=== PATIENT | male | born 1935 | race Caucasian/White ===

== ENCOUNTER 2023-05-22 15:30 | Inpatient (IN) | payer MEDICARE, MEDICAID, SELFPAY ==
--- NOTE | ~2023-05-22 | CT_ITS ---
EXAMINATION: CT HEAD WITHOUT CONTRAST CLINICAL INFORMATION: Cognitive impairment. COMPARISON: CT head from 05/23/2023. TECHNIQUE: Contiguous axial imaging was performed from the skull base to vertex without intravenous administration of contrast. This CT examination was performed using dose optimization techniques as appropriate, variously including the following: *Automated exposure control. *Adjustment of mA and/or kV according to patient size (this includes techniques or standardized protocols for targeted exams where dose is matched to indication/reason for exam; i.e. extremities or head). *Use of iterative reconstruction technique. DLP: 711 mGy-cm FINDINGS: There is no evidence of acute intracranial hemorrhage or edematous territorial infarction. Jim-white matter differentiation is preserved. A few foci of hypoattenuation in the periventricular and deep white matter are consistent with mild microangiopathy. Proportional prominence of the ventricles and sulcal spaces without evidence of obstructive hydrocephalus. No abnormal mass effect or midline shift. No extra-axial fluid collections. No acute soft tissue or osseous abnormalities. Mild mucosal thickening of the paranasal sinuses. The mastoid air cells and middle ear cavities are clear. Bilateral lens extractions. CT/CT head/brain wo IV con IMPRESSION: 1. No evidence of acute intracranial hemorrhage or edematous territorial infarction. 2. Mild underlying microangiopathy and generalized cerebral volume loss.
[2023-05-22 15:35] VITALS: BP 141/64; PULSE 86; RESP 16; TEMP 36.9; O2SAT 100; BMI 18.5
--- NOTE | 2023-05-22 15:42 | ED_ITS ---
HPI - General Adult General Chief complaint: Altered Mental Status Stated complaint: Hallucinations? Time Seen by Provider: 05/22/23 23:29 Source: family Mode of arrival: ambulatory Limitations: altered mental status History of Present Illness HPI narrative: Patient 87 years old with history of hypothyroidism and hypertension lives alone [place] brought by his granddaughter as patient is increasingly gastric confused and hallucinating the nighttime and not eating much not able to sleep for last 2 days no diagnosis of dementia in the past has not seen any psychiatrist or PCP lately no head injury no fever no chills Related Data Home Medications Medication Instructions Recorded Confirmed levothyroxine 88 mcg tablet 88 mcg PO DAILY 05/23/23 05/23/23 lisinopril 10 mg tablet 10 mg PO DAILY 05/23/23 05/23/23 Allergies Allergy/AdvReac Type Severity Reaction Status Date / Time No Known Allergies Allergy Verified 05/22/23 15:41 Review of Systems 2 Review of Systems: Yes all other systems are reviewed and are negative [facility] Social History Social History Smoked in Last 30 Days: No Use of substances other than those prescribed or required for medical reasons: No Advance Directives: No Advance Directives Information Provided: No Physical Exam ED Vital Signs: Vital Signs - 24 hr 05/22/23 15:35 05/22/23 23:05 05/23/23 01:08 Temperature 98.4 F 98.7 F Pulse Rate 86 84 73 Respiratory Rate 16 16 16 Blood Pressure 141/64 H 177/86 H 135/60 Pulse Oximetry 100 100 Oxygen Delivery Method Room Air Room Air Room Air 05/23/23 05:39 05/23/23 07:37 05/23/23 12:02 Temperature 97.7 F Pulse Rate 88 94 101 H Respiratory Rate 16 18 22 H Blood Pressure 172/91 H 178/88 H 164/93 H Pulse Oximetry 95 96 97 Oxygen Delivery Method Room Air Room Air Room Air BMI result Body Mass Index 18.5 Appearance: Alert. And awake x 2 No acute distress. Eyes: PERRLA, No Nystagmus ENT: Pharynx normal. Oral Mucosa moist Neck: Normal inspection. Neck supple. CVS: Normal heart rate and rhythm. Pulses normal. Respiratory: No respiratory distress. Equal air entry bilateral, no wheezing/rales/rhonchi Abdomen: Soft and nontender. Bowel sounds are present, no mass palpable, no CVA tenderness Skin: Skin warm and dry. Normal skin color. Normal skin turgor. Extremities: No lower extremity edema. No calf tenderness Neuro: Oriented X 2-3. No motor deficit. No sensory deficit.No cerebellar signs , cranial nerves II-XII intact Course Course Course Narrative: RME: 87 yold male brought by [facility] for hallucinations, foregetfullness, paranoid, and feeling things for 1 weeks and a half. Granddaughter met patient in [facility] last Week. [facility] states patient's neighbor states patient has been having this symptoms for the past 6 to 12 months. Labs ordered. Negative for neurodeficits. Medications Administered Generic Name Dose Route Start Last Admin Trade Name Freq PRN Reason Stop Dose Admin Levothyroxine Sodium 88 mcg 05/23/23 07:30 05/23/23 07:34 Levothyroxine Sodium 88 Mcg Tablet PO 88 mcg DAILY@0600 COUNT INCLUDES THE [facility] Administration Lisinopril 10 mg 05/23/23 09:00 05/23/23 07:34 Lisinopril 10 Mg Tablet PO 10 mg DAILY TYRONE Administration Protocol Discontinued Medications Generic Name Dose Route Start Last Admin Trade Name Freq PRN Reason Stop Dose Admin Lorazepam 2 mg 05/23/23 01:55 05/23/23 02:01 Lorazepam 1 Mg Tablet PO 05/23/23 01:56 2 mg ONCE ONE Administration Olanzapine 5 mg 05/22/23 23:41 05/23/23 00:00 Olanzapine 5 Mg Tablet PO 05/22/23 23:42 5 mg ONCE ONE Administration Medical Decision Making Medical Decision Making [facility] Narrative: 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 Labs are stable except for anemia. Will get head CT scan plan to get a care team see the patient for evaluation. Will give Zyprexa for paranoid and sleep family is not sure yet whether they want him prison Differential Diagnosis Differential Diagnoses: The differential diagnosis associated with the presentation includes Dementia with psychosis/metabolic encephalopathy/dementia/JESSE Lab Data [facility] Lab Attestation statement: I reviewed the patient's lab results. 05/22/23 17:31 05/22/23 17:31 Labs: Lab Results 10/08/23 10/08/23 10/08/23 Range/Units 17:27 17:31 23:49 WBC 4.6 L (4.8-10.8) X10*3/uL RBC 3.16 L (4.60-5.80) X10*6/uL Hgb 8.8 L (14.0-18.0) g/dl Hct 27.1 L (42.0-52.0) % MCV 85.8 (80.0-98.0) fL MCH 27.8 (27.0-33.0) pg MCHC 32.5 (31.0-36.0) g/dl RDW 15.4 (11.0-16.0) % Plt Count 178 (160-400) X10*3/uL MPV 9.8 (9.4-12.4) fL Immature Gran % (Auto) 0.2 (0.0-0.4) % Neut % (Auto) 67.0 (45-73) % Lymph % (Auto) 20.5 (20-40) % [place] % (Auto) 9.7 (2-11) % Eos % (Auto) 1.7 (0-4) % Baso % (Auto) 0.9 (0-2) % Lymph # (Auto) 1.0 L (1.2-4.9) X10*3/uL [place] # (Auto) 0.5 (0.1-1.2) X10*3/uL Eos # (Auto) 0.1 (0.0-0.4) X10*3/uL Baso # (Auto) 0.0 (0.0-0.2) X10*3/uL Abs Immat Gran (auto) 0.01 (0.00-0.03) X10*3/uL Absolute Neuts (auto) 3.1 (2.0-8.3) x10*3/uL Absolute Nucleated RBC 0.000 (0.0-0.012) X10*3/uL Nucleated RBC % (auto) 0.0 (0.0-0.2) /100WBC Sodium 137 (135-145) mmol/L Potassium 3.9 (3.3-5.1) mmol/L Chloride 102 (96-108) mmol/L Carbon Dioxide 26 (22-29) mmol/L Anion Gap 13 (12-20) BUN 21 H (9-16) mg/dL Creatinine 0.81 (0.5-1.4) mg/dL Estim Creat Clear Calc 43.5 Estimated GFR > 60 Random Glucose 88 (60-115) mg/dL Calcium 9.5 (8.4-10.2) mg/dL Iron 49 (45-160) mcg/dL TIBC 209 L (228-428) mcg/dL % Saturation 23 (15-50) % Unsat Iron Binding 160 ug/dL Total Bilirubin 0.6 (0.0-1.0) mg/dL AST 18 (5-37) U/L ALT 10 (0-40) U/L Alkaline Phosphatase 65 (39-117) U/L Ammonia 20 (13-55) umol/L Total Protein 6.3 L (6.5-8.0) g/dL Albumin 3.6 (3.5-5.0) g/dL Vitamin B12 492 (200-900) pg/mL Folate 9.3 (> or = 4.0) ng/mL TSH 24.38 H (0.32-4.0) uIU/mL Urine Color Urine Appearance Urine pH (5.0-9.0) Ur Specific [place] (1.005-1.025) Urine Protein (Neg-Trace) mg/dL Urine Glucose (UA) (Negative) mg/dL Urine Ketones (Negative) mg/dL Urine Blood (Negative) Urine Nitrite (Negative) Ur Leukocyte Esterase (Negative) COVID-19 (EZEQUIEL) Negative (Negative) COVID-19 Clin Com See Note 05/23/23 Range/Units 00:24 WBC (4.8-10.8) X10*3/uL RBC (4.60-5.80) X10*6/uL Hgb (14.0-18.0) g/dl Hct (42.0-52.0) % MCV (80.0-98.0) fL MCH (27.0-33.0) pg MCHC (31.0-36.0) g/dl RDW (11.0-16.0) % Plt Count (160-400) X10*3/uL MPV (9.4-12.4) fL Immature Gran % (Auto) (0.0-0.4) % Neut % (Auto) (45-73) % Lymph % (Auto) (20-40) % [place] % (Auto) (2-11) % Eos % (Auto) (0-4) % Baso % (Auto) (0-2) % Lymph # (Auto) (1.2-4.9) X10*3/uL [place] # (Auto) (0.1-1.2) X10*3/uL Eos # (Auto) (0.0-0.4) X10*3/uL Baso # (Auto) (0.0-0.2) X10*3/uL Abs Immat Gran (auto) (0.00-0.03) X10*3/uL Absolute Neuts (auto) (2.0-8.3) x10*3/uL Absolute Nucleated RBC (0.0-0.012) X10*3/uL Nucleated RBC % (auto) (0.0-0.2) /100WBC Sodium (135-145) mmol/L Potassium (3.3-5.1) mmol/L Chloride (96-108) mmol/L Carbon Dioxide (22-29) mmol/L Anion Gap (12-20) BUN (9-16) mg/dL Creatinine (0.5-1.4) mg/dL Estim Creat Clear Calc Estimated GFR Random Glucose (60-115) mg/dL Calcium (8.4-10.2) mg/dL Iron (45-160) mcg/dL TIBC (228-428) mcg/dL % Saturation (15-50) % Unsat Iron Binding ug/dL Total Bilirubin (0.0-1.0) mg/dL AST (5-37) U/L ALT (0-40) U/L Alkaline Phosphatase (39-117) U/L Ammonia (13-55) umol/L Total Protein (6.5-8.0) g/dL Albumin (3.5-5.0) g/dL Vitamin B12 (200-900) pg/mL Folate (> or = 4.0) ng/mL TSH (0.32-4.0) uIU/mL Urine Color Yellow Urine Appearance Clear Urine pH 7.0 (5.0-9.0) Ur Specific [place] 1.010 (1.005-1.025) Urine Protein Negative (Neg-Trace) mg/dL Urine Glucose (UA) Negative (Negative) mg/dL Urine Ketones Negative (Negative) mg/dL Urine Blood Negative (Negative) Urine Nitrite Negative (Negative) Ur Leukocyte Esterase Negative (Negative) COVID-19 (EZEQUIEL) (Negative) COVID-19 Clin Com Radiology Impression Discussion of test interpretation with radiology: I have reviewed the radiologist's reading. Radiologist Impression: CT/CT head/brain wo IV con IMPRESSION: No acute intracranial pathology. Discharge Plan Discharge Clinical Impression: Dementia with psychosis, Anemia of chronic disease Patient Disposition: Still a Patient Prescriptions: No Action levothyroxine 88 mcg Tablet 88 mcg PO DAILY lisinopril 10 mg Tablet 10 mg PO DAILY
[2023-05-22 17:53] LABS: Alanine Aminotransferase 10 U/L (0-40); Albumin Level 3.6 g/dL (3.5-5.0); Alkaline Phosphatase 65 U/L (39-117); Anion Gap 13 (12-20); Aspartate Amino Transferase 18 U/L (5-37); Bilirubin Total 0.6 mg/dL (0.0-1.0); Blood Urea Nitrogen 21 mg/dL (9-16); Calcium 9.5 mg/dL (8.4-10.2); Carbon Dioxide 26 mmol/L (22-29); Chloride 102 mmol/L (96-108); Creatinine Clr Calc Pharmacy 43.5; Estimated Glomerular Filt Rate > 60; Glucose Random 88 mg/dL (60-115); Potassium 3.9 mmol/L (3.3-5.1); Sodium 137 mmol/L (135-145); Total Protein 6.3 g/dL (6.5-8.0)
[2023-05-22 23:05] VITALS: BP 177/86; PULSE 84; RESP 16; TEMP 37.1
[2023-05-22 23:52] LABS: Iron 49 mcg/dL (45-160); Percent Iron Saturation 23 % (15-50); Total Iron Binding Capacity 209 mcg/dL (228-428); Unsaturated Iron Binding 160 ug/dL
[2023-05-23] VITALS (9 sets, daily range): BP systolic 135–178; BP diastolic 56–93; PULSE 73–104; RESP 16–22; TEMP 36.5; O2SAT 94–100
[2023-05-23 00:12] LABS: Thyroid Stimulating Hormone 24.38 uIU/mL (0.32-4.0)
--- NOTE | 2023-05-23 08:08 | PC.NURSE ---
patient resting in bed, respirations equal and unlabored. took morning medications with apple sauce and water. ciro BENNETT at bedside, patient repositioned in bed
--- NOTE | 2023-05-23 13:53 | PM.PSYCN ---
History of Present Illness Date of Service: 05/22/2023 Chief Complaint: Hallucinations? HPI Narrative: Shaye is an 87-year-old [place], gentleman who was brought over from [place] by his granddaughter 2 weeks ago and has been living with his son and [id number]. In the past year he has been exhibiting signs of dementia, auditory and visual hallucinations. He has been eating and sleeping adequately. He is on no medications. He was brought to the emergency room because of concerns about his current mental state and deterioration. Available records were reviewed. No medical findings other than the mental status with regards to dementia and psychotic symptoms. No dangerous behaviors reported Past Psychiatric History: Unknown Reviewed Personal & Social History: Unobtainable Review of Systems Review of Systems Yes Unobtainable due to mental status PMFSH Social History: He lives in [place] and is currently staying with his son and [id number] Substance History: Not known Diagnostics Vital Signs (24Hr): Vital Signs - 24 hr 05/22/23 15:35 05/22/23 23:05 05/23/23 01:08 Temperature 98.4 F 98.7 F Pulse Rate 86 84 73 Respiratory Rate 16 16 16 Blood Pressure 141/64 H 177/86 H 135/60 Pulse Oximetry 100 100 Oxygen Delivery Method Room Air Room Air Room Air 05/23/23 05:39 05/23/23 07:37 05/23/23 12:02 Temperature 97.7 F Pulse Rate 88 94 101 H Respiratory Rate 16 18 22 H Blood Pressure 172/91 H 178/88 H 164/93 H Pulse Oximetry 95 96 97 Oxygen Delivery Method Room Air Room Air Room Air BMI result Body Mass Index 18.5 Labs 05/22/23 17:31 05/22/23 17:31 Labs: Laboratory Results - last 48 hr 05/22/23 05/22/23 05/22/23 17:27 17:31 23:49 WBC 4.6 L RBC 3.16 L Hgb 8.8 L Hct 27.1 L MCV 85.8 MCH 27.8 MCHC 32.5 RDW 15.4 Plt Count 178 MPV 9.8 Immature Gran % (Auto) 0.2 Neut % (Auto) 67.0 Lymph % (Auto) 20.5 [place] % (Auto) 9.7 Eos % (Auto) 1.7 Baso % (Auto) 0.9 Lymph # (Auto) 1.0 L [place] # (Auto) 0.5 Eos # (Auto) 0.1 Baso # (Auto) 0.0 Abs Immat Gran (auto) 0.01 Absolute Neuts (auto) 3.1 Absolute Nucleated RBC 0.000 Nucleated RBC % (auto) 0.0 Sodium 137 Potassium 3.9 Chloride 102 Carbon Dioxide 26 Anion Gap 13 BUN 21 H Creatinine 0.81 Estim Creat Clear Calc 43.5 Estimated GFR > 60 Random Glucose 88 Calcium 9.5 Iron 49 TIBC 209 L % Saturation 23 Unsat Iron Binding 160 Total Bilirubin 0.6 AST 18 ALT 10 Alkaline Phosphatase 65 Ammonia 20 Total Protein 6.3 L Albumin 3.6 Vitamin B12 492 Folate 9.3 TSH 24.38 H Urine Color Urine Appearance Urine pH Ur Specific [place] Urine Protein Urine Glucose (UA) Urine Ketones Urine Blood Urine Nitrite Ur Leukocyte Esterase COVID-19 (EZEQUIEL) Negative COVID-19 Clin Com See Note 05/23/23 00:24 WBC RBC Hgb Hct MCV MCH MCHC RDW Plt Count MPV Immature Gran % (Auto) Neut % (Auto) Lymph % (Auto) [place] % (Auto) Eos % (Auto) Baso % (Auto) Lymph # (Auto) [place] # (Auto) Eos # (Auto) Baso # (Auto) Abs Immat Gran (auto) Absolute Neuts (auto) Absolute Nucleated RBC Nucleated RBC % (auto) Sodium Potassium Chloride Carbon Dioxide Anion Gap BUN Creatinine Estim Creat Clear Calc Estimated GFR Random Glucose Calcium Iron TIBC % Saturation Unsat Iron Binding Total Bilirubin AST ALT Alkaline Phosphatase Ammonia Total Protein Albumin Vitamin B12 Folate TSH Urine Color Yellow Urine Appearance Clear Urine pH 7.0 Ur Specific [place] 1.010 Urine Protein Negative Urine Glucose (UA) Negative Urine Ketones Negative Urine Blood Negative Urine Nitrite Negative Ur Leukocyte Esterase Negative COVID-19 (EZEQUIEL) COVID-19 Clin Com Imaging Radiology Impressions: ITS Impressions Chest X-Ray 05/22/23 16:24 IMPRESSION: Right apical pleural thickening and parenchymal scarring likely chronic changes. There is a right paramediastinal/superior mediastinal soft tissue density question mass. Recommend CT chest for correlation. Head CT 05/23/23 00:42 IMPRESSION: No acute intracranial pathology. Mental Status Exam Mental Status Exam Narrative: Patient was seen in the emergency room. He is laying on his bed, talking, moving his hand and gesticulating. He is not able to answer any questions even with a Yi speaking person. He appears to be having psychotic symptoms. Medications Medications Current Medications Levothyroxine Sodium (Levothyroxine Sodium 88 Mcg Tablet) 88 mcg PO DAILY@0600 [facility] Last Admin: 05/23/23 07:34 Dose: 88 mcg Lisinopril (Lisinopril 10 Mg Tablet) 10 mg PO DAILY [facility]; Protocol Last Admin: 05/23/23 07:34 Dose: 10 mg Allergies Allergies Allergy/AdvReac Type Severity Reaction Status Date / Time No Known Allergies Allergy Verified 05/22/23 15:41 Assessment & Plan Assessment & Plan (1) Dementia with psychosis: Status: Acute Code(s): F03.92 - Unspecified dementia, unspecified severity, with psychotic disturbance Plan Based on history and current presentation a geropsych admission appears to be appropriate. There are no available beds on our unit at this time. He was given Zyprexa last evening which left him a little more agitated and disorganized. My suggestion would be to use Risperdal 1 mg b.i.d. and Thorazine 25 mg q.h.s. p.r.n. for sleep Total time managing care of this patient today ____ minutes.
--- NOTE | 2023-05-23 15:09 | PC.NURSE ---
patient resting in bed, does not appear to be in any distress. patient mumbling to himself, family states its latvian but does not make sense. inpt psych evaluated pt placed med order, medicated per OCT. patient takes meds best with apple sauce or pudding with water. patient respirations equal and unlabored.
--- NOTE | 2023-05-23 18:32 | PC.NURSE ---
patient sleeping in bed, VSS respirations equal and unlabored. patient seems less agitated no long talking / mumbling to self.
--- NOTE | 2023-05-23 20:53 | PC.NURSE ---
assumed care of patient at 1900 pt resting comfortably on stretcher in no apparent distress on rn cardiac cath vital signs stable. call kimbrough within reach. plan of care ongoing
--- NOTE | 2023-05-23 21:47 | PC.NURSE ---
pt took bedtime medications whole with pudding no issues. pt repositioned in bed. provided new blankets. needs met. call kimbrough within reach. plan of care ongoing
--- NOTE | 2023-05-23 23:51 | PC.NURSE ---
pt appeared agitated tossing and turning in bed. senior interactive developer called. needs met. pt denies pain. provided water for thirst but denied wanting any food. warm blanket given. plan of care ongoing
[2023-05-24 05:53] VITALS: RESP 16
[2023-05-24 06:39] VITALS: BP 152/68; PULSE 88; RESP 16; TEMP 36.6; O2SAT 96
--- NOTE | 2023-05-24 08:57 | PC.NURSE ---
pt with delayed swallowing during nursing bedside swallow eval, pt with difficulty following direction d/t ? dementia. pt fully conscious, granddaughter at bedsisde reports same at home. meds in pudding per overnight staff
[2023-05-24 10:36] VITALS: BP 146/60; PULSE 83; RESP 16; O2SAT 98
--- NOTE | 2023-05-24 10:42 | PC.NURSE ---
daughter at bedside, informed daughter and pt using executive producer services of plan of care, plan for pt to be seen by speech/swallow. pt able to report he does have some difficulty swallowing. pt accepted PO meds in pudding well.
--- NOTE | 2023-05-24 11:48 | PM.PSYCN ---
History of Present Illness Date of Service: 05/24/2023 Chief Complaint: Hallucinations? Reason for Consult: combative behaviors Requesting physician: Justus Riley Discussed with referring provider: Yes Sources of Information: patient interviewed, chart reviewed and crisis/core team assessment reviewed HPI Narrative: Mr. Chapman is a 87 year-old male with Dementia who was brought to [facility] due to increase paranoia, increase forgetfulness, not oriented. Pt was brought from [place] two weeks ago as neighbors alerted family here in [place] about his memory impairments and paranoia. In the ED, utox was negative. Head CT showed atrophy. CBC normocytic anemia. CMP- no electrolyte abnormality, Cr. 0.81, BUN slightly elevated 21, creatinine clearance 43.5. TSH elevated 24.38 on levothyroxine. B12 >400, Folate >4. Pt started on thorazine 25mg po qhs and risperidone 1mg po BID. Pt appears somewhat sedated. He has been taking medications as prescribed. No IM last night, no increase agitation. Pt seen with ciro by bedside. Pt pleasant but somnolent. He reports he does not know place. he reports is year 85. then patient starts counting 86, 87, 89, 99, 100! He reports month is October. He reports they gave me a letter. He reports being tired. His ability to understand information given seems very limited. Granddaughter reports at times he does not recognize who she is. He apparently has not been dx with dementia. Past Psychiatric History: Unknown PMFSH Social History: He lives in [place] and is currently staying with his son and [id number] Diagnostics Vital Signs (24Hr): Vital Signs - 24 hr 05/23/23 12:02 05/23/23 14:17 05/23/23 16:01 Temperature Pulse Rate 101 H 102 H 101 H Respiratory Rate 22 H 16 20 Blood Pressure 164/93 H 168/77 H 136/73 Pulse Oximetry 97 95 95 Oxygen Delivery Method Room Air Room Air Room Air 05/23/23 18:03 05/23/23 21:48 05/23/23 22:00 Temperature Pulse Rate 104 H 100 103 H Respiratory Rate 18 20 18 Blood Pressure 146/73 H 142/61 H 148/56 H Pulse Oximetry 96 97 94 Oxygen Delivery Method Room Air Room Air Room Air 05/24/23 05:53 05/24/23 06:39 05/24/23 10:36 Temperature 98 F Pulse Rate 88 83 Respiratory Rate 16 16 16 Blood Pressure 152/68 H 146/60 H Pulse Oximetry 96 98 Oxygen Delivery Method Room Air Room Air BMI result Body Mass Index 18.5 Labs 05/24/23 12:55 05/22/23 17:31 Labs: Laboratory Results - last 48 hr 05/22/23 05/22/23 05/22/23 17:27 17:31 23:49 WBC 4.6 L RBC 3.16 L Hgb 8.8 L Hct 27.1 L MCV 85.8 MCH 27.8 MCHC 32.5 RDW 15.4 Plt Count 178 MPV 9.8 Immature Gran % (Auto) 0.2 Neut % (Auto) 67.0 Lymph % (Auto) 20.5 [place] % (Auto) 9.7 Eos % (Auto) 1.7 Baso % (Auto) 0.9 Lymph # (Auto) 1.0 L [place] # (Auto) 0.5 Eos # (Auto) 0.1 Baso # (Auto) 0.0 Abs Immat Gran (auto) 0.01 Absolute Neuts (auto) 3.1 Absolute Nucleated RBC 0.000 Nucleated RBC % (auto) 0.0 Sodium 137 Potassium 3.9 Chloride 102 Carbon Dioxide 26 Anion Gap 13 BUN 21 H Creatinine 0.81 Estim Creat Clear Calc 43.5 Estimated GFR > 60 Random Glucose 88 Calcium 9.5 Iron 49 TIBC 209 L % Saturation 23 Unsat Iron Binding 160 Total Bilirubin 0.6 AST 18 ALT 10 Alkaline Phosphatase 65 Ammonia 20 Total Protein 6.3 L Albumin 3.6 Vitamin B12 492 Folate 9.3 TSH 24.38 H Urine Color Urine Appearance Urine pH Ur Specific [place] Urine Protein Urine Glucose (UA) Urine Ketones Urine Blood Urine Nitrite Ur Leukocyte Esterase COVID-19 (EZEQUIEL) Negative COVID-19 Clin Com See Note 05/23/23 00:24 WBC RBC Hgb Hct MCV MCH MCHC RDW Plt Count MPV Immature Gran % (Auto) Neut % (Auto) Lymph % (Auto) [place] % (Auto) Eos % (Auto) Baso % (Auto) Lymph # (Auto) [place] # (Auto) Eos # (Auto) Baso # (Auto) Abs Immat Gran (auto) Absolute Neuts (auto) Absolute Nucleated RBC Nucleated RBC % (auto) Sodium Potassium Chloride Carbon Dioxide Anion Gap BUN Creatinine Estim Creat Clear Calc Estimated GFR Random Glucose Calcium Iron TIBC % Saturation Unsat Iron Binding Total Bilirubin AST ALT Alkaline Phosphatase Ammonia Total Protein Albumin Vitamin B12 Folate TSH Urine Color Yellow Urine Appearance Clear Urine pH 7.0 Ur Specific [place] 1.010 Urine Protein Negative Urine Glucose (UA) Negative Urine Ketones Negative Urine Blood Negative Urine Nitrite Negative Ur Leukocyte Esterase Negative COVID-19 (EZEQUIEL) COVID-19 Clin Com Imaging Radiology Impressions: ITS Impressions Chest X-Ray 05/22/23 16:24 IMPRESSION: Right apical pleural thickening and parenchymal scarring likely chronic changes. There is a right paramediastinal/superior mediastinal soft tissue density question mass. Recommend CT chest for correlation. Head CT 05/23/23 00:42 IMPRESSION: No acute intracranial pathology. Mental Status Exam Mental Status Exam Narrative: Appearance:thin, cachectic male, wearing hospital gown, in NAD behavior:somnolent but pleasant when opened his eyes Psychomotor: no agitation or retardation noted Speech:mumbles at times but some clear words, regular rate/rhythm, soft tone, spontaneous TP:confabulation, TC:unintelligible Mood: tired Affect:congruent SI:none HI:none VH/AH:no signs at Delusions: Insight/judgment: memory/cog: alert, only to self. Not oriented to place, situation, month or year. Medications Medications Current Medications Chlorpromazine HCl (Chlorpromazine Hcl 25 Mg Tablet) 25 mg PO BEDTIME [facility] Last Admin: 05/23/23 21:23 Dose: 25 mg Levothyroxine Sodium (Levothyroxine Sodium 88 Mcg Tablet) 88 mcg PO DAILY@0600 [facility] Last Admin: 05/24/23 06:33 Dose: 88 mcg Lisinopril (Lisinopril 10 Mg Tablet) 10 mg PO DAILY [facility]; Protocol Last Admin: 05/24/23 10:36 Dose: 10 mg Risperidone (Risperidone 1 Mg Tablet) 1 mg PO BID [facility] Last Admin: 05/24/23 10:37 Dose: 1 mg Allergies Allergies Allergy/AdvReac Type Severity Reaction Status Date / Time No Known Allergies Allergy Verified 05/22/23 15:41 Assessment & Plan Assessment & Plan (1) Major neurocognitive disorder due to multiple etiologies with behavioral disturbance: Status: Acute Code(s): F02.818 - Dementia in other diseases classified elsewhere, unspecified severity, with other behavioral disturbance Plan Mr. Chapman is a 87 year-old male with Dementia, probably multifactorial who was brought from [place] 2 weeks ago due to increase paranoia, not sleeping, increase confusion. Pt does not appear particularly delirious in that his attention is fairly intact although he is somnolent (probably due to medications). Pt not oriented to place, situation, year or month. He appears to have advanced dementia. He has been having difficulty swallowing, speech therapy ordered for swallowing eval. Will decrease risperidone to 0.5mg po BID, d/c thorazine (anticholinergic), add remeron 15mg po qhs for sleep. PLAN 1. Lower risperidone to 0.5mg po BID. dc thorazine due to anticholigergic s/e (increase confusion/over sedation)and alpha-adrenergic properties more likely to cause ortho HOTN. Will add remeron 15mg po qhs- for sleep, may help with appetite as well as pt malnourished. 2. Pt would benefit from dee inpatient psych for further monitoring of medications, efficacy and s/e Total time managing care of this patient today ____ minutes.
--- NOTE | 2023-05-24 15:36 | MHC.SL.SWA ---
Speech Pathologist Impression: Within Functional Limits Risk of Aspiration Due to: Lethargy Neurological Condition Poor PO Intake Reduced Cognition Dysphasia Diet Status: Assess cognition/memory in Maltese tomorrow. Liquid Consistency and Strategies for Safe Swallow: Liquid Intake Recommendation: Thin Liquid Intake Strategies: Small Sips Unrestricted Solid Food Consistency: Dietary Recommendations: Regular Additional Modifications to Solid Foods: Oral Medication Intake: Please contact the pharmacy regarding appropriate crushable or liquid drug formulations that are available whenever modified delivery is recommended. Compensatory Strategies and Precautions to be Taken for Safe Swallow: Sitting Upright (90 deg) Alternate Liquids/Solids Rate of Ingestion Change Supervision While Eating and Drinking for Safe Swallow: Intermittent Supervision Foods to Avoid: Swallowing Recommended Treatments: Compens. Strategy Educat. Recommendation for Speech: Inpatient Speech Therapy Comment: Recommend Regular Solids and Thin Liquids with Medications Whole with Liquids. Intermittent supervision to monitor tolerance. Pt was able to state name and children's names. He stated he was in [place]. He counted to 10 independently. He recalled 8/12 months of the year insequential order. He named x5/5 objects within the room. He is insightful and aware of his deficits. He reports that he recalls things from his early life, but has difficulty with recent information. More formal assessment of language and cognition is warranted if the Pt remains in the Hospital. Frequency/Duration: Date Range for Service Req: Timeline to reassess: PRN Machine Sneller Clinican/Clinical Fellow: Yes Supervisory Statement: I have reviewed and agree with the student/clinical fellow's documentation: No Speech Language Pathologist: Marcos Johnson M.A., CCC-ASSOCIATE RESEARCH SCIENTIST
--- NOTE | 2023-05-24 17:12 | MHC.CARE ---
Patient to remain in the ED, disposition pending. Information sent to Financial to start the agencyQ application process.
--- NOTE | 2023-05-24 17:22 | PC.NURSE ---
pt placed in a hospital bed, continues to attempt to get out of bed. placed on a [employer] Camera system. VMT room aware pt a fall risk.
--- NOTE | 2023-05-24 19:07 | PC.NURSE ---
This RN assumed care at 1900. Patient in bed with family at bedside and camera monitor. Plan of care ongoing
--- NOTE | 2023-05-24 19:57 | PC.NURSE ---
Patient medicated early per family request while family was at bedside. Patient was refusing to take medication but with family encouragement was able to do so. Report given to overflow as patient is more appropriate for overflow.
[2023-05-24 21:57] VITALS: BP 167/69; PULSE 102; RESP 18; TEMP 36.1; O2SAT 97
[2023-05-24 22:00] VITALS: RESP 20
[2023-05-25 06:17] VITALS: BP 141/67; PULSE 96; RESP 16; TEMP 36.1; O2SAT 94
--- NOTE | 2023-05-25 09:54 | PC.NURSE ---
Granddaughter at bedside. Pt remains asleep at this time. Per granddaughter pt having trouble sleeping.
--- NOTE | 2023-05-25 11:27 | PM.PSYCN ---
History of Present Illness Date of Service: 05/25/2023 Chief Complaint: Hallucinations? Reason for Consult: f/u dementia combative behaviors Discussed with referring provider: Yes Sources of Information: patient interviewed, chart reviewed and crisis/core team assessment reviewed Additional Sources of Information: daughter- Rachel [phone] HPI Narrative: Interim Hx: pt received ativan 2mg po last night- it appears he was trying to get up of bed. Pt slept most morning, woke up around 2pm. He is not oriented to place or situation. He is noted to have difficulty identifying objects and their use- such as looking at blanket and not knowing what it was or what to do with it. Pt's thought process however, is someone linear- no loose associations and able to respond to some simple questions appropriately. When asked if he has pain- pt touched his left shoulder reports when he moves it hurt. Pt appears malnourished- underweight and should be seen by nutricionist. May want to consider also PT Monitor his BP- SBP 180's Past Psychiatric History: Unknown Review of Systems Review of Systems Yes all other systems are reviewed and are negative and Unobtainable due to mental status PMFSH Social History: He lives in [place] and is currently staying with his son and [id number] Diagnostics Vital Signs (24Hr): Vital Signs - 24 hr 05/24/23 21:57 05/24/23 22:00 05/25/23 06:17 Temperature 97 F 97 F Pulse Rate 102 H 96 Respiratory Rate 18 20 16 Blood Pressure 167/69 H 141/67 H Pulse Oximetry 97 94 Oxygen Delivery Method Room Air Room Air BMI result Body Mass Index 18.5 Labs 05/24/23 12:55 05/22/23 17:31 Labs: Laboratory Results - last 48 hr 05/24/23 12:55 WBC 7.2 RBC 3.18 L Hgb 8.9 L Hct 27.3 L MCV 85.8 MCH 28.0 MCHC 32.6 RDW 15.9 Plt Count 174 MPV 9.9 Immature Gran % (Auto) Cancelled Neut % (Auto) Cancelled Lymph % (Auto) Cancelled [place] % (Auto) Cancelled Eos % (Auto) Cancelled Baso % (Auto) Cancelled Lymph # (Auto) Cancelled [place] # (Auto) Cancelled Eos # (Auto) Cancelled Baso # (Auto) Cancelled Abs Immat Gran (auto) Cancelled Absolute Neuts (auto) Cancelled Absolute Nucleated RBC 0.000 Nucleated RBC % (auto) 0.0 Neutrophils % (Manual) 91 H Band Neutrophils % 2 L Lymphocytes % (Manual) 6 L Monocytes % (Manual) 1 L Abs Neuts (Manual) 6.7 Lymphocytes # (Manual) 0.4 L Monocytes # (Manual) 0.1 Platelet Estimate NORMAL Plt Morphology Comment NORMAL RBC Morphology NOTED Schistocytes 1+ (0-2) Imaging Radiology Impressions: ITS Impressions Chest X-Ray 05/22/23 16:24 IMPRESSION: Right apical pleural thickening and parenchymal scarring likely chronic changes. There is a right paramediastinal/superior mediastinal soft tissue density question mass. Recommend CT chest for correlation. Head CT 05/23/23 00:42 IMPRESSION: No acute intracranial pathology. Mental Status Exam Mental Status Exam Narrative: Appearance:thin, cachectic male, wearing hospital gown, in NAD behavior:somnolent but pleasant when opened his eyes Psychomotor: no agitation or retardation noted Speech:mumbles at times but some clear words, regular rate/rhythm, soft tone, spontaneous TP:confabulation, TC:unintelligible Mood: tired Affect:congruent SI:none HI:none VH/AH:no signs at Delusions: Insight/judgment: memory/cog: alert, only to self. Not oriented to place, situation, month or year. Medications Medications Current Medications Levothyroxine Sodium (Levothyroxine Sodium 88 Mcg Tablet) 88 mcg PO DAILY@0600 [facility] Last Admin: 05/25/23 05:59 Dose: 88 mcg Lisinopril (Lisinopril 10 Mg Tablet) 10 mg PO DAILY [facility]; Protocol Last Admin: 05/24/23 10:36 Dose: 10 mg Mirtazapine (Mirtazapine 15 Mg Tablet) 15 mg PO BEDTIME [facility] Last Admin: 05/24/23 19:31 Dose: 15 mg Risperidone (Risperidone Oral Gabby 1 Mg/Ml Solution) 0.5 mg PO TID [facility] Allergies Allergies Allergy/AdvReac Type Severity Reaction Status Date / Time No Known Allergies Allergy Verified 05/22/23 15:41 Assessment & Plan Assessment & Plan (1) Major neurocognitive disorder due to multiple etiologies with behavioral disturbance: Status: Acute Code(s): F02.818 - Dementia in other diseases classified elsewhere, unspecified severity, with other behavioral disturbance Plan Mr. Chapman is a 87 year-old male with Dementia, probably multifactorial who was brought from [place] 2 weeks ago due to increase paranoia, not sleeping, increase confusion. Pt does not appear particularly delirious in that his attention is fairly intact although he is somnolent (probably due to medications). Pt not oriented to place, situation, year or month. He appears to have advanced dementia. He has been having difficulty swallowing, speech therapy ordered for swallowing eval. Will decrease risperidone to 0.5mg po BID, d/c thorazine (anticholinergic), add remeron 15mg po qhs for sleep. PLAN 05/25- Pt appears malnourished- underweight and should be seen by nutricionist. -May want to consider also PT -Monitor his BP- SBP 180's- currently on lisinopril -On exam: he does have mild cogwheel bilat- if risperidone is too high potency antipsychotic for Mr. Chapman, may switch to seroquel- however, sedation may increase. Continue to monitor EKG, Qtc<500ms, K>4, Mg>2. Hold antipsychotic if patient over sedated. -If need to give medication for agitation- try not to give more than 1 mg of ativan, can use low dose of olanzapine 2.5mg IM/PO [id number] keep in mind that olanzapine has alpha adrenergic properties that cause orthostatic HOTN. Avoid polypharmacy and be mindful of total doses of antipsychotic or benzo pt has received as cumulative side effects won't be as evident within few hours or receiving medications. AVOID ANTICHOLINERGIC MEDS, and ANTI HISTAMINE meds to manage agitation ---> Recommendation continues to be that pt is transferred to dee psych unit for further management and aftercare planning. Family has expressed that they want pt to return back home with understanding that pt requires 24/7 care and supervision Total time managing care of this patient today ____ minutes.
--- NOTE | 2023-05-25 12:02 | PC.NURSE ---
Pt remains asleep. Family remains by side. States pt hasnt been sleeping well. Will attempt medication admin when awake. Provider aware.
[2023-05-25 13:39] VITALS: BP 184/70; PULSE 96; RESP 16; TEMP 36.6; O2SAT 97
--- NOTE | 2023-05-25 15:15 | PC.NURSE ---
Pt awoken to attempt to eat and give meds.Pt declining most food taking only bites and sips. Difficult to give meds as pt shaking head frequently saying no. Pt cleaned. Granddaughter call and updated on status, will come back to visit this evening. Deena to bedside and updated as well
--- NOTE | 2023-05-25 17:53 | PC.NURSE ---
Pt remains awake but restless. Appears to be hallucinating, reaching for things not there. When spoken to in Swazi pt noted to have periods to respond appropriately and other times appears confused. Declined dinner.
--- NOTE | 2023-05-25 18:44 | PC.NURSE ---
Pt accepted some of dinner on second attempt. Cleaned and repositioned again. Eyes closed at this time
[2023-05-25 21:10] VITALS: BP 173/86; PULSE 100; RESP 16; TEMP 36; O2SAT 98
[2023-05-25] MEDS: risperiDONE Oral Sol 1 MG/ML SOLUTION 0.5 MG PO (21:11)
[2023-05-25] MEDS: Mirtazapine 15 MG TABLET PO (21:11)
--- NOTE | 2023-05-25 21:15 | PC.NURSE ---
Pt medicated per [facility] Plan of care ongoing.
--- NOTE | 2023-05-25 21:56 | PC.NURSE ---
Pt attempting to get out of bed. Pt redirected back into bed. Kami care performed and clean brief placed and gown placed. Pt repositioned in bed for comfort. Bed changed. Plan of care ongoing.
[2023-05-25] MEDS: LORazepam 0.5 MG TABLET PO (22:54)
--- NOTE | 2023-05-25 23:27 | PC.NURSE ---
Pt attempting to get out of bed. Pt repositioned in bed for comfort. Plan of care ongoing.
--- NOTE | 2023-05-26 00:47 | PC.NURSE ---
Pt attempting to get out of bed. [place] cath placed. Pt changed into clean brief. Pt repositioned in bed for comfort. Plan of care ongoing.
[2023-05-26] MEDS: Levothyroxine Sodium 88 MCG TABLET PO (06:01)
--- NOTE | 2023-05-26 06:06 | PC.NURSE ---
Pt medicated per oct. Plan of care ongoing.
[2023-05-26 07:41] VITALS: BP 173/87; PULSE 79; TEMP 35.8; O2SAT 94
[2023-05-26] MEDS: lisinopriL 10 MG TABLET PO (08:37)
[2023-05-26] MEDS: risperiDONE Oral Sol 1 MG/ML SOLUTION 0.5 MG PO ×3 (08:37→20:16)
[2023-05-26 14:34] VITALS: BP 151/72; PULSE 78; RESP 18; TEMP 36.2; O2SAT 100
--- NOTE | 2023-05-26 16:39 | PC.NURSE ---
report received from overnight RN, federal mediation commissioner per OCT. Pt incontinent - blanchable redness noted to buttocks, care provided as needed. Family member at bedside, assisted with bed bath. Offering no complaints, no distress noted. Pt due to be admitted to S1, report given to receiving RN at 1630. Safety precautions remain in place, call kimbrough within reach. Camera and bed alarm for patient safety.
[2023-05-26 20:01] VITALS: BP 155/74; PULSE 93; RESP 20; TEMP 36.1; O2SAT 100
[2023-05-26] MEDS: Melatonin 3 MG TABLET PO (20:16)
[2023-05-26] MEDS: Mirtazapine 15 MG TABLET PO (20:16)
--- NOTE | 2023-05-27 00:33 | PC.NURSE ---
Assumed care pt at 1900. Pt resting in bed quietly needing minor redirection to stay in bed. PT incontinent of urine, cleaned and changed into dry depends provided by family. PT medicated as per mar- pt initially refusing to take meds, with encouragement from Barbadian speaking tech, pt complied. Bed alarm and video monitoring on for safety. Plan of care ongoing.
--- NOTE | 2023-05-27 01:11 | PC.NURSE ---
[facility] nurse reporting that they are unable to take the PT at this time. Due to current status of the [facility] at this time they are unable to manage a 1:1. They will accept pt in the morning. ED Charge nurse aware
--- NOTE | 2023-05-27 01:33 | PM.EVENT ---
Event Note Date of Service: 05/27/23 Event Note: Medical consult for pt with poorly controlled HTN. Will increase lisinopril to 20mg daily. If pt's BP remains elevated, will consider adding another agent. Will follow for now. Time Spent With Patient Time: Total time managing care of this patient today ____ minutes.
[2023-05-27] MEDS: traZODone HCL 50 MG TABLET PO (02:04)
--- NOTE | 2023-05-27 02:28 | PC.NURSE ---
Pt making several attempts to get out of bed. This Rn and OFFICE MACHINES WIRER have attempted to redirect pt several of time. Administered PRN trazadone- pt held in mouth for a period of time and then spit it out at OFFICE MACHINES WIRER. Video monitoring and bed alarm on. Discussed concerns regarding pt's restlessness with provider. awaiting new orders.
[2023-05-27] MEDS: Haloperidol Lactate 5 MG/ML VIAL IM (02:38)
--- NOTE | 2023-05-27 02:46 | PC.NURSE ---
PT medicated as per OCT. This RN and AERONAUTICAL TEST ENGINEER changed pt's soiled brief and repositioned. Bed alarm on,bed locked in lowest position. Video monitoring and AERONAUTICAL TEST ENGINEER sitting at bedside for safety.
--- NOTE | 2023-05-27 04:11 | PC.NURSE ---
Positive effect from Haldol administration noted initially. PT now is awake and attempting to get out of bed. PT needing continuous redirection and reorientation
[2023-05-27] MEDS: Levothyroxine Sodium 88 MCG TABLET PO (05:11)
--- NOTE | 2023-05-27 05:16 | PC.NURSE ---
PT medicated as per MAR pill crushed in pudding. PT swallowed without issue.
[2023-05-27 05:40] VITALS: BP 157/62; PULSE 70; RESP 20; TEMP 36.1; O2SAT 99
--- NOTE | 2023-05-27 07:12 | PC.NURSE ---
assumed care of pt at 0700. report taken from CHIN Dominguez. pt sleeping in hospital bed, rr even/unlabored. blanket given. pt in brief. 1:1 sitter camera for pt safety. pt resting quietly in no apparent distress. it was communicated to this RN that report was given on this pt to dee psych. awaiting transport when dee psych is ready.
--- NOTE | 2023-05-27 08:00 | PC.NURSE ---
this RN called over to dee psych to get an estimate when pt will be picked up to go to unit. receiving RN told this fiction writer that the pt will be picked up after med pass as there is limited staff on unit and this pt needs a 1:1 care/sitter. diet changed to puree due to report from previous RN that pt should not be a regular diet due to swallowing difficulty. it was communicated to this RN that the pt tolerated pudding while taking meds. pt within eyesight of this RN, sleeping comfortably.
[2023-05-27 09:27] VITALS: BP 133/65; PULSE 64; RESP 16; O2SAT 99
[2023-05-27] MEDS: lisinopriL 20 MG TABLET PO (09:31)
[2023-05-27 09:32] LABS: Estimated Average Glucose 105 mg/dL; Hemoglobin A1c % 5.3 % (<6.0)
[2023-05-27] MEDS: risperiDONE Oral Sol 1 MG/ML SOLUTION 0.5 MG PO ×2 (09:34→17:12)
--- NOTE | 2023-05-27 09:41 | MHC.SL.SWA ---
Speech Pathologist Impression: Risk of aspiration, oropharyngeal dysphagia Risk of Aspiration Due to: Lethargy Neurological Condition Poor PO Intake Reduced Cognition Dysphasia Diet Status: DOWNGRADE to NDD1/NTL Liquid Consistency and Strategies for Safe Swallow: Liquid Intake Recommendation: Selz Thick Liquid Intake Strategies: Small Sips No Straws Solid Food Consistency: Dietary Recommendations: Pureed (NDD1) Additional Modifications to Solid Foods: Pt at this time requiring 1:1 assistance feeding. He has had difficulty chewing and swallowing regular textures. Today evidenced cough on thin liquids. Recommend DOWNGRADE to PUREED solids (NDD1) and NECTAR THICK liquids, pills CRUSHED in PUREE. Ensure aspiration precautions. Diet order was updated by DENIAL RESOLUTION SPECIALIST. Notified care team (MD, RN, RD) via [employer] Message. DENIAL RESOLUTION SPECIALIST will continue to follow. Oral Medication Intake: Crushed with Puree Please contact the pharmacy regarding appropriate crushable or liquid drug formulations that are available whenever modified delivery is recommended. Compensatory Strategies and Precautions to be Taken for Safe Swallow: Sitting Upright (90 deg) No Straw Small Bites and Sips Rate of Ingestion Change Oral Check Supervision While Eating and Drinking for Safe Swallow: Total Assistance (1:1) Swallowing Recommended Treatments: Compens. Strategy Educat. Recommendation for Speech: Inpatient Speech Therapy Date Range for Service Req: Timeline to reassess: PRN Vice President Investor Relations Clinican/Clinical Fellow: Yes Supervisory Statement: I have reviewed and agree with the student/clinical fellow's documentation: No Speech Language Pathologist: Carmela Israel M.A., [facility]-DENIAL RESOLUTION SPECIALIST
[2023-05-27 09:45] LABS: Alanine Aminotransferase 11 U/L (0-40); Albumin Level 3.4 g/dL (3.5-5.0); Alkaline Phosphatase 64 U/L (39-117); Anion Gap 14 (12-20); Aspartate Amino Transferase 19 U/L (5-37); Bilirubin Total 1.3 mg/dL (0.0-1.0); Blood Urea Nitrogen 31 mg/dL (9-16); Calcium 9.8 mg/dL (8.4-10.2); Carbon Dioxide 26 mmol/L (22-29); Chloride 104 mmol/L (96-108); Cholesterol 179 mg/dL (<200); Creatinine Clr Calc Pharmacy 46.3; Estimated Glomerular Filt Rate > 60; Glucose Fasting 97 mg/dL (60-99); HDL Cholesterol 66 mg/dL (>40); LDL Cholesterol Calculated 102 mg/dL (<100); Potassium 3.4 mmol/L (3.3-5.1); Sodium 141 mmol/L (135-145); Total Protein 6.5 g/dL (6.5-8.0); Triglycerides 59 mg/dL (<150)
[2023-05-27 10:00] LABS: Thyroid Stimulating Hormone 23.19 uIU/mL (0.32-4.0)
--- NOTE | 2023-05-27 10:04 | PC.NURSE ---
pt family at bedside. speech eval completed and pt diet downgraded to puree with nectar thickened liquids. pt medicated per oct with morning meds. pill crushed and taken with yogurt. pt tolerated well. new breakfast tray at bedside, pt sleeping. family will attempt to feed pt once awake. rr even/unlabored. sitter camera and bed alarm on for pt safety.
[2023-05-27 10:33] LABS: Folate 10.3 ng/mL (> or = 4.0); Vitamin B12 965 pg/mL (200-900)
--- NOTE | 2023-05-27 12:36 | P.HPPS_ITS ---
HPI Date of Service: 05/27/23 Chief Complaint: dementia combative behaviors Sources of Information: patient interviewed, chart reviewed and crisis/core team assessment reviewed HPI Subjective Notes: [place] Warning and Section 12B Narrative: Mr. Chapman is a 87 year-old male with Dementia who was brought to [facility] due to increase paranoia, increase forgetfulness, not oriented. Pt was brought from [place] two weeks ago as neighbors alerted family here in [place] about his memory impairments and paranoia. In the ED, utox was negative. Head CT showed atrophy. CBC normocytic anemia. CMP- no electrolyte abnormality, Cr. 0.81, BUN slightly elevated 21, creatinine clearance 43.5. TSH elevated 24.38 on levothyroxine. B12 >400, Folate >4. On the unit, pt presents as not oriented to place or situation. He points at staff and states that they are waiting for him to arrest him. He presents somewhat agitated as he thinks staff are police. Pt later able to be redirected. Pt with difficulty sleeping, required haldol 5mg IM last night. Past Psychiatric History: Unknown Medical Evaluation Reviewed: Yes PMFSH Social History: He lives in [place] and is currently staying with his son and [id number] Vital Signs (24Hr): Vital Signs - 24 hr 05/26/23 14:34 05/26/23 20:01 05/27/23 05:40 Temperature 97.2 F 96.9 F 96.9 F Pulse Rate 78 93 70 Respiratory Rate 18 20 20 Blood Pressure 151/72 H 155/74 H 157/62 H Pulse Oximetry 100 100 99 Oxygen Delivery Method Room Air Room Air Room Air 05/27/23 09:27 Temperature Pulse Rate 64 Respiratory Rate 16 Blood Pressure 133/65 Pulse Oximetry 99 Oxygen Delivery Method Room Air BMI result Body Mass Index 18.5 Labs 05/24/23 12:55 05/27/23 09:11 Labs: Laboratory Results - last 48 hr 05/27/23 09:11 Sodium 141 Potassium 3.4 Chloride 104 Carbon Dioxide 26 Anion Gap 14 BUN 31 H Creatinine 0.76 Estim Creat Clear Calc 46.3 Estimated GFR > 60 Fasting Glucose 97 Estimat Average Glucose 105 Hemoglobin A1c % 5.3 Calcium 9.8 Total Bilirubin 1.3 H AST 19 ALT 11 Alkaline Phosphatase 64 Total Protein 6.5 Albumin 3.4 L Triglycerides 59 Cholesterol 179 LDL Cholesterol, Calc 102 H HDL Cholesterol 66 Vitamin B12 965 H Folate 10.3 TSH 23.19 H Imaging Radiology Impressions: ITS Impressions Chest X-Ray 05/22/23 16:24 IMPRESSION: Right apical pleural thickening and parenchymal scarring likely chronic changes. There is a right paramediastinal/superior mediastinal soft tissue density question mass. Recommend CT chest for correlation. Head CT 05/23/23 00:42 IMPRESSION: No acute intracranial pathology. Head CT 05/24/23 13:30 IMPRESSION: 1. No evidence of acute intracranial hemorrhage or edematous territorial infarction. 2. Mild underlying microangiopathy and generalized cerebral volume loss. Meds/Allergies Meds Home Medications Medication Instructions Recorded Confirmed Type levothyroxine 88 mcg tablet 88 mcg PO DAILY 05/23/23 05/23/23 History lisinopril 10 mg tablet 10 mg PO DAILY 05/23/23 05/23/23 History Allergies Allergies Allergy/AdvReac Type Severity Reaction Status Date / Time No Known Allergies Allergy Verified 05/22/23 15:41 Mental Status Exam Mental Status Exam Narrative: Appearance:thin, cachectic male, wearing hospital gown, in NAD behavior:somnolent but pleasant when opened his eyes Psychomotor: no agitation or retardation noted Speech:mumbles at times but some clear words, regular rate/rhythm, soft tone, spontaneous TP:confabulation, TC:unintelligible Mood: tired Affect:congruent SI:none HI:none VH/AH:no signs at Delusions: Insight/judgment: memory/cog: alert, only to self. Not oriented to place, situation, month or year. Assessment & Plan Assessment & Plan (1) Major neurocognitive disorder due to multiple etiologies with behavioral disturbance: Status: Acute Code(s): F02.818 - Dementia in other diseases classified elsewhere, unspecified severity, with other behavioral disturbance Plan Mr. Chapman is a 87 year-old male with Dementia, probably multifactorial who was brought from [place] 2 weeks ago due to increase paranoia, not sleeping, increase confusion. Pt does not appear particularly delirious in that his attention is fairly intact although he is somnolent (probably due to medications). Pt not oriented to place, situation, year or month. He appears to have advanced dementia. He has been having difficulty swallowing, speech therapy ordered for swallowing eval. Will decrease risperidone to 0.5mg po BID, d/c thorazine (anticholinergic), add remeron 15mg po qhs for sleep. PLAN 1. Admit to S1, sect 12b, 1 to 1 due to fall risk 2. will change risperidone to seroquel to help with sleep and target combative behaviors. Continue to monitor EKG, Qtc<500ms, K>4, Mg>2. Hold antipsychotic if patient over sedated. 3. Seen by nutricionist. 4. after care planning Patient educated on: diagnosis Reason for continued inpatient stay Substantial Risk for: inability to function Statement Statement: I have reviewed the history and physical and performed a pertinent examination on my patient. No changes have occurred unless specified. If the History and Physical was not performed prior to admission, the Hospitalist's service will be consulted for completing the admission physical. Time Spent With Patient Time: Total time managing care of this patient today ____ minutes.
--- NOTE | 2023-05-27 12:54 | PC.NURSE ---
pt hygiene performed by WILLIAM Anglin. new brief placed on pt for comfort. CHIN Curran picked up pt to bring over to [facility].
--- NOTE | 2023-05-27 13:30 | MHC.CLN ---
NUTRITION PATIENT NOT YET ON UNIT AT TIME OF VISIT. CLINICAL NUTRITION ASSESSMENT TO FOLLOW.
[2023-05-27 13:32] VITALS: BP 101/50; PULSE 73; RESP 16; TEMP 35.9; O2SAT 96
[2023-05-27 13:33] VITALS: BMI 16.6
[2023-05-27 14:35] VITALS: BMI 16.6
--- NOTE | 2023-05-27 14:46 | MHC.CLN ---
NUTRITION DIET=REGULAR, PUREE, NECTAR THICK LIQUIDS. ADDING FORTIFIED ICE CREAM TID TO PROVIDE ADDITIONAL 870 KCALS, 27 G PROTEIN. QUALIFIES MODERATE MALNUTRITION IN THE CONTEXT OF CHRONIC ILLNESS WITH MODERATE DEPLETION OF BODY FAT AND MUSCLE MASS. SKIN: NO OPEN AREAS. LIMITED HISTORY SINCE LIVING IN [place] UNTIL RECENTLY. FOLLOW FOR INTAKE, DIET TOLERANCE, AND WEIGHT.
--- NOTE | 2023-05-27 15:40 | PC.ADMIT ---
Patient admitted to unit from ED overflow at 1255 pm. Transported by to unit on 12B. Patient is dressed in hospital attire and is Czech speaking only. Per his provider who speaks Czech patient is oriented to self only. Patient recently brought to ID from [place] by daughter/grandchild who were informed he was not able to care for himself. Patient was found to be malnourished and covered in urine and feces with altered mental status. Fearfulness and agitation precipitated admission to ED. Patient also has PMH of HTN, Hypothyroidism. No prior psych treatment or diagnosis. Patient was not taking any meds at home. At this time patient extremely weak. Unable to stand unassisted at this time. Swallow eval done and Pureed diet ordered. Patient requires assistance with eating. Meds to be given crushed with puree. Sanya has been placed on 5 minute checks with bed alarm on. At this time patient is sitting at table in dining area interacting minimally with peers.
[2023-05-27 18:00] VITALS: BP 108/52; PULSE 72; RESP 16; TEMP 36.3; O2SAT 98
--- NOTE | 2023-05-27 18:47 | PC.NURSE ---
Flu shot given
--- NOTE | 2023-05-27 18:55 | PC.NURSE ---
Patient with small skin tear above rectum covered with foam dressing.
[2023-05-27] MEDS: Mirtazapine 30 MG TABLET PO (20:39)
[2023-05-27] MEDS: Melatonin 3 MG TABLET PO (20:39)
[2023-05-27] MEDS: QUEtiapine Fumarate 50 MG TABLET PO (20:40)
[2023-05-27 22:00] VITALS: BP 108/52; PULSE 72; RESP 16; TEMP 36.3; O2SAT 98
[2023-05-28] MEDS: Levothyroxine Sodium 88 MCG TABLET PO (06:12)
[2023-05-28 07:45] VITALS: BP 124/56; PULSE 73; RESP 18; TEMP 36.4; O2SAT 99
[2023-05-28] MEDS: Acetaminophen 325 MG TABLET 650 MG PO (08:07)
[2023-05-28] MEDS: Memantine HCl 5 MG TABLET PO (08:09)
[2023-05-28] MEDS: lisinopriL 20 MG TABLET PO (08:09)
[2023-05-28] MEDS: QUEtiapine Fumarate 25 MG TABLET PO (11:55)
--- NOTE | 2023-05-28 14:13 | PM.EVENT ---
Event Note Date of Service: 05/28/23 Event Note: bp now on lower side, will dc lisiopril, reported to have 20cc of hematuria check ua, cbc, monitor Time Spent With Patient Time: Total time managing care of this patient today ____ minutes.
--- NOTE | 2023-05-28 14:47 | PC.NURSE ---
large amount of blood in diaper with foul odor noted, BP 85/47, rechecked kusum BP 100/[address] Miller who referred to Hospitalist Dr Corona, received new orders for straight cath and blood work, will continue to monitor and assess.
[2023-05-28 14:51] LABS: Hemoglobin 9.2 g/dl (14.0-18.0); Mean Corpuscular HGB Conc 32.9 g/dl (31.0-36.0); Mean Corpuscular Hemoglobin 27.5 pg (27.0-33.0); Mean Corpuscular Volume 83.8 fL (80.0-98.0); Mean Platelet Volume 10.7 fL (9.4-12.4); Platelet Count 172 X10*3/uL (160-400); Red Blood Count 3.34 X10*6/uL (4.60-5.80); Red Cell Distribution Width 15.3 % (11.0-16.0); White Blood Count 6.6 X10*3/uL (4.8-10.8)
[2023-05-28 14:55] LABS: Appearance Urine Hazy; Color Urine RED; Glucose Urine UA Negative (Negative); Leukocyte Esterase Urine Large (3+) (Negative); Nitrite Urine Positive (Negative); PH 8.5 (5.0-9.0); UMIC TRIGGER UA YES; Urine Blood Large (3+) (Negative); Urine Ketones Trace mg/dL (Negative); Urine Protein 300 (3+) mg/dL (Neg-Trace)
[2023-05-28 15:02] LABS: Alanine Aminotransferase 11 U/L (0-40); Albumin Level 3.2 g/dL (3.5-5.0); Alkaline Phosphatase 57 U/L (39-117); Anion Gap 17 (12-20); Aspartate Amino Transferase 16 U/L (5-37); Bilirubin Direct 0.4 mg/dL (0.0-0.5); Blood Urea Nitrogen 50 mg/dL (9-16); Calcium 9.5 mg/dL (8.4-10.2); Carbon Dioxide 24 mmol/L (22-29); Chloride 104 mmol/L (96-108); Creatinine Clr Calc Pharmacy 25.2; Estimated Glomerular Filt Rate 55; Glucose Random 118 mg/dL (60-115); Potassium 3.6 mmol/L (3.3-5.1); Sodium 141 mmol/L (135-145)
[2023-05-28 15:10] LABS: Bacteria Urine 4+ (None Seen); RBC Urine >20 /HPF (0-2); Squamous Epithelial Cell Urine 0-2 /HPF (0-2); WBC Urine >50 /HPF (0-5)
--- NOTE | 2023-05-28 15:30 | PM.DS ---
DS: Providers Provider Date of Service: 05/28/23 Date of admission: 05/26/23 14:31 Primary care physician: Unknown Physician DS: Transfer Hospital Acceptance Reason for Transfer: hematuria transfer to [facility] floor DS: Diagnosis Discharge Diagnosis (1) Major neurocognitive disorder due to multiple etiologies with behavioral disturbance: Status: Acute DS: Summary Hospital Course Hospital Course: developed hematuria and hypotension Time spent discussing smoking cessation with patient: 3 to 10 minutes Status at Discharge Overall status at discharge: other (hematuria transfer to [facility] floor) Time Spent with Patient Time attestation: Total time managing care of this patient today ____ minutes. Discharge coordination time: Less than 30 minutes Quality: Safe Use of Opioids Does Pt have an Active Cancer Diagnosis on the Problem List?: No Quality: Stroke Does the patient have a stroke diagnosis?: No Physical Exam Vital Signs: Vital Signs: Last Vital Signs Temp 97.5 F 05/28/23 07:45 Pulse 73 05/28/23 07:45 Resp 18 05/28/23 07:45 BP 124/56 L 05/28/23 07:45 Pulse Ox 99 05/28/23 07:45 O2 Del Method Room Air 05/28/23 07:45 BMI result Body Mass Index 16.6 DS: Data Data Completed and Pending Labs on day of discharge: Laboratory Results - last 24 hr 05/28/23 05/28/23 14:30 14:40 WBC 6.6 RBC 3.34 L Hgb 9.2 L Hct 28.0 L MCV 83.8 MCH 27.5 MCHC 32.9 RDW 15.3 Plt Count 172 MPV 10.7 Absolute Nucleated RBC 0.000 Nucleated RBC % (auto) 0.0 Sodium 141 Potassium 3.6 Chloride 104 Carbon Dioxide 24 Anion Gap 17 BUN 50 H Creatinine 1.25 Estim Creat Clear Calc 25.2 Estimated GFR 55 Random Glucose 118 H Calcium 9.5 Total Bilirubin 1.0 Direct Bilirubin 0.4 AST 16 ALT 11 Alkaline Phosphatase 57 Total Protein 6.0 L Albumin 3.2 L Urine Color RED Urine Appearance Hazy Urine pH 8.5 Ur Specific [place] 1.010 Urine Protein 300 (3+) H Urine Glucose (UA) Negative Urine Ketones Trace Urine Blood Large (3+) H Urine Nitrite Positive H Ur Leukocyte Esterase Large (3+) H Urine RBC >20 H Urine WBC >50 H Ur Squamous Epith Cells 0-2 Urine Bacteria 4+ Hyaline Casts 3-5 Discharge Plan Discharge Anticipated Discharge Date/Time: 05/28/23 15:19 Patient Disposition: Xfer Other Discharge Diagnosis: hematuria Referrals: Physician,Unknown J [Primary Care Provider] - 1 Week Discharge Medications: New melatonin 3 mg Tablet 3 mg PO BEDTIME 30 Days Qty: 30 0RF quetiapine 50 mg Tablet 50 mg PO BEDTIME 30 Days Qty: 30 0RF quetiapine 25 mg Tablet 25 mg PO Q6H PRN (Reason: agitation) 60 Days Qty: 60 0RF memantine 5 mg Tablet 5 mg PO DAILY 30 Days Qty: 30 0RF mirtazapine 30 mg Tablet 30 mg PO BEDTIME 30 Days Qty: 30 0RF quetiapine 25 mg Tablet 25 mg PO DAILY@1200 30 Days Qty: 30 0RF Continued levothyroxine 88 mcg Tablet 88 mcg PO DAILY No Action lisinopril 10 mg Tablet 10 mg PO DAILY Discharge Orders: Discharge Order (Routine); Ordered 05/28/23 Ordered By: Jaden Miller Diet: Advance to usual diet Activity on Discharge: 1:1 Stand Alone Forms: Patient Portal Discharge page Activity Restrictions/Additional Instructions: hematuria transfer to med floor Care Plan Goals: med floor transfer Health Concerns: med floor tranfser Plan of Treatment: med floor transfer Assessment: med floor transfer
[2023-05-28 16:01] VITALS: BP 102/56; PULSE 76; RESP 18; TEMP 35.9; O2SAT 99
[2023-05-28 17:15] LABS: Free T4 (Free Thyroxine) 1.14 ng/dL (0.71-1.85)
== END 2023-05-28 18:45 | disposition short-term general hospital (02) | DRG 884 ==
LOC: HO.ED 05-24 20:07 → HO.PGERI 05-26 16:09
PROVIDERS: Internal Medicine; Physician Assistant; Social Worker; Admitting Provider Psychiatry & Neurology Psychiatry; Emergency Provider Internal Medicine; Visit Provider Psychiatry & Neurology Psychiatry
DX: F03.92 Unspecified dementia, unspecified severity, with psychotic disturbance (principal); R64 Cachexia; Z68.1 Body mass index [BMI] 19.9 or less, adult; R31.9 Hematuria, unspecified; I95.9 Hypotension, unspecified; I10 Essential (primary) hypertension; E03.9 Hypothyroidism, unspecified; D63.8 Anemia in other chronic diseases classified elsewhere; Z20.822 Contact with and (suspected) exposure to COVID-19; Z23 Encounter for immunization; Z87.891 Personal history of nicotine dependence; Z79.890 Hormone replacement therapy; Z79.899 Other long term (current) drug therapy
CPT/HCPCS: 36415; 70450; 71045; 80048; 80053; 80061; 80076; 81001; 81003; 82140; 82607; 82746; 83036; 83540; 84439; 84443; 85007; 85025; 85027; 87086; 87088; 87186; 87635; 90686; 92526; 93005; 99285; S9485

== ENCOUNTER → 2023-05-22 23:37 | Outpatient (BNV) | payer MEDICARE, SELFPAY | PROVIDERS: Emergency Provider Internal Medicine; Visit Provider Psychiatry & Neurology Psychiatry | DX: F03.92 Unspecified dementia, unspecified severity, with psychotic disturbance (principal) | CPT/HCPCS: 90792; 99232; 99238; 99282; 99285 ==

== ENCOUNTER 2023-05-28 18:53 | Inpatient (IN) | payer MEDICARE, MEDICAID, SELFPAY ==
--- NOTE | ~2023-05-28 | US_ITS ---
EXAMINATION: US PELVIS LIMITED (BLADDER) CLINICAL INFORMATION: Hematuria. COMPARISON: None available. TECHNIQUE: Real-time imaging of the bladder. FINDINGS: BLADDER: The bladder wall is diffusely thickened. There is a Woodard catheter in the bladder. No bladder stone or mass is seen. Bilateral ureteral jets are not demonstrated. Prevoid bladder volume is 141 mL. Postvoid bladder volume not obtained. US/US bladder IMPRESSION: Diffusely thickened bladder wall. Woodard catheter in the bladder.
--- NOTE | 2023-05-28 16:10 | P.HPHOSP_ITS ---
History of Present Illness Date of Service: 05/28/23 Attending physician on admission: Steve Corona Chief Complaint: malodorous urine, hematuria 79-year-old male with history of hypertension, hypothyroidism, unspecified dementia initially admitted to geriatric psychiatry found to be hypotensive with hematuria and malodorous urine today by nursing staff to be admitted to medicine for further evaluation and management. The patient is unable to provide history secondary to his cognitive impairment and is mumbling nonsensically on exam. According to nursing staff, patient was ambulatory upon arrival but last night was requiring 2 person assist to ambulate. This morning has a marked generalized weakness and is unable to ambulate. Today nursing staff noted a foul odor in his room and upon changing his brief noted about 20 cc of bright red blood with malodorous urine. He was noted to have a blood pressure of 85/47 but when checked manually, blood pressure was 100/54. He was afebrile, vitals otherwise stable. There is no leukocytosis. He has a stable normocytic anemia with H/H 9.2/28%. Creatinine has increased to 1.25, baseline around 0.74, BUN 50. He has had decreased p.o. intake. Urinalysis significant for 3+ blood, 3+ leukocytes, positive nitrites, positive urinary sediment, 4+ bacteria. At baseline pt is A&Ox3 per family. Review of Systems Review of Systems: Yes Unobtainable due to mental condition [facility] Medical History (Updated 05/28/23 @ 16:19 by MONA Holley) Major neurocognitive disorder due to multiple etiologies with behavioral disturbance Hypothyroidism Hypertension Social History Household Members: Family Housing: Apartment Do you presently have visiting nurse or other home services: No Unable to assess alcohol history related to: Unable to respond Patient Tobacco Use Status: Former Tobacco user Second Hand Smoke Exposure: No Advance Directives: No Advance Directives Information Provided: No service: No Sexual orientation: Straight/Heterosexual Meds Allergies Allergy/AdvReac Type Severity Reaction Status Date / Time No Known Allergies Allergy Verified 05/22/23 15:41 Home Medications Medication Instructions Recorded Confirmed Last Taken Type levothyroxine 88 mcg tablet 88 mcg PO DAILY 05/23/23 05/23/23 Unknown History lisinopril 10 mg tablet 10 mg PO DAILY 05/23/23 05/23/23 Unknown History Physical Exam Vital Signs and Narrative: Constitutional - Awake and Alert, No apparent distress Eyes - PERRLA, EOMI Cardiovascular - S1S2, RRR, No edema Respiratory - Normal lung expansion, Normal respiratory effort, No respiratory distress, CTA bilaterally Gastrointestinal - NT / ND; +BS; No rebound or guarding Extremities - no calf tenderness bilaterally, no swelling Skin - Warm/Dry Neurological - Alert & disoriented, mumbling nonsensically Psychological - Appropriate affect Assessment and Plan (1) UTI (urinary tract infection): Status: Acute (2) Acute metabolic encephalopathy: Status: Acute (3) Hematuria: Status: Acute Plan 79-year-old male with history of hypertension, hypothyroidism, unspecified demen tia initially admitted to geriatric psychiatry found to be hypotensive with hematuria and malodorous urine today by nursing staff to be admitted to medicine for further evaluation and management of UTI with gross hematuria, metabolic enephalopathy and weakness. #UTI with acute metabolic encephalopathy -UA with 3+ leukocytes, positive nitrites, 3+ blood, positive urinary sediment, 4+ bacteria -IV ceftriaxone -Woodard catheter, consider CBI if hematuria persists -monitor mentation, major cognitive disorder at baseline per psych but family reports alert and oriented x3 -follow cultures # acute kidney injury-likely prerenal in the setting of poor p.o. intake -creatinine 1.25, baseline 0.74, BUN 50 -continue IVF -avoid nephrotoxins -follow BMP # generalized weakness -secondary to above -PT evaluation # hypertension -hold lisinopril in setting of AUNG -monitor blood pressures # hypothyroidism -TSH 23, likely sick euthyroid -check free T4 -continue levothyroxine 88 mcg DVT prophylaxis-heparin Full code Dispo- will likely need care team consult to return to dee-psych Patient requires inpatient stay at least 2 midnights for management of acute UTI with acute kidney injury and generalized weakness requiring IV fluid resuscitation, IV antibiotics and close monitoring Time Spent With Patient Time: Total time managing care of this patient today ____ minutes. Quality Stroke Does the patient have a stroke diagnosis?: No VTE Prior VTE?: No VTE Risk Level:: Medical - moderate - high VTE Device Contraindication: Treatment Not Indicated VTE Drug Contraindication: N/A - Med Ordered
[2023-05-28] MEDS: cefTRIAXone sodium 1 GM in 0.9 % Sodium Chloride 50 ML IV (19:54)
[2023-05-28] MEDS: 0.9 % Sodium Chloride 1,000 ML 100 ML IVCONT (19:55)
[2023-05-28 20:00] VITALS: BP 114/58; PULSE 75; RESP 20; TEMP 36; O2SAT 98
--- NOTE | 2023-05-28 22:03 | PC.NURSE ---
1900 pt arrived to floor from [facility].IV stared #20 angio in left forearm.NS at 100/hr started and IV Rocephin given.#16FR silva cath inserted draining bloody urine.
[2023-05-28 23:21] VITALS: BMI 16.1
[2023-05-29 03:38] VITALS: BP 100/55; PULSE 70; RESP 16; TEMP 36.4; O2SAT 97
[2023-05-29] MEDS: 0.9 % Sodium Chloride 1,000 ML 100 ML IVCONT ×2 (05:08→19:56)
[2023-05-29 06:50] LABS: Hematocrit 27.2 % (42.0-52.0); Hemoglobin 8.8 g/dl (14.0-18.0); Mean Corpuscular HGB Conc 32.4 g/dl (31.0-36.0); Mean Corpuscular Hemoglobin 27.1 pg (27.0-33.0); Mean Corpuscular Volume 83.7 fL (80.0-98.0); Platelet Count 189 X10*3/uL (160-400); Red Blood Count 3.25 X10*6/uL (4.60-5.80); Red Cell Distribution Width 15.5 % (11.0-16.0); White Blood Count 7.8 X10*3/uL (4.8-10.8)
[2023-05-29 07:08] LABS: Anion Gap 15 (12-20); Blood Urea Nitrogen 40 mg/dL (9-16); Calcium 9.2 mg/dL (8.4-10.2); Carbon Dioxide 26 mmol/L (22-29); Chloride 107 mmol/L (96-108); Creatinine Clr Calc Pharmacy 34.4; Estimated Glomerular Filt Rate > 60; Glucose Random 81 mg/dL (60-115); Potassium 3.6 mmol/L (3.3-5.1); Sodium 144 mmol/L (135-145)
[2023-05-29 07:35] LABS: Band Neutrophils Percent 1 % (3-5); Lymphocytes Absolute Manual 0.6 X10*3/uL (1.2-4.9); Lymphocytes Percent Manual 8 % (20-40); Monocytes Absolute Manual 0.5 X10*3/uL (0.1-1.2); Monocytes Percent Manual 6 % (2-11); Neutrophils Absolute Manual 6.7 X10*3/uL (2.0-8.3); Neutrophils Percent Manual 85 % (45-73)
[2023-05-29 07:37] LABS: Acanthocytes 2+ (3-5) /OIF; RBC Morphology NOTED; Schistocytes 1+ (0-2) /OIF
[2023-05-29 07:38] LABS: Platelet Estimate NORMAL (NORMAL); Platelet Morphology Comment NORMAL
[2023-05-29 08:00] VITALS: BP 147/64; PULSE 75; RESP 12; TEMP 36.9; O2SAT 96
--- NOTE | 2023-05-29 10:27 | PHA.MEDREC ---
Pharmacy Consult ? Medication Reconciliation Spoke with patient daughter and confirmed medications . She stated patient was non compliant . Pharmacy has completed the medication reconciliation.
--- NOTE | 2023-05-29 10:57 | P.PNIM_ITS ---
Subjective Subjective Date of Service: 05/29/23 Interval History: hematuria improving Physical Exam 2 Vital Signs: Vital Signs: Last Vital Signs Temp 98.4 F 05/29/23 08:00 Pulse 75 05/29/23 08:00 Resp 12 05/29/23 08:00 BP 147/64 H 05/29/23 08:00 Pulse Ox 96 05/29/23 08:00 O2 Del Method Room Air 05/29/23 08:00 BMI result Body Mass Index 16.1 comfortable, frail, confused, hematuria improved Objective Data Active Medications Acetaminophen (Acetaminophen 325 Mg Tablet) 650 mg PO Q6H PRN PRN Reason: Pain, Mild (Pain Scale 1-3) Docusate Sodium (Docusate Sodium 100 Mg Capsule) 100 mg PO DAILY PRN PRN Reason: Constipation Sodium Chloride (Ns) 1,000 mls @ 100 mls/hr IVCONT .Q10H [facility] Last Admin: 05/29/23 05:08 Dose: 100 mls/hr Documented By: MOLLY Ceftriaxone Sodium 1 gm/ (Sodium Chloride) 50 mls @ 100 mls/hr IV Q24H [facility] Last Infusion: 05/28/23 20:39 Dose: Infused Documented By: MOLLY Levothyroxine Sodium (Levothyroxine Sodium 88 Mcg Tablet) 88 mcg PO DAILY@0600 [facility] Last Admin: 05/29/23 05:50 Dose: Not Given Documented By: MOLLY Non-Admin Reason: Patient Refused Melatonin (Melatonin 3 Mg Tablet) 3 mg PO BEDTIME [facility] Last Admin: 05/28/23 22:59 Dose: Not Given Documented By: MOLLY Non-Admin Reason: Patient Refused Memantine (Memantine Hcl 5 Mg Tablet) 5 mg PO DAILY [facility] Last Admin: 05/29/23 09:43 Dose: Not Given Documented By: FOZIA Non-Admin Reason: Patient Refused Mirtazapine (Mirtazapine 30 Mg Tablet) 30 mg PO BEDTIME [facility] Last Admin: 05/28/23 22:59 Dose: Not Given Documented By: MOLLY Non-Admin Reason: Patient Refused Ondansetron HCl (Ondansetron Hcl 4 Mg/2 Ml Vial) 4 mg IVPUSH Q8H PRN PRN Reason: Nausea and Vomiting Quetiapine Fumarate (Quetiapine Fumarate 25 Mg Tablet) 25 mg PO Q6H PRN PRN Reason: aggitation Quetiapine Fumarate (Quetiapine Fumarate 50 Mg Tablet) 50 mg PO BEDTIME [facility] Last Admin: 05/28/23 22:59 Dose: Not Given Documented By: MOLLY Non-Admin Reason: Patient Refused Quetiapine Fumarate (Quetiapine Fumarate 25 Mg Tablet) 25 mg PO DAILY@1200 TYRONE Sodium Chloride (0.9 % Sodium Chloride Flush 3 Ml Syringe) 3 ml IVFLUSH QSHIFT [facility] Last Admin: 05/29/23 09:24 Dose: Not Given Documented By: FOZIA Non-Admin Reason: IV Running Labs 05/29/23 05:48 05/29/23 05:48 Labs: Laboratory Results - last 24 hr 05/29/23 05:48 MCV 83.7 MCH 27.1 MCHC 32.4 RDW 15.5 Plt Count 189 MPV 11.0 Immature Gran % (Auto) Cancelled Neut % (Auto) Cancelled Lymph % (Auto) Cancelled [place] % (Auto) Cancelled Eos % (Auto) Cancelled Baso % (Auto) Cancelled Lymph # (Auto) Cancelled [place] # (Auto) Cancelled Eos # (Auto) Cancelled Baso # (Auto) Cancelled Abs Immat Gran (auto) Cancelled Absolute Neuts (auto) Cancelled Absolute Nucleated RBC 0.000 Nucleated RBC % (auto) 0.0 Neutrophils % (Manual) 85 H Band Neutrophils % 1 L Lymphocytes % (Manual) 8 L Monocytes % (Manual) 6 Abs Neuts (Manual) 6.7 Lymphocytes # (Manual) 0.6 L Monocytes # (Manual) 0.5 Platelet Estimate NORMAL Plt Morphology Comment NORMAL RBC Morphology NOTED Acanthocytes (Spur) 2+ (3-5) Schistocytes 1+ (0-2) Anion Gap 15 Estim Creat Clear Calc 34.4 Estimated GFR > 60 Random Glucose 81 Calcium 9.2 Assessment and Plan (1) UTI (urinary tract infection): Status: Acute Plan 79M PMH hypertension, hypothyroidism, unspecified dementia admitted from [facility] for hypotension and hematuria Acute metabolic encephalopathy due to urinary tract infection complicated by hematuria Continue ceftriaxone, hematuria improved Acute kidney injury Resolved Hypertension Lisinopril on hold for hypotension Hypothyroid Continue Synthroid DVT prophylaxis with heparin Full code Reason for continued hospitalization: Awaiting cultures Time Spent With Patient Time: Total time managing care of this patient today ____ minutes. Quality Stroke Does the patient have a stroke diagnosis?: No VTE Prior VTE?: No VTE Risk Level:: Medical - moderate - high VTE Device Contraindication: Treatment Not Indicated VTE Drug Contraindication: N/A - Med Ordered
--- NOTE | 2023-05-29 15:56 | MHC.CM.PN ---
CM MET WITH PTS GRAND DAUGHTER AND HER MOTHER AT BEDSIDE THEY REPORT PT RECENTLY MOVED HER FROM [place] SO DOES NOT HAVE ANY PROVIDERS YET FOR NOW HE IS STAYING WITH THE MOTHER OF HIS GRAND DAUGHTER GRAND DAUGHTER STATES HE HAS NO SERVICES AND NO DME HE ALSO HAS NO PCP GRANDDAUGHTER REPORTS SHE HAS ALREADY COMPLETED A [employer] APPLICATION FOR THE PATIENT GRANDDAUGHTER INITIALLY SAYS PT HAS NO HCP OR GUARDIANSHIP BUT STATES SHE IS UNFAMILIAR WITH WHAT THESE ARE AND HOW HE WOULD HAVE GOTTEN ONE SHE STATES HE DID TELL HER HE WAS GOING TO APPOINT HER BUT AGAIN, THEY DO NOT KNOW HOW CM EXPLAINED THE REQUIREMENTS FOR COMPLETING A HCP INCLUDING PTS MENTATION CM PROVIDED INFORMATION AND DOCUMENT FOR HER TO REVIEW AND EXPLAINED CM WOULD CHECK WITH PT DAILY TO DETERMINE IF HE IS ABLE TO COMPLETE A HCP AND IF AT ANY TIME HIS MENTATION IMPROVES ENOUGH TO DO SO, ONE WILL BE COMPLETED PTS MEDICARE RIGHTS WERE REVIEWED DCP: PT EXPECTED TO DC HOME WITH RESUMPTION OF FAMILY CARE VIA BLS.
[2023-05-29 16:00] VITALS: BP 135/63; PULSE 90; RESP 16; TEMP 36.5; O2SAT 98
[2023-05-29] MEDS: cefTRIAXone sodium 1 GM in 0.9 % Sodium Chloride 50 ML IV (16:40)
[2023-05-29] MEDS: 0.9 % Sodium Chloride Flush 3 ML SYRINGE IVFLUSH (16:57)
[2023-05-29 19:26] VITALS: BP 135/66; PULSE 93; RESP 14; TEMP 36.1; O2SAT 98
[2023-05-29] MEDS: Mirtazapine 30 MG TABLET PO (19:55)
[2023-05-29] MEDS: QUEtiapine Fumarate 50 MG TABLET PO (19:55)
[2023-05-29] MEDS: Melatonin 3 MG TABLET PO (19:55)
[2023-05-30 03:03] VITALS: BP 153/67; PULSE 93; RESP 16; TEMP 36.3; O2SAT 96
[2023-05-30] MEDS: Levothyroxine Sodium 88 MCG TABLET PO (06:05)
[2023-05-30] MEDS: 0.9 % Sodium Chloride 1,000 ML 100 ML IVCONT (06:06)
[2023-05-30 07:39] VITALS: BP 168/81; PULSE 98; RESP 18; TEMP 36.3; O2SAT 96
--- NOTE | 2023-05-30 09:07 | P.PNIM_ITS ---
Subjective Subjective Date of Service: 05/30/23 Review of Systems Review of Systems: Yes Unobtainable due to mental condition Physical Exam 2 Vital Signs: Vital Signs: Last Vital Signs Temp 97.3 F 05/30/23 07:39 Pulse 98 05/30/23 07:39 Resp 18 05/30/23 07:39 BP 168/81 H 05/30/23 07:39 Pulse Ox 96 05/30/23 07:39 O2 Del Method Room Air 05/30/23 07:39 BMI result Body Mass Index 16.1 lethargic, hematuria resolved Objective Data Active Medications Acetaminophen (Acetaminophen 325 Mg Tablet) 650 mg PO Q6H PRN PRN Reason: Pain, Mild (Pain Scale 1-3) Cefuroxime Axetil (Cefuroxime Axetil 500 Mg Tablet) 500 mg PO Q12H [facility] Docusate Sodium (Docusate Sodium 100 Mg Capsule) 100 mg PO DAILY PRN PRN Reason: Constipation Sodium Chloride (Ns) 1,000 mls @ 100 mls/hr IVCONT .Q10H [facility] Last Admin: 05/30/23 06:06 Dose: 100 mls/hr Documented By: PATRICIA Levothyroxine Sodium (Levothyroxine Sodium 88 Mcg Tablet) 88 mcg PO DAILY@0600 [facility] Last Admin: 05/30/23 06:05 Dose: 88 mcg Documented By: PATRICIA Melatonin (Melatonin 3 Mg Tablet) 3 mg PO BEDTIME [facility] Last Admin: 05/29/23 19:55 Dose: 3 mg Documented By: PATRICIA Memantine (Memantine Hcl 5 Mg Tablet) 5 mg PO DAILY [facility] Last Admin: 05/29/23 09:43 Dose: Not Given Documented By: FOZIA Non-Admin Reason: Patient Refused Mirtazapine (Mirtazapine 30 Mg Tablet) 30 mg PO BEDTIME [facility] Last Admin: 05/29/23 19:55 Dose: 30 mg Documented By: PATRICIA Ondansetron HCl (Ondansetron Hcl 4 Mg/2 Ml Vial) 4 mg IVPUSH Q8H PRN PRN Reason: Nausea and Vomiting Quetiapine Fumarate (Quetiapine Fumarate 25 Mg Tablet) 25 mg PO Q6H PRN PRN Reason: aggitation Quetiapine Fumarate (Quetiapine Fumarate 50 Mg Tablet) 50 mg PO BEDTIME [facility] Last Admin: 05/29/23 19:55 Dose: 50 mg Documented By: PATRICIA Quetiapine Fumarate (Quetiapine Fumarate 25 Mg Tablet) 25 mg PO DAILY@1200 [facility] Last Admin: 05/29/23 13:03 Dose: Not Given Documented By: FOZIA Non-Admin Reason: Patient Refused Sodium Chloride (0.9 % Sodium Chloride Flush 3 Ml Syringe) 3 ml IVFLUSH QSHIFT [facility] Last Admin: 05/29/23 23:48 Dose: Not Given Documented By: PATRICIA Non-Admin Reason: IV Running Labs 05/29/23 05:48 05/29/23 05:48 Assessment and Plan (1) UTI (urinary tract infection): Status: Acute Plan 79M PMH hypertension, hypothyroidism, unspecified dementia admitted from [facility] psych for hypotension and hematuria Acute metabolic encephalopathy due to urinary tract infection complicated by hematuria urine growing proteus, hematuria resolved voiding trial, change to ceftin dementia uspecified with hypoactive delerium monitor psych follow up Acute kidney injury Resolved Hypertension Lisinopril Hypothyroid Continue Synthroid DVT prophylaxis with heparin Full code Reason for continued hospitalization: Awaiting [facility] bed Time Spent With Patient Time: Total time managing care of this patient today ____ minutes. Quality Stroke Does the patient have a stroke diagnosis?: No VTE Prior VTE?: No VTE Risk Level:: Medical - moderate - high VTE Device Contraindication: Treatment Not Indicated VTE Drug Contraindication: N/A - Med Ordered
[2023-05-30 10:55] LABS: Hematocrit 27.9 % (42.0-52.0); Hemoglobin 8.9 g/dl (14.0-18.0); Mean Corpuscular HGB Conc 31.9 g/dl (31.0-36.0); Mean Corpuscular Hemoglobin 27.1 pg (27.0-33.0); Mean Corpuscular Volume 84.8 fL (80.0-98.0); Mean Platelet Volume 11.1 fL (9.4-12.4); Platelet Count 200 X10*3/uL (160-400); Red Blood Count 3.29 X10*6/uL (4.60-5.80); Red Cell Distribution Width 15.7 % (11.0-16.0); White Blood Count 5.5 X10*3/uL (4.8-10.8)
[2023-05-30 11:07] LABS: Anion Gap 14 (12-20); Blood Urea Nitrogen 36 mg/dL (9-16); Calcium 9.2 mg/dL (8.4-10.2); Carbon Dioxide 23 mmol/L (22-29); Chloride 111 mmol/L (96-108); Creatinine Clr Calc Pharmacy 37.4; Estimated Glomerular Filt Rate > 60; Glucose Fasting 75 mg/dL (60-99); Potassium 3.4 mmol/L (3.3-5.1); Sodium 145 mmol/L (135-145)
[2023-05-30 11:31] VITALS: BMI 16.1
--- NOTE | 2023-05-30 11:48 | MHC.CLN ---
NUTRITION CONSULT FOR MALNUTRITION. DIET=REGULAR, PUREE WITH NECTAR THICK LIQUIDS. ADDING FORTIFIED ICE CREAM TID TO PROVIDE ADDITIONAL 870 KCALS, 27 G PROTEIN. QUALIFIES MODERATE MALNUTRITION IN THE CONTEXT OF CHRONIC ILLNESS. SHOWS MODERATE DELETION OF BODY FAT AND MUSCLE MASS. SKIN WITH RAAD=13, NO OPEN AREAS. ORIGINALLY ADMITTED TO [facility] PS[facility] AND ASSESSED BY RD 05/27/23. HX OF POOR PO PRIOR TO ADMIT. FOLLOW FOR INTAKE, DIET TOLERANCE, AND WEIGHT. SEE CLINICAL NUTRITION ASSESSMENT 05/30/23.
[2023-05-30 12:06] VITALS: BP 134/67; PULSE 84
[2023-05-30] MEDS: QUEtiapine Fumarate 25 MG TABLET PO (12:56)
[2023-05-30] MEDS: Memantine HCl 5 MG TABLET PO (12:57)
[2023-05-30] MEDS: lisinopriL 10 MG TABLET PO (12:57)
[2023-05-30 15:15] VITALS: BP 166/76; PULSE 86; RESP 18; TEMP 36.3; O2SAT 95
--- NOTE | 2023-05-30 15:34 | MHC.CM.PN ---
Patient sent from [facility] is now medically cleared. A Care team consult has been ordered. The Care team will assess the patient for [facility] admission.
[2023-05-30 19:47] VITALS: BP 168/70; PULSE 89; RESP 17; TEMP 36.5; O2SAT 95
[2023-05-30] MEDS: QUEtiapine Fumarate 50 MG TABLET PO (21:12)
[2023-05-30] MEDS: Mirtazapine 15 MG TABLET PO (21:12)
[2023-05-30] MEDS: 0.9 % Sodium Chloride Flush 3 ML SYRINGE IVFLUSH (21:12)
[2023-05-30] MEDS: Melatonin 3 MG TABLET PO (21:12)
[2023-05-31 03:38] VITALS: BP 174/66; PULSE 77; RESP 17; TEMP 36.5; O2SAT 97
[2023-05-31] MEDS: Levothyroxine Sodium 88 MCG TABLET PO (05:36)
--- NOTE | 2023-05-31 06:19 | PC.NURSE ---
At 2200 Pt hasn't voided since silva was out at noon, bladder scannshowed 244ml, Dr. Abad was updated, ordered to straight cath if bladder scan is more than 400ml, pt drunk a cup of thickened water, voided around midnight
[2023-05-31 07:22] VITALS: BP 194/88; PULSE 85; RESP 20; TEMP 36.5; O2SAT 95
[2023-05-31 08:19] VITALS: BP 142/80
--- NOTE | 2023-05-31 09:17 | P.DS_ITS ---
DS: Providers Provider Date of Service: 05/31/23 Date of admission: 05/28/23 18:53 Primary care physician: Unknown Physician Consults: 05/30/23 09:09 Consult to Psychiatry Routine Consulting Provider: Psych Covering Reason for consultation: medically stable, ?return to [facility] 05/30/23 12:47 Consult to Care Team Routine Comment: Reason for consultation: medically cleared DS: Diagnosis Discharge Diagnosis (1) UTI (urinary tract infection): Status: Acute DS: Summary Hospital Course Hospital Course: from initial hpi: 79-year-old male with history of hypertension, hypothyroidism, unspecified dementia initially admitted to geriatric psychiatry found to be hypotensive with hematuria and malodorous urine today by nursing staff to be admitted to medicine for further evaluation and management. The patient is unable to provide history secondary to his cognitive impairment and is mumbling nonsensically on exam. According to nursing staff, patient was ambulatory upon arrival but last night was requiring 2 person assist to ambulate. This morning has a marked generalized weakness and is unable to ambulate. Today nursing staff noted a foul odor in his room and upon changing his brief noted about 20 cc of bright red blood with malodorous urine. He was noted to have a blood pressure of 85/47 but when checked manually, blood pressure was 100/54. He was afebrile, vitals otherwise stable. There is no leukocytosis. He has a stable normocytic anemia with H/H 9.2/28%. Creatinine has increased to 1.25, baseline around 0.74, BUN 50. He has had decreased p.o. intake. Urinalysis significant for 3+ blood, 3+ leukocytes, positive nitrites, positive urinary sediment, 4+ bacteria. At baseline pt is A&Ox3 per family. hospital course: Patient was admitted for acute metabolic encephalopathy due to urinary tract infection complicated by hematuria relative hypotension. He was treated with IV ceftriaxone. Urine grew Proteus, hematuria resolved. He underwent voiding trial which was successful. He was changed to cefuroxime and will complete total of 7 days. For day dementia unspecified with hypoactive delirium, he will continue treatment at [facility]. His acute kidney injury resolved. Hypertension initially lisinopril was held for hypotension which quickly resolved and has been restarted. Hypothyroidism he was continued on levothyroxine. Patient will be discharged to [facility]. Time Spent with Patient Time attestation: Total time managing care of this patient today ____ minutes. Discharge coordination time: Greater than 30 minutes Quality: Safe Use of Opioids Does Pt have an Active Cancer Diagnosis on the Problem List?: No Quality: Stroke Does the patient have a stroke diagnosis?: No Physical Exam Vital Signs: Vital Signs: Last Vital Signs Temp 97.7 F 05/31/23 07:22 Pulse 85 05/31/23 07:22 Resp 20 05/31/23 07:22 BP 142/80 H 05/31/23 08:19 Pulse Ox 95 05/31/23 07:22 O2 Del Method Room Air 05/31/23 07:22 BMI result Body Mass Index 16.1 alert, calm, pleasant, confused DS: Data Data Completed and Pending Labs on day of discharge: Laboratory Results - last 24 hr 05/30/23 10:07 WBC 5.5 RBC 3.29 L Hgb 8.9 L Hct 27.9 L MCV 84.8 MCH 27.1 MCHC 31.9 RDW 15.7 Plt Count 200 MPV 11.1 Absolute Nucleated RBC 0.000 Nucleated RBC % (auto) 0.0 Sodium 145 Potassium 3.4 Chloride 111 H Carbon Dioxide 23 Anion Gap 14 BUN 36 H Creatinine 0.82 Estim Creat Clear Calc 37.4 Estimated GFR > 60 Fasting Glucose 75 Calcium 9.2 Discharge Plan Discharge Anticipated Discharge Date/Time: 05/31/23 09:12 Patient Disposition: Xfer Other Discharge Diagnosis: uti Referrals: Physician,Unknown J [Primary Care Provider] - 1 Week Discharge Medications: Continued levothyroxine 88 mcg Tablet 88 mcg PO DAILY lisinopril 10 mg Tablet 10 mg PO DAILY Discharge Orders: Discharge Order (Routine); Ordered 05/31/23 Ordered By: Steve Corona Diet: pureed, nectar thick Activity on Discharge: As tolerated Stand Alone Forms: Patient Portal Discharge page Care Plan Goals: recovery Health Concerns: uti, hematuria Plan of Treatment: ceftin 7 days total Assessment: ee above
[2023-05-31] MEDS: Memantine HCl 5 MG TABLET PO (09:27)
[2023-05-31] MEDS: lisinopriL 10 MG TABLET PO (09:27)
[2023-05-31] MEDS: 0.9 % Sodium Chloride Flush 3 ML SYRINGE IVFLUSH (09:27)
--- NOTE | 2023-05-31 13:01 | MHC.CM.PN ---
IMM 05/29/23 [facility] referral discussed with the [employer] surgical technician, Micheline. She spoke with the Pts HCP/GRDTR. They have an appointment scheduled 11am today. The patient has been transferred to [facility] via .
== END 2023-05-31 10:26 | disposition other institution (70) | DRG 689 ==
PROVIDERS: Admitting Provider Physician Assistant; Visit Provider Internal Medicine
DX: N39.0 Urinary tract infection, site not specified (principal); G93.41 Metabolic encephalopathy; N17.9 Acute kidney failure, unspecified; F05 Delirium due to known physiological condition; F03.90 Unspecified dementia, unspecified severity, without behavioral disturbance, psychotic disturbance, mood disturbance, and anxiety; E03.9 Hypothyroidism, unspecified; B96.4 Proteus (mirabilis) (morganii) as the cause of diseases classified elsewhere; I10 Essential (primary) hypertension; R31.0 Gross hematuria; Z87.891 Personal history of nicotine dependence; Z79.890 Hormone replacement therapy; Z79.899 Other long term (current) drug therapy
CPT/HCPCS: 36415; 76857; 80048; 85007; 85027; C1758; J0696; S9485

== ENCOUNTER → 2023-05-28 | Outpatient (BNV) | payer MEDICARE, SELFPAY | PROVIDERS: Admitting Provider Physician Assistant; Visit Provider Physician Assistant | DX: N39.0 Urinary tract infection, site not specified (principal) | CPT/HCPCS: 99223; 99232; 99239 ==

== ENCOUNTER 2023-05-31 11:04 | Inpatient (IN) | payer MEDICARE, MEDICAID, SELFPAY ==
--- NOTE | ~2023-05-31 | CT_ITS ---
EXAMINATION: CT angio head neck CLINICAL INFORMATION: Aphasia. COMPARISON: CT scan of the head 05/24/2023. TECHNIQUE: Merchandiser Seasonal images were obtained. A CT angiogram of the head and neck was performed in the arterial phase after the intravenous administration of 70 mL Omnipaque 350. Delayed postcontrast images of the head were also obtained. 3D images were processed on an independent workstation under concurrent supervision. Arterial stenoses are measured in accordance with NASCET criteria or similar method if applicable. This CT examination was performed using dose optimization techniques as appropriate, including one or more of the following: Automated exposure control, iterative reconstruction, and adjustment of technique factors (mA and/or kVp) according to patient size (this includes techniques or standardized protocols for targeted exams where dose is matched to indication/reason for exam). Fleischner Society criteria for the followup of incidental pulmonary nodules was implemented if appropriate. Total exam dose-length product 2520 mGy-cm FINDINGS: Head: Postcontrast images reveal no abnormal intracranial mass or enhancement. No intracranial mass effect or midline shift. Lateral and third ventricles are normal. No hydrocephalus. Jim-white matter differentiation is grossly preserved and there is no evidence of acute territorial infarct. The calvarium and skull base are intact. Mastoid air cells and middle ear cavities are well aerated. No intracranial calvarium and skull base are intact. Mastoid air cells and middle ear cavities are well aerated. No active paranasal sinus disease. 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 Common carotid arteries are patent. Partially calcified atheromatous plaque involves both carotid bifurcations. No stenosis of the extracranial internal carotid arteries.. There is poor contrast opacification within the asymmetric hypoplastic left vertebral artery and its patency therefore cannot be determined on the basis of this examination. The dominant right vertebral artery is widely patent. CT angiogram head: Intracranial internal carotid arteries are patent. There is no contrast filling visible within the left intradural vertebral artery. The dominant right vertebral artery is widely patent and continues as the basilar. Anterior, middle, and posterior cerebral complexes are normal. No intracranial large vessel occlusion. No identifiable aneurysm or high flow vascular lesion. Other: Soft tissues of the neck are unremarkable. There is relatively extensive pleural-parenchymal scarring within the right hemithorax and apparent traction bronchiectasis within the right upper lobe. There is no acute osseous finding. Specifically no worrisome lytic or blastic osseous lesion. There is multilevel degenerative spondylosis of the cervical spine with at least moderate canal stenosis at multiple levels. CT/CT angio head neck IMPRESSION: There is poor contrast opacification within the asymmetric hypoplastic left vertebral artery and its patency therefore cannot be determined on the basis of this examination. The dominant right vertebral artery is widely patent and continues as the basilar. No stenosis of the cervical carotid arteries. No intracranial large vessel occlusion. No evidence of acute territorial infarct or hemorrhage. No abnormal intracranial mass or enhancement. There is multilevel degenerative spondylosis of the cervical spine with at least moderate canal stenosis at multiple levels. If there are clinical symptoms of compressive myelopathy then a dedicated cervical spine MRI can be obtained for better anatomic characterization of the cord and canal.
--- NOTE | ~2023-05-31 | CT_ITS ---
EXAMINATION: CT CHEST WITHOUT CONTRAST CLINICAL INFORMATION: Right apical scarring. Abnormal chest x-ray. COMPARISON: Frontal view of the chest 05/22/23 TECHNIQUE: Multidetector volumetric CT imaging of the chest was done. Axial MIP volume rendering provided. Sagittal and coronal reformatted images were obtained. This CT examination was performed using dose optimization techniques as appropriate, variously including the following: *Automated exposure control *Adjustment of mA and/or kV according to patient size (this includes techniques or standardized protocols for targeted exams where dose is matched to indication/reason for exam; i.e. extremities or head) *Use of iterative reconstruction technique DLP: 96 mGy-cm FINDINGS: RE ETCHER: Prominence in the right upper mediastinum. Elevation of the minor fissure. Upper chest not included in the frontal cavalry scout LUNGS: No abnormality of the trachea. There are coarse opacities in the right upper lobe with volume loss and calcifications. There are round and tubular lucencies consistent with bronchiectasis. There is pleural and extrapleural thickening. Some of the segmental airways are is irregular. There are pleural and extrapleural opacities in the right lower lobe and to a lesser degree the middle lobe. There are some scattered juxtapleural opacities in the left upper lobe and in the superior segment of the left lower lobe with bronchiolectasis. There are some tree-in-bud opacities in the left lower lobe. MEDIASTINUM: There is an anomaly. 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 There is dilation of the arch. The lack of contrast limits detail. I suspect anemia. The heart is not enlarged. There is no definite pericardial fluid. No convincing abnormality of the esophagus CORONARY ARTERY CALCIFICATION: There is mild coronary artery calcification PLEURA: There is no drainable pleural fluid. As described there are areas of pleural thickening and calcification. AXILLA: No lymphadenopathy. UPPER ABDOMEN: Limited by lack of contrast and fat. There may be some dilation of the upper pole collecting system of the right kidney. OSSEOUS STRUCTURES: No bone destruction. Bridging osteophytes or syndesmophytes resulting in a rigid spine. CT/CT chest wo IV con IMPRESSION: Extensive pleural and parenchymal abnormalities greatest in the right upper lobe with volume loss and bronchiectasis and bronchiolectasis. There are no previous studies to determine chronicity. I suspect much if not all of the findings are chronic but superimposed acute process cannot be excluded. Recommend pulmonary medicine consult. Any decision to perform PET/CT or sampling requires clinical correlation and assessment of comorbid conditions. Fleischner guidelines were followed.
--- NOTE | ~2023-05-31 | XR_ITS ---
EXAMINATION: XR CHEST CLINICAL INFORMATION: AMS. COMPARISON: Chest x-ray 05/22/2023 TECHNIQUE: Frontal view of the chest was obtained. FINDINGS: There is loss of right lung volume with right apical lateral pleural thickening and apical scarring. The left lung is expanded and clear. There is bilateral bronchiectasis heart size and pulmonary vascularity is normal. There is ipsilateral mediastinal shift to the right. Moderate spondylosis seen throughout dorsal spine. XR/XR chest 1V IMPRESSION: Loss of right lung volume secondary to chronic right apical thickening and upper lobe scarring. There is mild ipsilateral mediastinal shift as well. No acute pneumonic consolidation. There is bilateral bronchiectasis.
[2023-05-31 11:41] VITALS: BP 174/82; PULSE 90; RESP 14; TEMP 36.3; O2SAT 97
--- NOTE | 2023-05-31 13:41 | HO.PSYADMNOT ---
HPI Date of Service: 05/31/23 Chief Complaint: combative behaviors Sources of Information: patient interviewed, chart reviewed and crisis/core team assessment reviewed HPI Subjective Notes: Section 12B Narrative: Mr. Chapman is a 87 year-old male with hx of dementia, recently came from [place] when family were alerted of fact that pt is more confused, unable to care for himself and paranoid. Pt was admitted to [facility] on 05/27 for combative behaviors along with paranoid delusions in setting of dementia. Pt was transferred to medicine due to hematuria, found to have UTI and AUNG. He was started on ceftin 500mg po BID on 05/30 x 7 days. His renal function improving BUN 50, Cr 1.5 to last BUN 36, Cr 0.82. Pt seen on the unit. He presents as pleasant. He reports he feels weak and unable to ambulate on his own. He tells this pattern chart writer that he needed assistance to stand up. He is not oriented to place, situation, month or year. No overt delusional content noted or reported. He slept through the night. He is taking medications as prescribed. He is currently on seroquel 25mg po at 1200 and seroquel 50mg po qhs. He also has remeron 15mg po qhs for sleep and hope to increase appetite. Past Psychiatric History: Unknown Medical Evaluation Reviewed: Yes [facility] Medical History (Updated 05/28/23 @ 16:19 by MONA Holley) Major neurocognitive disorder due to multiple etiologies with behavioral disturbance Hypothyroidism Hypertension Social History: He lives in [place] and is currently staying with his son and [id number] Vital Signs (24Hr): Vital Signs - 24 hr 05/31/23 11:41 Temperature 97.3 F Pulse Rate 90 Respiratory Rate 14 Blood Pressure 174/82 H Pulse Oximetry 97 Oxygen Delivery Method Room Air Meds/Allergies Meds Home Medications Medication Instructions Recorded Confirmed Type levothyroxine 88 mcg tablet 88 mcg PO DAILY 05/23/23 05/29/23 History lisinopril 10 mg tablet 10 mg PO DAILY 05/23/23 05/29/23 History Allergies Allergies Allergy/AdvReac Type Severity Reaction Status Date / Time No Known Allergies Allergy Verified 05/22/23 15:41 Mental Status Exam Mental Status Exam Narrative: Appearance:thin, cachectic male, wearing hospital gown, in NAD behavior:cooperative, friendly Psychomotor: no agitation or retardation noted Speech:clear words, regular rate/rhythm, soft tone, spontaneous TP:mostly linear TC:pt reports feeling weak, needing help to stand up and ambulate Mood: good Affect:congruent SI:none HI:none VH/AH:no signs at the moment Delusions:no overt delusional content reported Insight/judgment:impaired x 2. memory/cog: alert, only to self. Not oriented to place, situation, month or year. Assessment & Plan Assessment & Plan (1) Major neurocognitive disorder due to multiple etiologies with behavioral disturbance: Status: Acute Code(s): F02.818 - Dementia in other diseases classified elsewhere, unspecified severity, with other behavioral disturbance Plan Mr. Chapman is a 87 year-old male with hx of dementia. He recently came from [place]. Pt with advanced dementia initially brought due to poor sleep, paranoiain setting of dementia. Pt developed UTI, AUNG, transferred to medical floor. Renal function improving. Pt started on ceftin 500mg po BID x 7 days, last day 06/05. PLAN 1. Admit to S1, sect 12b- does not show capacity to make medical decisions. 2. continue seroquel 25mg po at noon and 50mg po qhs. continue remeron 15mg po qhs. 3. aftercare planning. 4. PT eval and treatment Patient educated on: diagnosis Reason for continued inpatient stay Substantial Risk for: inability to function Statement Statement: I have reviewed the history and physical and performed a pertinent examination on my patient. No changes have occurred unless specified. If the History and Physical was not performed prior to admission, the Hospitalist's service will be consulted for completing the admission physical. Time Spent With Patient Time: Total time managing care of this patient today ____ minutes.
[2023-05-31] MEDS: QUEtiapine Fumarate 25 MG TABLET PO (14:27)
--- NOTE | 2023-05-31 16:57 | PC.ADMIT ---
Patient re-admitted to unit at 1135 following short stay on S3 d/t UTI and hematuria.Admitted with diagnosis of altered mental status. Patient transported by . Legal status is 12b. Patient placed on close obs for safety d/t high fall risk. Oriented to self only. Cameroonian speaking only. Appears pleasant upon approach. Observed on the unit sitting quietly in dining area. Eating pureed diet. Taking medications crushed as ordered. VSS. Patient in extremely weak condition. Transfers with assist of 2. Appears malnourished. No PCP or other providers noted. [place] recently moved to [place] from [place]. Patient enjoyed visit with family. Utilizing briefs due to incontinence.
[2023-05-31 17:24] VITALS: BMI 20.5
[2023-05-31 18:00] VITALS: BP 172/77; PULSE 88; RESP 16; TEMP 36.5; O2SAT 99
[2023-05-31] MEDS: Mirtazapine 15 MG TABLET PO (20:47)
[2023-05-31] MEDS: QUEtiapine Fumarate 50 MG TABLET PO (20:48)
[2023-06-01] MEDS: Levothyroxine Sodium 88 MCG TABLET PO (06:14)
[2023-06-01 08:02] LABS: Estimated Average Glucose 105 mg/dL; Hemoglobin A1c % 5.3 % (<6.0)
[2023-06-01 08:15] LABS: Alanine Aminotransferase 11 U/L (0-40); Albumin Level 3.2 g/dL (3.5-5.0); Alkaline Phosphatase 70 U/L (39-117); Anion Gap 13 (12-20); Aspartate Amino Transferase 13 U/L (5-37); Bilirubin Total 0.7 mg/dL (0.0-1.0); Blood Urea Nitrogen 32 mg/dL (9-16); Calcium 9.9 mg/dL (8.4-10.2); Carbon Dioxide 26 mmol/L (22-29); Chloride 107 mmol/L (96-108); Cholesterol 172 mg/dL (<200); Creatinine Clr Calc Pharmacy 37.8; Estimated Glomerular Filt Rate > 60; Glucose Fasting 99 mg/dL (60-99); HDL Cholesterol 46 mg/dL (>40); LDL Cholesterol Calculated 111 mg/dL (<100); Potassium 3.7 mmol/L (3.3-5.1); Sodium 142 mmol/L (135-145); Total Protein 6.2 g/dL (6.5-8.0); Triglycerides 76 mg/dL (<150)
[2023-06-01 08:30] LABS: Thyroid Stimulating Hormone 15.03 uIU/mL (0.32-4.0)
[2023-06-01 08:35] VITALS: BP 179/84; PULSE 86; RESP 18; TEMP 36.4; O2SAT 98
[2023-06-01] MEDS: lisinopriL 10 MG TABLET PO (08:41)
[2023-06-01] MEDS: Memantine HCl 5 MG TABLET PO (08:41)
[2023-06-01] MEDS: QUEtiapine Fumarate 25 MG TABLET PO (13:32)
[2023-06-01 14:24] VITALS: BMI 16.9
--- NOTE | 2023-06-01 14:35 | MHC.CLN ---
NUTRITION DIET=REGULAR, PUREE CONSISTENCY WITH NECTAR THICK LIQUIDS. FORTIFIED ICE CREAM (MAGIC CUP) TID PROVIDES ADDITIONAL 870 KCALS, 27 G PROTEIN. QUALIFIES MODERATE MALNUTRITION IN THE CONTEXT OF CHRONIC ILLNESS. REPORTED HX POOR PO PRIOR TO ADMISSION. SKIN: NO OPEN AREAS. FOLLOW FOR INTAKE, DIET TOLERANCE, AND WEIGHT. SEE CLINICAL NUTRITION ASSESSMENT 06/01/23.
--- NOTE | 2023-06-01 16:13 | HO.PSYCHPN ---
Subjective Subjective Date of Service: 06/01/23 Reason For Visit: combative behaviors Subjective Notes: Section 12B Interim History: Pt slept through the night. He is oriented only to self. He is pleasant. He reports he is being treated very well. He reports he loves the food here. He smiles often. No signs of paranoia or psychosis. He is eating puree, but nursing notes he may be less choking risk as his mentation has improved. Will re consult ST [id number]- lisinopril had been lowered when he had UTI due to HOTN to 10mg po daily. Will increase back but may need additional medication is not well controlled. Review of Systems Review of Systems Pt denies pain. Unable to provide more information Mental Status Exam Mental Status Exam Narrative: Appearance:thin, cachectic male, wearing hospital gown, in NAD behavior:cooperative, friendly Psychomotor: no agitation or retardation noted Speech:clear words, regular rate/rhythm, soft tone, spontaneous TP:mostly linear TC:pt reports feeling weak, needing help to stand up and ambulate Mood: good Affect:congruent SI:none HI:none VH/AH:no signs at the moment Delusions:no overt delusional content reported Insight/judgment:impaired x 2. memory/cog: alert, only to self. Not oriented to place, situation, month or year. Diagnostics Vital Signs (24Hr): Vital Signs - 24 hr 05/31/23 18:00 06/01/23 08:35 Temperature 97.7 F 97.5 F Pulse Rate 88 86 Respiratory Rate 16 18 Blood Pressure 172/77 H 179/84 H Pulse Oximetry 99 98 Oxygen Delivery Method Room Air Room Air BMI result Body Mass Index 16.9 Labs 06/01/23 07:48 Labs: Laboratory Results - last 48 hr 06/01/23 07:48 Sodium 142 Potassium 3.7 Chloride 107 Carbon Dioxide 26 Anion Gap 13 BUN 32 H Creatinine 0.85 Estim Creat Clear Calc 37.8 Estimated GFR > 60 Fasting Glucose 99 Estimat Average Glucose 105 Hemoglobin A1c % 5.3 Calcium 9.9 D Total Bilirubin 0.7 AST 13 ALT 11 Alkaline Phosphatase 70 Total Protein 6.2 L Albumin 3.2 L Triglycerides 76 Cholesterol 172 LDL Cholesterol, Calc 111 H HDL Cholesterol 46 TSH 15.03 H Medications Medications Current Medications Acetaminophen (Acetaminophen 325 Mg Tablet) 650 mg PO Q6H PRN PRN Reason: Headache/Pain Mild Scale (1-3) Al Hydroxide/Mg Hydroxide (Magnesium Hydrox/Alum Hydrox 30 Ml Oral.Susp) 30 ml PO Q6H PRN PRN Reason: Heartburn/Nausea Cefuroxime Axetil (Cefuroxime Axetil 500 Mg Tablet) 500 mg PO BID [facility] Stop: 06/05/23 23:59 Last Admin: 06/01/23 08:41 Dose: 500 mg Hydroxyzine HCl (Hydroxyzine Hcl 25 Mg Tablet) 25 mg PO Q6H PRN PRN Reason: Anxiety Levothyroxine Sodium (Levothyroxine Sodium 88 Mcg Tablet) 88 mcg PO DAILY@0600 [facility] Last Admin: 06/01/23 06:14 Dose: 88 mcg Lisinopril (Lisinopril 20 Mg Tablet) 20 mg PO DAILY [facility]; Protocol Magnesium Hydroxide (Milk Of Magnesia 30 Ml Oral.Susp) 30 ml PO DAILY PRN PRN Reason: Constipation Memantine (Memantine Hcl 5 Mg Tablet) 5 mg PO DAILY [facility] Last Admin: 06/01/23 08:41 Dose: 5 mg Mirtazapine (Mirtazapine 15 Mg Tablet) 15 mg PO BEDTIME [facility] Last Admin: 05/31/23 20:47 Dose: 15 mg Quetiapine Fumarate (Quetiapine Fumarate 25 Mg Tablet) 25 mg PO DAILY@1200 [facility] Last Admin: 06/01/23 13:32 Dose: 25 mg Quetiapine Fumarate (Quetiapine Fumarate 50 Mg Tablet) 50 mg PO BEDTIME [facility] Last Admin: 05/31/23 20:48 Dose: 50 mg Quetiapine Fumarate (Quetiapine Fumarate 25 Mg Tablet) 25 mg PO Q6H PRN PRN Reason: aggitation Trazodone HCl (Trazodone Hcl 50 Mg Tablet) 50 mg PO BEDTIME PRN PRN Reason: Insomnia Allergies Allergies Allergy/AdvReac Type Severity Reaction Status Date / Time No Known Allergies Allergy Verified 05/22/23 15:41 Assessment & Plan Assessment & Plan (1) Major neurocognitive disorder due to multiple etiologies with behavioral disturbance: Status: Acute Code(s): F02.818 - Dementia in other diseases classified elsewhere, unspecified severity, with other behavioral disturbance Plan Mr. Chapman is a 87 year-old male with hx of dementia. He recently came from [place]. Pt with advanced dementia initially brought due to poor sleep, paranoiain setting of dementia. Pt developed UTI, AUNG, transferred to medical floor. Renal function improving. Pt started on ceftin 500mg po BID x 7 days, last day 06/05. PLAN 1. Admit to S1, sect 12b, 06/01 continue current medications, will increase lisinopril back to 20mg po daily. continue to monitor. Reason for continued inpatient stay Substantial Risk for: inability to function Time Spent With Patient Time: Total time managing care of this patient today ____ minutes.
[2023-06-01 16:33] VITALS: BP 156/79; PULSE 76
[2023-06-01 18:00] VITALS: BP 135/81; PULSE 76; RESP 14; TEMP 36.8; O2SAT 99
[2023-06-02] MEDS: Levothyroxine Sodium 88 MCG TABLET PO (06:51)
[2023-06-02 09:15] VITALS: BP 172/88; PULSE 78; RESP 16; TEMP 36.1; O2SAT 97
[2023-06-02] MEDS: Memantine HCl 5 MG TABLET PO (09:34)
[2023-06-02] MEDS: lisinopriL 20 MG TABLET PO (09:34)
[2023-06-02] MEDS: QUEtiapine Fumarate 25 MG TABLET PO (11:41)
--- NOTE | 2023-06-02 14:23 | P.PNPSI_ITS ---
Subjective Subjective Date of Service: 06/02/23 Reason For Visit: combative behaviors Subjective Notes: Conditional Voluntary Healthcare Proxy: Yes Interim History: Pt met with this casualty underwriter and MARINE Hobbs. Pt presented as pleasant, he reports he is doing well and denies any pain. He reports it can't get any better. He was able to verbalize that if he needs someone to make decisions on his behalf that he would like granddaughter to do it. He later had at noon seroquel 25mg po but later appeared too somnolent and confused. Will d/c noon time seroquel. continue seroquel qhs. Diagnostics Vital Signs (24Hr): Vital Signs - 24 hr 06/01/23 16:33 06/01/23 18:00 06/02/23 09:15 Temperature 98.2 F 97 F Pulse Rate 76 76 78 Respiratory Rate 14 16 Blood Pressure 156/79 H 135/81 172/88 H Pulse Oximetry 99 97 Oxygen Delivery Method Room Air Room Air 06/02/23 09:15 Temperature 97 F Pulse Rate 78 Respiratory Rate 16 Blood Pressure 172/88 H Pulse Oximetry 97 Oxygen Delivery Method Room Air BMI result Body Mass Index 16.9 Labs 06/01/23 07:48 Labs: Laboratory Results - last 48 hr 06/01/23 07:48 Sodium 142 Potassium 3.7 Chloride 107 Carbon Dioxide 26 Anion Gap 13 BUN 32 H Creatinine 0.85 Estim Creat Clear Calc 37.8 Estimated GFR > 60 Fasting Glucose 99 Estimat Average Glucose 105 Hemoglobin A1c % 5.3 Calcium 9.9 D Total Bilirubin 0.7 AST 13 ALT 11 Alkaline Phosphatase 70 Total Protein 6.2 L Albumin 3.2 L Triglycerides 76 Cholesterol 172 LDL Cholesterol, Calc 111 H HDL Cholesterol 46 TSH 15.03 H Medications Medications Current Medications Acetaminophen (Acetaminophen 325 Mg Tablet) 650 mg PO Q6H PRN PRN Reason: Headache/Pain Mild Scale (1-3) Al Hydroxide/Mg Hydroxide (Magnesium Hydrox/Alum Hydrox 30 Ml Oral.Susp) 30 ml PO Q6H PRN PRN Reason: Heartburn/Nausea Cefuroxime Axetil (Cefuroxime Axetil 500 Mg Tablet) 500 mg PO BID [facility] Stop: 06/05/23 23:59 Last Admin: 06/02/23 09:34 Dose: 500 mg Hydroxyzine HCl (Hydroxyzine Hcl 25 Mg Tablet) 25 mg PO Q6H PRN PRN Reason: Anxiety Levothyroxine Sodium (Levothyroxine Sodium 88 Mcg Tablet) 88 mcg PO DAILY@0600 [facility] Last Admin: 06/02/23 06:51 Dose: 88 mcg Lisinopril (Lisinopril 20 Mg Tablet) 20 mg PO DAILY [facility]; Protocol Last Admin: 06/02/23 09:34 Dose: 20 mg Magnesium Hydroxide (Milk Of Magnesia 30 Ml Oral.Susp) 30 ml PO DAILY PRN PRN Reason: Constipation Memantine (Memantine Hcl 5 Mg Tablet) 5 mg PO DAILY [facility] Last Admin: 06/02/23 09:34 Dose: 5 mg Mirtazapine (Mirtazapine 15 Mg Tablet) 15 mg PO BEDTIME [facility] Last Admin: 06/01/23 22:29 Dose: Not Given Quetiapine Fumarate (Quetiapine Fumarate 50 Mg Tablet) 50 mg PO BEDTIME [facility] Last Admin: 06/01/23 22:30 Dose: Not Given Quetiapine Fumarate (Quetiapine Fumarate 25 Mg Tablet) 25 mg PO Q6H PRN PRN Reason: aggitation Trazodone HCl (Trazodone Hcl 50 Mg Tablet) 50 mg PO BEDTIME PRN PRN Reason: Insomnia Allergies Allergies Allergy/AdvReac Type Severity Reaction Status Date / Time No Known Allergies Allergy Verified 05/22/23 15:41 Assessment & Plan Assessment & Plan (1) Major neurocognitive disorder due to multiple etiologies with behavioral disturbance: Status: Acute Code(s): F02.818 - Dementia in other diseases classified elsewhere, unspecified severity, with other behavioral disturbance Plan Mr. Chapman is a 87 year-old male with hx of dementia. He recently came from [place]. Pt with advanced dementia initially brought due to poor sleep, paranoiain setting of dementia. Pt developed UTI, AUNG, transferred to medical floor. Renal function improving. Pt started on ceftin 500mg po BID x 7 days, last day 06/05. PLAN 1. Admit to S1, sect 12b, 06/01 continue current medications, will increase lisinopril back to 20mg po daily. continue to monitor. 06/02 d/c noon time seroquel 25mg as pt presented very somnolent after taking it. Reason for continued inpatient stay Substantial Risk for: inability to function Time Spent With Patient Time: Total time managing care of this patient today ____ minutes.
[2023-06-02 19:50] VITALS: BP 124/58; PULSE 76; RESP 16; TEMP 36.2; O2SAT 98
[2023-06-02] MEDS: QUEtiapine Fumarate 50 MG TABLET PO (20:45)
[2023-06-02] MEDS: traZODone HCL 50 MG TABLET PO (20:45)
[2023-06-02] MEDS: Mirtazapine 15 MG TABLET PO (20:45)
[2023-06-03] MEDS: Levothyroxine Sodium 88 MCG TABLET PO (06:12)
[2023-06-03 08:21] VITALS: BP 140/63; PULSE 62; RESP 16; TEMP 36.1; O2SAT 98
[2023-06-03] MEDS: Memantine HCl 5 MG TABLET PO (08:27)
[2023-06-03] MEDS: lisinopriL 20 MG TABLET PO (08:27)
--- NOTE | 2023-06-03 09:32 | MHC.SL.SWA ---
Speech Pathologist Impression: Risk of aspiration, oropharyngeal dysphagia Risk of Aspiration Due to: Neurological Condition Reduced Cognition Dysphasia Diet Status: UPGRADE to NDD3 Liquid Consistency and Strategies for Safe Swallow: Liquid Intake Recommendation: [place] Thick Liquid Intake Strategies: Small Sips No Straws Solid Food Consistency: Dietary Recommendations: Chopped/Advanced (NDD3) Additional Modifications to Solid Foods: Recommend UPGRADE to CHOPPED/ADVANCED solids (NDD3), continue w/ NECTAR THICK liquids, pills WHOLE with PUREE. Pt is recommended aspiration precautions and total 1:1 supervision given underlying dx dementia. MOBILITY ARCHITECT MANAGER will continue to follow. Diet order updated by MOBILITY ARCHITECT MANAGER. Notified team (DIANA BHAKTA) of change via [employer] Message. Oral Medication Intake: Whole with Puree Please contact the pharmacy regarding appropriate crushable or liquid drug formulations that are available whenever modified delivery is recommended. Compensatory Strategies and Precautions to be Taken for Safe Swallow: Sitting Upright (90 deg) No Straw Small Bites and Sips Alternate Liquids/Solids Rate of Ingestion Change Oral Check Avoid Specific Foods Supervision While Eating and Drinking for Safe Swallow: Total Supervision (1:1) Foods to Avoid: Hard tough to chew solids, mixed textures Swallowing Recommended Treatments: Compens. Strategy Educat. Recommendation for Speech: Inpatient Speech Therapy Comment: Frequency/Duration: PRN M-F Date Range for Service Req: Timeline to reassess: Primary Health Care Nurse Clinican/Clinical Fellow: No Supervisory Statement: I have reviewed and agree with the student/clinical fellow's documentation: N/A Speech Language Pathologist: Carmela Israel M.A., [facility]-MOBILITY ARCHITECT MANAGER
--- NOTE | 2023-06-03 11:58 | MHC.CLN ---
F/U SEEN BY TINNER HELPER TODAY. DIET=REGULAR, GROUND CONSISTENCY WITH NECTAR THICK LIQUIDS. FORTIFIED ICE CREAM (MAGIC CUP) TID PROVIDES ADDITIONAL 870 KCALS, 27 G PROTEIN. INTAKE APPEARS TO BE VERY GOOD. SKIN: NO OPEN AREAS. FOLLOW FOR INTAKE, DIET TOLERANCE, AND WEIGHT. RD TO FOLLOW WEEKLY.
--- NOTE | 2023-06-03 13:00 | HO.PSYCHPN ---
Subjective Subjective Date of Service: 06/03/23 Reason For Visit: combative behaviors Subjective Notes: Conditional Voluntary Healthcare Proxy: Yes Interim History: Family meeting with pt's granddaughter and daughter in law. Pt appears less confused today. No combative behaviors. Pt with assistance ambulating due to being physically deconditioned. No overt signs of psychosis or delusions. Review of Systems Review of Systems Pt denies pain. Unable to provide more information Mental Status Exam Mental Status Exam Narrative: Appearance:thin, cachectic male, wearing hospital gown, in NAD behavior:cooperative, friendly Psychomotor: no agitation or retardation noted Speech:clear words, regular rate/rhythm, soft tone, spontaneous TP:mostly linear TC:pt reports feeling weak, needing help to stand up and ambulate Mood: good Affect:congruent SI:none HI:none VH/AH:no signs at the moment Delusions:no overt delusional content reported Insight/judgment:impaired x 2. memory/cog: alert, only to self. Not oriented to place, situation, month or year. Diagnostics Vital Signs (24Hr): Vital Signs - 24 hr 06/02/23 19:50 06/03/23 08:21 Temperature 97.2 F 97.0 F Pulse Rate 76 62 Respiratory Rate 16 16 Blood Pressure 124/58 L 140/63 H Pulse Oximetry 98 98 Oxygen Delivery Method Room Air Room Air BMI result Body Mass Index 16.9 Labs 06/03/23 15:23 Medications Medications Current Medications Acetaminophen (Acetaminophen 325 Mg Tablet) 650 mg PO Q6H PRN PRN Reason: Headache/Pain Mild Scale (1-3) Al Hydroxide/Mg Hydroxide (Magnesium Hydrox/Alum Hydrox 30 Ml Oral.Susp) 30 ml PO Q6H PRN PRN Reason: Heartburn/Nausea Cefuroxime Axetil (Cefuroxime Axetil 500 Mg Tablet) 500 mg PO BID [facility] Stop: 06/05/23 23:59 Last Admin: 06/03/23 08:27 Dose: 500 mg Hydroxyzine HCl (Hydroxyzine Hcl 25 Mg Tablet) 25 mg PO Q6H PRN PRN Reason: Anxiety Levothyroxine Sodium (Levothyroxine Sodium 88 Mcg Tablet) 88 mcg PO DAILY@0600 [facility] Last Admin: 06/03/23 06:12 Dose: 88 mcg Lisinopril (Lisinopril 20 Mg Tablet) 20 mg PO DAILY [facility]; Protocol Last Admin: 06/03/23 08:27 Dose: 20 mg Magnesium Hydroxide (Milk Of Magnesia 30 Ml Oral.Susp) 30 ml PO DAILY PRN PRN Reason: Constipation Memantine (Memantine Hcl 5 Mg Tablet) 5 mg PO DAILY [facility] Last Admin: 06/03/23 08:27 Dose: 5 mg Mirtazapine (Mirtazapine 15 Mg Tablet) 15 mg PO BEDTIME [facility] Last Admin: 06/02/23 20:45 Dose: 15 mg Quetiapine Fumarate (Quetiapine Fumarate 50 Mg Tablet) 50 mg PO BEDTIME [facility] Last Admin: 06/02/23 20:45 Dose: 50 mg Quetiapine Fumarate (Quetiapine Fumarate 25 Mg Tablet) 25 mg PO Q6H PRN PRN Reason: aggitation Trazodone HCl (Trazodone Hcl 50 Mg Tablet) 50 mg PO BEDTIME PRN PRN Reason: Insomnia Last Admin: 06/02/23 20:45 Dose: 50 mg Allergies Allergies Allergy/AdvReac Type Severity Reaction Status Date / Time No Known Allergies Allergy Verified 05/22/23 15:41 Assessment & Plan Assessment & Plan (1) Major neurocognitive disorder due to multiple etiologies with behavioral disturbance: Status: Acute Code(s): F02.818 - Dementia in other diseases classified elsewhere, unspecified severity, with other behavioral disturbance Plan Mr. Chapman is a 87 year-old male with hx of dementia. He recently came from [place]. Pt with advanced dementia initially brought due to poor sleep, paranoiain setting of dementia. Pt developed UTI, AUNG, transferred to medical floor. Renal function improving. Pt started on ceftin 500mg po BID x 7 days, last day 06/05. PLAN 1. Admit to S1, sect 12b, 06/01 continue current medications, will increase lisinopril back to 20mg po daily. continue to monitor. 06/02 d/c noon time seroquel 25mg as pt presented very somnolent after taking it. 06/03 continue tx. Reason for continued inpatient stay Substantial Risk for: inability to function Time Spent With Patient Time: Total time managing care of this patient today ____ minutes.
[2023-06-03 16:12] LABS: Alanine Aminotransferase 14 U/L (0-40); Albumin Level 3.3 g/dL (3.5-5.0); Alkaline Phosphatase 70 U/L (39-117); Anion Gap 13 (12-20); Aspartate Amino Transferase 18 U/L (5-37); Bilirubin Total 0.4 mg/dL (0.0-1.0); Blood Urea Nitrogen 31 mg/dL (9-16); Calcium 9.9 mg/dL (8.4-10.2); Carbon Dioxide 29 mmol/L (22-29); Chloride 100 mmol/L (96-108); Estimated Glomerular Filt Rate > 60; Glucose Random 89 mg/dL (60-115); Potassium 3.9 mmol/L (3.3-5.1); Sodium 138 mmol/L (135-145); Total Protein 6.4 g/dL (6.5-8.0)
[2023-06-03 18:00] VITALS: BP 181/84; PULSE 72; RESP 18; TEMP 35.9; O2SAT 97
[2023-06-04] MEDS: Acetaminophen 325 MG TABLET 650 MG PO (06:05)
[2023-06-04] MEDS: Levothyroxine Sodium 88 MCG TABLET PO (06:06)
[2023-06-04 08:00] VITALS: BP 117/57; PULSE 72; RESP 18; TEMP 36.2; O2SAT 95
[2023-06-04] MEDS: lisinopriL 20 MG TABLET PO (08:28)
[2023-06-04] MEDS: Memantine HCl 5 MG TABLET PO (08:29)
[2023-06-04 18:00] VITALS: BP 178/79; PULSE 76; RESP 18; TEMP 36.1; O2SAT 98
--- NOTE | 2023-06-05 00:16 | HO.PSYCHPN ---
Subjective Subjective Date of Service: 06/04/23 Reason For Visit: combative behaviors Subjective Notes: Conditional Voluntary Interim History: Patient in better behavioral control Mental Status Exam Mental Status Exam Narrative: Appearance:thin, cachectic male, flattened appearance behavior:cooperative, friendly Psychomotor: no agitation or retardation noted Speech:clear words, regular rate/rhythm, soft tone, spontaneous TP:mostly linear TC:pt reports feeling okay Mood: good Affect:congruent SI:none HI:none VH/AH:no signs at the moment Delusions:no overt delusional content reported Insight/judgment:impaired x 2. memory/cog: alert, only to self. Not oriented to place, situation, month or year. Diagnostics Vital Signs (24Hr): Vital Signs - 24 hr 06/04/23 08:00 06/04/23 18:00 Temperature 97.2 F 96.9 F Pulse Rate 72 76 Respiratory Rate 18 18 Blood Pressure 117/57 L 178/79 H Pulse Oximetry 95 98 Oxygen Delivery Method Room Air Room Air BMI result Body Mass Index 16.9 Labs 06/03/23 15:23 Labs: Laboratory Results - last 48 hr 06/03/23 15:23 Sodium 138 Potassium 3.9 Chloride 100 Carbon Dioxide 29 Anion Gap 13 BUN 31 H Creatinine 0.70 Estim Creat Clear Calc 46.0 Estimated GFR > 60 Random Glucose 89 Calcium 9.9 Total Bilirubin 0.4 AST 18 ALT 14 Alkaline Phosphatase 70 Total Protein 6.4 L Albumin 3.3 L Medications Medications Current Medications Acetaminophen (Acetaminophen 325 Mg Tablet) 650 mg PO Q6H PRN PRN Reason: Headache/Pain Mild Scale (1-3) Last Admin: 06/04/23 06:05 Dose: 650 mg Al Hydroxide/Mg Hydroxide (Magnesium Hydrox/Alum Hydrox 30 Ml Oral.Susp) 30 ml PO Q6H PRN PRN Reason: Heartburn/Nausea Amlodipine Besylate (Amlodipine Besylate 2.5 Mg Tablet) 2.5 mg PO BEDTIME [facility]; Protocol Last Admin: 06/04/23 20:29 Dose: Not Given Cefuroxime Axetil (Cefuroxime Axetil 500 Mg Tablet) 500 mg PO BID [facility] Stop: 06/05/23 23:59 Last Admin: 06/04/23 20:30 Dose: Not Given Hydroxyzine HCl (Hydroxyzine Hcl 25 Mg Tablet) 25 mg PO Q6H PRN PRN Reason: Anxiety Levothyroxine Sodium (Levothyroxine Sodium 88 Mcg Tablet) 88 mcg PO DAILY@0600 [facility] Last Admin: 06/04/23 06:06 Dose: 88 mcg Lisinopril (Lisinopril 20 Mg Tablet) 20 mg PO DAILY [facility]; Protocol Last Admin: 06/04/23 08:28 Dose: 20 mg Magnesium Hydroxide (Milk Of Magnesia 30 Ml Oral.Susp) 30 ml PO DAILY PRN PRN Reason: Constipation Memantine (Memantine Hcl 5 Mg Tablet) 5 mg PO DAILY [facility] Last Admin: 06/04/23 08:29 Dose: 5 mg Mirtazapine (Mirtazapine 15 Mg Tablet) 15 mg PO BEDTIME [facility] Last Admin: 06/04/23 20:30 Dose: Not Given Quetiapine Fumarate (Quetiapine Fumarate 50 Mg Tablet) 50 mg PO BEDTIME [facility] Last Admin: 06/04/23 20:30 Dose: Not Given Quetiapine Fumarate (Quetiapine Fumarate 25 Mg Tablet) 25 mg PO Q6H PRN PRN Reason: aggitation Trazodone HCl (Trazodone Hcl 50 Mg Tablet) 50 mg PO BEDTIME PRN PRN Reason: Insomnia Last Admin: 06/02/23 20:45 Dose: 50 mg Allergies Allergies Allergy/AdvReac Type Severity Reaction Status Date / Time No Known Allergies Allergy Verified 05/22/23 15:41 Assessment & Plan Assessment & Plan (1) Major neurocognitive disorder due to multiple etiologies with behavioral disturbance: Status: Acute Code(s): F02.818 - Dementia in other diseases classified elsewhere, unspecified severity, with other behavioral disturbance Plan Mr. Chapman is a 87 year-old male with hx of dementia. He recently came from [place]. Pt with advanced dementia initially brought due to poor sleep, paranoiain setting of dementia. Pt developed UTI, AUNG, transferred to medical floor. Renal function improving. Pt started on ceftin 500mg po BID x 7 days, last day 06/05. PLAN 1. Admit to S1, sect 12b, 06/01 continue current medications, will increase lisinopril back to 20mg po daily. continue to monitor. 06/02 d/c noon time seroquel 25mg as pt presented very somnolent after taking it. 06/03 continue tx. 06/04/2023 Continue plan of care patient seems generally stable not overly combative or agitated Continue Namenda Seroquel Reason for continued inpatient stay Substantial Risk for: inability to function and rapid decompensation Time Spent With Patient Time: Total time managing care of this patient today ____ minutes.
[2023-06-05] MEDS: Levothyroxine Sodium 88 MCG TABLET PO (06:25)
[2023-06-05 08:00] VITALS: BP 121/69; PULSE 82; RESP 18; TEMP 36.6; O2SAT 96
[2023-06-05] MEDS: lisinopriL 20 MG TABLET PO (08:51)
[2023-06-05] MEDS: hydrOXYzine HCL 25 MG TABLET PO (08:53)
[2023-06-05] MEDS: Memantine HCl 5 MG TABLET PO (08:53)
[2023-06-05 20:00] VITALS: BP 130/60; PULSE 78; RESP 18; TEMP 36.4; O2SAT 96
[2023-06-05] MEDS: amLODIPine Besylate 2.5 MG TABLET PO (20:43)
[2023-06-05] MEDS: QUEtiapine Fumarate 50 MG TABLET PO (20:43)
[2023-06-05] MEDS: Mirtazapine 15 MG TABLET PO (20:43)
[2023-06-06] MEDS: Levothyroxine Sodium 88 MCG TABLET PO (06:31)
[2023-06-06 08:00] VITALS: BP 123/59; PULSE 77; RESP 18; TEMP 36.4; O2SAT 96
[2023-06-06] MEDS: Memantine HCl 5 MG TABLET PO (08:55)
--- NOTE | 2023-06-06 09:20 | P.PNPSI_ITS ---
Subjective Subjective Date of Service: 06/06/23 Reason For Visit: combative behaviors, DYSPHAGIA Subjective Notes: Conditional Voluntary Healthcare Proxy: Yes Interim History: Pt seen by information security analyst due to chronic versus acute on chronic aspiration. esophagus noted to be dilated. Pt started on augmentin. He has been afebrile, o2sat 97% on RA. Pt observed to be coughing but denies any acute symptoms. Pt up with good energy level. No aggression towards self or others. no delusions. Review of Systems Review of Systems Pt denies pain. Unable to provide more information Constitutional: Denies fever(s) and Reports weight loss Denies dysphagia and Denies epistaxis Cardiovascular: Denies chest pain Respiratory: Reports as per HPI, Reports chest congestion, Reports cough, Denies hemoptysis and Denies wheezing Gastrointestinal: Denies dysphagia Musculoskeletal: Reports no additional musculoskeletal complaints Reports as per HPI Psychiatric: Reports as per HPI Allergic/Immunologic: Denies wheezing Mental Status Exam Mental Status Exam Narrative: Appearance:thin, cachectic male, flattened appearance behavior:cooperative, friendly Psychomotor: no agitation or retardation noted Speech:clear words, regular rate/rhythm, soft tone, spontaneous TP:mostly linear TC:pt reports feeling okay Mood: good Affect:congruent SI:none HI:none VH/AH:no signs at the moment Delusions:no overt delusional content reported Insight/judgment:impaired x 2. memory/cog: alert, only to self. Not oriented to place, situation, month or year. Diagnostics Vital Signs (24Hr): Vital Signs - 24 hr 06/05/23 20:00 Temperature 97.6 F Pulse Rate 78 Respiratory Rate 18 Blood Pressure 130/60 Pulse Oximetry 96 Oxygen Delivery Method Room Air BMI result Body Mass Index 16.9 Labs 06/06/23 10:24 06/03/23 15:23 Imaging Radiology Impressions: ITS Impressions Chest CT 06/03/23 15:18 IMPRESSION: Extensive pleural and parenchymal abnormalities greatest in the right upper lobe with volume loss and bronchiectasis and bronchiolectasis. There are no previous studies to determine chronicity. I suspect much if not all of the findings are chronic but superimposed acute process cannot be excluded. Recommend pulmonary medicine consult. Any decision to perform PET/CT or sampling requires clinical correlation and assessment of comorbid conditions. Fleischner guidelines were followed. Medications Medications Current Medications Acetaminophen (Acetaminophen 325 Mg Tablet) 650 mg PO Q6H PRN PRN Reason: Headache/Pain Mild Scale (1-3) Last Admin: 06/04/23 06:05 Dose: 650 mg Al Hydroxide/Mg Hydroxide (Magnesium Hydrox/Alum Hydrox 30 Ml Oral.Susp) 30 ml PO Q6H PRN PRN Reason: Heartburn/Nausea Amlodipine Besylate (Amlodipine Besylate 2.5 Mg Tablet) 2.5 mg PO BEDTIME [facility]; Protocol Last Admin: 06/05/23 20:43 Dose: 2.5 mg Hydroxyzine HCl (Hydroxyzine Hcl 25 Mg Tablet) 25 mg PO Q6H PRN PRN Reason: Anxiety Last Admin: 06/05/23 08:53 Dose: 25 mg Levothyroxine Sodium (Levothyroxine Sodium 88 Mcg Tablet) 88 mcg PO DAILY@0600 [facility] Last Admin: 06/06/23 06:31 Dose: 88 mcg Lisinopril (Lisinopril 20 Mg Tablet) 20 mg PO DAILY [facility]; Protocol Last Admin: 06/06/23 08:59 Dose: Not Given Magnesium Hydroxide (Milk Of Magnesia 30 Ml Oral.Susp) 30 ml PO DAILY PRN PRN Reason: Constipation Memantine (Memantine Hcl 5 Mg Tablet) 5 mg PO DAILY [facility] Last Admin: 06/06/23 08:55 Dose: 5 mg Mirtazapine (Mirtazapine 15 Mg Tablet) 15 mg PO BEDTIME [facility] Last Admin: 06/05/23 20:43 Dose: 15 mg Quetiapine Fumarate (Quetiapine Fumarate 50 Mg Tablet) 50 mg PO BEDTIME [facility] Last Admin: 06/05/23 20:43 Dose: 50 mg Quetiapine Fumarate (Quetiapine Fumarate 25 Mg Tablet) 25 mg PO Q6H PRN PRN Reason: aggitation Trazodone HCl (Trazodone Hcl 50 Mg Tablet) 50 mg PO BEDTIME PRN PRN Reason: Insomnia Last Admin: 06/02/23 20:45 Dose: 50 mg Allergies Allergies Allergy/AdvReac Type Severity Reaction Status Date / Time No Known Allergies Allergy Verified 05/22/23 15:41 Assessment & Plan Assessment & Plan (1) Major neurocognitive disorder due to multiple etiologies with behavioral disturbance: Status: Acute Code(s): F02.818 - Dementia in other diseases classified elsewhere, unspecified severity, with other behavioral disturbance Plan Mr. Chapman is a 87 year-old male with hx of dementia. He recently came from [place]. Pt with advanced dementia initially brought due to poor sleep, paranoiain setting of dementia. Pt developed UTI, AUNG, transferred to medical floor. Renal function improving. Pt started on ceftin 500mg po BID x 7 days, last day 06/05. PLAN 1. Admit to S1, sect 12b, 06/01 continue current medications, will increase lisinopril back to 20mg po daily. continue to monitor. 06/02 d/c noon time seroquel 25mg as pt presented very somnolent after taking it. 06/03 continue tx. 06/04/2023 Continue plan of care patient seems generally stable not overly combative or agitated Continue Namenda Seroquel 06/06 continue tx. seen by pulmonology started aumentin recommended to f/u chest XR in 3-4 weeks. Reason for continued inpatient stay Substantial Risk for: inability to function Time Spent With Patient Time: Total time managing care of this patient today ____ minutes.
--- NOTE | 2023-06-06 09:49 | PM.CNPUL ---
History of Present Illness History of Present Illness Consult date: 06/06/23 Chief complaint: combative behaviors, DYSPHAGIA Narrative: This is an inpatient pulmonary consultation. The patient is an 87-year-old gentleman with that no history of neurocognitive dysfunction initially admitted to the hospital with altered mental status apparently UTI he was treated and subsequently transferred over to the [facility] unit. Prior to his admission to [facility] he did have a chest x-ray which was considered to be abnormal. This is done back in May 22. It was recommended he get a CT scan of the chest. Overall the patient has been doing well from a respiratory status. He does complaint of a dry hacky cough. Nonproductive in nature. Moderate severity. Denies any difficulty eating or aspirations. Denies any fevers or chills. He has had some weight loss. Denies ever been diagnosed with a smoldering infections such as tuberculosis. He does admit to having been involved in a very serious accident where he fell and he injured his left hemithorax and shoulder. However, his right side was spared. He did undergo a CT scan of the chest and I personally reviewed it. Appears that he has some degree of airspace disease in the right upper lobe area. Also very dilated esophagus suggesting the possibility of micro aspirations where this could be are happening primarily to the upper lobe which he is lying flat. The patient will benefit from further treatment for a partially treated pneumonia. His white count and is now at significant asymptomatic at this time. My recommendation is to get blood work treating with antibiotics and did have follow-up with outpatient pulmonary with a repeat imaging study and see if this areas clear. If it is not cleared then consider visual inspection with bronchoscopy in addition to additional laboratory testing. Review of Systems Constitutional: Constitutional: Denies fever(s) and Reports weight loss ENT: Denies dysphagia and Denies epistaxis Cardiovascular: Cardiovascular: Denies chest pain Respiratory: Respiratory: Reports as per HPI, Reports chest congestion, Reports cough, Denies hemoptysis and Denies wheezing Gastrointestinal: Gastrointestinal: Denies dysphagia Musculoskeletal: Musculoskeletal: Reports no additional musculoskeletal complaints Neurologic: Reports as per HPI Psychiatric: Psychiatric: Reports as per HPI Allergic/Immunologic: Allergic/Immunologic: Denies wheezing PMFSH Past Medical History Medical History (Updated 06/06/23 @ 09:57 by Flako Payne MD) ILD (interstitial lung disease) Major neurocognitive disorder due to multiple etiologies with behavioral disturbance Hypothyroidism Hypertension Social History Social History Household Members: Family Housing: Apartment Do you presently have visiting nurse or other home services: No Unable to assess alcohol history related to: Unable to respond Patient Tobacco Use Status: Former Tobacco user Second Hand Smoke Exposure: No Use of substances other than those prescribed or required for medical reasons: Unable to respond Currently Displaying Signs/Symptoms of Drug Intoxication Withdrawal: No Advance Directives: No Advance Directives Information Provided: No Do you have thoughts of harming others: None Do you have a plan to hurt others: No Plan Recently lost weight without trying: Yes How much weight loss: Unsure Eating poorly because of decreased appetite: Yes Nutrition screen score: 5 Poor oral hygiene: Yes service: No Sexual orientation: Straight/Heterosexual Meds Allergies Allergy/AdvReac Type Severity Reaction Status Date / Time No Known Allergies Allergy Verified 05/22/23 15:41 Active Medications: Current Medications Acetaminophen (Acetaminophen 325 Mg Tablet) 650 mg PO Q6H PRN PRN Reason: Headache/Pain Mild Scale (1-3) Last Admin: 06/04/23 06:05 Dose: 650 mg Al Hydroxide/Mg Hydroxide (Magnesium Hydrox/Alum Hydrox 30 Ml Oral.Susp) 30 ml PO Q6H PRN PRN Reason: Heartburn/Nausea Amlodipine Besylate (Amlodipine Besylate 2.5 Mg Tablet) 2.5 mg PO BEDTIME [facility]; Protocol Last Admin: 06/05/23 20:43 Dose: 2.5 mg Amoxicillin/Clavulanate Potassium (Amoxicillin/Potassium Clav 875 Mg Tablet) 875 mg PO Q12H TYRONE Hydroxyzine HCl (Hydroxyzine Hcl 25 Mg Tablet) 25 mg PO Q6H PRN PRN Reason: Anxiety Last Admin: 06/05/23 08:53 Dose: 25 mg Levothyroxine Sodium (Levothyroxine Sodium 88 Mcg Tablet) 88 mcg PO DAILY@0600 TYRONE Last Admin: 06/06/23 06:31 Dose: 88 mcg Lisinopril (Lisinopril 20 Mg Tablet) 20 mg PO DAILY [facility]; Protocol Last Admin: 06/06/23 08:59 Dose: Not Given Magnesium Hydroxide (Milk Of Magnesia 30 Ml Oral.Susp) 30 ml PO DAILY PRN PRN Reason: Constipation Memantine (Memantine Hcl 5 Mg Tablet) 5 mg PO DAILY [facility] Last Admin: 06/06/23 08:55 Dose: 5 mg Mirtazapine (Mirtazapine 15 Mg Tablet) 15 mg PO BEDTIME [facility] Last Admin: 06/05/23 20:43 Dose: 15 mg Quetiapine Fumarate (Quetiapine Fumarate 50 Mg Tablet) 50 mg PO BEDTIME [facility] Last Admin: 06/05/23 20:43 Dose: 50 mg Quetiapine Fumarate (Quetiapine Fumarate 25 Mg Tablet) 25 mg PO Q6H PRN PRN Reason: aggitation Trazodone HCl (Trazodone Hcl 50 Mg Tablet) 50 mg PO BEDTIME PRN PRN Reason: Insomnia Last Admin: 06/02/23 20:45 Dose: 50 mg Home Medications Medication Instructions Recorded Confirmed Last Taken Type levothyroxine 88 mcg tablet 88 mcg PO DAILY 05/23/23 05/29/23 Unknown History lisinopril 10 mg tablet 10 mg PO DAILY 05/23/23 05/29/23 Unknown History Physical Exam Vital Signs: Vital Signs: Last Vital Signs Temp 97.6 F 06/05/23 20:00 Pulse 78 06/05/23 20:00 Resp 18 06/05/23 20:00 BP 130/60 06/05/23 20:00 Pulse Ox 96 06/05/23 20:00 O2 Del Method Room Air 06/05/23 20:00 BMI result Body Mass Index 16.9 Const: General: cooperative and comfortable HEENT: Head: Yes normocephalic Neck: Neck: Yes supple Chest: Chest palpation & inspection: normal inspection of the chest Resp: Effort & Inspection: normal respiratory effort Auscultation: diminished lung sounds Cardio: Heart sounds: S1 normal heart sound present and S2 normal heart sound present GI: Palpation (GI): Soft to palpation Skin: General skin exam: no rashes or lesions noted Extrem: General: Yes no clubbing, cyanosis or edema Results Laboratory Findings 06/03/23 15:23 Abnormal lab findings: Abnormal Labs 06/01/23 06/03/23 07:48 15:23 BUN 32 H 31 H Total Protein 6.2 L 6.4 L Albumin 3.2 L 3.3 L LDL Cholesterol, Calc 111 H TSH 15.03 H Assessment and Plan (1) Pneumonia: Qualifiers: Pneumonia type: aspiration pneumonia Aspiration pneumonia type: unspecified Laterality: right Lung location: upper lobe of lung Qualified Code(s): J69.0 - Pneumonitis due to inhalation of food and vomit Status: Acute (2) ILD (interstitial lung disease): Status: Acute Plan start Augmentin BArium swallow bloodwork Should f/u with outpt pulmonary in 3-4 weeks with repeat CXR Time Spent With Patient Time: Total time managing care of this patient today ____ minutes. Procedures Date of Service Date of Service: 06/06/23
[2023-06-06] MEDS: Amoxicillin/Potassium Clav 875 MG TABLET PO ×2 (09:50→20:37)
[2023-06-06 10:27] LABS: MANUAL DIFF FLAG NO
[2023-06-06 10:37] LABS: Basophils Percent Auto 0.2 % (0-2); Eosinophils Percent Auto 0.4 % (0-4); Hematocrit 30.1 % (42.0-52.0); Hemoglobin 9.5 g/dl (14.0-18.0); Imm Gran Abs Auto 0.04 X10*3/uL (0.00-0.03); Imm Gran Pct Auto 0.4 % (0.0-0.4); Lymphocytes Absolute Auto 0.5 X10*3/uL (1.2-4.9); Lymphocytes Percent Auto 4.2 % (20-40); Mean Corpuscular HGB Conc 31.6 g/dl (31.0-36.0); Mean Corpuscular Hemoglobin 27.1 pg (27.0-33.0); Mean Corpuscular Volume 85.8 fL (80.0-98.0); Mean Platelet Volume 10.4 fL (9.4-12.4); Monocytes Absolute Auto 0.9 X10*3/uL (0.1-1.2); Monocytes Percent Auto 8.1 % (2-11); Neutrophils Absolute Auto 9.2 x10*3/uL (2.0-8.3); Neutrophils Percent Auto 86.7 % (45-73); Platelet Count 213 X10*3/uL (160-400); Red Blood Count 3.51 X10*6/uL (4.60-5.80); Red Cell Distribution Width 15.2 % (11.0-16.0); White Blood Count 10.6 X10*3/uL (4.8-10.8)
[2023-06-06 11:17] LABS: Erythrocyte Sedimentation Rate 31 MM/HR (0-15)
--- NOTE | 2023-06-06 13:56 | PC.NURSE ---
Sanya has an appt Tuesday at 11am for a barium swallow in radiology, pt must be NPO after midnight on Tuesday-Tuesday.
[2023-06-06 20:35] VITALS: BP 139/88; PULSE 78; RESP 16; TEMP 36.3; O2SAT 96
[2023-06-06] MEDS: QUEtiapine Fumarate 50 MG TABLET PO (20:36)
[2023-06-06] MEDS: amLODIPine Besylate 2.5 MG TABLET PO (20:37)
[2023-06-06] MEDS: traZODone HCL 50 MG TABLET PO (20:37)
[2023-06-06] MEDS: Mirtazapine 15 MG TABLET PO (20:37)
[2023-06-07] MEDS: Levothyroxine Sodium 88 MCG TABLET PO (06:34)
[2023-06-07 08:10] VITALS: BP 147/69; PULSE 49; RESP 18; TEMP 36.4; O2SAT 96
[2023-06-07] MEDS: lisinopriL 20 MG TABLET PO (08:55)
[2023-06-07] MEDS: Amoxicillin/Potassium Clav 875 MG TABLET PO (08:55)
[2023-06-07] MEDS: Memantine HCl 5 MG TABLET PO (08:55)
--- NOTE | 2023-06-07 09:28 | HO.PSYCHPN ---
Subjective Subjective Reason For Visit: combative behaviors, DYSPHAGIA Diagnostics Vital Signs (24Hr): Vital Signs - 24 hr 06/06/23 20:35 Temperature 97.3 F Pulse Rate 78 Respiratory Rate 16 Blood Pressure 139/88 Pulse Oximetry 96 Oxygen Delivery Method Room Air BMI result Body Mass Index 16.9 Labs 06/06/23 10:24 06/03/23 15:23 Labs: Laboratory Results - last 48 hr 06/06/23 10:24 WBC 10.6 RBC 3.51 L Hgb 9.5 L Hct 30.1 L MCV 85.8 MCH 27.1 MCHC 31.6 RDW 15.2 Plt Count 213 MPV 10.4 Immature Gran % (Auto) 0.4 Neut % (Auto) 86.7 H Lymph % (Auto) 4.2 L Cowley % (Auto) 8.1 Eos % (Auto) 0.4 Baso % (Auto) 0.2 Lymph # (Auto) 0.5 L Cowley # (Auto) 0.9 Eos # (Auto) 0.0 Baso # (Auto) 0.0 Abs Immat Gran (auto) 0.04 H Absolute Neuts (auto) 9.2 H Absolute Nucleated RBC 0.000 Nucleated RBC % (auto) 0.0 ESR 31 H Imaging Radiology Impressions: ITS Impressions Chest CT 06/03/23 15:18 IMPRESSION: Extensive pleural and parenchymal abnormalities greatest in the right upper lobe with volume loss and bronchiectasis and bronchiolectasis. There are no previous studies to determine chronicity. I suspect much if not all of the findings are chronic but superimposed acute process cannot be excluded. Recommend pulmonary medicine consult. Any decision to perform PET/CT or sampling requires clinical correlation and assessment of comorbid conditions. Fleischner guidelines were followed. Medications Medications Current Medications Acetaminophen (Acetaminophen 325 Mg Tablet) 650 mg PO Q6H PRN PRN Reason: Headache/Pain Mild Scale (1-3) Last Admin: 06/04/23 06:05 Dose: 650 mg Al Hydroxide/Mg Hydroxide (Magnesium Hydrox/Alum Hydrox 30 Ml Oral.Susp) 30 ml PO Q6H PRN PRN Reason: Heartburn/Nausea Amlodipine Besylate (Amlodipine Besylate 2.5 Mg Tablet) 2.5 mg PO BEDTIME [facility]; Protocol Last Admin: 06/06/23 20:37 Dose: 2.5 mg Amoxicillin/Clavulanate Potassium (Amoxicillin/Potassium Clav 875 Mg Tablet) 875 mg PO Q12H [facility] Last Admin: 06/07/23 08:55 Dose: 875 mg Hydroxyzine HCl (Hydroxyzine Hcl 25 Mg Tablet) 25 mg PO Q6H PRN PRN Reason: Anxiety Last Admin: 06/05/23 08:53 Dose: 25 mg Levothyroxine Sodium (Levothyroxine Sodium 88 Mcg Tablet) 88 mcg PO DAILY@0600 [facility] Last Admin: 06/07/23 06:34 Dose: 88 mcg Lisinopril (Lisinopril 20 Mg Tablet) 20 mg PO DAILY [facility]; Protocol Last Admin: 06/07/23 08:55 Dose: 20 mg Magnesium Hydroxide (Milk Of Magnesia 30 Ml Oral.Susp) 30 ml PO DAILY PRN PRN Reason: Constipation Memantine (Memantine Hcl 5 Mg Tablet) 5 mg PO DAILY [facility] Last Admin: 06/07/23 08:55 Dose: 5 mg Mirtazapine (Mirtazapine 15 Mg Tablet) 15 mg PO BEDTIME [facility] Last Admin: 06/06/23 20:37 Dose: 15 mg Quetiapine Fumarate (Quetiapine Fumarate 50 Mg Tablet) 50 mg PO BEDTIME [facility] Last Admin: 06/06/23 20:36 Dose: 50 mg Quetiapine Fumarate (Quetiapine Fumarate 25 Mg Tablet) 25 mg PO Q6H PRN PRN Reason: aggitation Trazodone HCl (Trazodone Hcl 50 Mg Tablet) 50 mg PO BEDTIME PRN PRN Reason: Insomnia Last Admin: 06/06/23 20:37 Dose: 50 mg Allergies Allergies Allergy/AdvReac Type Severity Reaction Status Date / Time No Known Allergies Allergy Verified 05/22/23 15:41 Assessment & Plan Assessment & Plan (1) Pneumonia: Qualifiers: Pneumonia type: aspiration pneumonia Aspiration pneumonia type: unspecified Laterality: right Lung location: upper lobe of lung Qualified Code(s): J69.0 - Pneumonitis due to inhalation of food and vomit Status: Acute Code(s): J18.9 - Pneumonia, unspecified organism (2) ILD (interstitial lung disease): Status: Acute Code(s): J84.9 - Interstitial pulmonary disease, unspecified Plan start Augmentin BArium swallow bloodwork Should f/u with outpt pulmonary in 3-4 weeks with repeat CXR Time Spent With Patient Time: Total time managing care of this patient today ____ minutes.
--- NOTE | 2023-06-07 09:39 | PC.NURSE ---
Addendum entered by Saloni Moncada RN 06/07/23 09:44: Maryanne Goode [employer] notified Original Note: Pt lethargic declined breakfast. P 49, gurgling noted, LS Rhonchi noted to KARRIE.
--- NOTE | 2023-06-07 09:41 | PM.EVENT ---
Documented by User: Heaven Roberson 06/07/23 09:42 Event Note Date of Service: 06/07/23 Time Spent With Patient Time: Total time managing care of this patient today ____ minutes. Documented by User: Deena Goode 06/07/23 09:43 Event Note Date of Service: 06/07/23
[2023-06-07 10:13] LABS: MANUAL DIFF FLAG NO
[2023-06-07 10:16] LABS: Basophils Percent Auto 0.6 % (0-2); Eosinophils Absolute Auto 0.1 X10*3/uL (0.0-0.4); Eosinophils Percent Auto 0.8 % (0-4); Hematocrit 28.4 % (42.0-52.0); Hemoglobin 9.1 g/dl (14.0-18.0); Imm Gran Abs Auto 0.03 X10*3/uL (0.00-0.03); Imm Gran Pct Auto 0.5 % (0.0-0.4); Lymphocytes Absolute Auto 0.6 X10*3/uL (1.2-4.9); Lymphocytes Percent Auto 8.6 % (20-40); Mean Corpuscular Hemoglobin 27.2 pg (27.0-33.0); Mean Corpuscular Volume 84.8 fL (80.0-98.0); Mean Platelet Volume 10.3 fL (9.4-12.4); Monocytes Absolute Auto 0.6 X10*3/uL (0.1-1.2); Monocytes Percent Auto 9.6 % (2-11); Neutrophils Absolute Auto 5.2 x10*3/uL (2.0-8.3); Neutrophils Percent Auto 79.9 % (45-73); Platelet Count 179 X10*3/uL (160-400); Red Blood Count 3.35 X10*6/uL (4.60-5.80); Red Cell Distribution Width 15.3 % (11.0-16.0); White Blood Count 6.5 X10*3/uL (4.8-10.8)
[2023-06-07 10:24] LABS: Lactic Acid 0.6 mmol/L (0.5-2.0)
[2023-06-07 10:31] LABS: Alanine Aminotransferase 16 U/L (0-40); Albumin Level 2.9 g/dL (3.5-5.0); Alkaline Phosphatase 70 U/L (39-117); Anion Gap 11 (12-20); Aspartate Amino Transferase 23 U/L (5-37); Bilirubin Total 0.5 mg/dL (0.0-1.0); Blood Urea Nitrogen 20 mg/dL (9-16); Calcium 9.5 mg/dL (8.4-10.2); Carbon Dioxide 34 mmol/L (22-29); Chloride 101 mmol/L (96-108); Creatinine Clr Calc Pharmacy 47.3; Estimated Glomerular Filt Rate > 60; Glucose Random 105 mg/dL (60-115); Potassium 3.7 mmol/L (3.3-5.1); Sodium 142 mmol/L (135-145); Total Protein 5.7 g/dL (6.5-8.0)
[2023-06-07 10:44] VITALS: PULSE 46; RESP 18; O2SAT 95
--- NOTE | 2023-06-07 11:30 | ECG_ITS ---
Test Reason : bradycardia Blood Pressure : / mmHG Vent. Rate : 048 BPM Atrial Rate : 048 BPM P-R Int : 122 ms QRS Dur : 090 ms QT Int : 492 ms P-R-T Axes : 062 078 068 degrees QTc Int : 439 ms Sinus bradycardia RSR' or QR pattern in V1 suggests right ventricular conduction delay Borderline ECG When compared with ECG of 23-MAY-2023 02:00, Vent. rate has decreased BY 28 BPM Referred By: Yesi Whittington Electronically Signed By:GRISELDA SOLOMON MD
--- NOTE | 2023-06-07 11:45 | P.CONHOSP_ITS ---
History of Present Illness Data of Consult Service Date: 06/07/23 Requesting physician: Deena Goode Primary Care Provider: Unknown Physician HPI Reason for consult: ams, lethargy, bradycardia, gurgling 87-year-old male with history of interstitial lung disease, hypothyroidism, hypertension, with major neurocognitive disorder due to multiple etiologies with behavioral disturbance admitted to Geriatric Psychiatry with consult placed to hospitalist service due to altered mental status, lethargy, poor p.o. intake. The patient was recently transferred back to Geriatric Psychiatry after being treated on the medical floors from 05/28-05/30 for UTI with metabolic encephalopathy treated with IV ceftriaxone. Urine culture grew Proteus and hematuria resolved. Upon discharge, mentation had improved, patient was eating and drinking appropriately and had been out of bed. However, consult was placed to pulmonology for evaluation of dysphagia though no aspiration was noted. No fevers or chills but had been experiencing about a 9 pound weight loss in [address] chest from 05/22 revealed airspace disease in RUL and very dilated esophagus suggesting possibility of microaspirations. It was felt there was a partially treated pneumonia and patient was started on augmentin (on dose 10/26). He has had no leukocytosis and vital signs had been stable. However, today has developed bradycardia in the 40s. Pt is not getting out of bed and is not conversive, mumbling nonscensical sounds. He is more lethargic appearing per nursing and was noted to be gurgling this morning. For labs this morning revealed no leukocytosis, stable normocytic anemia. Renal function and electrolyte levels normal except for CO2 of 34 (baseline 25-29). He was given hydroxyzine last night which he has not received this admission and augmentin recently started as previously noted, otherwise no new medications. Pt is unable to provide history. History obtained from RN and outboard motors experimental mechanic. Review of Systems 2 Review of Systems: Yes Unobtainable due to mental condition and Unobtainable due to mental status [facility]LY [facility] Medical History ILD (interstitial lung disease) Major neurocognitive disorder due to multiple etiologies with behavioral disturbance Hypothyroidism Hypertension Social History Household Members: Family Housing: Apartment Do you presently have visiting nurse or other home services: No Unable to assess alcohol history related to: Unable to respond Patient Tobacco Use Status: Former Tobacco user Second Hand Smoke Exposure: No service: No Sexual orientation: Straight/Heterosexual Meds Allergies Allergy/AdvReac Type Severity Reaction Status Date / Time No Known Allergies Allergy Verified 05/22/23 15:41 Active Medications: Current Medications Acetaminophen (Acetaminophen 325 Mg Tablet) 650 mg PO Q6H PRN PRN Reason: Headache/Pain Mild Scale (1-3) Last Admin: 06/04/23 06:05 Dose: 650 mg Al Hydroxide/Mg Hydroxide (Magnesium Hydrox/Alum Hydrox 30 Ml Oral.Susp) 30 ml PO Q6H PRN PRN Reason: Heartburn/Nausea Amlodipine Besylate (Amlodipine Besylate 2.5 Mg Tablet) 2.5 mg PO BEDTIME [facility]; Protocol Last Admin: 06/06/23 20:37 Dose: 2.5 mg Amoxicillin/Clavulanate Potassium (Amoxicillin/Potassium Clav 875 Mg Tablet) 875 mg PO Q12H TYRONE Last Admin: 06/07/23 08:55 Dose: 875 mg Hydroxyzine HCl (Hydroxyzine Hcl 25 Mg Tablet) 25 mg PO Q6H PRN PRN Reason: Anxiety Last Admin: 06/05/23 08:53 Dose: 25 mg Levothyroxine Sodium (Levothyroxine Sodium 88 Mcg Tablet) 88 mcg PO DAILY@0600 TYRONE Last Admin: 06/07/23 06:34 Dose: 88 mcg Lisinopril (Lisinopril 20 Mg Tablet) 20 mg PO DAILY [facility]; Protocol Last Admin: 06/07/23 08:55 Dose: 20 mg Magnesium Hydroxide (Milk Of Magnesia 30 Ml Oral.Susp) 30 ml PO DAILY PRN PRN Reason: Constipation Memantine (Memantine Hcl 5 Mg Tablet) 5 mg PO DAILY [facility] Last Admin: 06/07/23 08:55 Dose: 5 mg Mirtazapine (Mirtazapine 15 Mg Tablet) 15 mg PO BEDTIME [facility] Last Admin: 06/06/23 20:37 Dose: 15 mg Quetiapine Fumarate (Quetiapine Fumarate 50 Mg Tablet) 50 mg PO BEDTIME TYRONE Last Admin: 06/06/23 20:36 Dose: 50 mg Quetiapine Fumarate (Quetiapine Fumarate 25 Mg Tablet) 25 mg PO Q6H PRN PRN Reason: aggitation Trazodone HCl (Trazodone Hcl 50 Mg Tablet) 50 mg PO BEDTIME PRN PRN Reason: Insomnia Last Admin: 06/06/23 20:37 Dose: 50 mg Home Medications Medication Instructions Recorded Confirmed Last Taken Type levothyroxine 88 mcg tablet 88 mcg PO DAILY 05/23/23 05/29/23 Unknown History lisinopril 10 mg tablet 10 mg PO DAILY 05/23/23 05/29/23 Unknown History Physical Exam 2 Vital Signs and Narrative: Vital Signs: Last Vital Signs Temp 97.6 F 06/07/23 08:10 Pulse 46 L 06/07/23 10:44 Resp 18 06/07/23 10:44 BP 147/69 H 06/07/23 08:10 Pulse Ox 95 06/07/23 10:44 O2 Del Method Room Air 06/07/23 10:44 BMI result Body Mass Index 16.9 Constitutional - Awake and Alert, No apparent distress Eyes - PERRLA, EOMI Cardiovascular - S1S2, RRR, No edema Respiratory - Normal lung expansion, Normal respiratory effort, No respiratory distress, diminished lung sounds bilaterally with distant crackles right lung Gastrointestinal - NT / ND; +BS; No rebound or guarding Extremities - no calf tenderness bilaterally, no swelling Skin - Warm/Dry Neurological - Alert & disoriented, mumbling incomprehensible sounds, unable to participate in neuro exam but appears to have equal strength bue and ble Psychological - Appropriate affect Results Labs 06/07/23 10:07 06/07/23 10:07 Labs: Laboratory Results - last 24 hr 06/07/23 10:07 MCV 84.8 MCH 27.2 MCHC 32.0 RDW 15.3 Plt Count 179 MPV 10.3 Immature Gran % (Auto) 0.5 H Neut % (Auto) 79.9 H Lymph % (Auto) 8.6 L [place] % (Auto) 9.6 Eos % (Auto) 0.8 Baso % (Auto) 0.6 Lymph # (Auto) 0.6 L [place] # (Auto) 0.6 Eos # (Auto) 0.1 Baso # (Auto) 0.0 Abs Immat Gran (auto) 0.03 Absolute Neuts (auto) 5.2 Absolute Nucleated RBC 0.000 Nucleated RBC % (auto) 0.0 Anion Gap 11 L Estim Creat Clear Calc 47.3 Estimated GFR > 60 Random Glucose 105 Lactic Acid 0.6 Calcium 9.5 Total Bilirubin 0.5 AST 23 ALT 16 Alkaline Phosphatase 70 Total Protein 5.7 L Albumin 2.9 L Assessment and Plan (1) Acute metabolic encephalopathy: Status: Acute (2) Aspiration into airway: Status: Acute Plan 87-year-old male with history of interstitial lung disease, hypothyroidism, hypertension, with major neurocognitive disorder due to multiple etiologies with behavioral disturbance admitted to Geriatric Psychiatry with consult placed to hospitalist service due to altered mental status, lethargy, poor p.o. intake. #Acute metabolic encephalopathy- suspect infectious etiology vs medication induced (received hydroxyzine last night) which could have contributed to reaspiration -concern for aspiration. No leukocytosis, no sirs criteria. No hypoxia -CT chest reviewed. Updated CXR ordered -Check head ct and cta head/neck to rule out CVA given acute change in mental status -Check UA/UC to rule out UTI. Straight cath ordered -Keep NPO for now -requested SURVEYING TEACHER reevaluation -aspiration precautions -resume augmentin per SURVEYING TEACHER recommendation -Check VBG, ammonia, TSH w/ free T4, trop, bnp -appreciate pulmonology input -Avoid all sedating medications, inlcuding hydroxyzine #Bradycardia -?medication related -No syncope or respiratory distress observed, pt unable to provide history -EKG ordered -check VS q2h for now Thank you for this consult. Will continue following for results and further recommendations. Time Spent With Patient Time: Total time managing care of this patient today ____ minutes.
[2023-06-07 12:29] LABS: VBG Base Excess 14.3 mmol/L; VBG HCO3 39 mmol/L (22-26); VBG pCO2 53 mmHg; VBG pH 7.47 (7.32-7.43); VBG pO2 56 mmHg
[2023-06-07 12:30] LABS: Venous Blood Gas Refer to POC result
[2023-06-07 12:33] LABS: Ammonia 23 umol/L (13-55)
[2023-06-07 12:42] LABS: Appearance Urine Clear; Color Urine Yellow; Glucose Urine UA Negative (Negative); Leukocyte Esterase Urine Moderate (2+) (Negative); Nitrite Urine Negative (Negative); Specific Gravity - Urine 1.015 (1.005-1.025); UMIC TRIGGER UACC YES; Urine Blood Moderate (2+) (Negative); Urine Ketones Negative (Negative); Urine Protein Negative (Neg-Trace)
[2023-06-07 12:44] VITALS: BP 148/63; PULSE 47; RESP 18; TEMP 36.6; O2SAT 97
[2023-06-07 12:47] LABS: B Type Natriuretic Peptide 52 pg/mL (<100); Magnesium 1.8 mg/dL (1.6-2.6)
[2023-06-07 12:47] LABS: Bacteria Urine None Seen (None Seen); Hyaline Casts Urine 0-2 /LPF (0-2); RBC Urine >20 /HPF (0-2); Squamous Epithelial Cell Urine 0-2 /HPF (0-2); UACC Culture Trigger YES
[2023-06-07 12:51] LABS: Troponin-I High Sensitivity < 2.7 ng/L (<3.5-35.0)
[2023-06-07 13:02] LABS: TSH reflex Free T4 16.65 uIU/mL (0.32-4.0)
--- NOTE | 2023-06-07 13:19 | PC.NURSE ---
Received verbal consent from patients granddaughter Sandi HCP for CTA head/neck.
--- NOTE | 2023-06-07 13:32 | P.DS_ITS ---
DS: Providers Provider Date of Service: 06/07/23 Date of admission: 05/31/23 11:04 Primary care physician: Unknown Physician Consults: 06/06/23 09:08 Consult to Pulmonology Routine Consulting Provider: [facility] Pulmonology Services Reason for consultation: ext pleural and parenchymal abnormalities Has provider been notified: Yes DS: Diagnosis Discharge Diagnosis (1) Acute metabolic encephalopathy: Status: Acute (2) Aspiration into airway: Status: Acute DS: Medications Discharge Medications Home Medications: Home Medications Medication Instructions Recorded Confirmed levothyroxine 88 mcg tablet 88 mcg PO DAILY 05/23/23 05/29/23 lisinopril 10 mg tablet 10 mg PO DAILY 05/23/23 05/29/23 Mental Status Exam Mental Status Exam Narrative: Pt somnolent, mumbling words, limited due to change in mentation due to medical condition. Data Data Completed and Pending Completed studies during hospitalization [Text1]: 06/01/23 06/03/23 06/06/23 07:48 15:23 10:24 WBC 10.6 RBC 3.51 L Hgb 9.5 L Hct 30.1 L MCV 85.8 MCH 27.1 MCHC 31.6 RDW 15.2 Plt Count 213 MPV 10.4 Immature Gran % (Auto) 0.4 Neut % (Auto) 86.7 H Lymph % (Auto) 4.2 L [place] % (Auto) 8.1 Eos % (Auto) 0.4 Baso % (Auto) 0.2 Lymph # (Auto) 0.5 L [place] # (Auto) 0.9 Eos # (Auto) 0.0 Baso # (Auto) 0.0 Abs Immat Gran (auto) 0.04 H Absolute Neuts (auto) 9.2 H Absolute Nucleated RBC 0.000 Nucleated RBC % (auto) 0.0 ESR 31 H VBG pH VBG pCO2 VBG pO2 VBG HCO3 VBG O2 Saturation VBG Base Excess Sodium 142 138 Potassium 3.7 3.9 Chloride 107 100 Carbon Dioxide 26 29 Anion Gap 13 13 BUN 32 H 31 H Creatinine 0.85 0.70 Estim Creat Clear Calc 37.8 46.0 Estimated GFR > 60 > 60 Random Glucose 89 Fasting Glucose 99 Estimat Average Glucose 105 Hemoglobin A1c % 5.3 Lactic Acid Calcium 9.9 D 9.9 Magnesium Total Bilirubin 0.7 0.4 AST 13 18 ALT 11 14 Alkaline Phosphatase 70 70 Ammonia Troponin I High Sens B-Natriuretic Peptide Total Protein 6.2 L 6.4 L Albumin 3.2 L 3.3 L Triglycerides 76 Cholesterol 172 LDL Cholesterol, Calc 111 H HDL Cholesterol 46 TSH 15.03 H Free T4 Urine Color Urine Appearance Urine pH Ur Specific [place] Urine Protein Urine Glucose (UA) Urine Ketones Urine Blood Urine Nitrite Ur Leukocyte Esterase Urine RBC Urine WBC Ur Squamous Epith Cells Urine Bacteria Hyaline Casts IgG Pending 06/07/23 06/07/23 06/07/23 10:07 12:05 12:17 WBC 6.5 RBC 3.35 L Hgb 9.1 L Hct 28.4 L MCV 84.8 MCH 27.2 MCHC 32.0 RDW 15.3 Plt Count 179 MPV 10.3 Immature Gran % (Auto) 0.5 H Neut % (Auto) 79.9 H Lymph % (Auto) 8.6 L [place] % (Auto) 9.6 Eos % (Auto) 0.8 Baso % (Auto) 0.6 Lymph # (Auto) 0.6 L [place] # (Auto) 0.6 Eos # (Auto) 0.1 Baso # (Auto) 0.0 Abs Immat Gran (auto) 0.03 Absolute Neuts (auto) 5.2 Absolute Nucleated RBC 0.000 Nucleated RBC % (auto) 0.0 ESR VBG pH VBG pCO2 VBG pO2 VBG HCO3 VBG O2 Saturation VBG Base Excess Sodium 142 Potassium 3.7 Chloride 101 Carbon Dioxide 34 H Anion Gap 11 L BUN 20 H Creatinine 0.68 Estim Creat Clear Calc 47.3 Estimated GFR > 60 Random Glucose 105 Fasting Glucose Estimat Average Glucose Hemoglobin A1c % Lactic Acid 0.6 Calcium 9.5 Magnesium 1.8 Total Bilirubin 0.5 AST 23 ALT 16 Alkaline Phosphatase 70 Ammonia 23 Troponin I High Sens < 2.7 B-Natriuretic Peptide 52 Total Protein 5.7 L Albumin 2.9 L Triglycerides Cholesterol LDL Cholesterol, Calc HDL Cholesterol TSH 16.65 H Free T4 Pending Urine Color Yellow Urine Appearance Clear Urine pH 6.0 Ur Specific [place] 1.015 Urine Protein Negative Urine Glucose (UA) Negative Urine Ketones Negative Urine Blood Moderate (2+) H Urine Nitrite Negative Ur Leukocyte Esterase Moderate (2+) H Urine RBC >20 H Urine WBC 11-20 H Ur Squamous Epith Cells 0-2 Urine Bacteria None Seen Hyaline Casts 0-2 IgG 06/07/23 12:24 WBC RBC Hgb Hct MCV MCH MCHC RDW Plt Count MPV Immature Gran % (Auto) Neut % (Auto) Lymph % (Auto) [place] % (Auto) Eos % (Auto) Baso % (Auto) Lymph # (Auto) [place] # (Auto) Eos # (Auto) Baso # (Auto) Abs Immat Gran (auto) Absolute Neuts (auto) Absolute Nucleated RBC Nucleated RBC % (auto) ESR VBG pH 7.47 H VBG pCO2 53 VBG pO2 56 VBG HCO3 39 H VBG O2 Saturation 86.0 VBG Base Excess 14.3 Sodium Potassium Chloride Carbon Dioxide Anion Gap BUN Creatinine Estim Creat Clear Calc Estimated GFR Random Glucose Fasting Glucose Estimat Average Glucose Hemoglobin A1c % Lactic Acid Calcium Magnesium Total Bilirubin AST ALT Alkaline Phosphatase Ammonia Troponin I High Sens B-Natriuretic Peptide Total Protein Albumin Triglycerides Cholesterol LDL Cholesterol, Calc HDL Cholesterol TSH Free T4 Urine Color Urine Appearance Urine pH Ur Specific [place] Urine Protein Urine Glucose (UA) Urine Ketones Urine Blood Urine Nitrite Ur Leukocyte Esterase Urine RBC Urine WBC Ur Squamous Epith Cells Urine Bacteria Hyaline Casts IgG Imaging Diagnostic Imaging Impressions Chest CT 06/03/23 15:18 IMPRESSION: Extensive pleural and parenchymal abnormalities greatest in the right upper lobe with volume loss and bronchiectasis and bronchiolectasis. There are no previous studies to determine chronicity. I suspect much if not all of the findings are chronic but superimposed acute process cannot be excluded. Recommend pulmonary medicine consult. Any decision to perform PET/CT or sampling requires clinical correlation and assessment of comorbid conditions. Fleischner guidelines were followed. DS: Summary Hospital Course Hospital Course: HPI: Subjective Notes: [place] Warning and Section 12B Narrative: Mr. Chapman is a 87 year-old male with Dementia who was brought to [facility] ED due to increase paranoia, increase forgetfulness, not oriented. Pt was brought from [place] two weeks ago as neighbors alerted family here in [place] about his memory impairments and paranoia. In the ED, utox was negative. Head CT showed atrophy. CBC normocytic anemia. CMP- no electrolyte abnormality, Cr. 0.81, BUN slightly elevated 21, creatinine clearance 43.5. TSH elevated 24.38 on levothyroxine. B12 >400, Folate >4. On the unit, pt presents as not oriented to place or situation. He points at staff and states that they are waiting for him to arrest him. He presents somewhat agitated as he thinks staff are police. Pt later able to be redirected. Pt with difficulty sleeping, required haldol 5mg IM last night. Past Psychiatric History: Unknown Medical Evaluation Reviewed: Yes HOSPITAL COURSE On the unit, pt presented as calm and cooperative. No oriented to place or sit uation or year or month. However, he did not show any signs of delusions or psychosis. He also did not show any signs of combative behaviors. Pt was one to one due to unsteady gait and risk for fall. He was eating most of meals with additional fortified ice cream per cmm programmer due to weight loss. Pt had follow up chest CT as recommended after first one that showed right apical thickening. Chest CT showed pleural and parenchymal abnormalities, brochiectasis and bronchiolectasis. Pt vital signs have been mostly unremarkle without signs of hypoxia O2sat >96 on room air. No signs of respiratory distress or use of accesory muscles. Pt has been afebrile. He was seen as initial consult by battery test engineer, Dr. Payne on 06/06 started on augmentin for aspiration pneummonia with plan to repeat chest XR in 3-4 weeks. However, on 06/07 pt presented more letargic, mumbling words, stable O2sat, afebrile. BP 150/70, with bradycardia 45. He was seen by hospitalist, repeat chest xray completed. CBC (no leukocitosis and WBC trending down compared to yesterday from to ) and CMP ordered ( with elevation of CO2), lactic acid 0.6. Pt being transferred for aspiration pneumonia with plan to start IV antibiotic. Time Spent with Patient Time attestation: Total time managing care of this patient today ____ minutes. Discharge Plan Discharge Anticipated Discharge Date/Time: 06/07/23 13:27 Patient Disposition: Xfer Acute Care Hospital Discharge Diagnosis: Major Neurocognitive Disorder Referrals: Physician,Unknown J [Primary Care Provider] - 1 Week Discharge Medications: No Action levothyroxine 88 mcg Tablet 88 mcg PO DAILY lisinopril 10 mg Tablet 10 mg PO DAILY Discharge Orders: Discharge Order (Routine); Ordered 06/07/23 Ordered By: Deena Goode Diet: dyaphagia Activity on Discharge: As tolerated Stand Alone Forms: Patient Portal Discharge page Care Plan Goals: Maintain mood Health Concerns: transfer to medical Plan of Treatment: transfer to medical unit for aspiration pneumonia Assessment: pt mumbling somnolent. afebrile, stable o2sat change in mentation worsening of aspiration pneumonia.
[2023-06-07 13:37] LABS: Free T4 (Free Thyroxine) 1.13 ng/dL (0.71-1.85)
[2023-06-07 14:00] VITALS: BP 157/60; PULSE 50; RESP 18; TEMP 36.1; O2SAT 98
--- NOTE | 2023-06-07 14:36 | MHC.SPEECHCO ---
LAW OFFICE ASSISTANT in to see Pt. His sitter is at bedside. She reports that he ate none of his lunch. LAW OFFICE ASSISTANT offered Pudding, Heraclio Crackers and Thickened Juice. He staunchly declined all offers despite encouragement. RN, , RD notified via secure text. LAW OFFICE ASSISTANT will continue to follow.
[2023-06-07] MEDS: iohexoL 350 MG/ML 100 ML INFUS..BTL IV (15:38)
--- NOTE | 2023-06-07 16:03 | PC.NURSE ---
Urine for u/a and C+S ordered. Patient straight cathed for 100 cc clear yellow urine and specimens dropped off at the lab. Patient tolerated procedure well.
--- NOTE | 2023-06-07 16:17 | PC.NURSE ---
Pt lethargic gurgling, non-sensical, Pt bradycardy Pulse in the 40 s, LS diminished bilaterally in all leong, crackles noted to Rt lower lung. Provider and Yesi Whittington notified. new orders to transfer pt to [facility]
[2023-06-08 12:44] LABS: Immunoglobulin G 1180 mg/dL (600-1540)
== END 2023-06-07 17:30 | disposition short-term general hospital (02) | DRG 884 ==
PROVIDERS: Hospitalist; Physician Assistant; Social Worker; Admitting Provider Psychiatry & Neurology Psychiatry; Visit Provider Psychiatry & Neurology Psychiatry
DX: F03.918 Unspecified dementia, unspecified severity, with other behavioral disturbance (principal); J69.0 Pneumonitis due to inhalation of food and vomit; R64 Cachexia; Z68.1 Body mass index [BMI] 19.9 or less, adult; E03.9 Hypothyroidism, unspecified; R13.10 Dysphagia, unspecified; Z23 Encounter for immunization; Z87.891 Personal history of nicotine dependence; Z79.890 Hormone replacement therapy; Z79.899 Other long term (current) drug therapy
CPT/HCPCS: 36415; 70496; 70498; 71045; 71250; 80053; 80061; 81001; 82140; 82784; 82803; 83036; 83605; 83735; 83880; 84439; 84443; 84484; 85025; 85652; 87086; 92610; 93005; Q9967

== ENCOUNTER → 2023-05-31 11:04 | Outpatient (BNV) | payer MEDICARE, SELFPAY | PROVIDERS: Admitting Provider Psychiatry & Neurology Psychiatry; Visit Provider Physician Assistant | DX: G93.41 Metabolic encephalopathy (principal); T17.908A Unspecified foreign body in respiratory tract, part unspecified causing other injury, initial encounter | CPT/HCPCS: 99222 ==

== ENCOUNTER → 2023-05-31 11:04 | Outpatient (BNV) | payer MEDICARE, SELFPAY | PROVIDERS: Admitting Provider Psychiatry & Neurology Psychiatry; Visit Provider Hospitalist | DX: J69.0 Pneumonitis due to inhalation of food and vomit (principal); J84.9 Interstitial pulmonary disease, unspecified | CPT/HCPCS: 99233 ==

== ENCOUNTER → 2023-05-31 11:04 | Outpatient (BNV) | payer MEDICARE, SELFPAY | PROVIDERS: Admitting Provider Psychiatry & Neurology Psychiatry; Visit Provider Social Worker | DX: F02.818 Dementia in other diseases classified elsewhere, unspecified severity, with other behavioral disturbance (principal); G93.41 Metabolic encephalopathy; T17.908A Unspecified foreign body in respiratory tract, part unspecified causing other injury, initial encounter | CPT/HCPCS: 90792; 99231; 99232; 99238; 99499 ==

== ENCOUNTER → 2023-05-31 11:04 | Outpatient (BNV) | payer MEDICARE, SELFPAY | PROVIDERS: Admitting Provider Psychiatry & Neurology Psychiatry; Visit Provider Psychiatry & Neurology Psychiatry | DX: F03.918 Unspecified dementia, unspecified severity, with other behavioral disturbance (principal) | CPT/HCPCS: 99231 ==

== ENCOUNTER → 2023-06-07 13:47 | Outpatient (BNV) | payer MEDICARE, SELFPAY | PROVIDERS: Admitting Provider Physician Assistant; Visit Provider Physician Assistant | DX: G93.41 Metabolic encephalopathy (principal); T17.908A Unspecified foreign body in respiratory tract, part unspecified causing other injury, initial encounter | CPT/HCPCS: 99231; 99232; 99233; 99239; 99499 ==

== ENCOUNTER 2023-06-07 16:40 | Inpatient (IN) | payer MEDICARE, MEDICAID, SELFPAY ==
--- NOTE | ~2023-06-07 | XR_ITS ---
EXAMINATION: XR CHEST CLINICAL INFORMATION: Cough COMPARISON: Previous chest x-ray and chest CT May 2023 TECHNIQUE: Frontal view of the chest was obtained. FINDINGS: The cardiac silhouette does not appear enlarged. Prominent soft tissue seen in the right paratracheal/superior mediastinum corresponds to right sided aortic arch. Volume loss to the right hemithorax. There is multilobar right-sided airspace disease that appears increased. Increasing atelectasis/airspace disease at the left lung base. No pleural effusion or pneumothorax. Degenerative changes of the spine. XR/XR chest 1V IMPRESSION: Worsening multilobar right-sided airspace disease and atelectasis or airspace at the left lung base.
--- NOTE | ~2023-06-07 | FL_ITS ---
PROCEDURE: FL BARIUM SWALLOW CLINICAL INFORMATION: Dysphagia. COMPARISON: None available. TECHNIQUE: Barium swallow examination is performed using fluoroscopic evaluation in addition to multiple fluoroscopic spot views. The patient is imaged both upright and prone and using both thick and thin sulfate along with effervescent granules. FLUOROSCOPY TIME: 1 minute 16 seconds DAP: 28.3 dGy-cm2 FINDINGS: The study was very limited with patient having difficulty in following instructions and being unable to stand or lie and was strapped to the table in semirecumbent position. The patient drank thin and thick liquid without definite aspiration identified however evaluation was limited due to head positioning. Hypomotility is present with some tertiary contractions being seen. The proximal and midesophagus were somewhat patulous and did not change in appearance during the study. There appears to be a small left-sided esophageal diverticulum junctions of the proximal and mid thoracic esophagus. No persistent stricture was identified. Half-inch diameter barium tablet passed without difficulty. 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 FL/FL barium swallow IMPRESSION: Very limited esophagram with the appearance of presbyesophagus with no significant persistent stricture identified. Patient swallowed 1/2 inch diameter barium tablet without difficulty.
--- NOTE | 2023-06-07 13:57 | PM.IMHP ---
History of Present Illness Date of Service: 06/07/23 Attending physician on admission: Thomas Rodriguez Chief Complaint: ams, aspiration pneumonia 87-year-old male with history of interstitial lung disease, hypothyroidism, hypertension, with major neurocognitive disorder due to multiple etiologies with behavioral disturbance admitted to Geriatric Psychiatry with consult placed to hospitalist service due to altered mental status, lethargy, poor p.o. intake. The patient was recently transferred back to Geriatric Psychiatry after being treated on the medical floors from 05/28-05/30 for UTI with metabolic encephalopathy treated with IV ceftriaxone. Urine culture grew Proteus and hematuria resolved. Upon discharge, mentation had improved, patient was eating and drinking appropriately and had been out of bed. However, consult was placed to pulmonology for evaluation of dysphagia though no aspiration was noted. No fevers or chills but had been experiencing about a 9 pound weight loss in [address] chest from 05/22 revealed airspace disease in RUL and very dilated esophagus suggesting possibility of microaspirations per pulmonology. It was felt there was a partially treated pneumonia and patient was started on augmentin (on dose 10/26). He has had no leukocytosis and vital signs had been stable. However, today has developed bradycardia in the 40s. Pt is not getting out of bed and is not conversive, mumbling nonscensical sounds. He is more lethargic appearing per nursing and was noted to be gurgling this morning. For labs this morning revealed no leukocytosis, stable normocytic anemia. Renal function and electrolyte levels normal except for CO2 of 34 (baseline 25-29). He was given hydroxyzine last night which he has not received this admission and augmentin recently started as previously noted, otherwise no new medications. Pt is unable to provide history. History obtained from RN and slag wheeler. Testing on dee psych revealed read as bronchiectasis but no pneumococal collection. However, when compared chest CT, it does appear there is an unresolved infiltrate RUL. UA not indicative of infection, no leukocytosis, renal function and electrolyte levels normal except for CO2 of 35. Potassium 3.7, magnesium 1.8. VBG with pH 7.47, pCO2 53 PO2 56, bicarb 39. Troponin below detectable limits, BNP 52. TSH 16.65, free T4 1.13. Vital signs significant for bradycardia in the mid 40s. EKG shows sinus bradycardia, rate 48, no ST/T-wave abnormality. QTC 492, QTC 439. Head CT and CTA head/neck pending. On geripsych, has received IV zosyn. Review of Systems Review of Systems: Yes Unobtainable due to mental condition and Unobtainable due to mental status [facility] Medical History ILD (interstitial lung disease) Major neurocognitive disorder due to multiple etiologies with behavioral disturbance Hypothyroidism Hypertension Social History Household Members: Family Housing: Apartment Do you presently have visiting nurse or other home services: No Unable to assess alcohol history related to: Unable to respond Patient Tobacco Use Status: Former Tobacco user Second Hand Smoke Exposure: No service: No Sexual orientation: Straight/Heterosexual Meds Allergies Allergy/AdvReac Type Severity Reaction Status Date / Time No Known Allergies Allergy Verified 05/22/23 15:41 Physical Exam Vital Signs and Narrative: Constitutional - Awake and Alert, No apparent distress Eyes - PERRLA, EOMI Cardiovascular - S1S2, RRR, No edema Respiratory - Normal lung expansion, Normal respiratory effort, No respiratory distress, diminished lung sounds bilaterally with distant crackles right lung Gastrointestinal - NT / ND; +BS; No rebound or guarding Extremities - no calf tenderness bilaterally, no swelling Skin - Warm/Dry Neurological - Alert & disoriented, mumbling incomprehensible sounds, unable to participate in neuro exam but appears to have equal strength bue and ble Assessment and Plan (1) Acute metabolic encephalopathy: Status: Acute (2) Aspiration into airway: Status: Acute Plan 87-year-old male with history of interstitial lung disease, hypothyroidism, hypertension, with major neurocognitive disorder due to multiple etiologies with behavioral disturbance admitted to Geriatric Psychiatry who will be transferred to medical service admitted for further management of acute metabolic encephalopathy with aspiration pneumonia. #Acute metabolic encephalopathy- suspect multifactorial related to medication and infection -Head CT and CTA head/neck pending -UA unremarkable. Ammonia WNL, renal function baseline without uremia. VBG without significant hypercapnia, electrolytes otherwise normal -CXR with suspected RUL infiltrate (read as aspiration pneumonia by pulmonogy on chest ct 06/03) -Hold sedating medications -monitor mentation -treat pneumonia as per below -Keep NPO for now. Requested COMPLAINT EVALUATION SUPERVISOR to reevaluate patient -IV NS #Acute aspiration pneumonia -no leukocytosis or sirs criteria -CT chest wtih RUL partially resolved infiltrate with dilated esophagus suspicious for microaspirations per pulomonogy -IV zosyn (initiated 06/07) -Keep NPO as above -barium swallow per pulmonology tomorrow to further evaluate dilated esophagus seen on ct per pulmonology- npo prior to study #Sinus bradycardia -EKG shows sinus bradycardia, no av sadia block -pt unable to provide history but no syncope or respiratory distress -monitor on telemetry #ILD -outpt follow up with pulmonology #Major neurocognitive disorder with multiple etiologies and behaviroal disturbance -stop seroquel per psychiatry -hold all sedating medications- mirtazpine, trazodone -continue memantine #Hypothyroidism -TSH 16.65, free t4 1.13. likely suck euthyroid -continue levothyroxine 88mcg #HTN -continue lisinopril and amlodipine -monitor bp DVT prophylaxis- lovenox Full code Dispo- per psychiatry, he is cleared froom psychiatric standpoint, was awaiting placement to LTC Pt requires inpt stay at least 2 midnights for management of acute metabolic encephalopathy with aspiration pneumonia requiring IV abx and close monitoring of mentation with eventual placement to LTC once medically cleared Time Spent With Patient Time: Total time managing care of this patient today ____ minutes. Quality Stroke Does the patient have a stroke diagnosis?: No VTE Prior VTE?: No VTE Risk Level:: Medical - moderate - high VTE Device Contraindication: Treatment Not Indicated VTE Drug Contraindication: N/A - Med Ordered
[2023-06-07 17:48] VITALS: BP 143/67; PULSE 59; RESP 20; TEMP 36.5; O2SAT 97
[2023-06-07] MEDS: Piperacillin Sodium/Tazobactam 4.5 GM in 0.9 % Sodium Chloride 100 ML IV (18:29)
[2023-06-07] MEDS: 0.9 % Sodium Chloride 1,000 ML 80 ML IVCONT (18:30)
[2023-06-07] MEDS: 0.9 % Sodium Chloride Flush 3 ML SYRINGE IVFLUSH (18:30)
[2023-06-07 18:45] VITALS: BP 146/65; PULSE 53; RESP 20; TEMP 36.2; O2SAT 100
[2023-06-07 23:34] VITALS: BP 164/75; PULSE 58; RESP 18; TEMP 36.8; O2SAT 96
[2023-06-08] VITALS (7 sets, daily range): BP systolic 108–167; BP diastolic 54–86; PULSE 63–75; RESP 12–20; TEMP 34.1–36.6; O2SAT 93–99; BMI 16.9
[2023-06-08 07:01] LABS: Basophils Percent Auto 0.3 % (0-2); Hematocrit 29.9 % (42.0-52.0); Hemoglobin 9.6 g/dl (14.0-18.0); Imm Gran Abs Auto 0.04 X10*3/uL (0.00-0.03); Imm Gran Pct Auto 0.4 % (0.0-0.4); Lymphocytes Absolute Auto 0.3 X10*3/uL (1.2-4.9); Lymphocytes Percent Auto 3.3 % (20-40); MANUAL DIFF FLAG SCAN; Mean Corpuscular HGB Conc 32.1 g/dl (31.0-36.0); Mean Corpuscular Volume 84.2 fL (80.0-98.0); Mean Platelet Volume 10.2 fL (9.4-12.4); Monocytes Absolute Auto 0.4 X10*3/uL (0.1-1.2); Monocytes Percent Auto 4.3 % (2-11); Neutrophils Absolute Auto 9.4 x10*3/uL (2.0-8.3); Neutrophils Percent Auto 91.7 % (45-73); Platelet Count 195 X10*3/uL (160-400); Red Blood Count 3.55 X10*6/uL (4.60-5.80); Red Cell Distribution Width 15.1 % (11.0-16.0); SCAN SMEAR FLAG 1; White Blood Count 10.3 X10*3/uL (4.8-10.8)
[2023-06-08 07:16] LABS: Anion Gap 14 (12-20); Blood Urea Nitrogen 18 mg/dL (9-16); Calcium 9.3 mg/dL (8.4-10.2); Carbon Dioxide 31 mmol/L (22-29); Chloride 102 mmol/L (96-108); Estimated Glomerular Filt Rate > 60; Glucose Random 79 mg/dL (60-115); Potassium 3.8 mmol/L (3.3-5.1); Sodium 143 mmol/L (135-145)
[2023-06-08 07:44] LABS: SLIDE REVIEW VERIFIED
[2023-06-08] MEDS: 0.9 % Sodium Chloride 1,000 ML 80 ML IVCONT ×2 (08:28→21:44)
--- NOTE | 2023-06-08 10:34 | MHC.SLORD ---
Speech Language Pathology Order Status: Pt NPO for barium swallow today; confirmed w/ RN. DIRECTOR OF PARKS AND RECREATION to assess toleration of recommended diet following procedure. DIRECTOR OF PARKS AND RECREATION performed bedside swallow eval on 06/03; recommended upgrade to chopped/advanced solids (NDD3), nectar thick liquids, and pills whole in puree. Patient reportedly refused lunch and PO trials w/ DIRECTOR OF PARKS AND RECREATION on 06/07.
--- NOTE | 2023-06-08 11:14 | PHA.MEDREC ---
Pharmacy Consult ? Medication Reconciliation Pharmacy has completed the medication reconciliation.med rec done previously by sarah
--- NOTE | 2023-06-08 11:33 | MHC.CLN ---
NUTRITION NPO PENDING BARIUM SWALLOW AND QUALITY ENG EVAL. ADMITTED FROM [facility] WITH METABOLIC ENCEPHALOPATHY AND ASPIRATION PNEUMONIA. QUALIFIES NON SEVERE, MODERATE MALNUTRITION IN THE CONTEXT OF CHRONIC ILLNESS. MODERATE DEPLETION OF BODY FAT AND MUSCLE MASS NOTED. BMI=16.9. HAD BEEN RECEIVING MAGIC CUP TID ON [facility] (870 KCALS, 27 G PROTEIN). SKIN: NO OPEN AREAS. FOLLOW FOR DIET UPGRADE, INTAKE, AND ADD SUPPLEMENT APPROPRIATE.
[2023-06-08] MEDS: Piperacillin Sodium/Tazobactam 4.5 GM in 0.9 % Sodium Chloride 100 ML IV ×2 (12:39→18:14)
--- NOTE | 2023-06-08 13:24 | MHC.CM.PN ---
Addendum entered by Carolina Palacios 06/08/23 13:36: Per [facility] financial counselor, Dana Translation Application process has been stated for this pt on 05/25. They are currently waiting on an asset report from a [employer] which may take another 6 days to process, and to call back next week. Original Note: IMM 06/08. Pt SSO, and with dx: dementia (alert to self only). Pt previously on dee-psych unit, and prior to that admission came from [place] where he was living alone, however his granddaughter had concerns that he was unable to care for himself so she brought him here. CM intake done with pts granddaughter/HCP Rachel [phone] who states they had a meeting with the psych team on Sunday 06/03 to discuss group home care planning. Rachel states it is their families goal to find LTC placement for the patient as they are unable to provide the care he needs. Rachel had no preference for LTC, but would like him t stay near the [place] area or up to 30 minutes near [place]. This CM explained that it can be difficult finding a LTC bed and we may need to expand our search to further than 30 minutes away. Broad referral in the [place] [facility] area placed in [facility]. Rachel reports the pt uses a walker sometimes. Pt has no PCP.
[2023-06-08] MEDS: 0.9 % Sodium Chloride Flush 3 ML SYRINGE IVFLUSH ×2 (14:52→21:46)
[2023-06-08] MEDS: Enoxaparin Sodium 40 MG/0.4 ML SYRINGE SUBCUT (14:52)
--- NOTE | 2023-06-08 14:55 | HO.PM.IMPN ---
Subjective Subjective Date of Service: 06/08/23 Interval History: Being followed for acute encephalopathy, and concern for acute aspiration pneumonia. History obtained via pens and pencils dipper patient awake alert speech clear, denies cough no shortness of breath, no fevers, no chills, received 1 dose of IM Zyprexa last night due to agitation, finger oximetry 98% on room air is NPO waiting for speech therapy evaluation. Review of Systems All other system reviewed and negative. Physical Exam Vital Signs: Vital Signs: Last Vital Signs Temp 96.9 F 06/08/23 12:38 Pulse 64 06/08/23 12:38 Resp 20 06/08/23 12:38 BP 147/73 H 06/08/23 12:38 Pulse Ox 98 06/08/23 12:38 O2 Del Method Room Air 06/08/23 12:38 BMI result Body Mass Index 16.9 Const: Other: General frail ,resting comfortably in no acute distress. Neck no JVD. CVS regular rate rhythm, Respiratory lungs clear to auscultation, no respiratory distress, no wheeze, no rhonchi. Gastrointestinal abdomen soft, nontender, bowel sounds audible, no guarding , no rigidity. Extremities no edema. Neuro nonfocal , moving all 4 extremity speech clear. Skin no rash Objective Data Active Medications Acetaminophen (Acetaminophen Supp 650 Mg Supp.Rect) 650 mg DC Q6H PRN PRN Reason: Pain, Mild, fever Al Hydroxide/Mg Hydroxide (Magnesium Hydrox/Alum Hydrox 30 Ml Oral.Susp) 30 ml PO Q6H PRN PRN Reason: Heartburn/Nausea Amlodipine Besylate (Amlodipine Besylate 2.5 Mg Tablet) 2.5 mg PO BEDTIME [facility]; Protocol Last Admin: 06/07/23 21:00 Dose: Not Given Documented By: LAURIE Non-Admin Reason: NPO Docusate Sodium (Docusate Sodium 100 Mg Capsule) 100 mg PO DAILY PRN PRN Reason: Constipation Enoxaparin Sodium (Enoxaparin Sodium 40 Mg/0.4 Ml Syringe) 40 mg SUBCUT Q24H [facility] Last Admin: 06/08/23 14:52 Dose: 40 mg Documented By: SHEREEN Sodium Chloride (Ns) 1,000 mls @ 80 mls/hr IVCONT .[id number] [facility] Last Admin: 06/08/23 14:53 Dose: Not Given Documented By: SHEREEN Non-Admin Reason: IV Running Piperacillin Sod/Tazobactam (Sod 4.5 gm/ Sodium Chloride) 100 mls @ 200 mls/hr IV Q6H [facility] Last Infusion: 06/08/23 14:30 Dose: Infused Documented By: SHEREEN Levothyroxine Sodium (Levothyroxine Sodium 88 Mcg Tablet) 88 mcg PO DAILY@0600 [facility] Last Admin: 06/08/23 06:10 Dose: Not Given Documented By: LAURIE Non-Admin Reason: NPO Lisinopril (Lisinopril 20 Mg Tablet) 20 mg PO DAILY [facility]; Protocol Last Admin: 06/08/23 08:10 Dose: Not Given Documented By: SHEREEN Non-Admin Reason: NPO Magnesium Hydroxide (Milk Of Magnesia 30 Ml Oral.Susp) 30 ml PO DAILY PRN PRN Reason: Constipation Memantine (Memantine Hcl 5 Mg Tablet) 5 mg PO DAILY [facility] Last Admin: 06/08/23 08:10 Dose: Not Given Documented By: SHEREEN Non-Admin Reason: NPO Ondansetron HCl (Ondansetron Hcl 4 Mg/2 Ml Vial) 4 mg IVPUSH Q8H PRN PRN Reason: Nausea and Vomiting Sodium Chloride (0.9 % Sodium Chloride Flush 3 Ml Syringe) 3 ml IVFLUSH QSHIFT [facility] Last Admin: 06/08/23 14:52 Dose: 3 ml Documented By: SHEREEN Labs 06/08/23 06:44 06/08/23 06:44 Labs: Laboratory Results - last 24 hr 06/08/23 06:44 MCV 84.2 MCH 27.0 MCHC 32.1 RDW 15.1 Plt Count 195 MPV 10.2 Immature Gran % (Auto) 0.4 Neut % (Auto) 91.7 H Lymph % (Auto) 3.3 L [place] % (Auto) 4.3 Eos % (Auto) 0.0 Baso % (Auto) 0.3 Lymph # (Auto) 0.3 L [place] # (Auto) 0.4 Eos # (Auto) 0.0 Baso # (Auto) 0.0 Abs Immat Gran (auto) 0.04 H Absolute Neuts (auto) 9.4 H Absolute Nucleated RBC 0.000 Nucleated RBC % (auto) 0.0 Smear Tech's Comments VERIFIED Anion Gap 14 Estim Creat Clear Calc TNP Estimated GFR > 60 Random Glucose 79 Calcium 9.3 Assessment and Plan (1) Acute metabolic encephalopathy: Status: Acute (2) ILD (interstitial lung disease): Status: Acute Plan 87-year-old male with history of interstitial lung disease, hypothyroidism, hypertension, with major neurocognitive disorder due to multiple etiologies with behavioral disturbance admitted to Geriatric Psychiatry who will be transferred to medical service admitted for further management of acute metabolic encephalopathy with aspiration pneumonia. #Acute metabolic encephalopathy- suspect multifactorial related to medication and infection -CTA head/neck showed no evidence of infarction hemorrhage or stenosis -UA unremarkable. Ammonia WNL, renal function baseline without uremia. VBG without significant hypercapnia, electrolytes otherwise normal -CXR no pneumonia (read as aspiration pneumonia right upper lobe by pulmonogy on chest ct 06/03) -encephalopathy resolved patient at baseline mentation answering questions appropriately, Was ambulating previously with assistance DC IV fluids will place back on baseline diet nectar thick liquids /chopped advanced diet #Acute aspiration pneumonia/no sepsis -no leukocytosis or sirs criteria -CT chest wtih RUL partially resolved infiltrate with dilated esophagus suspicious for microaspirations per pulomonogy -IV zosyn (initiated 06/07) day 2 will transition to by mouth Augmentin at a.m. -barium swallow very limited study, no significant persistent stricture, patient swallowed 1/2 inch diameter barium tablet without difficulty #Sinus bradycardia -EKG shows sinus bradycardia, no av sadia block -patient asymptomatic heart rate improved to 60s #ILD -outpt follow up with pulmonology #Major neurocognitive disorder with multiple etiologies and behaviroal disturbance -recommend psychiatry follow-up patient was on Seroquel, mirtazapine and trazodone, all medications held due to above -continue memantine #Hypothyroidism -TSH 16.65, free t4 1.13. likely suck euthyroid -continue levothyroxine 88mcg #HTN -continue lisinopril and amlodipine -monitor bp DVT prophylaxis- lovenox Full code Dispo- per psychiatry, he is cleared from psychiatric standpoint, was awaiting placement to LTC spoke with patient's granddaughter Rachel [phone] HCP she wishes patient to be discharged to rehab will order PT eval. Pt requires continued inpatient stay for management of aspiration pneumonia on IV antibiotic and also for psychiatric med adjustment and for safe disposition. Time Spent With Patient Time: Total time managing care of this patient today ____ minutes. Quality Stroke Does the patient have a stroke diagnosis?: No VTE Prior VTE?: No VTE Risk Level:: Medical - moderate - high VTE Device Contraindication: Treatment Not Indicated VTE Drug Contraindication: N/A - Med Ordered
--- NOTE | 2023-06-08 17:45 | MHC.SL.SWA ---
Speech Pathologist Impression: Risk of aspiration, oropharyngeal dysphagia Risk of Aspiration Due to: Neurological Condition Reduced Cognition Dysphasia Diet Status: No change Liquid Consistency and Strategies for Safe Swallow: Liquid Intake Recommendation: [place] Thick Liquid Intake Strategies: Small Sips No Straws Solid Food Consistency: Dietary Recommendations: Chopped/Advanced (NDD3) Oral Medication Intake: Whole with Puree Please contact the pharmacy regarding appropriate crushable or liquid drug formulations that are available whenever modified delivery is recommended. Compensatory Strategies and Precautions to be Taken for Safe Swallow: Sitting Upright (90 deg) No Straw Small Bites and Sips Alternate Liquids/Solids Rate of Ingestion Change Avoid Specific Foods Supervision While Eating and Drinking for Safe Swallow: Total Supervision (1:1) Foods to Avoid: Hard tough to chew solids, mixed textures Recommendation for Speech: Comment: Recommend pt continue w/ CHOPPED/ADVANCED solids (NDD3), NECTAR THICK liquids, pills WHOLE with PUREE. Pt is recommended aspiration precautions and total 1:1 supervision given underlying dx dementia. [facility]MOND SORTER will continue to follow. Fiberglass Quality Technician Clinican/Clinical Fellow: No Supervisory Statement: I have reviewed and agree with the student/clinical fellow's documentation: N/A Speech Language Pathologist: Marge Boggs M.A., CCC-ALMOND SORTER
--- NOTE | 2023-06-08 18:17 | PC.NURSE ---
pt had rectal temp of 92F. patient covered in warm blankets/ warm packs and MD was promptly notified. Ambrose hugger in place per MD instruction. No further orders at this time
[2023-06-09] MEDS: Piperacillin Sodium/Tazobactam 4.5 GM in 0.9 % Sodium Chloride 100 ML IV ×2 (00:32→06:48)
[2023-06-09 03:13] VITALS: BP 144/70; PULSE 80; RESP 16; TEMP 36; O2SAT 96
[2023-06-09] MEDS: Levothyroxine Sodium 88 MCG TABLET PO (06:48)
[2023-06-09] MEDS: 0.9 % Sodium Chloride Flush 3 ML SYRINGE IVFLUSH ×3 (06:57→20:12)
[2023-06-09 08:00] VITALS: BP 109/73; PULSE 85; RESP 18; TEMP 36.9; O2SAT 95
--- NOTE | 2023-06-09 09:23 | MHC.CLN ---
F/U DIET ADVANCED TO CHOPPED WITH NT LIQ PER DIRECTOR IMMUNOLOGY PT QUALIFIES FOR MODERATE MALNUTRITION SEE CLINICAL NUTRITION ASSESSMENT DATED 06/06/23 WILL RE-START MAGIC CUP TID TO PROVIDE 870KCALS, 27G PROTEIN MONITOR PO INTAKE AND ENCOURAGE SUPPLEMENT
--- NOTE | 2023-06-09 10:16 | P.CNPS_ITS ---
History of Present Illness Date of Service: 06/09/2023 Chief Complaint: ams, pneumonia, dysphagia Reason for Consult: f/u Discussed with referring provider: Yes Sources of Information: patient interviewed, chart reviewed and crisis/core team assessment reviewed HPI Narrative: Interim Hx: Pt with hx of Dementia. Transferred to medicine due to concern of aspiration pneumonia due to change in mental status, but labs and VS reassuring in that his O2sat has been stable >97% on room air, no s/s of respiratory distress, afebrile, no leukocitosis. Pt was up most of the night. When this adjusto writer operator went to see him at around 10am he was sleeping. No combative behaviors today or last night. He did have some prior night and receive olanzapine IM. Past Psychiatric History: Unknown [facility] Medical History ILD (interstitial lung disease) Major neurocognitive disorder due to multiple etiologies with behavioral disturbance Hypothyroidism Hypertension Social History: He lives in [place] and is currently staying with his son and [id number] Diagnostics Vital Signs (24Hr): Vital Signs - 24 hr 06/08/23 12:38 06/08/23 16:00 06/08/23 18:48 Temperature 96.9 F 95.7 F L 95.5 F L Pulse Rate 64 63 67 Respiratory Rate 20 12 16 Blood Pressure 147/73 H 166/74 H 108/54 L Pulse Oximetry 98 96 99 Oxygen Delivery Method Room Air Room Air Room Air 06/08/23 21:07 06/08/23 23:48 06/09/23 03:13 Temperature 93.3 F L 95.5 F L 96.8 F Pulse Rate 75 80 Respiratory Rate 18 16 Blood Pressure 122/64 144/70 H Pulse Oximetry 97 96 Oxygen Delivery Method Room Air Room Air 06/09/23 08:00 Temperature 98.5 F Pulse Rate 85 Respiratory Rate 18 Blood Pressure 109/73 Pulse Oximetry 95 Oxygen Delivery Method Room Air BMI result Body Mass Index 16.9 Labs 06/08/23 06:44 06/08/23 06:44 Labs: Laboratory Results - last 48 hr 06/08/23 06:44 WBC 10.3 RBC 3.55 L Hgb 9.6 L Hct 29.9 L MCV 84.2 MCH 27.0 MCHC 32.1 RDW 15.1 Plt Count 195 MPV 10.2 Immature Gran % (Auto) 0.4 Neut % (Auto) 91.7 H Lymph % (Auto) 3.3 L [place] % (Auto) 4.3 Eos % (Auto) 0.0 Baso % (Auto) 0.3 Lymph # (Auto) 0.3 L [place] # (Auto) 0.4 Eos # (Auto) 0.0 Baso # (Auto) 0.0 Abs Immat Gran (auto) 0.04 H Absolute Neuts (auto) 9.4 H Absolute Nucleated RBC 0.000 Nucleated RBC % (auto) 0.0 Smear Tech's Comments VERIFIED Sodium 143 Potassium 3.8 Chloride 102 Carbon Dioxide 31 H Anion Gap 14 BUN 18 H Creatinine 0.62 Estim Creat Clear Calc TNP Estimated GFR > 60 Random Glucose 79 Calcium 9.3 Imaging Radiology Impressions: ITS Impressions Barium Swallow X-Ray 06/08/23 11:30 IMPRESSION: Very limited esophagram with the appearance of presbyesophagus with no significant persistent stricture identified. Patient swallowed 1/2 inch diameter barium tablet without difficulty. Mental Status Exam Mental Status Exam Narrative: Pt asleep. In no s/s of respiratory or physical distress. Medications Medications Current Medications Acetaminophen (Acetaminophen Supp 650 Mg Supp.Rect) 650 mg NM Q6H PRN PRN Reason: Pain, Mild, fever Al Hydroxide/Mg Hydroxide (Magnesium Hydrox/Alum Hydrox 30 Ml Oral.Susp) 30 ml PO Q6H PRN PRN Reason: Heartburn/Nausea Amlodipine Besylate (Amlodipine Besylate 2.5 Mg Tablet) 2.5 mg PO BEDTIME [facility]; Protocol Last Admin: 06/08/23 21:49 Dose: Not Given Docusate Sodium (Docusate Sodium 100 Mg Capsule) 100 mg PO DAILY PRN PRN Reason: Constipation Enoxaparin Sodium (Enoxaparin Sodium 40 Mg/0.4 Ml Syringe) 40 mg SUBCUT Q24H [facility] Last Admin: 06/08/23 14:52 Dose: 40 mg Sodium Chloride (Ns) 1,000 mls @ 80 mls/hr IVCONT .[id number] [facility] Last Admin: 06/08/23 21:44 Dose: 80 mls/hr Piperacillin Sod/Tazobactam (Sod 4.5 gm/ Sodium Chloride) 100 mls @ 200 mls/hr IV Q6H [facility] Last Infusion: 06/09/23 07:30 Dose: Infused Levothyroxine Sodium (Levothyroxine Sodium 88 Mcg Tablet) 88 mcg PO DAILY@0600 [facility] Last Admin: 06/09/23 06:48 Dose: 88 mcg Lisinopril (Lisinopril 20 Mg Tablet) 20 mg PO DAILY [facility]; Protocol Last Admin: 06/08/23 08:10 Dose: Not Given Magnesium Hydroxide (Milk Of Magnesia 30 Ml Oral.Susp) 30 ml PO DAILY PRN PRN Reason: Constipation Memantine (Memantine Hcl 5 Mg Tablet) 5 mg PO DAILY [facility] Last Admin: 06/08/23 08:10 Dose: Not Given Ondansetron HCl (Ondansetron Hcl 4 Mg/2 Ml Vial) 4 mg IVPUSH Q8H PRN PRN Reason: Nausea and Vomiting Sodium Chloride (0.9 % Sodium Chloride Flush 3 Ml Syringe) 3 ml IVFLUSH QSHIFT [facility] Last Admin: 06/09/23 06:57 Dose: 3 ml Allergies Allergies Allergy/AdvReac Type Severity Reaction Status Date / Time No Known Allergies Allergy Verified 05/22/23 15:41 Assessment & Plan Assessment & Plan (1) Major neurocognitive disorder due to multiple etiologies with behavioral disturbance: Status: Acute Code(s): F02.818 - Dementia in other diseases classified elsewhere, unspecified severity, with other behavioral disturbance Plan Mr. 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 Pt at baseline not oriented to place or situation, month or year. Pt stable medically. PLAN 1. Can resume seroquel 25mg po qhs. If need medication for agitation use low dose of olanzapine 2.5mg-5mg po or IM q6h. avoid over medicating as it will have carry over effect. 2. continue to offer meals as pt may not be able to verbalize hunger. 3. Pt stable from management of behavioral aspects of dementia and at this time is awaiting mostly placement. Total time managing care of this patient today ____ minutes.
--- NOTE | 2023-06-09 10:19 | MHC.SL.SWA ---
Speech Pathologist Impression: Risk of Aspiration Due to: Dysphasia Diet Status: Recommend pt continue w/ CHOPPED/ADVANCED solids (NDD3), NECTAR THICK liquids, pills WHOLE with PUREE. Pt is recommended aspiration precautions and total 1:1 supervision and ample encouragement to eat, given underlying dx dementia and poor po intake. FRONT END APPLICATION DEVELOPER will continue to follow. Liquid Consistency and Strategies for Safe Swallow: Liquid Intake Recommendation: [place] Thick Liquid Intake Strategies: Small Sips Solid Food Consistency: Dietary Recommendations: Chopped/Advanced (NDD3) Additional Modifications to Solid Foods: 1-1 supervision, encouragement to eat, remove items from tray to be attempted between meals if intake is poor. Oral Medication Intake: Whole with Puree Please contact the pharmacy regarding appropriate crushable or liquid drug formulations that are available whenever modified delivery is recommended. Compensatory Strategies and Precautions to be Taken for Safe Swallow: Sitting Upright (90 deg) Liquids from Cup Liquids from Straw Small Bites and Sips Alternate Liquids/Solids Supervision While Eating and Drinking for Safe Swallow: Total Supervision (1:1) Foods to Avoid: Hard tough to chew solids, mixed textures Swallowing Recommended Treatments: Gustatory Stimulation Recommendation for Speech: Comment: Patient seen this morning during Breakfast. Patient was seated in chair beside bed, awake and alert, presenting as confused. Dom who was present in room reported that he had attempted breakfast with Patient but patient had mostly refused all food. FRONT END APPLICATION DEVELOPER offered patient NT orange juice by straw sip with patient initially having difficulty with suction to propel bolus, but then took several sips of this consistency, producing a chained swallow with no clinical signs of aspiration. Patient also accepted a bite of yogurt from breakfast tray, producing a timely swallow with no clinical signs of aspiration. Patient then refused, politely, any additional food or liquid. Dom who also worked with him on GeriPsych reported that he has been chronically refusing food. Diet conisistency appears appropriate at this time, Recommend continue on Ground Mechanical/Altered with [place] Thick Liquids, pills whole in puree. FRONT END APPLICATION DEVELOPER will continue to follow. Frequency/Duration: Date Range for Service Req: Timeline to reassess: Flash Drier Operator Clinican/Clinical Fellow: No Supervisory Statement: I have reviewed and agree with the student/clinical fellow's documentation: N/A Speech Language Pathologist: Hellen Colindres M.A., [facility]-FRONT END APPLICATION DEVELOPER
[2023-06-09] MEDS: Memantine HCl 5 MG TABLET PO (11:32)
[2023-06-09] MEDS: lisinopriL 20 MG TABLET PO (11:32)
[2023-06-09 11:33] VITALS: BP 151/79; PULSE 94; RESP 16; TEMP 36.7; O2SAT 97
--- NOTE | 2023-06-09 13:21 | P.PNIM_ITS ---
Subjective Subjective Date of Service: 06/09/23 Interval History: seen and examined this morning follow up for encephalopathy, aspiration pneumonia awake, alert denies sob. difficult to obtain full ROS, pt not good historian Neurologic Neurologic: Reports confusion Psychiatric Psychiatric: Reports confusion Physical Exam 2 Vital Signs: Vital Signs: Last Vital Signs Temp 98.1 F 06/09/23 11:33 Pulse 94 06/09/23 11:33 Resp 16 06/09/23 11:33 BP 151/79 H 06/09/23 11:33 Pulse Ox 97 06/09/23 11:33 O2 Del Method Room Air 06/09/23 11:33 BMI result Body Mass Index 16.9 Const: Other: frail, elderly male sitting up in chair General: alert, awake and confusion Orientation/consciousness: confusion Resp: Effort & Inspection: normal respiratory effort, able to speak in complete sentences, no respiratory distress and no use of accessory muscles Cardio: Rate: regular rate GI: Inspection: No distended Palpation (GI): Soft to palpation and nontender Neuro: General: moves all extremities and confusion Extrem: General: Yes no pedal edema Objective Data Active Medications Acetaminophen (Acetaminophen Supp 650 Mg Supp.Rect) 650 mg MS Q6H PRN PRN Reason: Pain, Mild, fever Al Hydroxide/Mg Hydroxide (Magnesium Hydrox/Alum Hydrox 30 Ml Oral.Susp) 30 ml PO Q6H PRN PRN Reason: Heartburn/Nausea Amlodipine Besylate (Amlodipine Besylate 2.5 Mg Tablet) 2.5 mg PO BEDTIME [facility]; Protocol Last Admin: 06/08/23 21:49 Dose: Not Given Documented By: KAIA Non-Admin Reason: Low bp held per provider Docusate Sodium (Docusate Sodium 100 Mg Capsule) 100 mg PO DAILY PRN PRN Reason: Constipation Enoxaparin Sodium (Enoxaparin Sodium 40 Mg/0.4 Ml Syringe) 40 mg SUBCUT Q24H [facility] Last Admin: 06/08/23 14:52 Dose: 40 mg Documented By: SHEREEN Sodium Chloride (Ns) 1,000 mls @ 80 mls/hr IVCONT .[id number] [facility] Last Admin: 06/08/23 21:44 Dose: 80 mls/hr Documented By: KAIA Piperacillin Sod/Tazobactam (Sod 4.5 gm/ Sodium Chloride) 100 mls @ 200 mls/hr IV Q6H [facility] Last Infusion: 06/09/23 07:30 Dose: Infused Documented By: SOHEILA Levothyroxine Sodium (Levothyroxine Sodium 88 Mcg Tablet) 88 mcg PO DAILY@0600 [facility] Last Admin: 06/09/23 06:48 Dose: 88 mcg Documented By: SOHEILA Lisinopril (Lisinopril 20 Mg Tablet) 20 mg PO DAILY [facility]; Protocol Last Admin: 06/09/23 11:32 Dose: 20 mg Documented By: SOHEILA Magnesium Hydroxide (Milk Of Magnesia 30 Ml Oral.Susp) 30 ml PO DAILY PRN PRN Reason: Constipation Memantine (Memantine Hcl 5 Mg Tablet) 5 mg PO DAILY [facility] Last Admin: 06/09/23 11:32 Dose: 5 mg Documented By: SOHEILA Ondansetron HCl (Ondansetron Hcl 4 Mg/2 Ml Vial) 4 mg IVPUSH Q8H PRN PRN Reason: Nausea and Vomiting Sodium Chloride (0.9 % Sodium Chloride Flush 3 Ml Syringe) 3 ml IVFLUSH QSHIFT [facility] Last Admin: 06/09/23 06:57 Dose: 3 ml Documented By: SOHEILA Labs 06/08/23 06:44 06/08/23 06:44 Assessment and Plan (1) Aspiration into airway: Status: Acute (2) ILD (interstitial lung disease): Status: Acute (3) Major neurocognitive disorder due to multiple etiologies with behavioral disturbance: Status: Acute Plan This is a 87-year-old male with history of interstitial lung disease, hypothyroidism, hypertension, with major 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 #Acute metabolic encephalopathy- suspect multifactorial related to medication and infection has history of advanced dementia - seems to be at baseline. confused, not oriented to time, place or situation -CTA head/neck showed no evidence of infarction hemorrhage or stenosis -UA unremarkable. Ammonia WNL, renal function baseline without uremia. VBG without significant hypercapnia, electrolytes otherwise normal -CXR no pneumonia (read as aspiration pneumonia right upper lobe by pulmonogy on chest ct 06/03), Was ambulating previously with assistance DC IV fluids will place back on baseline diet nectar thick liquids /chopped advanced diet #Acute aspiration pneumonia/no sepsis -no leukocytosis or sirs criteria -CT chest wtih RUL partially resolved infiltrate with dilated esophagus suspicious for microaspirations per pulomonogy -IV zosyn (initiated 06/07), will transition to po augmentin, plan for 5 days abx -barium swallow very limited study, no significant persistent stricture, patient swallowed 1/2 inch diameter barium tablet without difficulty #Sinus bradycardia -EKG shows sinus bradycardia, no av sadia block -patient asymptomatic heart rate improved #ILD -outpt follow up with pulmonology #Major neurocognitive disorder with multiple etiologies and behavioral disturbance patient was on Seroquel, mirtazapine and trazodone, all medications held due to above psych follow up, rec to resume bedtime seroquel; can use prn olanzapine 2.5 -5mg po or IM q6h for agitation if necessary -continue memantine #Hypothyroidism -TSH 16.65, free t4 1.13. likely suck euthyroid -continue levothyroxine 88mcg #HTN -continue lisinopril and amlodipine -monitor bp DVT prophylaxis- lovenox Full code attending - dr. Joel Dispo- per psychiatry, he is cleared from psychiatric standpoint, [facility] in progress, awaiting placement to LTC seen by PT - no carryover with skilled PT will require 07/03 care or LTC spoke with patient's granddaughter Rachel [phone] HCP she wishes patient to be discharged to rehab Pt requires continued inpatient stay for management of aspiration pneumonia on IV antibiotic and also for psychiatric med adjustment and for safe disposition. Time Spent With Patient Time: Total time managing care of this patient today ____ minutes. Quality Stroke Does the patient have a stroke diagnosis?: No VTE Prior VTE?: No VTE Risk Level:: Medical - moderate - high VTE Device Contraindication: Treatment Not Indicated VTE Drug Contraindication: N/A - Med Ordered
[2023-06-09 15:29] VITALS: BP 156/70; PULSE 88; RESP 20; TEMP 35.8; O2SAT 97
[2023-06-09] MEDS: Enoxaparin Sodium 40 MG/0.4 ML SYRINGE SUBCUT (17:57)
[2023-06-09] MEDS: Amoxicillin/Potassium Clav 875 MG TABLET PO (17:58)
[2023-06-09 19:19] VITALS: BP 162/67; PULSE 81; RESP 20; TEMP 35.8; O2SAT 91
[2023-06-09] MEDS: amLODIPine Besylate 2.5 MG TABLET PO (20:12)
[2023-06-09] MEDS: QUEtiapine Fumarate 25 MG TABLET PO (20:12)
[2023-06-09 23:37] VITALS: BP 121/59; PULSE 89; RESP 20; TEMP 37.1; O2SAT 97
[2023-06-10 03:24] VITALS: BP 182/76; PULSE 80; RESP 20; TEMP 36.6; O2SAT 100
[2023-06-10 07:57] VITALS: BP 166/72; PULSE 77; RESP 16; TEMP 36; O2SAT 97
[2023-06-10] MEDS: lisinopriL 20 MG TABLET PO (09:42)
[2023-06-10] MEDS: Memantine HCl 5 MG TABLET PO (09:43)
[2023-06-10] MEDS: 0.9 % Sodium Chloride Flush 3 ML SYRINGE IVFLUSH ×2 (09:43→17:02)
--- NOTE | 2023-06-10 10:20 | MHC.CLN ---
F/U PO INTAKE 40% X 1 MEAL DIET RX: CHOPPED WITH NT LIQ PER SUPPLIER SPECIALIST-APPROPRIATE PT RECEIVING MAGIC CUP TID TO PROVIDE 870KCALS, 27G PROTEIN CONTINUE TO MONITOR PO INTAKE AND ENCOURAGE SUPPLEMENT
--- NOTE | 2023-06-10 10:44 | MHC.SLORD ---
Speech Language Pathology Order Status: Attempted to see pt for f/u this morning. SALES PROMOTION DIRECTOR encouraged pt to eat, brushed lower lip w/ spoon, pt refusing to open his mouth to accept PO. Pt lethargic, did not open eyes or respond to questions. dean of student services and cost and sales record supervisor were present and reported pt had taken some pureed foods and nectar thickened juice.
--- NOTE | 2023-06-10 11:38 | MHC.CM.PN ---
EMR reviewed and per MD rounds, pt is not cleared for D/C due to pending [facility] and LTC placement needs. CM will continue to follow.
[2023-06-10 11:59] VITALS: BP 160/78; PULSE 79; RESP 18; TEMP 36.7
--- NOTE | 2023-06-10 15:03 | P.PNIM_ITS ---
Subjective Subjective Date of Service: 06/10/23 Interval History: seen and examined this morning awake, alert, resting in bed comfortably confused, no complaints. difficult to obtain full ROS Neurologic Neurologic: Reports confusion Psychiatric Psychiatric: Reports confusion Physical Exam 2 Vital Signs: Vital Signs: Last Vital Signs Temp 98.0 F 06/10/23 11:59 Pulse 79 06/10/23 11:59 Resp 18 06/10/23 11:59 BP 160/78 H 06/10/23 11:59 Pulse Ox 97 06/10/23 07:57 O2 Del Method Room Air 06/10/23 07:57 BMI result Body Mass Index 16.9 Const: Other: frail elderly male resting in bed comfortably General: alert, awake and confusion Nutritional Appearance: thin O rientation/consciousness: confusion Resp: Effort & Inspection: normal respiratory effort, able to speak in complete sentences, no respiratory distress and no use of accessory muscles Cardio: Rate: regular rate GI: Inspection: No distended Palpation (GI): Soft to palpation and nontender Neuro: General: moves all extremities and confusion Extrem: General: Yes no pedal edema Objective Data Active Medications Acetaminophen (Acetaminophen Supp 650 Mg Supp.Rect) 650 mg NE Q6H PRN PRN Reason: Pain, Mild, fever Al Hydroxide/Mg Hydroxide (Magnesium Hydrox/Alum Hydrox 30 Ml Oral.Susp) 30 ml PO Q6H PRN PRN Reason: Heartburn/Nausea Amlodipine Besylate (Amlodipine Besylate 2.5 Mg Tablet) 2.5 mg PO BEDTIME [facility]; Protocol Last Admin: 06/09/23 20:12 Dose: 2.5 mg Documented By: SAEED Amoxicillin/Clavulanate Potassium (Amoxicillin/Potassium Clav 875 Mg Tablet) 875 mg PO Q12H [facility] Last Admin: 06/10/23 03:44 Dose: Not Given Documented By: SAEED Non-Admin Reason: Patient Refused Docusate Sodium (Docusate Sodium 100 Mg Capsule) 100 mg PO DAILY PRN PRN Reason: Constipation Enoxaparin Sodium (Enoxaparin Sodium 40 Mg/0.4 Ml Syringe) 40 mg SUBCUT Q24H [facility] Last Admin: 06/09/23 17:57 Dose: 40 mg Documented By: SOHEILA Levothyroxine Sodium (Levothyroxine Sodium 88 Mcg Tablet) 88 mcg PO DAILY@0600 [facility] Last Admin: 06/10/23 05:05 Dose: Not Given Documented By: SAEED Non-Admin Reason: Patient Refused Lisinopril (Lisinopril 20 Mg Tablet) 20 mg PO DAILY [facility]; Protocol Last Admin: 06/10/23 09:42 Dose: 20 mg Documented By: VIOLET Magnesium Hydroxide (Milk Of Magnesia 30 Ml Oral.Susp) 30 ml PO DAILY PRN PRN Reason: Constipation Memantine (Memantine Hcl 5 Mg Tablet) 5 mg PO DAILY [facility] Last Admin: 06/10/23 09:43 Dose: 5 mg Documented By: VIOLET Ondansetron HCl (Ondansetron Hcl 4 Mg/2 Ml Vial) 4 mg IVPUSH Q8H PRN PRN Reason: Nausea and Vomiting Quetiapine Fumarate (Quetiapine Fumarate 25 Mg Tablet) 25 mg PO BEDTIME [facility] Last Admin: 06/09/23 20:12 Dose: 25 mg Documented By: SAEED Sodium Chloride (0.9 % Sodium Chloride Flush 3 Ml Syringe) 3 ml IVFLUSH QSHIFT [facility] Last Admin: 06/10/23 09:43 Dose: 3 ml Documented By: VIOLET Labs 06/08/23 06:44 06/08/23 06:44 Assessment and Plan (1) Pneumonia: Status: Acute (2) Aspiration into airway: Status: Acute Plan This is a 87-year-old male with history of interstitial lung disease, hypothyroidism, hypertension, with major 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 #Acute metabolic encephalopathy- suspect multifactorial related to medication and infection has history of advanced dementia - seems to be at baseline. confused, not oriented to time, place or situation -CTA head/neck showed no evidence of infarction hemorrhage or stenosis -UA unremarkable. Ammonia WNL, renal function baseline without uremia. VBG without significant hypercapnia, electrolytes otherwise normal -CXR no pneumonia (read as aspiration pneumonia right upper lobe by pulmonogy on chest ct 06/03), Was ambulating previously with assistance DC IV fluids will place back on baseline diet nectar thick liquids /chopped advanced diet #Acute aspiration pneumonia/no sepsis -no leukocytosis or sirs criteria -CT chest wtih RUL partially resolved infiltrate with dilated esophagus suspicious for microaspirations per pulmonary -IV zosyn (initiated 06/07), will transition to po augmentin, plan for 5 days abx - 1 more day po -barium swallow very limited study, no significant persistent stricture, patient swallowed 1/2 inch diameter barium tablet without difficulty -currently tolerating NDD3 diet, nectar thick liquids with 1-1 supervision although does intermittently refuse #Sinus bradycardia -EKG shows sinus bradycardia, no av sadia block -patient asymptomatic heart rate improved #ILD -outpt follow up with pulmonology #Major neurocognitive disorder with multiple etiologies and behavioral disturbance patient was on Seroquel, mirtazapine and trazodone, all medications held due to above psych follow up, rec to resume bedtime seroquel; can use prn olanzapine 2.5 -5mg po or IM q6h for agitation if necessary -continue memantine #Hypothyroidism -TSH 16.65, free t4 1.13. likely suck euthyroid -continue levothyroxine 88mcg #HTN -continue lisinopril and amlodipine -monitor bp DVT prophylaxis- lovenox Full code attending - dr. Joel Dispo- per psychiatry, he is cleared from psychiatric standpoint, [facility] [place] in progress, awaiting placement to LTC seen by PT - no carryover with skilled PT will require 07/03 care or LTC granddaughter Rachel [phone] HCP she wishes patient to be discharged to rehab Pt requires continued inpatient stay for psychiatric med adjustment and for safe disposition. Time Spent With Patient Time: Total time managing care of this patient today ____ minutes. Quality Stroke Does the patient have a stroke diagnosis?: No VTE Prior VTE?: No VTE Risk Level:: Medical - moderate - high VTE Device Contraindication: Treatment Not Indicated VTE Drug Contraindication: N/A - Med Ordered
[2023-06-10 15:49] VITALS: BP 173/83; PULSE 74; RESP 19; TEMP 36.9; O2SAT 98
[2023-06-10] MEDS: Enoxaparin Sodium 40 MG/0.4 ML SYRINGE SUBCUT (17:01)
[2023-06-10] MEDS: Amoxicillin/Potassium Clav 875 MG TABLET PO (17:01)
[2023-06-10 18:40] VITALS: BP 189/85; PULSE 78; RESP 20; TEMP 36.2; O2SAT 98
[2023-06-10] MEDS: amLODIPine Besylate 2.5 MG TABLET PO (20:17)
[2023-06-10] MEDS: QUEtiapine Fumarate 25 MG TABLET PO (20:17)
[2023-06-10 23:58] VITALS: BP 140/64; PULSE 61; RESP 20; TEMP 36.1; O2SAT 96
[2023-06-11] MEDS: Amoxicillin/Potassium Clav 875 MG TABLET PO ×2 (01:51→15:41)
[2023-06-11 03:11] VITALS: BP 158/67; PULSE 68; RESP 20; TEMP 36.1; O2SAT 97
[2023-06-11] MEDS: Levothyroxine Sodium 88 MCG TABLET PO (05:22)
[2023-06-11 08:00] VITALS: BP 151/63; PULSE 70; RESP 18; TEMP 36.4; O2SAT 98
--- NOTE | 2023-06-11 09:47 | HO.PM.IMPN ---
Subjective Subjective Date of Service: 06/11/23 Interval History: seen and examined this morning awake, alert, resting in bed comfortably confused, no complaints. difficult to obtain full ROS Neurologic Neurologic: Reports confusion Psychiatric Psychiatric: Reports confusion Physical Exam Vital Signs: Vital Signs: Last Vital Signs Temp 97.5 F 06/11/23 08:00 Pulse 70 06/11/23 08:00 Resp 18 06/11/23 08:00 BP 151/63 H 06/11/23 08:00 Pulse Ox 98 06/11/23 08:00 O2 Del Method Room Air 06/11/23 08:00 BMI result Body Mass Index 16.9 Alert to self Const: General: confusion Orientation/consciousness: confusion Neuro: General: confusion Objective Data Active Medications Acetaminophen (Acetaminophen Supp 650 Mg Supp.Rect) 650 mg [place] Q6H PRN PRN Reason: Pain, Mild, fever Al Hydroxide/Mg Hydroxide (Magnesium Hydrox/Alum Hydrox 30 Ml Oral.Susp) 30 ml PO Q6H PRN PRN Reason: Heartburn/Nausea Amlodipine Besylate (Amlodipine Besylate 2.5 Mg Tablet) 2.5 mg PO BEDTIME [facility]; Protocol Last Admin: 06/10/23 20:17 Dose: 2.5 mg Documented By: PREMA Amoxicillin/Clavulanate Potassium (Amoxicillin/Potassium Clav 875 Mg Tablet) 875 mg PO Q12H [facility] Last Admin: 06/11/23 01:51 Dose: 875 mg Documented By: PREMA Docusate Sodium (Docusate Sodium 100 Mg Capsule) 100 mg PO DAILY PRN PRN Reason: Constipation Enoxaparin Sodium (Enoxaparin Sodium 40 Mg/0.4 Ml Syringe) 40 mg SUBCUT Q24H [facility] Last Admin: 06/10/23 17:01 Dose: 40 mg Documented By: SOHEILA Levothyroxine Sodium (Levothyroxine Sodium 88 Mcg Tablet) 88 mcg PO DAILY@0600 [facility] Last Admin: 06/11/23 05:22 Dose: 88 mcg Documented By: PREMA Lisinopril (Lisinopril 20 Mg Tablet) 20 mg PO DAILY [facility]; Protocol Last Admin: 06/10/23 09:42 Dose: 20 mg Documented By: VIOLET Magnesium Hydroxide (Milk Of Magnesia 30 Ml Oral.Susp) 30 ml PO DAILY PRN PRN Reason: Constipation Memantine (Memantine Hcl 5 Mg Tablet) 5 mg PO DAILY [facility] Last Admin: 06/10/23 09:43 Dose: 5 mg Documented By: VIOLET Ondansetron HCl (Ondansetron Hcl 4 Mg/2 Ml Vial) 4 mg IVPUSH Q8H PRN PRN Reason: Nausea and Vomiting Quetiapine Fumarate (Quetiapine Fumarate 25 Mg Tablet) 25 mg PO BEDTIME [facility] Last Admin: 06/10/23 20:17 Dose: 25 mg Documented By: PREMA Sodium Chloride (0.9 % Sodium Chloride Flush 3 Ml Syringe) 3 ml IVFLUSH QSHIFT [facility] Last Admin: 06/11/23 00:49 Dose: Not Given Documented By: PREMA Non-Admin Reason: Previously Administered Labs 06/08/23 06:44 06/08/23 06:44 Assessment and Plan (1) Pneumonia: Status: Acute (2) Aspiration into airway: Status: Acute Plan This is a 87-year-old male with history of interstitial lung disease, hypothyroidism, hypertension, with major 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 Acute metabolic encephalopathy- suspect multifactorial related to medication and infection has history of advanced dementia - seems to be at baseline. confused, not oriented to time, place or situation CTA head/neck showed no evidence of infarction hemorrhage or stenosis, UA unremarkable. Ammonia WNL, renal function baseline without uremia. VBG without significant hypercapnia, electrolytes otherwise normal CXR aspiration pneumonia on Augmentin Was ambulating previously with assistance diet nectar thick liquids /chopped advanced diet Acute aspiration pneumonia/no sepsis no leukocytosis or sirs criteria CT chest wtih RUL partially resolved infiltrate with dilated esophagus suspicious for microaspirations per pulmonary s/p IV zosyn now on po augmentin, plan for 5 days abx barium swallow very limited study, no significant persistent stricture, patient swallowed 1/2 inch diameter barium tablet without difficulty currently tolerating NDD3 diet, nectar thick liquids with 1-1 supervision although does intermittently refuse Sinus bradycardia EKG shows sinus bradycardia, no av sadia block patient asymptomatic heart rate improved ILD outpt follow up with pulmonology Major neurocognitive disorder with multiple etiologies and behavioral disturbance patient was on Seroquel, mirtazapine and trazodone, all medications held due to above psych follow up, rec to resume bedtime seroquel; can use prn olanzapine 2.5 -5mg po or IM q6h for agitation if necessary continue memantine Hypothyroidism TSH 16.65, free t4 1.13. likely suck euthyroid continue levothyroxine 88mcg HTN continue lisinopril and amlodipine DVT prophylaxis- lovenox Full code attending - dr. Mon Dispo- per psychiatry, he is cleared from psychiatric standpoint, [facility] in progress, awaiting placement to LTC. seen by PT - no carryover with skilled PT will require 24/7 care or LTCdonny Ramos [phone] HCP she wishes patient to be discharged to rehab Pt requires continued inpatient stay for psychiatric med adjustment and for safe disposition. Time Spent With Patient Time: Total time managing care of this patient today ____ minutes. Quality Stroke Does the patient have a stroke diagnosis?: No VTE Prior VTE?: No VTE Risk Level:: Medical - moderate - high VTE Device Contraindication: Treatment Not Indicated VTE Drug Contraindication: N/A - Med Ordered
[2023-06-11] MEDS: lisinopriL 20 MG TABLET PO (09:54)
[2023-06-11] MEDS: Memantine HCl 5 MG TABLET PO (09:54)
[2023-06-11] MEDS: 0.9 % Sodium Chloride Flush 3 ML SYRINGE IVFLUSH ×3 (09:54→20:22)
[2023-06-11 11:56] VITALS: BP 159/69; PULSE 71; RESP 16; TEMP 36.9; O2SAT 98
[2023-06-11] MEDS: Enoxaparin Sodium 40 MG/0.4 ML SYRINGE SUBCUT (15:41)
[2023-06-11 15:54] VITALS: BP 155/73; PULSE 69; RESP 20; TEMP 36.2; O2SAT 98
[2023-06-11 19:10] VITALS: BP 167/75; PULSE 70; RESP 20; TEMP 36.5; O2SAT 98
[2023-06-11] MEDS: QUEtiapine Fumarate 25 MG TABLET PO (20:22)
[2023-06-11] MEDS: amLODIPine Besylate 2.5 MG TABLET PO (20:22)
[2023-06-11 23:27] VITALS: BP 127/92; PULSE 85; RESP 20; TEMP 36.7; O2SAT 98
[2023-06-12 04:00] VITALS: PULSE 65
[2023-06-12] MEDS: Levothyroxine Sodium 88 MCG TABLET PO (04:11)
[2023-06-12] MEDS: Amoxicillin/Potassium Clav 875 MG TABLET PO (04:11)
[2023-06-12 08:00] VITALS: BP 152/77; PULSE 64; RESP 16; TEMP 36.1; O2SAT 98
[2023-06-12] MEDS: lisinopriL 20 MG TABLET PO (08:47)
[2023-06-12] MEDS: Memantine HCl 5 MG TABLET PO (08:47)
[2023-06-12] MEDS: 0.9 % Sodium Chloride Flush 3 ML SYRINGE IVFLUSH ×3 (08:47→20:37)
--- NOTE | 2023-06-12 10:14 | P.PNIM_ITS ---
Subjective Subjective Date of Service: 06/12/23 Interval History: seen and examined this morning awake, alert, resting in bed comfortably confused, no complaints. difficult to obtain full ROS Neurologic Neurologic: Reports confusion Psychiatric Psychiatric: Reports confusion Physical Exam 2 Vital Signs: Vital Signs: Last Vital Signs Temp 96.9 F 06/12/23 08:00 Pulse 64 06/12/23 08:00 Resp 16 06/12/23 08:00 BP 152/77 H 06/12/23 08:00 Pulse Ox 98 06/12/23 08:00 O2 Del Method Room Air 06/12/23 08:00 BMI result Body Mass Index 16.9 alert and oriented to self Const: General: confusion Orientation/consciousness: confusion Neuro: General: confusion Objective Data Active Medications Acetaminophen (Acetaminophen Supp 650 Mg Supp.Rect) 650 mg [place] Q6H PRN PRN Reason: Pain, Mild, fever Al Hydroxide/Mg Hydroxide (Magnesium Hydrox/Alum Hydrox 30 Ml Oral.Susp) 30 ml PO Q6H PRN PRN Reason: Heartburn/Nausea Amlodipine Besylate (Amlodipine Besylate 2.5 Mg Tablet) 2.5 mg PO BEDTIME [facility]; Protocol Last Admin: 06/11/23 20:22 Dose: 2.5 mg Documented By: SUMAN Amoxicillin/Clavulanate Potassium (Amoxicillin/Potassium Clav 875 Mg Tablet) 875 mg PO Q12H [facility] Stop: 06/13/23 23:59 Last Admin: 06/12/23 04:11 Dose: 875 mg Documented By: SUMAN Docusate Sodium (Docusate Sodium 100 Mg Capsule) 100 mg PO DAILY PRN PRN Reason: Constipation Enoxaparin Sodium (Enoxaparin Sodium 40 Mg/0.4 Ml Syringe) 40 mg SUBCUT Q24H [facility] Last Admin: 06/11/23 15:41 Dose: 40 mg Documented By: KONG Levothyroxine Sodium (Levothyroxine Sodium 88 Mcg Tablet) 88 mcg PO DAILY@0600 [facility] Last Admin: 06/12/23 04:11 Dose: 88 mcg Documented By: SUMAN Lisinopril (Lisinopril 20 Mg Tablet) 20 mg PO DAILY [facility]; Protocol Last Admin: 06/12/23 08:47 Dose: 20 mg Documented By: KONG Magnesium Hydroxide (Milk Of Magnesia 30 Ml Oral.Susp) 30 ml PO DAILY PRN PRN Reason: Constipation Memantine (Memantine Hcl 5 Mg Tablet) 5 mg PO DAILY [facility] Last Admin: 06/12/23 08:47 Dose: 5 mg Documented By: KONG Ondansetron HCl (Ondansetron Hcl 4 Mg/2 Ml Vial) 4 mg IVPUSH Q8H PRN PRN Reason: Nausea and Vomiting Quetiapine Fumarate (Quetiapine Fumarate 25 Mg Tablet) 25 mg PO BEDTIME [facility] Last Admin: 06/11/23 20:22 Dose: 25 mg Documented By: SUMAN Sodium Chloride (0.9 % Sodium Chloride Flush 3 Ml Syringe) 3 ml IVFLUSH QSHIFT [facility] Last Admin: 06/12/23 08:47 Dose: 3 ml Documented By: KONG Labs 06/08/23 06:44 06/08/23 06:44 Assessment and Plan (1) Pneumonia: Status: Acute (2) Aspiration into airway: Status: Acute Plan This is a 87-year-old male with history of interstitial lung disease, hypothyroidism, hypertension, with major 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 Acute metabolic encephalopathy- suspect multifactorial related to medication and infection has history of advanced dementia - seems to be at baseline. confused, not oriented to time, place or situation CTA head/neck showed no evidence of infarction hemorrhage or stenosis, UA unremarkable. Ammonia WNL, renal function baseline without uremia. VBG without significant hypercapnia, electrolytes otherwise normal CXR aspiration pneumonia on Augmentin Was ambulating previously with assistance diet nectar thick liquids /chopped advanced diet Acute aspiration pneumonia/no sepsis no leukocytosis or sirs criteria CT chest wtih RUL partially resolved infiltrate with dilated esophagus suspicious for microaspirations per pulmonary s/p IV zosyn now on po augmentin, plan for 5 days abx barium swallow very limited study, no significant persistent stricture, patient swallowed 1/2 inch diameter barium tablet without difficulty currently tolerating NDD3 diet, nectar thick liquids with 1-1 supervision although does intermittently refuse Sinus bradycardia EKG shows sinus bradycardia, no av sadia block patient asymptomatic heart rate improved ILD outpt follow up with pulmonology Major neurocognitive disorder with multiple etiologies and behavioral disturbance patient was on Seroquel, mirtazapine and trazodone, all medications held due to above psych follow up, rec to resume bedtime seroquel; can use prn olanzapine 2.5 -5mg po or IM q6h for agitation if necessary continue memantine Hypothyroidism TSH 16.65, free t4 1.13. likely suck euthyroid continue levothyroxine 88mcg HTN continue lisinopril and amlodipine DVT prophylaxis- lovenox Full code attending - dr. Mon Dispo- per psychiatry, he is cleared from psychiatric standpoint, [facility] [employer] [facility] in progress, awaiting placement to LTC. seen by PT - no carryover with skilled PT will require 24/7 care or LTCdonny Ramos [phone] HCP she wishes patient to be discharged to rehab Pt requires continued inpatient stay for psychiatric med adjustment and for safe disposition. Time Spent With Patient Time: Total time managing care of this patient today ____ minutes. Quality Stroke Does the patient have a stroke diagnosis?: No VTE Prior VTE?: No VTE Risk Level:: Medical - moderate - high VTE Device Contraindication: Treatment Not Indicated VTE Drug Contraindication: N/A - Med Ordered
[2023-06-12 12:00] VITALS: BP 157/75; PULSE 65; RESP 16; TEMP 36.4; O2SAT 98
--- NOTE | 2023-06-12 13:05 | PC.NURSE ---
Patient with history of dementia is having confusion around meal times and being uncooperative with medications at this point. Patient is refusing lunch patient is confused and states he has food at home that he will eat later. When re-offered to the patient a second time patient refused thinking he had to pay for it. Patient was told on [place] that the food was free and he could enjoy it, but refused. At this time patient refused antibiotic medication. see natalie, dispite educaton. Provider Jessi made aware of situation via riya @ 13:04.
[2023-06-12] MEDS: Enoxaparin Sodium 40 MG/0.4 ML SYRINGE SUBCUT (14:53)
[2023-06-12 16:00] VITALS: BP 160/80; PULSE 69; RESP 16; TEMP 36.2; O2SAT 99
[2023-06-12 18:59] VITALS: BP 148/65; PULSE 71; RESP 18; TEMP 37; O2SAT 94
[2023-06-12] MEDS: amLODIPine Besylate 2.5 MG TABLET PO (20:37)
[2023-06-12] MEDS: QUEtiapine Fumarate 25 MG TABLET PO (20:37)
[2023-06-12 23:50] VITALS: BP 152/76; PULSE 64; RESP 18; TEMP 37.1; O2SAT 99
[2023-06-13] MEDS: Amoxicillin/Potassium Clav 875 MG TABLET PO ×2 (00:40→13:24)
[2023-06-13 04:00] VITALS: BP 158/76; PULSE 67; RESP 18; TEMP 36.8; O2SAT 99
[2023-06-13] MEDS: Levothyroxine Sodium 88 MCG TABLET PO (05:16)
[2023-06-13 08:00] VITALS: BP 151/70; PULSE 60; RESP 16; TEMP 36.2; O2SAT 98
--- NOTE | 2023-06-13 09:05 | P.PNIM_ITS ---
Subjective Subjective Date of Service: 06/13/23 Interval History: seen and examined this morning awake, alert, resting in bed comfortably confused, no complaints. difficult to obtain full ROS Neurologic Neurologic: Reports confusion Psychiatric Psychiatric: Reports confusion Physical Exam 2 Vital Signs: Vital Signs: Last Vital Signs Temp 98.2 F 06/13/23 04:00 Pulse 67 06/13/23 04:00 Resp 18 06/13/23 04:00 BP 158/76 H 06/13/23 04:00 Pulse Ox 99 06/13/23 04:00 O2 Del Method Room Air 06/13/23 04:00 BMI result Body Mass Index 16.9 Appearing in no acute distress lung sounds are clear to auscultation heart regular rate rhythm, clear S1, S2 positive bowel sounds, abdomen is soft, nontender neuro patient is alert x3, no focal deficits Const: General: confusion Orientation/consciousness: confusion Neuro: General: confusion Objective Data Active Medications Acetaminophen (Acetaminophen Supp 650 Mg Supp.Rect) 650 mg [place] Q6H PRN PRN Reason: Pain, Mild, fever Al Hydroxide/Mg Hydroxide (Magnesium Hydrox/Alum Hydrox 30 Ml Oral.Susp) 30 ml PO Q6H PRN PRN Reason: Heartburn/Nausea Amlodipine Besylate (Amlodipine Besylate 2.5 Mg Tablet) 2.5 mg PO BEDTIME [facility]; Protocol Last Admin: 06/12/23 20:37 Dose: 2.5 mg Documented By: BLAIR Amoxicillin/Clavulanate Potassium (Amoxicillin/Potassium Clav 875 Mg Tablet) 875 mg PO Q12H [facility] Stop: 06/13/23 23:59 Last Admin: 06/13/23 00:40 Dose: 875 mg Documented By: ALMA Docusate Sodium (Docusate Sodium 100 Mg Capsule) 100 mg PO DAILY PRN PRN Reason: Constipation Enoxaparin Sodium (Enoxaparin Sodium 40 Mg/0.4 Ml Syringe) 40 mg SUBCUT Q24H [facility] Last Admin: 06/12/23 14:53 Dose: 40 mg Documented By: KONG Levothyroxine Sodium (Levothyroxine Sodium 88 Mcg Tablet) 88 mcg PO DAILY@0600 [facility] Last Admin: 06/13/23 05:16 Dose: 88 mcg Documented By: ALMA Lisinopril (Lisinopril 20 Mg Tablet) 20 mg PO DAILY [facility]; Protocol Last Admin: 06/12/23 08:47 Dose: 20 mg Documented By: KONG Magnesium Hydroxide (Milk Of Magnesia 30 Ml Oral.Susp) 30 ml PO DAILY PRN PRN Reason: Constipation Memantine (Memantine Hcl 5 Mg Tablet) 5 mg PO DAILY [facility] Last Admin: 06/12/23 08:47 Dose: 5 mg Documented By: KONG Ondansetron HCl (Ondansetron Hcl 4 Mg/2 Ml Vial) 4 mg IVPUSH Q8H PRN PRN Reason: Nausea and Vomiting Quetiapine Fumarate (Quetiapine Fumarate 25 Mg Tablet) 25 mg PO BEDTIME [facility] Last Admin: 06/12/23 20:37 Dose: 25 mg Documented By: BLAIR Sodium Chloride (0.9 % Sodium Chloride Flush 3 Ml Syringe) 3 ml IVFLUSH QSHIFT [facility] Last Admin: 06/12/23 20:37 Dose: 3 ml Documented By: BLAIR Labs 06/08/23 06:44 06/08/23 06:44 Assessment and Plan (1) Pneumonia: Status: Acute (2) Aspiration into airway: Status: Acute Plan This is a 87-year-old male with history of interstitial lung disease, hypothyroidism, hypertension, with major 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 Acute metabolic encephalopathy- suspect multifactorial related to medication and infection has history of advanced dementia - seems to be at baseline. confused, not oriented to time, place or situation CTA head/neck showed no evidence of infarction hemorrhage or stenosis, UA unremarkable. Ammonia WNL, renal function baseline without uremia. VBG without significant hypercapnia, electrolytes otherwise normal CXR aspiration pneumonia on Augmentin Was ambulating previously with assistance diet nectar thick liquids /chopped advanced diet Acute aspiration pneumonia/no sepsis no leukocytosis or sirs criteria CT chest wtih RUL partially resolved infiltrate with dilated esophagus suspicious for microaspirations per pulmonary s/p IV zosyn , po augmentin barium swallow very limited study, no significant persistent stricture, patient swallowed 1/2 inch diameter barium tablet without difficulty currently tolerating NDD3 diet, nectar thick liquids with 1-1 supervision although does intermittently refuse Sinus bradycardia EKG shows sinus bradycardia, no av sadia block patient asymptomatic heart rate improved ILD outpt follow up with pulmonology Major neurocognitive disorder with multiple etiologies and behavioral disturbance patient was on Seroquel, mirtazapine and trazodone, all medications held due to above psych follow up, rec to resume bedtime seroquel; can use prn olanzapine 2.5 -5mg po or IM q6h for agitation if necessary continue memantine Hypothyroidism TSH 16.65, free t4 1.13. likely suck euthyroid continue levothyroxine 88mcg HTN continue lisinopril and amlodipine DVT prophylaxis- lovenox Full code attending - dr. Joel Dispo- per psychiatry, he is cleared from psychiatric standpoint, [facility] in progress, awaiting placement to LTC. seen by PT - no carryover with skilled PT will require 24/7 care or LTCcedricdarryl [place] [phone] HCP she wishes patient to be discharged to rehab Pt requires continued inpatient stay for psychiatric med adjustment and for safe disposition. Time Spent With Patient Time: Total time managing care of this patient today ____ minutes. Quality Stroke Does the patient have a stroke diagnosis?: No VTE Prior VTE?: No VTE Risk Level:: Medical - moderate - high VTE Device Contraindication: Treatment Not Indicated VTE Drug Contraindication: N/A - Med Ordered
[2023-06-13] MEDS: lisinopriL 20 MG TABLET PO (09:22)
[2023-06-13] MEDS: 0.9 % Sodium Chloride Flush 3 ML SYRINGE IVFLUSH ×3 (09:22→20:53)
[2023-06-13] MEDS: Memantine HCl 5 MG TABLET PO (09:22)
--- NOTE | 2023-06-13 10:03 | MHC.SL.SWA ---
Speech Pathologist Impression: Risk of aspiration, oropharyngeal dysphagia Risk of Aspiration Due to: Reduced cognition Dysphasia Diet Status: Recommend pt continue w/ CHOPPED/ADVANCED solids (NDD3), UPGRADE to THIN liquids, pills WHOLE with PUREE. Pt is recommended aspiration precautions and total 1:1 supervision and ample encouragement to eat, given underlying dx dementia and poor po intake. The following precautions are recommended: NO STRAWS, liquids by spoon or controlled cup, small individual sips, no chain sipping, small bites of food, swallow twice per bite/sip, upright 90 degree position during PO intake. Liquid Consistency and Strategies for Safe Swallow: Liquid Intake Recommendation: Thin Liquid Intake Strategies: Small Sips No Straws Solid Food Consistency: Dietary Recommendations: Chopped/Advanced (NDD3) Additional Modifications to Solid Foods: 1-1 supervision, encouragement to eat, remove items from tray to be attempted between meals if intake is poor. Oral Medication Intake: Whole with Puree Please contact the pharmacy regarding appropriate crushable or liquid drug formulations that are available whenever modified delivery is recommended. Compensatory Strategies and Precautions to be Taken for Safe Swallow: Sitting Upright (90 deg) Double Swallow No Straw Liquids from Cup Liquids from Spoon Small Bites and Sips Alternate Liquids/Solids Rate of Ingestion Change Avoid Specific Foods Supervision While Eating and Drinking for Safe Swallow: Total Supervision (1:1) Foods to Avoid: Hard tough to chew solids, mixed textures Swallowing Recommended Treatments: Compens. Strategy Educat. Recommendation for Speech: Continue to follow M-F Sales And Service Specialist Clinican/Clinical Fellow: No Supervisory Statement: I have reviewed and agree with the student/clinical fellow's documentation: N/A Speech Language Pathologist: Carmela Israel M.A., CCC-LOFTER
[2023-06-13 11:50] VITALS: BP 171/72; PULSE 63; RESP 19; TEMP 36.3; O2SAT 98
--- NOTE | 2023-06-13 12:35 | MHC.CLN ---
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
[2023-06-13] MEDS: Enoxaparin Sodium 40 MG/0.4 ML SYRINGE SUBCUT (13:24)
[2023-06-13 15:21] VITALS: BP 162/89; PULSE 68; RESP 20; TEMP 36; O2SAT 99
--- NOTE | 2023-06-13 16:00 | MHC.CM.PN ---
EMR reviewed and per MD rounds, pt is not cleared for D/C today due to awaiting [facility] and LTC placement. CM will continue to follow.
[2023-06-13 19:15] VITALS: BP 148/71; PULSE 59; RESP 18; TEMP 36; O2SAT 100
[2023-06-13 23:28] VITALS: BP 157/70; PULSE 64; RESP 18; TEMP 36.8; O2SAT 99
[2023-06-14 04:00] VITALS: BP 132/80; PULSE 70; RESP 16; TEMP 36.4; O2SAT 94
[2023-06-14] MEDS: Levothyroxine Sodium 88 MCG TABLET PO (05:09)
[2023-06-14 07:27] VITALS: BP 136/66; PULSE 67; RESP 18; TEMP 36.1; O2SAT 100
[2023-06-14] MEDS: lisinopriL 20 MG TABLET PO (07:40)
[2023-06-14] MEDS: 0.9 % Sodium Chloride Flush 3 ML SYRINGE IVFLUSH ×3 (07:40→20:09)
[2023-06-14] MEDS: Memantine HCl 5 MG TABLET PO (07:40)
[2023-06-14 11:37] VITALS: BP 157/77; PULSE 64; RESP 18; TEMP 36.1; O2SAT 100
--- NOTE | 2023-06-14 12:16 | P.PNIM_ITS ---
Subjective Subjective Date of Service: 06/14/23 Interval History: seen and examined this morning awake, alert, resting in bed comfortably confused, no complaints. difficult to obtain full ROS Neurologic Neurologic: Reports confusion Psychiatric Psychiatric: Reports confusion Physical Exam 2 Vital Signs: Vital Signs: Last Vital Signs Temp 96.9 F 06/14/23 11:37 Pulse 64 06/14/23 11:37 Resp 18 06/14/23 11:37 BP 157/77 H 06/14/23 11:37 Pulse Ox 100 06/14/23 11:37 O2 Del Method Room Air 06/14/23 11:37 BMI result Body Mass Index 16.9 Appearing in no acute distress lung sounds are clear to auscultation heart regular rate rhythm, clear S1, S2 positive bowel sounds, abdomen is soft, nontender neuro patient is alert x3, no focal deficits Const: General: confusion Orientation/consciousness: confusion Neuro: General: confusion Objective Data Active Medications Acetaminophen (Acetaminophen Supp 650 Mg Supp.Rect) 650 mg [place] Q6H PRN PRN Reason: Pain, Mild, fever Al Hydroxide/Mg Hydroxide (Magnesium Hydrox/Alum Hydrox 30 Ml Oral.Susp) 30 ml PO Q6H PRN PRN Reason: Heartburn/Nausea Amlodipine Besylate (Amlodipine Besylate 2.5 Mg Tablet) 2.5 mg PO BEDTIME [facility]; Protocol Last Admin: 06/13/23 21:00 Dose: Not Given Documented By: SAEED Non-Admin Reason: Patient Refused Docusate Sodium (Docusate Sodium 100 Mg Capsule) 100 mg PO DAILY PRN PRN Reason: Constipation Enoxaparin Sodium (Enoxaparin Sodium 40 Mg/0.4 Ml Syringe) 40 mg SUBCUT Q24H [facility] Last Admin: 06/13/23 13:24 Dose: 40 mg Documented By: TRELL Levothyroxine Sodium (Levothyroxine Sodium 88 Mcg Tablet) 88 mcg PO DAILY@0600 [facility] Last Admin: 06/14/23 05:09 Dose: 88 mcg Documented By: SAEED Lisinopril (Lisinopril 20 Mg Tablet) 20 mg PO DAILY [facility]; Protocol Last Admin: 06/14/23 07:40 Dose: 20 mg Documented By: TRELL Magnesium Hydroxide (Milk Of Magnesia 30 Ml Oral.Susp) 30 ml PO DAILY PRN PRN Reason: Constipation Memantine (Memantine Hcl 5 Mg Tablet) 5 mg PO DAILY [facility] Last Admin: 06/14/23 07:40 Dose: 5 mg Documented By: TRELL Ondansetron HCl (Ondansetron Hcl 4 Mg/2 Ml Vial) 4 mg IVPUSH Q8H PRN PRN Reason: Nausea and Vomiting Quetiapine Fumarate (Quetiapine Fumarate 25 Mg Tablet) 25 mg PO BEDTIME [facility] Last Admin: 06/13/23 21:00 Dose: Not Given Documented By: SAEED Non-Admin Reason: Patient Refused Sodium Chloride (0.9 % Sodium Chloride Flush 3 Ml Syringe) 3 ml IVFLUSH QSHIFT [facility] Last Admin: 06/14/23 07:40 Dose: 3 ml Documented By: TRELL Labs 06/08/23 06:44 06/08/23 06:44 Assessment and Plan (1) Pneumonia: Status: Acute (2) Aspiration into airway: Status: Acute Plan This is a 87-year-old male with history of interstitial lung disease, hypothyroidism, hypertension, with major 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 Acute metabolic encephalopathy- suspect multifactorial related to medication and infection has history of advanced dementia - seems to be at baseline. confused, not oriented to time, place or situation CTA head/neck showed no evidence of infarction hemorrhage or stenosis, UA unremarkable. Ammonia WNL, renal function baseline without uremia. VBG without significant hypercapnia, electrolytes otherwise normal CXR aspiration pneumonia on Augmentin Was ambulating previously with assistance diet nectar thick liquids /chopped advanced diet Acute aspiration pneumonia/no sepsis no leukocytosis or sirs criteria CT chest wtih RUL partially resolved infiltrate with dilated esophagus suspicious for microaspirations per pulmonary s/p IV zosyn , po augmentin barium swallow very limited study, no significant persistent stricture, patient swallowed 1/2 inch diameter barium tablet without difficulty currently tolerating NDD3 diet, nectar thick liquids with 1-1 supervision although does intermittently refuse Sinus bradycardia EKG shows sinus bradycardia, no av sadia block patient asymptomatic heart rate improved ILD outpt follow up with pulmonology Major neurocognitive disorder with multiple etiologies and behavioral disturbance patient was on Seroquel, mirtazapine and trazodone, all medications held due to above psych follow up, rec to resume bedtime seroquel; can use prn olanzapine 2.5 -5mg po or IM q6h for agitation if necessary continue memantine Hypothyroidism TSH 16.65, free t4 1.13. likely suck euthyroid continue levothyroxine 88mcg HTN continue lisinopril and amlodipine DVT prophylaxis- lovenox Full code attending - dr. Joel Dispo- per psychiatry, he is cleared from psychiatric standpoint, [facility] [place] in progress, awaiting placement to LTC. seen by PT - no carryover with skilled PT will require 24/ care or LTCruizsarina Ramos [phone] HCP she wishes patient to be discharged to rehab Pt requires continued inpatient stay for psychiatric med adjustment and for safe disposition. Time Spent With Patient Time: Total time managing care of this patient today ____ minutes. Quality Stroke Does the patient have a stroke diagnosis?: No VTE Prior VTE?: No VTE Risk Level:: Medical - moderate - high VTE Device Contraindication: Treatment Not Indicated VTE Drug Contraindication: N/A - Med Ordered
[2023-06-14] MEDS: Acetaminophen 325 MG TABLET 650 MG PO (13:01)
[2023-06-14] MEDS: Enoxaparin Sodium 40 MG/0.4 ML SYRINGE SUBCUT (13:06)
[2023-06-14 15:33] VITALS: BP 137/76; PULSE 68; RESP 16; TEMP 36.3; O2SAT 98
[2023-06-14 18:57] VITALS: BP 146/71; PULSE 71; RESP 18; TEMP 36.4; O2SAT 98
[2023-06-14] MEDS: QUEtiapine Fumarate 25 MG TABLET PO (20:08)
[2023-06-14] MEDS: amLODIPine Besylate 2.5 MG TABLET PO (20:08)
[2023-06-14] MEDS: LORazepam 2 MG/ML VIAL 0.5 MG IVPUSH (21:57)
[2023-06-15 04:00] VITALS: BP 160/74; PULSE 61; RESP 18; TEMP 36.4; O2SAT 94
[2023-06-15 06:56] LABS: MANUAL DIFF FLAG NO
[2023-06-15 07:01] LABS: Basophils Percent Auto 0.5 % (0-2); Eosinophils Absolute Auto 0.1 X10*3/uL (0.0-0.4); Eosinophils Percent Auto 1.8 % (0-4); Hematocrit 29.6 % (42.0-52.0); Hemoglobin 9.4 g/dl (14.0-18.0); Imm Gran Abs Auto 0.02 X10*3/uL (0.00-0.03); Imm Gran Pct Auto 0.3 % (0.0-0.4); Lymphocytes Absolute Auto 0.8 X10*3/uL (1.2-4.9); Lymphocytes Percent Auto 13.4 % (20-40); Mean Corpuscular HGB Conc 31.8 g/dl (31.0-36.0); Mean Corpuscular Hemoglobin 27.2 pg (27.0-33.0); Mean Corpuscular Volume 85.5 fL (80.0-98.0); Monocytes Absolute Auto 0.6 X10*3/uL (0.1-1.2); Neutrophils Absolute Auto 4.6 x10*3/uL (2.0-8.3); Platelet Count 239 X10*3/uL (160-400); Red Blood Count 3.46 X10*6/uL (4.60-5.80); Red Cell Distribution Width 15.5 % (11.0-16.0); White Blood Count 6.1 X10*3/uL (4.8-10.8)
[2023-06-15 07:07] VITALS: BP 158/72; PULSE 65; RESP 20; TEMP 36.1; O2SAT 95
[2023-06-15 07:22] LABS: Anion Gap 10 (12-20); Blood Urea Nitrogen 23 mg/dL (9-16); Calcium 9.7 mg/dL (8.4-10.2); Carbon Dioxide 32 mmol/L (22-29); Chloride 105 mmol/L (96-108); Creatinine Clr Calc Pharmacy 44.1; Estimated Glomerular Filt Rate > 60; Glucose Random 82 mg/dL (60-115); Potassium 4.6 mmol/L (3.3-5.1); Sodium 142 mmol/L (135-145)
[2023-06-15] MEDS: 0.9 % Sodium Chloride Flush 3 ML SYRINGE IVFLUSH ×3 (08:40→20:27)
--- NOTE | 2023-06-15 09:33 | P.PNIM_ITS ---
Subjective Subjective Date of Service: 06/15/23 Interval History: seen and examined this morning awake, alert, resting in bed comfortably confused, no complaints. difficult to obtain full ROS Neurologic Neurologic: Reports confusion Psychiatric Psychiatric: Reports confusion Physical Exam 2 Vital Signs: Vital Signs: Last Vital Signs Temp 96.9 F 06/15/23 07:07 Pulse 65 06/15/23 07:07 Resp 20 06/15/23 07:07 BP 158/72 H 06/15/23 07:07 Pulse Ox 95 06/15/23 07:07 O2 Del Method Room Air 06/15/23 07:07 BMI result Body Mass Index 16.9 confused Const: General: confusion Orientation/consciousness: confusion Neuro: General: confusion Objective Data Active Medications Acetaminophen (Acetaminophen Supp 650 Mg Supp.Rect) 650 mg HI Q6H PRN PRN Reason: Pain, Mild, fever Acetaminophen (Acetaminophen 325 Mg Tablet) 650 mg PO Q4H PRN PRN Reason: Pain, Moderate(Pain Scale 4-6) Last Admin: 06/14/23 13:01 Dose: 650 mg Documented By: TRELL Al Hydroxide/Mg Hydroxide (Magnesium Hydrox/Alum Hydrox 30 Ml Oral.Susp) 30 ml PO Q6H PRN PRN Reason: Heartburn/Nausea Amlodipine Besylate (Amlodipine Besylate 2.5 Mg Tablet) 2.5 mg PO BEDTIME [facility]; Protocol Last Admin: 06/14/23 20:08 Dose: 2.5 mg Documented By: BLAIR Docusate Sodium (Docusate Sodium 100 Mg Capsule) 100 mg PO DAILY PRN PRN Reason: Constipation Enoxaparin Sodium (Enoxaparin Sodium 40 Mg/0.4 Ml Syringe) 40 mg SUBCUT Q24H [facility] Last Admin: 06/14/23 13:06 Dose: 40 mg Documented By: TRELL Levothyroxine Sodium (Levothyroxine Sodium 88 Mcg Tablet) 88 mcg PO DAILY@0600 [facility] Last Admin: 06/15/23 05:17 Dose: Not Given Documented By: EVER Non-Admin Reason: Patient Refused Lisinopril (Lisinopril 20 Mg Tablet) 20 mg PO DAILY [facility]; Protocol Last Admin: 06/15/23 09:13 Dose: Not Given Documented By: MAXIMILIANO Non-Admin Reason: Patient Refused Magnesium Hydroxide (Milk Of Magnesia 30 Ml Oral.Susp) 30 ml PO DAILY PRN PRN Reason: Constipation Memantine (Memantine Hcl 5 Mg Tablet) 5 mg PO DAILY [facility] Last Admin: 06/15/23 09:13 Dose: Not Given Documented By: MAXIMILIANO Non-Admin Reason: Patient Refused Ondansetron HCl (Ondansetron Hcl 4 Mg/2 Ml Vial) 4 mg IVPUSH Q8H PRN PRN Reason: Nausea and Vomiting Quetiapine Fumarate (Quetiapine Fumarate 25 Mg Tablet) 25 mg PO BEDTIME [facility] Last Admin: 06/14/23 20:08 Dose: 25 mg Documented By: BLAIR Sodium Chloride (0.9 % Sodium Chloride Flush 3 Ml Syringe) 3 ml IVFLUSH QSHIFT [facility] Last Admin: 06/15/23 08:40 Dose: 3 ml Documented By: MAXIMILIANO Labs 06/15/23 06:19 06/15/23 06:19 Labs: Laboratory Results - last 24 hr 06/15/23 06:19 MCV 85.5 MCH 27.2 MCHC 31.8 RDW 15.5 Plt Count 239 MPV 11.0 Immature Gran % (Auto) 0.3 Neut % (Auto) 75.0 H Lymph % (Auto) 13.4 L Smyth % (Auto) 9.0 Eos % (Auto) 1.8 Baso % (Auto) 0.5 Lymph # (Auto) 0.8 L Smyth # (Auto) 0.6 Eos # (Auto) 0.1 Baso # (Auto) 0.0 Abs Immat Gran (auto) 0.02 Absolute Neuts (auto) 4.6 Absolute Nucleated RBC 0.000 Nucleated RBC % (auto) 0.0 Anion Gap 10 L Estim Creat Clear Calc 44.1 Estimated GFR > 60 Random Glucose 82 Calcium 9.7 Assessment and Plan (1) Pneumonia: Status: Acute (2) Aspiration into airway: Status: Acute Plan This is a 87-year-old male with history of interstitial lung disease, hypothyroidism, hypertension, with major 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 metabolic encephalopathy- suspect multifactorial related to medication and infection has history of advanced dementia - seems to be at baseline. confused, not oriented to time, place or situation CTA head/neck showed no evidence of infarction hemorrhage or stenosis, UA unremarkable. Ammonia WNL, renal function baseline without uremia. VBG without significant hypercapnia, electrolytes otherwise normal CXR aspiration pneumonia on Augmentin Was ambulating previously with assistance diet nectar thick liquids /chopped advanced diet Acute aspiration pneumonia/no sepsis no leukocytosis or sirs criteria CT chest wtih RUL partially resolved infiltrate with dilated esophagus suspicious for microaspirations per pulmonary s/p IV zosyn , po augmentin barium swallow very limited study, no significant persistent stricture, patient swallowed 1/2 inch diameter barium tablet without difficulty currently tolerating NDD3 diet, nectar thick liquids with 1-1 supervision although does intermittently refuse Sinus bradycardia EKG shows sinus bradycardia, no av sadia block patient asymptomatic heart rate improved ILD outpt follow up with pulmonology Major neurocognitive disorder with multiple etiologies and behavioral disturbance patient was on Seroquel, mirtazapine and trazodone, all medications held due to above psych follow up, rec to resume bedtime seroquel; can use prn olanzapine 2.5 -5mg po or IM q6h for agitation if necessary continue memantine Hypothyroidism TSH 16.65, free t4 1.13. likely suck euthyroid continue levothyroxine 88mcg HTN continue lisinopril and amlodipine DVT prophylaxis- lovenox Full code attending - dr. Joel Dispo- per psychiatry, he is cleared from psychiatric standpoint, [employer] louis in progress, awaiting placement to LTC. seen by PT - no carryover with skilled PT will require 24/7 care or LTC granddadorie Ramos [phone] HCP she wishes patient to be discharged to rehab Pt requires continued inpatient stay for psychiatric med adjustment and for safe disposition. Quality Stroke Does the patient have a stroke diagnosis?: No VTE Prior VTE?: No VTE Risk Level:: Medical - moderate - high VTE Device Contraindication: Treatment Not Indicated VTE Drug Contraindication: N/A - Med Ordered
[2023-06-15 11:02] VITALS: BP 165/84; PULSE 62; RESP 20; TEMP 36.3; O2SAT 95
[2023-06-15 12:10] VITALS: BMI 17.2
--- NOTE | 2023-06-15 12:11 | MHC.CLN ---
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
--- NOTE | 2023-06-15 12:17 | MHC.SLORD ---
Speech Language Pathology Order Status: Per nursing, patient refused meds and breakfast on this date. BARN HAND attempted to see patient for toleration of diet; chopped/advanced solids, thin liquids, pills whole w/ puree, total supervision. He did not open eyes/follow commands/engage with BARN HAND. Therefore, no PO trials given w/ BARN HAND. BARN HAND to continue to follow.
[2023-06-15] MEDS: Enoxaparin Sodium 40 MG/0.4 ML SYRINGE SUBCUT (13:06)
--- NOTE | 2023-06-15 14:57 | MHC.CM.PN ---
This CM [place] [facility] [place]ts [facility] [place] now [place]. LTC referral updated, still no bed offers. This CM met with pts granddaughter Rachel to discuss and explained the need to further expand the LTC referrals due to no available local bed offers. CM will continue to follow.
[2023-06-15 15:28] VITALS: BP 155/72; PULSE 66; RESP 18; TEMP 36.3; O2SAT 96
[2023-06-15 18:53] VITALS: BP 162/74; PULSE 72; RESP 18; TEMP 36.3; O2SAT 97
[2023-06-15] MEDS: QUEtiapine Fumarate 25 MG TABLET PO (20:27)
[2023-06-15] MEDS: amLODIPine Besylate 2.5 MG TABLET PO (20:27)
[2023-06-15 23:32] VITALS: BP 140/69; PULSE 73; RESP 18; TEMP 36.6; O2SAT 97
--- NOTE | 2023-06-16 00:12 | PC.NURSE ---
Assumed care 0:00 midnight 06/16.
[2023-06-16 03:17] VITALS: BP 142/70; PULSE 75; RESP 16; TEMP 36.6; O2SAT 97
[2023-06-16] MEDS: Levothyroxine Sodium 88 MCG TABLET PO (06:07)
[2023-06-16 07:10] VITALS: BP 148/66; PULSE 71; RESP 20; TEMP 36.8; O2SAT 97
[2023-06-16] MEDS: lisinopriL 20 MG TABLET PO (08:57)
[2023-06-16] MEDS: 0.9 % Sodium Chloride Flush 3 ML SYRINGE IVFLUSH (08:57)
[2023-06-16] MEDS: Memantine HCl 5 MG TABLET PO (08:57)
--- NOTE | 2023-06-16 11:02 | MHC.SL.SWA ---
Speech Pathologist Impression: Risk of Aspiration Due to: Dysphasia Diet Status: Recommend continue with Chopped/Advanced Diet, Thin Liquids, pills whole in puree. Liquid Consistency and Strategies for Safe Swallow: Liquid Intake Recommendation: Thin Liquid Intake Strategies: Small Sips Solid Food Consistency: Dietary Recommendations: Chopped/Advanced (NDD3) Additional Modifications to Solid Foods: 1-1 supervision, encouragement to eat, remove items from tray to be attempted between meals if intake is poor. Oral Medication Intake: Whole with Puree Please contact the pharmacy regarding appropriate crushable or liquid drug formulations that are available whenever modified delivery is recommended. Compensatory Strategies and Precautions to be Taken for Safe Swallow: Sitting Upright (90 deg) Liquids from Cup Liquids from Straw Small Bites and Sips Supervision While Eating and Drinking for Safe Swallow: Total Supervision (1:1) Foods to Avoid: Hard tough to chew solids, mixed textures Swallowing Recommended Treatments: Compens. Strategy Educat. Recommendation for Speech: Patient was seen this morning, with sitter present in room. Patient was finishing breakfast, was observed taking sips of orange juice by straw, which patient tolerated well. Per sitter and as evidenced on tray, patient had consumed all of the nutritional supplement ice cream and had taken some bites of oatmeal on tray, and one bite of the Irish toast. Report indicates continued toleration of diet with some improved PO intake. Recommend continue with Chopped/Advanced Diet, Thin Liquids, pills whole in puree. Comment: Frequency/Duration: Date Range for Service Req: Timeline to reassess: [employer] Clinican/Clinical Fellow: No Supervisory Statement: I have reviewed and agree with the student/clinical fellow's documentation: N/A Speech Language Pathologist: Hellen Colindres M.A., CCC-TELESALES PROFESSIONAL
[2023-06-16 11:03] VITALS: BP 135/89; PULSE 69; RESP 18; TEMP 36.8; O2SAT 96
[2023-06-16] MEDS: Enoxaparin Sodium 40 MG/0.4 ML SYRINGE SUBCUT (14:26)
[2023-06-16 15:31] VITALS: BP 152/72; PULSE 69; RESP 18; TEMP 36.2; O2SAT 98
--- NOTE | 2023-06-16 16:02 | MHC.CM.PN ---
Referral faxed to [facility] in [place], [place], this CM also called and spoke with Subhash in Admissions who will review.
--- NOTE | 2023-06-16 16:56 | P.PNIM_ITS ---
Subjective Subjective Date of Service: 06/16/23 Interval History: seen and examined this morning follow up for placement no overnight events awake, alert, confused. no complaints. difficult to obtain full ROS Neurologic Neurologic: Reports confusion Psychiatric Psychiatric: Reports confusion Physical Exam 2 Vital Signs: Vital Signs: Last Vital Signs Temp 97.2 F 06/16/23 15:31 Pulse 69 06/16/23 15:31 Resp 18 06/16/23 15:31 BP 152/72 H 06/16/23 15:31 Pulse Ox 98 06/16/23 15:31 O2 Del Method Room Air 06/16/23 15:31 BMI result Body Mass Index 17.2 Const: General: comfortable, no acute distress, alert, awake and confusion Orientation/consciousness: confusion Resp: Effort & Inspection: normal respiratory effort, able to speak in complete sentences, no respiratory distress and no use of accessory muscles GI: Inspection: No distended Palpation (GI): Soft to palpation and nontender Neuro: General: moves all extremities and confusion Extrem: General: Yes no pedal edema Objective Data Active Medications Acetaminophen (Acetaminophen Supp 650 Mg Supp.Rect) 650 mg AL Q6H PRN PRN Reason: Pain, Mild, fever Acetaminophen (Acetaminophen 325 Mg Tablet) 650 mg PO Q4H PRN PRN Reason: Pain, Moderate(Pain Scale 4-6) Last Admin: 06/14/23 13:01 Dose: 650 mg Documented By: TRELL Al Hydroxide/Mg Hydroxide (Magnesium Hydrox/Alum Hydrox 30 Ml Oral.Susp) 30 ml PO Q6H PRN PRN Reason: Heartburn/Nausea Amlodipine Besylate (Amlodipine Besylate 2.5 Mg Tablet) 2.5 mg PO BEDTIME [facility]; Protocol Last Admin: 06/15/23 20:27 Dose: 2.5 mg Documented By: CATRACHITO Docusate Sodium (Docusate Sodium 100 Mg Capsule) 100 mg PO DAILY PRN PRN Reason: Constipation Enoxaparin Sodium (Enoxaparin Sodium 40 Mg/0.4 Ml Syringe) 40 mg SUBCUT Q24H [facility] Last Admin: 06/16/23 14:26 Dose: 40 mg Documented By: JOE Levothyroxine Sodium (Levothyroxine Sodium 88 Mcg Tablet) 88 mcg PO DAILY@0600 [facility] Last Admin: 06/16/23 06:07 Dose: 88 mcg Documented By: HO.PANAJIK Lisinopril (Lisinopril 20 Mg Tablet) 20 mg PO DAILY [facility]; Protocol Last Admin: 06/16/23 08:57 Dose: 20 mg Documented By: JOE Magnesium Hydroxide (Milk Of Magnesia 30 Ml Oral.Susp) 30 ml PO DAILY PRN PRN Reason: Constipation Memantine (Memantine Hcl 5 Mg Tablet) 5 mg PO DAILY [facility] Last Admin: 06/16/23 08:57 Dose: 5 mg Documented By: JOE Ondansetron HCl (Ondansetron Hcl 4 Mg/2 Ml Vial) 4 mg IVPUSH Q8H PRN PRN Reason: Nausea and Vomiting Quetiapine Fumarate (Quetiapine Fumarate 25 Mg Tablet) 25 mg PO BEDTIME [facility] Last Admin: 06/15/23 20:27 Dose: 25 mg Documented By: CATRACHITO Sodium Chloride (0.9 % Sodium Chloride Flush 3 Ml Syringe) 3 ml IVFLUSH QSHIFT [facility] Last Admin: 06/16/23 15:40 Dose: Not Given Documented By: JOE Non-Admin Reason: Previously Administered Labs 06/15/23 06:19 06/15/23 06:19 Assessment and Plan (1) Major neurocognitive disorder due to multiple etiologies with behavioral disturbance: Status: Acute Plan This is a 87-year-old male with history of interstitial lung disease, hypothyroidism, hypertension, with major 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 metabolic encephalopathy- suspect multifactorial related to medication and infection has history of advanced dementia - seems to be at baseline. confused, not oriented to time, place or situation CTA head/neck showed no evidence of infarction hemorrhage or stenosis, UA unremarkable. Ammonia WNL, renal function baseline without uremia. VBG without significant hypercapnia, electrolytes otherwise normal CXR aspiration pneumonia s/p Augmentin Was ambulating previously with assistance diet nectar thick liquids /chopped advanced diet Acute aspiration pneumonia/no sepsis no leukocytosis or sirs criteria CT chest wtih RUL partially resolved infiltrate with dilated esophagus suspicious for microaspirations per pulmonary s/p IV zosyn , and po augmentin barium swallow very limited study, no significant persistent stricture, patient swallowed 1/2 inch diameter barium tablet without difficulty currently tolerating NDD3 diet, nectar thick liquids with 1-1 supervision although does intermittently refuse Sinus bradycardia EKG shows sinus bradycardia, no av sadia block patient asymptomatic heart rate improved ILD outpt follow up with pulmonology Major neurocognitive disorder with multiple etiologies and behavioral disturbance patient was on Seroquel, mirtazapine and trazodone, all medications held due to above psych follow up, rec to resume bedtime seroquel; can use prn olanzapine 2.5 -5mg po or IM q6h for agitation if necessary continue memantine Hypothyroidism TSH 16.65, free t4 1.13. likely suck euthyroid continue levothyroxine 88mcg HTN continue lisinopril and amlodipine DVT prophylaxis- lovenox Full code attending - dr. Rodriguez Dispo- per psychiatry, he is cleared from psychiatric standpoint, [employer] louis in progress, awaiting placement to LTC. seen by PT - no carryover with skilled PT will require 24/7 care or LTC granddaughter Rachel [phone] HCP she wishes patient to be discharged to rehab Pt requires continued inpatient stay for safe disposition. Quality Stroke Does the patient have a stroke diagnosis?: No VTE Prior VTE?: No VTE Risk Level:: Medical - moderate - high VTE Device Contraindication: Treatment Not Indicated VTE Drug Contraindication: N/A - Med Ordered
[2023-06-16 19:14] VITALS: BP 162/73; PULSE 68; RESP 17; TEMP 36.4; O2SAT 98
[2023-06-16] MEDS: amLODIPine Besylate 2.5 MG TABLET PO (20:54)
[2023-06-16] MEDS: QUEtiapine Fumarate 25 MG TABLET PO (20:54)
[2023-06-16 23:59] VITALS: BP 118/65; PULSE 64; RESP 18; TEMP 36.6; O2SAT 98
[2023-06-17] MEDS: LORazepam 2 MG/ML VIAL 0.5 MG IVPUSH
--- NOTE | 2023-06-17 03:47 | PC.NURSE ---
patient dementia, high fall risk, bed alarm and camera present but unable to staff sitter this evening. bed alarm went off and mine wedge sawyer responded immediately to find patient had slid himself from the bed to the floor. Once mine wedge sawyer was already in there then the camera room used stat alarm. Patient helped back to bed without injury or complaints of pain, md and supervisor pullet farm aware
[2023-06-17 07:55] VITALS: BP 137/83; PULSE 60; RESP 18; TEMP 36.6; O2SAT 95
[2023-06-17] MEDS: 0.9 % Sodium Chloride Flush 3 ML SYRINGE IVFLUSH ×2 (09:43)
[2023-06-17 11:31] VITALS: BP 161/74; PULSE 64; RESP 18; TEMP 36.1; O2SAT 96
--- NOTE | 2023-06-17 11:58 | MHC.CM.PN ---
EMR reviewed and per MD rounds, pt is medically cleared for D/C pending LTC bed placement. Pt has not been offered a bed at this point, CM will continue to expand bed search and follow.
--- NOTE | 2023-06-17 13:09 | MHC.SLORD ---
Speech Language Pathology Order Status: BILLER attempted to see pt this morning for dysphagia tx. Pt was sleeping, holding blanket over his face. Pt awoke briefly to light touch, was groaning and falling back asleep. Per sitter, pt has been sleepy all morning and had not eaten his breakfast. Pt is currently on a chopped diet (NDD3) w/ 1:1 supervision and aspiration precautions.
[2023-06-17] MEDS: Enoxaparin Sodium 40 MG/0.4 ML SYRINGE SUBCUT (14:03)
--- NOTE | 2023-06-17 14:03 | MHC.CLN ---
F/U PO INTAKE REMAINS VARIABLE WITH OCCASIONAL REFUSALS. DIET RX: CHOPPED-APPROPRIATE. PT RECEIVING MAGIC CUP TID PROVIDES 870KCALS, 27G PROTEIN. SKIN WITH REDNESS TO BUTTOCKS. CONTINUE TO MONITOR PO INTAKE AND ENCOURAGE SUPPLEMENT.
[2023-06-17 15:13] VITALS: BP 133/63; PULSE 69; RESP 18; TEMP 36.4; O2SAT 98
--- NOTE | 2023-06-17 17:06 | P.PNIM_ITS ---
Subjective Subjective Date of Service: 06/17/23 Interval History: seen and examined this morning follow up for placement patient awake, alert, resting in bed, smiles, says he feels good. unable to obtain full ROS due to dementia Physical Exam 2 Vital Signs: Vital Signs: Last Vital Signs Temp 97.6 F 06/17/23 15:13 Pulse 69 06/17/23 15:13 Resp 18 06/17/23 15:13 BP 133/63 06/17/23 15:13 Pulse Ox 98 06/17/23 15:13 O2 Del Method Room Air 06/17/23 15:13 BMI result Body Mass Index 17.2 Const: Other: frail elderly male resting in bed comfortably General: comfortable, no acute distress, alert and awake Nutritional Appearance: thin Resp: Effort & Inspection: normal respiratory effort, able to speak in complete sentences, no respiratory distress and no use of accessory muscles Cardio: Rate: regular rate GI: Inspection: No distended Palpation (GI): Soft to palpation and nontender Neuro: General: moves all extremities Extrem: General: Yes no pedal edema Objective Data Active Medications Acetaminophen (Acetaminophen Supp 650 Mg Supp.Rect) 650 mg NE Q6H PRN PRN Reason: Pain, Mild, fever Acetaminophen (Acetaminophen 325 Mg Tablet) 650 mg PO Q4H PRN PRN Reason: Pain, Moderate(Pain Scale 4-6) Last Admin: 06/14/23 13:01 Dose: 650 mg Documented By: TRELL Al Hydroxide/Mg Hydroxide (Magnesium Hydrox/Alum Hydrox 30 Ml Oral.Susp) 30 ml PO Q6H PRN PRN Reason: Heartburn/Nausea Amlodipine Besylate (Amlodipine Besylate 2.5 Mg Tablet) 2.5 mg PO BEDTIME [facility]; Protocol Last Admin: 06/16/23 20:54 Dose: 2.5 mg Documented By: TUMASY Docusate Sodium (Docusate Sodium 100 Mg Capsule) 100 mg PO DAILY PRN PRN Reason: Constipation Enoxaparin Sodium (Enoxaparin Sodium 40 Mg/0.4 Ml Syringe) 40 mg SUBCUT Q24H [facility] Last Admin: 06/17/23 14:03 Dose: 40 mg Documented By: FOSTEKR Levothyroxine Sodium (Levothyroxine Sodium 88 Mcg Tablet) 88 mcg PO DAILY@0600 [facility] Last Admin: 06/17/23 04:48 Dose: Not Given Documented By: CATIA Non-Admin Reason: Patient Refused Lisinopril (Lisinopril 20 Mg Tablet) 20 mg PO DAILY [facility]; Protocol Last Admin: 06/17/23 09:46 Dose: Not Given Documented By: SHEREEN Non-Admin Reason: pt too lethargic Magnesium Hydroxide (Milk Of Magnesia 30 Ml Oral.Susp) 30 ml PO DAILY PRN PRN Reason: Constipation Memantine (Memantine Hcl 5 Mg Tablet) 5 mg PO DAILY [facility] Last Admin: 06/17/23 09:47 Dose: Not Given Documented By: SHEREEN Non-Admin Reason: pt too lethargic Ondansetron HCl (Ondansetron Hcl 4 Mg/2 Ml Vial) 4 mg IVPUSH Q8H PRN PRN Reason: Nausea and Vomiting Quetiapine Fumarate (Quetiapine Fumarate 25 Mg Tablet) 25 mg PO BEDTIME [facility] Last Admin: 06/16/23 20:54 Dose: 25 mg Documented By: TUMASY Sodium Chloride (0.9 % Sodium Chloride Flush 3 Ml Syringe) 3 ml IVFLUSH QSHIFT [facility] Last Admin: 06/17/23 09:43 Dose: 3 ml Documented By: SIRIR Labs 06/15/23 06:19 06/15/23 06:19 Assessment and Plan (1) Major neurocognitive disorder due to multiple etiologies with behavioral disturbance: Status: Acute Plan This is a 87-year-old male with history of interstitial lung disease, hypothyroidism, hypertension, with major 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 metabolic encephalopathy- suspect multifactorial related to medication and infection. now resolved. has history of advanced dementia - seems to be at baseline. confused, not oriented to time, place or situation CTA head/neck showed no evidence of infarction hemorrhage or stenosis, UA unremarkable. Ammonia WNL, renal function baseline without uremia. VBG without significant hypercapnia, electrolytes otherwise normal CXR aspiration pneumonia/UTI s/p Augmentin Was ambulating previously with assistance diet nectar thick liquids /chopped advanced diet Acute aspiration pneumonia/no sepsis no leukocytosis or sirs criteria CT chest wtih RUL partially resolved infiltrate with dilated esophagus suspicious for microaspirations per pulmonary barium swallow very limited study, no significant persistent stricture, patient swallowed 1/2 inch diameter barium tablet without difficulty completed course of antibiotics currently tolerating NDD3 diet, nectar thick liquids with 1-1 supervision although does intermittently refuse Sinus bradycardia EKG shows sinus bradycardia, no av sadia block patient asymptomatic heart rate improved ILD outpt follow up with pulmonology Major neurocognitive disorder with multiple etiologies and behavioral disturbance patient was on Seroquel, mirtazapine and trazodone, all medications held due to above psych follow up, rec to resume bedtime seroquel; can use prn olanzapine 2.5 -5mg po or IM q6h for agitation if necessary continue memantine Hypothyroidism TSH 16.65, free t4 1.13. likely suck euthyroid continue levothyroxine 88mcg HTN continue lisinopril and amlodipine DVT prophylaxis- lovenox Full code attending - Dr. stout Dispo- per psychiatry, he is cleared from psychiatric standpoint, [employer] louis in progress, awaiting placement to LTC. seen by PT - no carryover with skilled PT will require 24/7 care or LTC granddaughter Rachel [phone] HCP she wishes patient to be discharged to rehab Pt requires continued inpatient stay for safe disposition. Quality Stroke Does the patient have a stroke diagnosis?: No VTE Prior VTE?: No VTE Risk Level:: Medical - moderate - high VTE Device Contraindication: Treatment Not Indicated VTE Drug Contraindication: N/A - Med Ordered
[2023-06-17 19:41] VITALS: BP 153/78; PULSE 73; RESP 18; TEMP 37; O2SAT 93
[2023-06-17] MEDS: amLODIPine Besylate 2.5 MG TABLET PO (21:35)
[2023-06-17] MEDS: QUEtiapine Fumarate 25 MG TABLET PO (21:36)
[2023-06-18] MEDS: 0.9 % Sodium Chloride Flush 3 ML SYRINGE IVFLUSH ×2 (02:39→09:20)
[2023-06-18 03:44] VITALS: BP 127/75; PULSE 78; RESP 18; TEMP 37; O2SAT 98
[2023-06-18 07:21] VITALS: BP 142/79; PULSE 71; RESP 12; TEMP 36.3; O2SAT 98
[2023-06-18] MEDS: lisinopriL 20 MG TABLET PO (09:20)
[2023-06-18] MEDS: Memantine HCl 5 MG TABLET PO (09:20)
[2023-06-18] MEDS: Enoxaparin Sodium 40 MG/0.4 ML SYRINGE SUBCUT (14:11)
--- NOTE | 2023-06-18 15:31 | P.PNIM_ITS ---
Subjective Subjective Date of Service: 06/18/23 Interval History: seen and examined this morning follow up for placement awake, alert, lying in bed; appears comfortable. denies pain but difficult to obtain full ROS given underlying dementia Physical Exam 2 Vital Signs: Vital Signs: Last Vital Signs Temp 97.3 F 06/18/23 07:21 Pulse 71 06/18/23 07:21 Resp 12 06/18/23 07:21 BP 142/79 H 06/18/23 07:21 Pulse Ox 98 06/18/23 07:21 O2 Del Method Room Air 06/18/23 07:21 BMI result Body Mass Index 17.2 Const: Other: frail elderly male resting in bed comfortably General: comfortable, no acute distress, alert and awake Nutritional Appearance: thin Resp: Effort & Inspection: normal respiratory effort, able to speak in complete sentences, no respiratory distress and no use of accessory muscles Cardio: Rate: regular rate GI: Inspection: No distended Palpation (GI): Soft to palpation and nontender Neuro: General: moves all extremities Extrem: General: Yes no pedal edema Objective Data Active Medications Acetaminophen (Acetaminophen Supp 650 Mg Supp.Rect) 650 mg [place] Q6H PRN PRN Reason: Pain, Mild, fever Acetaminophen (Acetaminophen 325 Mg Tablet) 650 mg PO Q4H PRN PRN Reason: Pain, Moderate(Pain Scale 4-6) Last Admin: 06/14/23 13:01 Dose: 650 mg Documented By: TRELL Al Hydroxide/Mg Hydroxide (Magnesium Hydrox/Alum Hydrox 30 Ml Oral.Susp) 30 ml PO Q6H PRN PRN Reason: Heartburn/Nausea Amlodipine Besylate (Amlodipine Besylate 2.5 Mg Tablet) 2.5 mg PO BEDTIME [facility]; Protocol Last Admin: 06/17/23 21:35 Dose: 2.5 mg Documented By: MANUEL Docusate Sodium (Docusate Sodium 100 Mg Capsule) 100 mg PO DAILY PRN PRN Reason: Constipation Enoxaparin Sodium (Enoxaparin Sodium 40 Mg/0.4 Ml Syringe) 40 mg SUBCUT Q24H [facility] Last Admin: 06/18/23 14:11 Dose: 40 mg Documented By: KIMBERLY Levothyroxine Sodium (Levothyroxine Sodium 88 Mcg Tablet) 88 mcg PO DAILY@0600 [facility] Last Admin: 06/18/23 06:33 Dose: Not Given Documented By: ANTOIC Non-Admin Reason: Patient Refused Lisinopril (Lisinopril 20 Mg Tablet) 20 mg PO DAILY [facility]; Protocol Last Admin: 06/18/23 09:20 Dose: 20 mg Documented By: KIMBERLY Magnesium Hydroxide (Milk Of Magnesia 30 Ml Oral.Susp) 30 ml PO DAILY PRN PRN Reason: Constipation Memantine (Memantine Hcl 5 Mg Tablet) 5 mg PO DAILY [facility] Last Admin: 06/18/23 09:20 Dose: 5 mg Documented By: KIMBERLY Ondansetron HCl (Ondansetron Hcl 4 Mg/2 Ml Vial) 4 mg IVPUSH Q8H PRN PRN Reason: Nausea and Vomiting Quetiapine Fumarate (Quetiapine Fumarate 25 Mg Tablet) 25 mg PO BEDTIME [facility] Last Admin: 06/17/23 21:36 Dose: 25 mg Documented By: MANUEL Sodium Chloride (0.9 % Sodium Chloride Flush 3 Ml Syringe) 3 ml IVFLUSH QSHIFT [facility] Last Admin: 06/18/23 11:43 Dose: Not Given Documented By: JIMBO-KATERIN Non-Admin Reason: No Access Labs 06/15/23 06:19 06/15/23 06:19 Assessment and Plan (1) Major neurocognitive disorder due to multiple etiologies with behavioral disturbance: Status: Acute Plan This is a 87-year-old male with history of interstitial lung disease, hypothyroidism, hypertension, with major 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 metabolic encephalopathy- suspect multifactorial related to medication and infection. now resolved. has history of advanced dementia - seems to be at baseline. confused, not oriented to time, place or situation CTA head/neck showed no evidence of infarction hemorrhage or stenosis, UA unremarkable. Ammonia WNL, renal function baseline without uremia. VBG without significant hypercapnia, electrolytes otherwise normal CXR aspiration pneumonia/UTI s/p Augmentin Was ambulating previously with assistance diet nectar thick liquids /chopped advanced diet Acute aspiration pneumonia/no sepsis no leukocytosis or sirs criteria CT chest wtih RUL partially resolved infiltrate with dilated esophagus suspicious for microaspirations per pulmonary barium swallow very limited study, no significant persistent stricture, patient swallowed 1/2 inch diameter barium tablet without difficulty completed course of antibiotics currently tolerating NDD3 diet, nectar thick liquids with 1-1 supervision although does intermittently refuse Sinus bradycardia EKG shows sinus bradycardia, no av sadia block patient asymptomatic heart rate improved ILD outpt follow up with pulmonology Major neurocognitive disorder with multiple etiologies and behavioral disturbance patient was on Seroquel, mirtazapine and trazodone, all medications held due to above psych follow up, rec to resume bedtime seroquel; can use prn olanzapine 2.5 -5mg po or IM q6h for agitation if necessary continue memantine Hypothyroidism TSH 16.65, free t4 1.13. likely suck euthyroid. TSH has been trending down continue levothyroxine 88mcg will need thyroid checked periodically, last checked 06/07 HTN continue lisinopril and amlodipine DVT prophylaxis- lovenox Full code attending - Dr. Robledo Dispo- per psychiatry, he is cleared from psychiatric standpoint, [employer] louis in progress, awaiting placement to LTC. seen by PT - no carryover with skilled PT will require 07/03 care or LTC granddaughter Rachel [phone] HCP she wishes patient to be discharged to rehab Pt requires continued inpatient stay for safe disposition. Quality Stroke Does the patient have a stroke diagnosis?: No VTE Prior VTE?: No VTE Risk Level:: Medical - moderate - high VTE Device Contraindication: Treatment Not Indicated VTE Drug Contraindication: N/A - Med Ordered
[2023-06-18 15:36] VITALS: BP 104/51; PULSE 55; RESP 18; TEMP 36.4; O2SAT 99
[2023-06-18 20:00] VITALS: BP 136/62; PULSE 61; RESP 18; TEMP 37; O2SAT 98
[2023-06-18] MEDS: amLODIPine Besylate 2.5 MG TABLET PO (20:23)
[2023-06-18] MEDS: QUEtiapine Fumarate 25 MG TABLET PO (20:23)
[2023-06-19] MEDS: LORazepam 2 MG/ML VIAL 0.5 MG IVPUSH (00:17)
[2023-06-19] MEDS: 0.9 % Sodium Chloride Flush 3 ML SYRINGE IVFLUSH ×2 (00:24→20:33)
[2023-06-19 03:23] VITALS: BP 127/89; PULSE 78; RESP 17; TEMP 37; O2SAT 95
[2023-06-19 07:25] VITALS: BP 151/96; RESP 18; TEMP 36.1
[2023-06-19] MEDS: lisinopriL 20 MG TABLET PO (09:40)
[2023-06-19] MEDS: Memantine HCl 5 MG TABLET PO (09:40)
[2023-06-19] MEDS: Levothyroxine Sodium 88 MCG TABLET PO (09:40)
--- NOTE | 2023-06-19 10:55 | PC.NURSE ---
systems analyst developer at bedside. pt compliant with meds, drowsy and was not compliant with assessment
--- NOTE | 2023-06-19 11:16 | P.PNIM_ITS ---
Subjective Subjective Date of Service: 06/19/23 Interval History: seen and examined this morning received a dose of ativan overnight appears comfortable, unable to obtain full ROS due to dementia Physical Exam 2 Vital Signs: Vital Signs: Last Vital Signs Temp 96.9 F 06/19/23 07:25 Pulse 78 06/19/23 03:23 Resp 18 06/19/23 07:25 BP 151/96 H 06/19/23 07:25 Pulse Ox 95 06/19/23 03:23 O2 Del Method Room Air 06/19/23 03:23 BMI result Body Mass Index 17.2 Objective Data Active Medications Acetaminophen (Acetaminophen Supp 650 Mg Supp.Rect) 650 mg [place] Q6H PRN PRN Reason: Pain, Mild, fever Acetaminophen (Acetaminophen 325 Mg Tablet) 650 mg PO Q4H PRN PRN Reason: Pain, Moderate(Pain Scale 4-6) Last Admin: 06/14/23 13:01 Dose: 650 mg Documented By: TRELL Al Hydroxide/Mg Hydroxide (Magnesium Hydrox/Alum Hydrox 30 Ml Oral.Susp) 30 ml PO Q6H PRN PRN Reason: Heartburn/Nausea Amlodipine Besylate (Amlodipine Besylate 2.5 Mg Tablet) 2.5 mg PO BEDTIME [facility]; Protocol Last Admin: 06/18/23 20:23 Dose: 2.5 mg Documented By: TIKA Docusate Sodium (Docusate Sodium 100 Mg Capsule) 100 mg PO DAILY PRN PRN Reason: Constipation Enoxaparin Sodium (Enoxaparin Sodium 40 Mg/0.4 Ml Syringe) 40 mg SUBCUT Q24H [facility] Last Admin: 06/18/23 14:11 Dose: 40 mg Documented By: KIMBERLY Levothyroxine Sodium (Levothyroxine Sodium 88 Mcg Tablet) 88 mcg PO DAILY@0600 [facility] Last Admin: 06/19/23 09:40 Dose: 88 mcg Documented By: MARTINEZ Lisinopril (Lisinopril 20 Mg Tablet) 20 mg PO DAILY [facility]; Protocol Last Admin: 06/19/23 09:40 Dose: 20 mg Documented By: MARTINEZ Magnesium Hydroxide (Milk Of Magnesia 30 Ml Oral.Susp) 30 ml PO DAILY PRN PRN Reason: Constipation Memantine (Memantine Hcl 5 Mg Tablet) 5 mg PO DAILY [facility] Last Admin: 06/19/23 09:40 Dose: 5 mg Documented By: MARTINEZ Ondansetron HCl (Ondansetron Hcl 4 Mg/2 Ml Vial) 4 mg IVPUSH Q8H PRN PRN Reason: Nausea and Vomiting Quetiapine Fumarate (Quetiapine Fumarate 25 Mg Tablet) 25 mg PO BEDTIME [facility] Last Admin: 06/18/23 20:23 Dose: 25 mg Documented By: TIKA Sodium Chloride (0.9 % Sodium Chloride Flush 3 Ml Syringe) 3 ml IVFLUSH QSHIFT [facility] Last Admin: 06/19/23 11:09 Dose: Not Given Documented By: MARTINEZ Non-Admin Reason: See Note Labs 06/15/23 06:19 06/15/23 06:19 Assessment and Plan (1) Major neurocognitive disorder due to multiple etiologies with behavioral disturbance: Status: Acute Plan This is a 87-year-old male with history of interstitial lung disease, hypothyroidism, hypertension, with major 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 metabolic encephalopathy- suspect multifactorial related to medication and infection. now resolved. has history of advanced dementia - seems to be at baseline. confused, not oriented to time, place or situation CTA head/neck showed no evidence of infarction hemorrhage or stenosis, UA unremarkable. Ammonia WNL, renal function baseline without uremia. VBG without significant hypercapnia, electrolytes otherwise normal CXR aspiration pneumonia/UTI s/p Augmentin Was ambulating previously with assistance diet nectar thick liquids /chopped advanced diet Acute aspiration pneumonia/no sepsis no leukocytosis or sirs criteria CT chest wtih RUL partially resolved infiltrate with dilated esophagus suspicious for microaspirations per pulmonary barium swallow very limited study, no significant persistent stricture, patient swallowed 1/2 inch diameter barium tablet without difficulty completed course of antibiotics currently tolerating NDD3 diet, nectar thick liquids with 1-1 supervision although does intermittently refuse Sinus bradycardia EKG shows sinus bradycardia, no av sadia block patient asymptomatic heart rate improved ILD outpt follow up with pulmonology Major neurocognitive disorder with multiple etiologies and behavioral disturbance patient was on Seroquel, mirtazapine and trazodone, all medications held due to above psych follow up, rec to resume bedtime seroquel; can use prn olanzapine 2.5 -5mg po or IM q6h for agitation if necessary continue memantine Hypothyroidism TSH 16.65, free t4 1.13. likely suck euthyroid. TSH has been trending down continue levothyroxine 88mcg will need thyroid checked periodically, last checked 06/07 HTN continue lisinopril and amlodipine DVT prophylaxis- lovenox Full code attending - Dr. Robledo Dispo- per psychiatry, he is cleared from psychiatric standpoint, [employer] louis in progress, awaiting placement to LTC. seen by PT - no carryover with skilled PT will require 07/03 care or LTC granddaughter Rachel [phone] HCP she wishes patient to be discharged to rehab Pt requires continued inpatient stay for safe disposition. Quality Stroke Does the patient have a stroke diagnosis?: No VTE Prior VTE?: No VTE Risk Level:: Medical - moderate - high VTE Device Contraindication: Treatment Not Indicated VTE Drug Contraindication: N/A - Med Ordered
[2023-06-19] MEDS: Enoxaparin Sodium 40 MG/0.4 ML SYRINGE SUBCUT (13:50)
[2023-06-19 20:00] VITALS: BP 161/73; PULSE 57; RESP 18; TEMP 35.9; O2SAT 95
[2023-06-19] MEDS: amLODIPine Besylate 2.5 MG TABLET PO (20:27)
[2023-06-19] MEDS: QUEtiapine Fumarate 25 MG TABLET PO (20:27)
[2023-06-20 03:43] VITALS: BP 134/64; PULSE 67; RESP 18; TEMP 36.8; O2SAT 98
[2023-06-20 07:14] VITALS: BP 146/67; PULSE 58; RESP 20; TEMP 36.3; O2SAT 99
[2023-06-20] MEDS: 0.9 % Sodium Chloride Flush 3 ML SYRINGE IVFLUSH ×3 (07:47→20:24)
[2023-06-20] MEDS: lisinopriL 20 MG TABLET PO (08:06)
[2023-06-20] MEDS: Memantine HCl 5 MG TABLET PO (08:06)
--- NOTE | 2023-06-20 10:45 | MHC.SLORD ---
Speech Language Pathology Order Status: FUEL BUYER attempted to see pt this morning for dysphagia tx. Pt sleeping, awoke briefly, but refused to participate, stating that it was too early. Pt's sitter was present and reported that pt had eaten 100% of his breakfast this morning and did not have any difficulty managing the textures. Pt is on a chopped diet (NDD3) with thin liquids, recommended total 1:1 supervision and close monitoring.
--- NOTE | 2023-06-20 12:28 | MHC.CLN ---
F/U PO INTAKE CONTINUES VARIABLE. ATE 100% AT BREAKFAST THIS MORNING DIET RX: CHOPPED-APPROPRIATE. PT RECEIVING MAGIC CUP TID. PROVIDES 870KCALS, 27G PROTEIN. SKIN WITH REDNESS TO BUTTOCKS. CONTINUE TO MONITOR PO INTAKE AND ENCOURAGE SUPPLEMENT.
--- NOTE | 2023-06-20 12:29 | P.PNIM_ITS ---
Subjective Subjective Date of Service: 06/20/23 Interval History: seen and examined this morning appears comfortable, unable to obtain full ROS due to dementia Physical Exam 2 Vital Signs: Vital Signs: Last Vital Signs Temp 97.3 F 06/20/23 07:14 Pulse 58 06/20/23 07:14 Resp 20 06/20/23 07:14 BP 146/67 H 06/20/23 07:14 Pulse Ox 99 06/20/23 07:14 O2 Del Method Room Air 06/20/23 07:14 BMI result Body Mass Index 17.2 alert, confused at baseline Objective Data Active Medications Acetaminophen (Acetaminophen Supp 650 Mg Supp.Rect) 650 mg [place] Q6H PRN PRN Reason: Pain, Mild, fever Acetaminophen (Acetaminophen 325 Mg Tablet) 650 mg PO Q4H PRN PRN Reason: Pain, Moderate(Pain Scale 4-6) Last Admin: 06/14/23 13:01 Dose: 650 mg Documented By: TRELL Al Hydroxide/Mg Hydroxide (Magnesium Hydrox/Alum Hydrox 30 Ml Oral.Susp) 30 ml PO Q6H PRN PRN Reason: Heartburn/Nausea Amlodipine Besylate (Amlodipine Besylate 2.5 Mg Tablet) 2.5 mg PO BEDTIME [facility]; Protocol Last Admin: 06/19/23 20:27 Dose: 2.5 mg Documented By: MOLLY Docusate Sodium (Docusate Sodium 100 Mg Capsule) 100 mg PO DAILY PRN PRN Reason: Constipation Enoxaparin Sodium (Enoxaparin Sodium 40 Mg/0.4 Ml Syringe) 40 mg SUBCUT Q24H [facility] Last Admin: 06/19/23 13:50 Dose: 40 mg Documented By: MARTINEZ Levothyroxine Sodium (Levothyroxine Sodium 88 Mcg Tablet) 88 mcg PO DAILY@0600 [facility] Last Admin: 06/20/23 06:02 Dose: Not Given Documented By: MOLLY Non-Admin Reason: Patient Refused Lisinopril (Lisinopril 20 Mg Tablet) 20 mg PO DAILY [facility]; Protocol Last Admin: 06/20/23 08:06 Dose: 20 mg Documented By: GRAZIC Magnesium Hydroxide (Milk Of Magnesia 30 Ml Oral.Susp) 30 ml PO DAILY PRN PRN Reason: Constipation Memantine (Memantine Hcl 5 Mg Tablet) 5 mg PO DAILY [facility] Last Admin: 06/20/23 08:06 Dose: 5 mg Documented By: SHE Ondansetron HCl (Ondansetron Hcl 4 Mg/2 Ml Vial) 4 mg IVPUSH Q8H PRN PRN Reason: Nausea and Vomiting Quetiapine Fumarate (Quetiapine Fumarate 25 Mg Tablet) 25 mg PO BEDTIME [facility] Last Admin: 06/19/23 20:27 Dose: 25 mg Documented By: MOLLY Sodium Chloride (0.9 % Sodium Chloride Flush 3 Ml Syringe) 3 ml IVFLUSH QSHIFT [facility] Last Admin: 06/20/23 07:47 Dose: 3 ml Documented By: SHE Labs 06/15/23 06:19 06/15/23 06:19 Assessment and Plan (1) Major neurocognitive disorder due to multiple etiologies with behavioral disturbance: Status: Acute Plan This is a 87-year-old male with history of interstitial lung disease, hypothyroidism, hypertension, with major 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 metabolic encephalopathy- suspect multifactorial related to medication and infection. now resolved. has history of advanced dementia - seems to be at baseline. confused, not oriented to time, place or situation CTA head/neck showed no evidence of infarction hemorrhage or stenosis, UA unremarkable. Ammonia WNL, renal function baseline without uremia. VBG without significant hypercapnia, electrolytes otherwise normal CXR aspiration pneumonia/UTI s/p Augmentin Was ambulating previously with assistance diet nectar thick liquids /chopped advanced diet Acute aspiration pneumonia/no sepsis no leukocytosis or sirs criteria CT chest wtih RUL partially resolved infiltrate with dilated esophagus suspicious for microaspirations per pulmonary barium swallow very limited study, no significant persistent stricture, patient swallowed 1/2 inch diameter barium tablet without difficulty completed course of antibiotics currently tolerating NDD3 diet, nectar thick liquids with 1-1 supervision although does intermittently refuse Sinus bradycardia EKG shows sinus bradycardia, no av sadia block patient asymptomatic heart rate improved ILD outpt follow up with pulmonology Major neurocognitive disorder with multiple etiologies and behavioral disturbance patient was on Seroquel, mirtazapine and trazodone, all medications held due to above psych follow up, rec to resume bedtime seroquel; can use prn olanzapine 2.5 -5mg po or IM q6h for agitation if necessary continue memantine Hypothyroidism TSH 16.65, free t4 1.13. likely suck euthyroid. TSH has been trending down continue levothyroxine 88mcg will need thyroid checked periodically, last checked 06/07 HTN continue lisinopril and amlodipine DVT prophylaxis- lovenox Full code attending - Dr. Joel Dispo- per psychiatry, he is cleared from psychiatric standpoint, [employer] louis in progress, awaiting placement to LTC. seen by PT - no carryover with skilled PT will require 07/03 care or LTC granddaughter Rachel [phone] HCP she wishes patient to be discharged to rehab Pt requires continued inpatient stay for safe disposition. Quality Stroke Does the patient have a stroke diagnosis?: No VTE Prior VTE?: No VTE Risk Level:: Medical - moderate - high VTE Device Contraindication: Treatment Not Indicated VTE Drug Contraindication: N/A - Med Ordered
[2023-06-20] MEDS: Enoxaparin Sodium 40 MG/0.4 ML SYRINGE SUBCUT (13:34)
--- NOTE | 2023-06-20 15:01 | MHC.CM.PN ---
Addendum entered by Carolina Palacios 06/20/23 15:06: Message left for Subhash in admissions at [facility] [place] to inquire for be availability. Original Note: EMR reviewed and per MD rounds, pt remains medically cleared for D/C but is awaiting LTC placement. Pt continues to have no bed offers with over 80 referrals sent out. CM will continue to follow.
[2023-06-20 15:22] VITALS: BP 131/72; PULSE 66; RESP 20; TEMP 36.6; O2SAT 98
[2023-06-20 19:26] VITALS: BP 151/70; PULSE 69; RESP 20; TEMP 36.4; O2SAT 99
[2023-06-20] MEDS: QUEtiapine Fumarate 25 MG TABLET PO (20:23)
[2023-06-20] MEDS: amLODIPine Besylate 2.5 MG TABLET PO (20:23)
[2023-06-21 03:03] VITALS: BP 117/55; PULSE 78; RESP 16; TEMP 36.7; O2SAT 97
[2023-06-21] MEDS: Levothyroxine Sodium 88 MCG TABLET PO (05:25)
[2023-06-21 08:00] VITALS: BP 134/66; PULSE 70; RESP 17; TEMP 36.2; O2SAT 98
[2023-06-21] MEDS: lisinopriL 20 MG TABLET PO (09:15)
[2023-06-21] MEDS: Memantine HCl 5 MG TABLET PO (09:15)
[2023-06-21] MEDS: 0.9 % Sodium Chloride Flush 3 ML SYRINGE IVFLUSH ×3 (09:17→20:44)
[2023-06-21] MEDS: Enoxaparin Sodium 40 MG/0.4 ML SYRINGE SUBCUT (13:18)
--- NOTE | 2023-06-21 14:00 | HO.PM.IMPN ---
Subjective Subjective Date of Service: 06/21/23 Interval History: seen and examined this morning appears comfortable, unable to obtain full ROS due to dementia Physical Exam Vital Signs: Vital Signs: Last Vital Signs Temp 97.1 F 06/21/23 08:00 Pulse 70 06/21/23 08:00 Resp 17 06/21/23 08:00 BP 134/66 06/21/23 08:00 Pulse Ox 98 06/21/23 08:00 O2 Del Method Room Air 06/21/23 08:00 BMI result Body Mass Index 17.2 Alert and confused Objective Data Active Medications Acetaminophen (Acetaminophen Supp 650 Mg Supp.Rect) 650 mg [place] Q6H PRN PRN Reason: Pain, Mild, fever Acetaminophen (Acetaminophen 325 Mg Tablet) 650 mg PO Q4H PRN PRN Reason: Pain, Moderate(Pain Scale 4-6) Last Admin: 06/14/23 13:01 Dose: 650 mg Documented By: TRELL Al Hydroxide/Mg Hydroxide (Magnesium Hydrox/Alum Hydrox 30 Ml Oral.Susp) 30 ml PO Q6H PRN PRN Reason: Heartburn/Nausea Amlodipine Besylate (Amlodipine Besylate 2.5 Mg Tablet) 2.5 mg PO BEDTIME [facility]; Protocol Last Admin: 06/20/23 20:23 Dose: 2.5 mg Documented By: SANTY Docusate Sodium (Docusate Sodium 100 Mg Capsule) 100 mg PO DAILY PRN PRN Reason: Constipation Enoxaparin Sodium (Enoxaparin Sodium 40 Mg/0.4 Ml Syringe) 40 mg SUBCUT Q24H [facility] Last Admin: 06/21/23 13:18 Dose: 40 mg Documented By: GLORIA Levothyroxine Sodium (Levothyroxine Sodium 88 Mcg Tablet) 88 mcg PO DAILY@0600 [facility] Last Admin: 06/21/23 05:25 Dose: 88 mcg Documented By: THELMA Lisinopril (Lisinopril 20 Mg Tablet) 20 mg PO DAILY [facility]; Protocol Last Admin: 06/21/23 09:15 Dose: 20 mg Documented By: GLORIA Magnesium Hydroxide (Milk Of Magnesia 30 Ml Oral.Susp) 30 ml PO DAILY PRN PRN Reason: Constipation Memantine (Memantine Hcl 5 Mg Tablet) 5 mg PO DAILY [facility] Last Admin: 06/21/23 09:15 Dose: 5 mg Documented By: GLORIA Ondansetron HCl (Ondansetron Hcl 4 Mg/2 Ml Vial) 4 mg IVPUSH Q8H PRN PRN Reason: Nausea and Vomiting Quetiapine Fumarate (Quetiapine Fumarate 25 Mg Tablet) 25 mg PO BEDTIME [facility] Last Admin: 06/20/23 20:23 Dose: 25 mg Documented By: SANTY Sodium Chloride (0.9 % Sodium Chloride Flush 3 Ml Syringe) 3 ml IVFLUSH QSHIFT [facility] Last Admin: 06/21/23 09:17 Dose: 3 ml Documented By: GLORIA Labs 06/15/23 06:19 06/15/23 06:19 Assessment and Plan (1) Major neurocognitive disorder due to multiple etiologies with behavioral disturbance: Status: Acute Plan This is a 87-year-old male with history of interstitial lung disease, hypothyroidism, hypertension, with major 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 metabolic encephalopathy suspect multifactorial related to medication and infection. now resolved. has history of advanced dementia - seems to be at baseline. confused, not oriented to time, place or situation CTA head/neck showed no evidence of infarction hemorrhage or stenosis, UA unremarkable. Ammonia WNL, renal function baseline without uremia. VBG without significant hypercapnia, electrolytes otherwise normal CXR aspiration pneumonia/UTI s/p Augmentin Was ambulating previously with assistance diet nectar thick liquids /chopped advanced diet Acute aspiration pneumonia/no sepsis no leukocytosis or sirs criteria CT chest wtih RUL partially resolved infiltrate with dilated esophagus suspicious for microaspirations per pulmonary barium swallow very limited study, no significant persistent stricture, patient swallowed 1/2 inch diameter barium tablet without difficulty completed course of antibiotics currently tolerating NDD3 diet, nectar thick liquids with 1-1 supervision although does intermittently refuse Sinus bradycardia EKG shows sinus bradycardia, no av sadia block patient asymptomatic heart rate improved ILD outpt follow up with pulmonology Major neurocognitive disorder with multiple etiologies and behavioral disturbance patient was on Seroquel, mirtazapine and trazodone, all medications held due to above psych follow up, rec to resume bedtime seroquel; can use prn olanzapine 2.5 -5mg po or IM q6h for agitation if necessary continue memantine Hypothyroidism TSH 16.65, free t4 1.13. likely suck euthyroid. TSH has been trending down continue levothyroxine 88mcg will need thyroid checked periodically, last checked 06/07 HTN continue lisinopril and amlodipine DVT prophylaxis- lovenox Full code attending - Dr. Joel Dispo- per psychiatry, he is cleared from psychiatric standpoint, [employer] louis in progress, awaiting placement to LTC. seen by PT - no carryover with skilled PT will require 07/03 care or LTC granddaughter Rachel [phone] HCP she wishes patient to be discharged to rehab Pt requires continued inpatient stay for safe disposition. Quality Stroke Does the patient have a stroke diagnosis?: No VTE Prior VTE?: No VTE Risk Level:: Medical - moderate - high VTE Device Contraindication: Treatment Not Indicated VTE Drug Contraindication: N/A - Med Ordered
--- NOTE | 2023-06-21 14:01 | MHC.CM.PN ---
Spoke with patient Grdaughter/HCP Nikia. The family is willing to take the patient home with help. They will not be able to care for him without assistance. A referral has been sent to [facility] arborist representative, Micheline Gaxiola CM will follow.
[2023-06-21 16:00] VITALS: BP 137/63; PULSE 78; RESP 18; TEMP 36.4; O2SAT 98
[2023-06-21 20:00] VITALS: BP 139/68; PULSE 77; RESP 18; TEMP 36.1; O2SAT 98
[2023-06-21] MEDS: QUEtiapine Fumarate 25 MG TABLET PO (20:42)
[2023-06-21] MEDS: amLODIPine Besylate 2.5 MG TABLET PO (20:42)
[2023-06-22 02:32] VITALS: BP 126/67; PULSE 73; RESP 18; TEMP 36.2; O2SAT 98
[2023-06-22] MEDS: Levothyroxine Sodium 88 MCG TABLET PO (05:27)
[2023-06-22 06:31] LABS: MANUAL DIFF FLAG NO
[2023-06-22 06:42] LABS: Basophils Absolute Auto 0.1 X10*3/uL (0.0-0.2); Basophils Percent Auto 1.3 % (0-2); Eosinophils Absolute Auto 0.1 X10*3/uL (0.0-0.4); Eosinophils Percent Auto 3.3 % (0-4); Hematocrit 28.2 % (42.0-52.0); Hemoglobin 8.8 g/dl (14.0-18.0); Imm Gran Abs Auto 0.01 X10*3/uL (0.00-0.03); Imm Gran Pct Auto 0.3 % (0.0-0.4); Lymphocytes Absolute Auto 0.8 X10*3/uL (1.2-4.9); Lymphocytes Percent Auto 21.2 % (20-40); Mean Corpuscular HGB Conc 31.2 g/dl (31.0-36.0); Mean Corpuscular Volume 86.5 fL (80.0-98.0); Mean Platelet Volume 11.1 fL (9.4-12.4); Monocytes Absolute Auto 0.4 X10*3/uL (0.1-1.2); Monocytes Percent Auto 10.7 % (2-11); Neutrophils Absolute Auto 2.5 x10*3/uL (2.0-8.3); Neutrophils Percent Auto 63.2 % (45-73); Platelet Count 171 X10*3/uL (160-400); Red Blood Count 3.26 X10*6/uL (4.60-5.80); Red Cell Distribution Width 15.7 % (11.0-16.0); White Blood Count 3.9 X10*3/uL (4.8-10.8)
[2023-06-22 06:58] LABS: Anion Gap 7 (12-20); Blood Urea Nitrogen 26 mg/dL (9-16); Calcium 8.9 mg/dL (8.4-10.2); Carbon Dioxide 36 mmol/L (22-29); Chloride 105 mmol/L (96-108); Creatinine Clr Calc Pharmacy 46.2; Estimated Glomerular Filt Rate > 60; Glucose Random 88 mg/dL (60-115); Sodium 144 mmol/L (135-145)
[2023-06-22 07:55] VITALS: BP 142/71; PULSE 66; RESP 18; TEMP 36.2; O2SAT 97
[2023-06-22] MEDS: lisinopriL 20 MG TABLET PO (08:46)
[2023-06-22] MEDS: Memantine HCl 5 MG TABLET PO (08:47)
[2023-06-22] MEDS: 0.9 % Sodium Chloride Flush 3 ML SYRINGE IVFLUSH ×2 (08:47→23:48)
--- NOTE | 2023-06-22 09:46 | HO.PM.IMPN ---
Subjective Subjective Date of Service: 06/22/23 Interval History: seen and examined this morning appears comfortable communicative but confused Physical Exam Vital Signs: Vital Signs: Last Vital Signs Temp 97.1 F 06/22/23 07:55 Pulse 66 06/22/23 07:55 Resp 18 06/22/23 07:55 BP 142/71 H 06/22/23 07:55 Pulse Ox 97 06/22/23 07:55 O2 Del Method Room Air 06/22/23 07:55 BMI result Body Mass Index 17.2 Alert, confused LSCTA non tender abd Objective Data Active Medications Acetaminophen (Acetaminophen Supp 650 Mg Supp.Rect) 650 mg [place] Q6H PRN PRN Reason: Pain, Mild, fever Acetaminophen (Acetaminophen 325 Mg Tablet) 650 mg PO Q4H PRN PRN Reason: Pain, Moderate(Pain Scale 4-6) Last Admin: 06/14/23 13:01 Dose: 650 mg Documented By: TRELL Al Hydroxide/Mg Hydroxide (Magnesium Hydrox/Alum Hydrox 30 Ml Oral.Susp) 30 ml PO Q6H PRN PRN Reason: Heartburn/Nausea Amlodipine Besylate (Amlodipine Besylate 2.5 Mg Tablet) 2.5 mg PO BEDTIME [facility]; Protocol Last Admin: 06/21/23 20:42 Dose: 2.5 mg Documented By: DOLLY Docusate Sodium (Docusate Sodium 100 Mg Capsule) 100 mg PO DAILY PRN PRN Reason: Constipation Enoxaparin Sodium (Enoxaparin Sodium 40 Mg/0.4 Ml Syringe) 40 mg SUBCUT Q24H [facility] Last Admin: 06/21/23 13:18 Dose: 40 mg Documented By: GLORIA Levothyroxine Sodium (Levothyroxine Sodium 88 Mcg Tablet) 88 mcg PO DAILY@0600 [facility] Last Admin: 06/22/23 05:27 Dose: 88 mcg Documented By: DOLLY Lisinopril (Lisinopril 20 Mg Tablet) 20 mg PO DAILY [facility]; Protocol Last Admin: 06/22/23 08:46 Dose: 20 mg Documented By: NIMA Magnesium Hydroxide (Milk Of Magnesia 30 Ml Oral.Susp) 30 ml PO DAILY PRN PRN Reason: Constipation Memantine (Memantine Hcl 5 Mg Tablet) 5 mg PO DAILY [facility] Last Admin: 06/22/23 08:47 Dose: 5 mg Documented By: NIMA Comments: barcode torn Ondansetron HCl (Ondansetron Hcl 4 Mg/2 Ml Vial) 4 mg IVPUSH Q8H PRN PRN Reason: Nausea and Vomiting Quetiapine Fumarate (Quetiapine Fumarate 25 Mg Tablet) 25 mg PO BEDTIME [facility] Last Admin: 06/21/23 20:42 Dose: 25 mg Documented By: DOLLY Sodium Chloride (0.9 % Sodium Chloride Flush 3 Ml Syringe) 3 ml IVFLUSH QSHIFT [facility] Last Admin: 06/22/23 08:47 Dose: 3 ml Documented By: NIMA Labs 06/22/23 06:17 06/22/23 06:17 Labs: Laboratory Results - last 24 hr 06/22/23 06:17 MCV 86.5 MCH 27.0 MCHC 31.2 RDW 15.7 Plt Count 171 D MPV 11.1 Immature Gran % (Auto) 0.3 Neut % (Auto) 63.2 Lymph % (Auto) 21.2 [place] % (Auto) 10.7 Eos % (Auto) 3.3 Baso % (Auto) 1.3 Lymph # (Auto) 0.8 L [place] # (Auto) 0.4 Eos # (Auto) 0.1 Baso # (Auto) 0.1 Abs Immat Gran (auto) 0.01 Absolute Neuts (auto) 2.5 Absolute Nucleated RBC 0.000 Nucleated RBC % (auto) 0.0 Anion Gap 7 L Estim Creat Clear Calc 46.2 Estimated GFR > 60 Random Glucose 88 Calcium 8.9 D Assessment and Plan (1) Major neurocognitive disorder due to multiple etiologies with behavioral disturbance: Status: Acute Plan This is a 87-year-old male with history of interstitial lung disease, hypothyroidism, hypertension, with major 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 metabolic encephalopathy. Resolved, at baseline Likely secondary to pneumonia with history of advanced dementia psychiatric medications initially held, now on seroquel diet nectar thick liquids /chopped advanced diet Acute aspiration pneumonia/no sepsis CT chest wtih RUL partially resolved infiltrate with dilated esophagus suspicious for microaspirations per pulmonary barium swallow very limited study, no significant persistent stricture completed course of antibiotics currently tolerating NDD3 diet, nectar thick liquids with 1-1 supervision although does intermittently refuse Sinus bradycardia EKG shows sinus bradycardia, no av sadia block patient asymptomatic heart rate improved ILD outpt follow up with pulmonology Major neurocognitive disorder with multiple etiologies and behavioral disturbance bedtime seroquel; can use prn olanzapine 2.5 -5mg po or IM q6h for agitation if necessary continue memantine Hypothyroidism TSH 16.65, free t4 1.13. likely euthyroid. TSH has been trending down continue levothyroxine 88mcg will need thyroid checked periodically, last checked 06/07 HTN continue lisinopril and amlodipine DVT prophylaxis- lovenox Full code attending - Dr. Joel Dispo- per psychiatry, he is cleared from psychiatric standpoint, [employer] louis in progress, awaiting placement to LTC. seen by PT - no carryover with skilled PT will require 07/03 care or LTC granddaughter Rachel [phone] HCP she wishes patient to be discharged to rehab Pt requires continued inpatient stay for safe disposition. Quality Stroke Does the patient have a stroke diagnosis?: No VTE Prior VTE?: No VTE Risk Level:: Medical - moderate - high VTE Device Contraindication: Treatment Not Indicated VTE Drug Contraindication: N/A - Med Ordered
--- NOTE | 2023-06-22 10:18 | MHC.CM.PN ---
[employer] Met with patient and left a VM for Pt Serg. LTC referrals have been updated. No bed offers have been received at this time. DP Home with services vs LTC. Patient will transport via BLS.
--- NOTE | 2023-06-22 13:35 | MHC.CLN ---
F/U PO INTAKE CONTINUES VARIABLE. DIET RX: CHOPPED-APPROPRIATE. PT RECEIVING MAGIC CUP TID. PROVIDES 870KCALS, 27G PROTEIN. SKIN WITH REDNESS, STAGE I, TO BUTTOCKS. CONTINUE TO MONITOR PO INTAKE AND ENCOURAGE SUPPLEMENT. RD TO FOLLOW WEEKLY.
[2023-06-22] MEDS: Enoxaparin Sodium 40 MG/0.4 ML SYRINGE SUBCUT (15:02)
[2023-06-22 15:36] VITALS: BP 104/57; PULSE 71; RESP 16; TEMP 36.7; O2SAT 99
[2023-06-22 19:47] VITALS: BP 146/66; PULSE 71; RESP 18; TEMP 36.6; O2SAT 99
[2023-06-22] MEDS: amLODIPine Besylate 2.5 MG TABLET PO (20:08)
[2023-06-22] MEDS: QUEtiapine Fumarate 25 MG TABLET PO (20:08)
[2023-06-23 04:00] VITALS: BP 137/63; PULSE 67; RESP 18; TEMP 36; O2SAT 98
[2023-06-23] MEDS: Levothyroxine Sodium 88 MCG TABLET PO (06:16)
[2023-06-23 08:00] VITALS: BP 139/67; PULSE 64; RESP 17; TEMP 36.4; O2SAT 98
[2023-06-23] MEDS: Memantine HCl 5 MG TABLET PO (08:59)
[2023-06-23] MEDS: lisinopriL 20 MG TABLET PO (08:59)
[2023-06-23] MEDS: Enoxaparin Sodium 40 MG/0.4 ML SYRINGE SUBCUT (12:58)
[2023-06-23 16:00] VITALS: BP 136/65; PULSE 77; RESP 16; TEMP 36.4; O2SAT 98
--- NOTE | 2023-06-23 17:30 | HO.PM.IMPN ---
Subjective Subjective Date of Service: 06/23/23 Interval History: seen and examined this morning follow up for placement no changes - awake, alert and smiling this morning. unable to obtain full ROS Physical Exam Vital Signs: Vital Signs: Last Vital Signs Temp 97.6 F 06/23/23 16:00 Pulse 77 06/23/23 16:00 Resp 16 06/23/23 16:00 BP 136/65 06/23/23 16:00 Pulse Ox 98 06/23/23 16:00 O2 Del Method Room Air 06/23/23 16:00 BMI result Body Mass Index 17.2 Const: Other: frail elderly male resting in bed comfortably General: comfortable, no acute distress, alert and awake Nutritional Appearance: thin Resp: Effort & Inspection: normal respiratory effort, able to speak in complete sentences, no respiratory distress and no use of accessory muscles Cardio: Rate: regular rate GI: Inspection: No distended Palpation (GI): Soft to palpation and nontender Neuro: General: moves all extremities Extrem: General: Yes no pedal edema Objective Data Active Medications Acetaminophen (Acetaminophen Supp 650 Mg Supp.Rect) 650 mg [place] Q6H PRN PRN Reason: Pain, Mild, fever Acetaminophen (Acetaminophen 325 Mg Tablet) 650 mg PO Q4H PRN PRN Reason: Pain, Moderate(Pain Scale 4-6) Last Admin: 06/14/23 13:01 Dose: 650 mg Documented By: TRELL Al Hydroxide/Mg Hydroxide (Magnesium Hydrox/Alum Hydrox 30 Ml Oral.Susp) 30 ml PO Q6H PRN PRN Reason: Heartburn/Nausea Amlodipine Besylate (Amlodipine Besylate 2.5 Mg Tablet) 2.5 mg PO BEDTIME [facility]; Protocol Last Admin: 06/22/23 20:08 Dose: 2.5 mg Documented By: MITCHELL Docusate Sodium (Docusate Sodium 100 Mg Capsule) 100 mg PO DAILY PRN PRN Reason: Constipation Enoxaparin Sodium (Enoxaparin Sodium 40 Mg/0.4 Ml Syringe) 40 mg SUBCUT Q24H [facility] Last Admin: 06/23/23 12:58 Dose: 40 mg Documented By: VIOLET Levothyroxine Sodium (Levothyroxine Sodium 88 Mcg Tablet) 88 mcg PO DAILY@0600 [facility] Last Admin: 06/23/23 06:16 Dose: 88 mcg Documented By: HO.SEXK Lisinopril (Lisinopril 20 Mg Tablet) 20 mg PO DAILY [facility]; Protocol Last Admin: 06/23/23 08:59 Dose: 20 mg Documented By: NIMA Magnesium Hydroxide (Milk Of Magnesia 30 Ml Oral.Susp) 30 ml PO DAILY PRN PRN Reason: Constipation Memantine (Memantine Hcl 5 Mg Tablet) 5 mg PO DAILY [facility] Last Admin: 06/23/23 08:59 Dose: 5 mg Documented By: NIMA Olanzapine (Olanzapine 10 Mg Vial) 2.5 mg IM Q6H PRN PRN Reason: agitation Ondansetron HCl (Ondansetron Hcl 4 Mg/2 Ml Vial) 4 mg IVPUSH Q8H PRN PRN Reason: Nausea and Vomiting Quetiapine Fumarate (Quetiapine Fumarate 25 Mg Tablet) 25 mg PO BEDTIME [facility] Last Admin: 06/22/23 20:08 Dose: 25 mg Documented By: MITCHELL Sodium Chloride (0.9 % Sodium Chloride Flush 3 Ml Syringe) 3 ml IVFLUSH QSHIFT [facility] Last Admin: 06/23/23 17:02 Dose: Not Given Documented By: MITCHELL Non-Admin Reason: No Access Labs 06/22/23 06:17 06/22/23 06:17 Assessment and Plan (1) Major neurocognitive disorder due to multiple etiologies with behavioral disturbance: Status: Acute Plan This is a 87-year-old male with history of interstitial lung disease, hypothyroidism, hypertension, with major 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 metabolic encephalopathy. Resolved, at baseline Likely secondary to pneumonia with history of advanced dementia psychiatric medications initially held, now on seroquel diet nectar thick liquids /chopped advanced diet Acute aspiration pneumonia/no sepsis CT chest wtih RUL partially resolved infiltrate with dilated esophagus suspicious for microaspirations per pulmonary barium swallow very limited study, no significant persistent stricture completed course of antibiotics currently tolerating NDD3 diet, nectar thick liquids with 1-1 supervision although does intermittently refuse Sinus bradycardia EKG shows sinus bradycardia, no av sadia block patient asymptomatic heart rate improved ILD outpt follow up with pulmonology Major neurocognitive disorder with multiple etiologies and behavioral disturbance bedtime seroquel; can use prn olanzapine 2.5 -5mg po or IM q6h for agitation if necessary continue memantine Hypothyroidism TSH 16.65, free t4 1.13. likely euthyroid. TSH has been trending down continue levothyroxine 88mcg will need thyroid checked periodically, last checked 06/07 HTN continue lisinopril and amlodipine Chronic normocytic anemia above transfusion threshold no active bleeding follow H/H intermittently, last checked 06/22, trending down slightly DVT prophylaxis- lovenox Full code attending - Dr. Joel Dispo- per psychiatry, he is cleared from psychiatric standpoint, [employer] louis in progress, awaiting placement to LTC. seen by PT - no carryover with skilled PT will require 07/03 care or LTC granddaughter Rachel [phone] HCP she wishes patient to be discharged to rehab Pt requires continued inpatient stay for safe disposition. Quality Stroke Does the patient have a stroke diagnosis?: No VTE Prior VTE?: No VTE Risk Level:: Medical - moderate - high VTE Device Contraindication: Treatment Not Indicated VTE Drug Contraindication: N/A - Med Ordered
[2023-06-23 19:09] VITALS: BP 155/76; PULSE 74; RESP 18; TEMP 36.4; O2SAT 99
[2023-06-23] MEDS: amLODIPine Besylate 2.5 MG TABLET PO (19:27)
[2023-06-23] MEDS: QUEtiapine Fumarate 25 MG TABLET PO (19:28)
[2023-06-24 03:37] VITALS: BP 148/66; PULSE 76; RESP 16; TEMP 36.4; O2SAT 97
[2023-06-24] MEDS: Levothyroxine Sodium 88 MCG TABLET PO (06:26)
[2023-06-24 07:42] VITALS: BP 144/62; PULSE 72; RESP 20; TEMP 36.3; O2SAT 98
[2023-06-24] MEDS: Memantine HCl 5 MG TABLET PO (08:50)
[2023-06-24] MEDS: lisinopriL 20 MG TABLET PO (08:50)
--- NOTE | 2023-06-24 10:33 | P.PNIM_ITS ---
Subjective Subjective Date of Service: 06/24/23 Interval History: seen and examined this morning, has no complaint and nursing reporting no acute issues Physical Exam 2 Vital Signs: Vital Signs: Last Vital Signs Temp 97.4 F 06/24/23 07:42 Pulse 72 06/24/23 07:42 Resp 20 06/24/23 07:42 BP 144/62 H 06/24/23 07:42 Pulse Ox 98 06/24/23 07:42 O2 Del Method Room Air 06/24/23 07:42 BMI result Body Mass Index 17.2 Const: Other: frail elderly male resting in bed comfortably General: comfortable, no acute distress, alert and awake Nutritional Appearance: thin Resp: Effort & Inspection: normal respiratory effort, able to speak in complete sentences, no respiratory distress and no use of accessory muscles Cardio: Rate: regular rate GI: Inspection: No distended Palpation (GI): Soft to palpation and nontender Neuro: General: moves all extremities Extrem: General: Yes no pedal edema Objective Data Active Medications Acetaminophen (Acetaminophen Supp 650 Mg Supp.Rect) 650 mg [place] Q6H PRN PRN Reason: Pain, Mild, fever Acetaminophen (Acetaminophen 325 Mg Tablet) 650 mg PO Q4H PRN PRN Reason: Pain, Moderate(Pain Scale 4-6) Last Admin: 06/14/23 13:01 Dose: 650 mg Documented By: TRELL Al Hydroxide/Mg Hydroxide (Magnesium Hydrox/Alum Hydrox 30 Ml Oral.Susp) 30 ml PO Q6H PRN PRN Reason: Heartburn/Nausea Amlodipine Besylate (Amlodipine Besylate 2.5 Mg Tablet) 2.5 mg PO BEDTIME [facility]; Protocol Last Admin: 06/23/23 19:27 Dose: 2.5 mg Documented By: MITCHELL Docusate Sodium (Docusate Sodium 100 Mg Capsule) 100 mg PO DAILY PRN PRN Reason: Constipation Enoxaparin Sodium (Enoxaparin Sodium 40 Mg/0.4 Ml Syringe) 40 mg SUBCUT Q24H [facility] Last Admin: 06/23/23 12:58 Dose: 40 mg Documented By: VIOLET Levothyroxine Sodium (Levothyroxine Sodium 88 Mcg Tablet) 88 mcg PO DAILY@0600 [facility] Last Admin: 06/24/23 06:26 Dose: 88 mcg Documented By: MARTÍNEZ Lisinopril (Lisinopril 20 Mg Tablet) 20 mg PO DAILY [facility]; Protocol Last Admin: 06/24/23 08:50 Dose: 20 mg Documented By: SUZETTE Magnesium Hydroxide (Milk Of Magnesia 30 Ml Oral.Susp) 30 ml PO DAILY PRN PRN Reason: Constipation Memantine (Memantine Hcl 5 Mg Tablet) 5 mg PO DAILY [facility] Last Admin: 06/24/23 08:50 Dose: 5 mg Documented By: SUZETTE Olanzapine (Olanzapine 10 Mg Vial) 2.5 mg IM Q6H PRN PRN Reason: agitation Ondansetron HCl (Ondansetron Hcl 4 Mg/2 Ml Vial) 4 mg IVPUSH Q8H PRN PRN Reason: Nausea and Vomiting Quetiapine Fumarate (Quetiapine Fumarate 25 Mg Tablet) 25 mg PO BEDTIME [facility] Last Admin: 06/23/23 19:28 Dose: 25 mg Documented By: MITCHELL Sodium Chloride (0.9 % Sodium Chloride Flush 3 Ml Syringe) 3 ml IVFLUSH QSHIFT [facility] Last Admin: 06/24/23 08:50 Dose: Not Given Documented By: SUZETTE Non-Admin Reason: No Access Labs 06/22/23 06:17 06/22/23 06:17 Assessment and Plan (1) Major neurocognitive disorder due to multiple etiologies with behavioral disturbance: Status: Acute Plan This is a 87-year-old male with history of interstitial lung disease, hypothyroidism, hypertension, with major 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 metabolic encephalopath likely related to PNA harlan known dementia. Resolved, at baseline Likely secondary to pneumonia with history of advanced dementia psychiatric medications initially held, now on seroquel Acute aspiration pneumoniano sepsis CT chest wtih RUL partially resolved infiltrate with dilated esophagus suspicious for microaspirations per pulmonary barium swallow very limited study, no significant persistent stricture completed course of antibiotics currently tolerating NDD3 diet, nectar thick liquids with 1-1 supervision although does intermittently refuse Sinus bradycardia EKG shows sinus bradycardia, no av sadia block patient asymptomatic heart rate improved ILD outpt follow up with pulmonology Major neurocognitive disorder with multiple etiologies and behavioral disturbance bedtime seroquel; can use prn olanzapine 2.5 -5mg po or IM q6h for agitation if necessary continue memantine Hypothyroidism TSH 16.65, free t4 1.13. likely euthyroid. TSH has been trending down continue levothyroxine 88mcg will need thyroid checked periodically, last checked 06/07 HTN continue lisinopril and amlodipine Chronic normocytic anemia above transfusion threshold no active bleeding follow H/H intermittently, last checked 06/22, trending down slightly DVT prophylaxis- lovenox Full code Dispo- per psychiatry, he is cleared from psychiatric standpoint, [employer] louis in progress, awaiting placement to LTC. seen by PT - no carryover with skilled PT will require 07/03 care or LTC granddaughter Rachel [phone] HCP she wishes patient to be discharged to rehab Pt requires continued inpatient stay for safe disposition. Quality Stroke Does the patient have a stroke diagnosis?: No VTE Prior VTE?: No VTE Risk Level:: Medical - moderate - high VTE Device Contraindication: Treatment Not Indicated VTE Drug Contraindication: N/A - Med Ordered
[2023-06-24] MEDS: Enoxaparin Sodium 40 MG/0.4 ML SYRINGE SUBCUT (15:08)
--- NOTE | 2023-06-24 15:13 | MHC.CM.PN ---
per rounds pt pt not ready for dc today dc plan remains ltc
[2023-06-24 15:30] VITALS: BP 138/63; PULSE 78; RESP 18; TEMP 36.8; O2SAT 99
[2023-06-24 19:36] VITALS: BP 145/68; PULSE 76; RESP 18; TEMP 36.6; O2SAT 99
[2023-06-24] MEDS: QUEtiapine Fumarate 25 MG TABLET PO (19:58)
[2023-06-24] MEDS: amLODIPine Besylate 2.5 MG TABLET PO (19:58)
[2023-06-25 03:04] VITALS: BP 123/58; PULSE 80; RESP 18; TEMP 36.4; O2SAT 98
[2023-06-25 07:54] VITALS: BP 123/60; PULSE 70; RESP 18; TEMP 36.6; O2SAT 97
--- NOTE | 2023-06-25 08:57 | P.PNIM_ITS ---
Subjective Subjective Date of Service: 06/25/23 Interval History: seen /examined, no change in status, vitals stable Physical Exam 2 Vital Signs: Vital Signs: Last Vital Signs Temp 97.8 F 06/25/23 07:54 Pulse 70 06/25/23 07:54 Resp 18 06/25/23 07:54 BP 123/60 06/25/23 07:54 Pulse Ox 97 06/25/23 07:54 O2 Del Method Room Air 06/25/23 07:54 BMI result Body Mass Index 17.2 Const: Other: frail elderly male resting in bed comfortably General: comfortable, no acute distress, alert and awake Nutritional Appearance: thin Resp: Effort & Inspection: normal respiratory effort, able to speak in complete sentences, no respiratory distress and no use of accessory muscles Cardio: Rate: regular rate GI: Inspection: No distended Palpation (GI): Soft to palpation and nontender Neuro: General: moves all extremities Extrem: General: Yes no pedal edema Objective Data Active Medications Acetaminophen (Acetaminophen Supp 650 Mg Supp.Rect) 650 mg [place] Q6H PRN PRN Reason: Pain, Mild, fever Acetaminophen (Acetaminophen 325 Mg Tablet) 650 mg PO Q4H PRN PRN Reason: Pain, Moderate(Pain Scale 4-6) Last Admin: 06/14/23 13:01 Dose: 650 mg Documented By: TRELL Al Hydroxide/Mg Hydroxide (Magnesium Hydrox/Alum Hydrox 30 Ml Oral.Susp) 30 ml PO Q6H PRN PRN Reason: Heartburn/Nausea Amlodipine Besylate (Amlodipine Besylate 2.5 Mg Tablet) 2.5 mg PO BEDTIME [facility]; Protocol Last Admin: 06/24/23 19:58 Dose: 2.5 mg Documented By: HAN Docusate Sodium (Docusate Sodium 100 Mg Capsule) 100 mg PO DAILY PRN PRN Reason: Constipation Enoxaparin Sodium (Enoxaparin Sodium 40 Mg/0.4 Ml Syringe) 40 mg SUBCUT Q24H [facility] Last Admin: 06/24/23 15:08 Dose: 40 mg Documented By: SUZETTE Levothyroxine Sodium (Levothyroxine Sodium 88 Mcg Tablet) 88 mcg PO DAILY@0600 [facility] Last Admin: 06/25/23 06:14 Dose: Not Given Documented By: HAN Non-Admin Reason: Patient Refused Lisinopril (Lisinopril 20 Mg Tablet) 20 mg PO DAILY [facility]; Protocol Last Admin: 06/24/23 08:50 Dose: 20 mg Documented By: SUZETTE Magnesium Hydroxide (Milk Of Magnesia 30 Ml Oral.Susp) 30 ml PO DAILY PRN PRN Reason: Constipation Memantine (Memantine Hcl 5 Mg Tablet) 5 mg PO DAILY [facility] Last Admin: 06/24/23 08:50 Dose: 5 mg Documented By: SUZETTE Olanzapine (Olanzapine 10 Mg Vial) 2.5 mg IM Q6H PRN PRN Reason: agitation Ondansetron HCl (Ondansetron Hcl 4 Mg/2 Ml Vial) 4 mg IVPUSH Q8H PRN PRN Reason: Nausea and Vomiting Quetiapine Fumarate (Quetiapine Fumarate 25 Mg Tablet) 25 mg PO BEDTIME [facility] Last Admin: 06/24/23 19:58 Dose: 25 mg Documented By: HAN Sodium Chloride (0.9 % Sodium Chloride Flush 3 Ml Syringe) 3 ml IVFLUSH QSHIFT [facility] Last Admin: 06/24/23 20:19 Dose: Not Given Documented By: HAN Non-Admin Reason: No Access Labs 06/22/23 06:17 06/22/23 06:17 Assessment and Plan (1) Major neurocognitive disorder due to multiple etiologies with behavioral disturbance: Status: Acute Plan This is a 87-year-old male with history of interstitial lung disease, hypothyroidism, hypertension, with major 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 metabolic encephalopath likely related to PNA and known dementia. Resolved, at baseline psychiatric medications initially held, now on seroquel and doing well with it Acute aspiration pneumoniano sepsis--completed Abx. Continue Dysphagia diet with NDD3+[place] thick liquid and 1:1 supervision Sinus bradycardia, transient EKG shows sinus bradycardia, no av sadia block. Resolved ILD outpt follow up with pulmonology, assymptomatic Major neurocognitive disorder with multiple etiologies and behavioral disturbance stable on bedtime seroquel; can use prn olanzapine 2.5 -5mg po or IM q6h for agitation if necessary continue memantine for dementia, proably Alzheizmer's type Hypothyroidism TSH 16.65, free t4 1.13. likely euthyroid. TSH has been trending down continue levothyroxine 88mcg will need thyroid checked periodically, last checked 06/07 HTN -controlled. continue lisinopril and amlodipine Chronic normocytic anemia above transfusion threshold no active bleeding follow H/H intermittently, last checked 06/22, trending down slightly DVT prophylaxis- lovenox Full code Dispo- per psychiatry, he is cleared from psychiatric standpoint, [employer] louis in progress, awaiting placement to LTC. seen by PT - no carryover with skilled PT will require 07/03 care or LTC granddaughter Rachel [phone] HCP she wishes patient to be discharged to rehab Pt requires continued inpatient stay for safe disposition. Quality Stroke Does the patient have a stroke diagnosis?: No VTE Prior VTE?: No VTE Risk Level:: Medical - moderate - high VTE Device Contraindication: Treatment Not Indicated VTE Drug Contraindication: N/A - Med Ordered
[2023-06-25] MEDS: lisinopriL 20 MG TABLET PO (09:54)
[2023-06-25] MEDS: Memantine HCl 5 MG TABLET PO (09:54)
[2023-06-25] MEDS: Enoxaparin Sodium 40 MG/0.4 ML SYRINGE SUBCUT (13:19)
[2023-06-25 15:13] VITALS: BP 137/64; PULSE 71; RESP 17; TEMP 36.4; O2SAT 100
[2023-06-25 19:11] VITALS: BP 131/67; PULSE 70; RESP 18; TEMP 36.2; O2SAT 99
[2023-06-25] MEDS: amLODIPine Besylate 2.5 MG TABLET PO (20:12)
[2023-06-25] MEDS: QUEtiapine Fumarate 25 MG TABLET PO (20:13)
[2023-06-25 21:27] LABS: Appearance Urine Cloudy; Color Urine Yellow; Glucose Urine UA Negative (Negative); Leukocyte Esterase Urine Large (3+) (Negative); Nitrite Urine Negative (Negative); Specific Gravity - Urine 1.015 (1.005-1.025); UMIC TRIGGER UACC YES; Urine Blood Moderate (2+) (Negative); Urine Ketones Negative (Negative); Urine Protein 30 (1+) mg/dL (Neg-Trace)
[2023-06-25 21:32] LABS: Bacteria Urine 4+ (None Seen); Hyaline Casts Urine 0-2 /LPF (0-2); Squamous Epithelial Cell Urine 0-2 /HPF (0-2); UACC Culture Trigger YES; WBC Urine >50 /HPF (0-5)
[2023-06-26 00:12] VITALS: BP 120/73; PULSE 71; RESP 17; TEMP 36.2; O2SAT 96
[2023-06-26] MEDS: OLANZapine 10 MG VIAL 2.5 MG IM (00:33)
[2023-06-26 07:32] VITALS: BP 147/71; PULSE 71; RESP 18; TEMP 36; O2SAT 100
[2023-06-26] MEDS: lisinopriL 20 MG TABLET PO (09:03)
[2023-06-26] MEDS: Memantine HCl 5 MG TABLET PO (09:03)
--- NOTE | 2023-06-26 09:28 | HO.PM.IMPN ---
Subjective Subjective Date of Service: 06/26/23 Interval History: Patient at usual state of confusion, and occasional agiation. Sitter there Physical Exam Vital Signs: Vital Signs: Last Vital Signs Temp 96.8 F 06/26/23 07:32 Pulse 71 06/26/23 07:32 Resp 18 06/26/23 07:32 BP 147/71 H 06/26/23 07:32 Pulse Ox 100 06/26/23 07:32 O2 Del Method Room Air 06/26/23 07:32 BMI result Body Mass Index 17.2 Const: Other: General: alert, no distresss, not oriented at all, chechectic Resp: CTA bilateral CVS: S1,S2,RRR GI: +BS, NT, no distention Skin: No rash Neuro: motor grossly intact Psych: appropriate affect Objective Data Active Medications Acetaminophen (Acetaminophen Supp 650 Mg Supp.Rect) 650 mg [place] Q6H PRN PRN Reason: Pain, Mild, fever Acetaminophen (Acetaminophen 325 Mg Tablet) 650 mg PO Q4H PRN PRN Reason: Pain, Moderate(Pain Scale 4-6) Last Admin: 06/14/23 13:01 Dose: 650 mg Documented By: TRELL Al Hydroxide/Mg Hydroxide (Magnesium Hydrox/Alum Hydrox 30 Ml Oral.Susp) 30 ml PO Q6H PRN PRN Reason: Heartburn/Nausea Amlodipine Besylate (Amlodipine Besylate 2.5 Mg Tablet) 2.5 mg PO BEDTIME [facility]; Protocol Last Admin: 06/25/23 20:12 Dose: 2.5 mg Documented By: HAN Docusate Sodium (Docusate Sodium 100 Mg Capsule) 100 mg PO DAILY PRN PRN Reason: Constipation Enoxaparin Sodium (Enoxaparin Sodium 40 Mg/0.4 Ml Syringe) 40 mg SUBCUT Q24H [facility] Last Admin: 06/25/23 13:19 Dose: 40 mg Documented By: GLORIA Levothyroxine Sodium (Levothyroxine Sodium 88 Mcg Tablet) 88 mcg PO DAILY@0600 [facility] Last Admin: 06/26/23 06:58 Dose: Not Given Documented By: HAN Non-Admin Reason: Patient Refused Lisinopril (Lisinopril 20 Mg Tablet) 20 mg PO DAILY [facility]; Protocol Last Admin: 06/26/23 09:03 Dose: 20 mg Documented By: GLORIA Magnesium Hydroxide (Milk Of Magnesia 30 Ml Oral.Susp) 30 ml PO DAILY PRN PRN Reason: Constipation Memantine (Memantine Hcl 5 Mg Tablet) 5 mg PO DAILY [facility] Last Admin: 06/26/23 09:03 Dose: 5 mg Documented By: GLORIA Olanzapine (Olanzapine 10 Mg Vial) 2.5 mg IM Q6H PRN PRN Reason: agitation Last Admin: 06/26/23 00:33 Dose: 2.5 mg Documented By: HAN Ondansetron HCl (Ondansetron Hcl 4 Mg/2 Ml Vial) 4 mg IVPUSH Q8H PRN PRN Reason: Nausea and Vomiting Quetiapine Fumarate (Quetiapine Fumarate 25 Mg Tablet) 25 mg PO BEDTIME [facility] Last Admin: 06/25/23 20:13 Dose: 25 mg Documented By: HAN Sodium Chloride (0.9 % Sodium Chloride Flush 3 Ml Syringe) 3 ml IVFLUSH QSHIFT [facility] Last Admin: 06/26/23 09:01 Dose: Not Given Documented By: GLORIA Non-Admin Reason: No Access Labs 06/22/23 06:17 06/22/23 06:17 Labs: Laboratory Results - last 24 hr 06/25/23 21:18 Urine Color Yellow Urine Appearance Cloudy Urine pH 6.0 Ur Specific [place] 1.015 Urine Protein 30 (1+) H Urine Glucose (UA) Negative Urine Ketones Negative Urine Blood Moderate (2+) H Urine Nitrite Negative Ur Leukocyte Esterase Large (3+) H Urine RBC 11-20 H Urine WBC >50 H Ur Squamous Epith Cells 0-2 Urine Bacteria 4+ Hyaline Casts 0-2 Assessment and Plan (1) Major neurocognitive disorder due to multiple etiologies with behavioral disturbance: Status: Acute Plan This is a 87-year-old male with history of interstitial lung disease, hypothyroidism, hypertension, with major 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 metabolic encephalopath likely related to PNA and known dementia. Resolved, at baseline psychiatric medications initially held, now on seroquel and doing well with it UA 06/25 suggest possible UTI, has no fever, will start Ceftin 250 mg bid Acute aspiration pneumoniano sepsis--completed Abx. Continue Dysphagia diet with NDD3+[place] thick liquid and 1:1 supervision Sinus bradycardia, transient EKG shows sinus bradycardia, no av sadia block. Resolved ILD outpt follow up with pulmonology, assymptomatic Major neurocognitive disorder with multiple etiologies and behavioral disturbance stable on bedtime seroquel; can use prn olanzapine 2.5 -5mg po or IM q6h for agitation if necessary continue memantine for dementia, proably Alzheizmer's type Hypothyroidism TSH 16.65, free t4 1.13. likely euthyroid. TSH has been trending down continue levothyroxine 88mcg will need thyroid checked periodically, last checked 06/07 HTN -controlled. continue lisinopril and amlodipine Chronic normocytic anemia above transfusion threshold no active bleeding follow H/H intermittently, last checked 06/22, trending down slightly DVT prophylaxis- lovenox Full code Dispo- per psychiatry, he is cleared from psychiatric standpoint, [employer] louis in progress, awaiting placement to LTC. seen by PT - no carryover with skilled PT will require 07/03 care or LTC granddaughter Rachel [phone] HCP she wishes patient to be discharged to rehab Pt requires continued inpatient stay for safe disposition. Quality Stroke Does the patient have a stroke diagnosis?: No VTE Prior VTE?: No VTE Risk Level:: Medical - moderate - high VTE Device Contraindication: Treatment Not Indicated VTE Drug Contraindication: N/A - Med Ordered
[2023-06-26] MEDS: cefuroxime axetiL 250 MG TABLET PO ×2 (10:04→20:44)
[2023-06-26] MEDS: Enoxaparin Sodium 40 MG/0.4 ML SYRINGE SUBCUT (13:40)
[2023-06-26 15:55] VITALS: BP 143/67; PULSE 87; RESP 17; TEMP 36; O2SAT 94
[2023-06-26 19:29] VITALS: BP 133/71; PULSE 74; RESP 18; TEMP 36; O2SAT 94
[2023-06-26] MEDS: amLODIPine Besylate 2.5 MG TABLET PO (20:44)
[2023-06-26] MEDS: QUEtiapine Fumarate 25 MG TABLET PO (20:44)
[2023-06-27 04:00] VITALS: BP 135/88; PULSE 79; RESP 16; TEMP 36; O2SAT 97
[2023-06-27] MEDS: Levothyroxine Sodium 88 MCG TABLET PO (05:53)
[2023-06-27 07:21] VITALS: BP 138/80; PULSE 75; RESP 18; TEMP 36; O2SAT 92
--- NOTE | 2023-06-27 09:38 | HO.PM.IMPN ---
Subjective Subjective Date of Service: 06/27/23 Interval History: Patient at usual state of confusion, and occasional agiation. Sitter there, no new issue Physical Exam Vital Signs: Vital Signs: Last Vital Signs Temp 96.8 F 06/27/23 07:21 Pulse 75 06/27/23 07:21 Resp 18 06/27/23 07:21 BP 138/80 06/27/23 07:21 Pulse Ox 92 06/27/23 07:21 O2 Del Method Room Air 06/27/23 07:21 BMI result Body Mass Index 17.2 Const: Other: General: alert, no distresss, not oriented at all, chechectic Resp: CTA bilateral CVS: S1,S2,RRR GI: +BS, NT, no distention Skin: No rash Neuro: motor grossly intact Psych: appropriate affect Objective Data Active Medications Acetaminophen (Acetaminophen Supp 650 Mg Supp.Rect) 650 mg [place] Q6H PRN PRN Reason: Pain, Mild, fever Acetaminophen (Acetaminophen 325 Mg Tablet) 650 mg PO Q4H PRN PRN Reason: Pain, Moderate(Pain Scale 4-6) Last Admin: 06/14/23 13:01 Dose: 650 mg Documented By: TRELL Al Hydroxide/Mg Hydroxide (Magnesium Hydrox/Alum Hydrox 30 Ml Oral.Susp) 30 ml PO Q6H PRN PRN Reason: Heartburn/Nausea Amlodipine Besylate (Amlodipine Besylate 2.5 Mg Tablet) 2.5 mg PO BEDTIME [facility]; Protocol Last Admin: 06/26/23 20:44 Dose: 2.5 mg Documented By: DULCE Cefuroxime Axetil (Cefuroxime Axetil 250 Mg Tablet) 250 mg PO Q12H [facility] Last Admin: 06/26/23 20:44 Dose: 250 mg Documented By: DULCE Docusate Sodium (Docusate Sodium 100 Mg Capsule) 100 mg PO DAILY PRN PRN Reason: Constipation Enoxaparin Sodium (Enoxaparin Sodium 40 Mg/0.4 Ml Syringe) 40 mg SUBCUT Q24H [facility] Last Admin: 06/26/23 13:40 Dose: 40 mg Documented By: GLORIA Levothyroxine Sodium (Levothyroxine Sodium 88 Mcg Tablet) 88 mcg PO DAILY@0600 [facility] Last Admin: 06/27/23 05:53 Dose: 88 mcg Documented By: MARTÍNEZ Lisinopril (Lisinopril 20 Mg Tablet) 20 mg PO DAILY [facility]; Protocol Last Admin: 06/26/23 09:03 Dose: 20 mg Documented By: GLORIA Magnesium Hydroxide (Milk Of Magnesia 30 Ml Oral.Susp) 30 ml PO DAILY PRN PRN Reason: Constipation Memantine (Memantine Hcl 5 Mg Tablet) 5 mg PO DAILY [facility] Last Admin: 06/26/23 09:03 Dose: 5 mg Documented By: GLORIA Olanzapine (Olanzapine 10 Mg Vial) 2.5 mg IM Q6H PRN PRN Reason: agitation Last Admin: 06/26/23 00:33 Dose: 2.5 mg Documented By: HAN Ondansetron HCl (Ondansetron Hcl 4 Mg/2 Ml Vial) 4 mg IVPUSH Q8H PRN PRN Reason: Nausea and Vomiting Quetiapine Fumarate (Quetiapine Fumarate 25 Mg Tablet) 25 mg PO BEDTIME [facility] Last Admin: 06/26/23 20:44 Dose: 25 mg Documented By: DULCE Sodium Chloride (0.9 % Sodium Chloride Flush 3 Ml Syringe) 3 ml IVFLUSH QSHIFT [facility] Last Admin: 06/26/23 20:45 Dose: Not Given Documented By: DULCE Non-Admin Reason: No Access Labs 06/22/23 06:17 06/22/23 06:17 Microbiology Microbiology Results: Microbiology 06/25/23 Unknown Urine Culture - Preliminary Urine clean catch - Urine garcia top Culture in progress. Assessment and Plan (1) Major neurocognitive disorder due to multiple etiologies with behavioral disturbance: Status: Acute Plan This is a 87-year-old male with history of interstitial lung disease, hypothyroidism, hypertension, with major 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 metabolic encephalopath likely related to PNA and known dementia. Resolved, at baseline psychiatric medications initially held, now on seroquel and doing well with it UA 06/25 suggest possible UTI, has no fever, started Ceftin 250 mg bid x 5 days Acute aspiration pneumoniano sepsis--completed Abx. Continue Dysphagia diet with NDD3+[place] thick liquid and 1:1 supervision Sinus bradycardia, transient EKG shows sinus bradycardia, no av sadia block. Resolved ILD outpt follow up with pulmonology, assymptomatic Major neurocognitive disorder with multiple etiologies and behavioral disturbance stable on bedtime seroquel; can use prn olanzapine 2.5 -5mg po or IM q6h for agitation if necessary continue memantine for dementia, proably Alzheizmer's type Hypothyroidism TSH 16.65, free t4 1.13. likely euthyroid. TSH has been trending down continue levothyroxine 88mcg will need thyroid checked periodically, last checked 06/07 HTN -controlled. continue lisinopril and amlodipine Chronic normocytic anemia above transfusion threshold no active bleeding follow H/H intermittently, last checked 06/22, trending down slightly DVT prophylaxis- lovenox Full code Dispo- per psychiatry, he is cleared from psychiatric standpoint, [employer] louis in progress, awaiting placement to LTC. seen by PT - no carryover with skilled PT will require 07/03 care or LTC granddaughter Rachel [phone] HCP she wishes patient to be discharged to rehab Pt requires continued inpatient stay for safe disposition. Quality Stroke Does the patient have a stroke diagnosis?: No VTE Prior VTE?: No VTE Risk Level:: Medical - moderate - high VTE Device Contraindication: Treatment Not Indicated VTE Drug Contraindication: N/A - Med Ordered
[2023-06-27] MEDS: cefuroxime axetiL 250 MG TABLET PO ×2 (10:14→20:20)
[2023-06-27] MEDS: Memantine HCl 5 MG TABLET PO (10:14)
[2023-06-27] MEDS: lisinopriL 20 MG TABLET PO (10:14)
--- NOTE | 2023-06-27 11:59 | MHC.CM.PN ---
EMR REVIEWED. CM SPOKE WITH GRANDDAUGHTER ROSY WHO IS UNABLE TO CARE FOR HER GRANDFATHER AT HOME ANY LONGER. REFERRALS FOR LTC UPDATED. SAVANA GODWIN TAKING A DEEPER LOOK BUT NEED CLARIFICATION THAT [facility] MEDICARE HAS BEEN TERMINATED/CONVERTED, IT STILL SHOWING ACTIVE IN MEDICARE SYSTEM. CALL PLACED TO [facility] FOR ASSIST WITH THIS. CM WILL CONTINUE TO FOLLOW
--- NOTE | 2023-06-27 15:04 | PC.NURSE ---
Patient with increased confusion from end of last week. +UTI on abx. Hallucinating,seeing people that aren't real and wanting to fight them. Congested cough with clear phlegm. CXR ordered and reeval of swallowing ordered. Covid swab sent. Family at bedside and updated.
[2023-06-27] MEDS: Enoxaparin Sodium 40 MG/0.4 ML SYRINGE SUBCUT (15:11)
[2023-06-27 15:26] VITALS: BP 156/70; PULSE 71; RESP 15; TEMP 36.2; O2SAT 95
--- NOTE | 2023-06-27 15:53 | MHC.SL.SWA ---
Speech Pathologist Impression: Risk of aspiration, oropharyngeal dysphagia Risk of Aspiration Due to: Mental status Dysphasia Diet Status: DOWNGRADE from NDD3 to NDD1/NTL Liquid Consistency and Strategies for Safe Swallow: Liquid Intake Recommendation: [place] Thick Liquid Intake Strategies: Small Sips No Straws Solid Food Consistency: Dietary Recommendations: Pureed (NDD1) Additional Modifications to Solid Foods: Recommend DOWNGRADE to PUREED (NDD1) diet with NECTAR THICK liquids, pills CRUSHED in PUREE. Pt requires 1:1 assistance feeding and strict aspiration precautions. Tray may need to be withheld depending on pt's mental status and/or level of alertness. [employer] will continue to follow to monitor tolerance and to re-assess for potential upgrade when appropriate. Oral Medication Intake: Crushed with Puree Please contact the pharmacy regarding appropriate crushable or liquid drug formulations that are available whenever modified delivery is recommended. Compensatory Strategies and Precautions to be Taken for Safe Swallow: Sitting Upright (90 deg) Double Swallow No Straw Liquids from Cup Liquids from Spoon Small Bites and Sips Alternate Liquids/Solids Rate of Ingestion Change Oral Check Avoid Specific Foods Supervision While Eating and Drinking for Safe Swallow: Total Assistance (1:1) Foods to Avoid: Hard tough to chew solids, mixed textures Swallowing Recommended Treatments: Compens. Strategy Educat. Recommendation for Speech: Continue inpatient speech Coremaker Supervisor Clinican/Clinical Fellow: No Supervisory Statement: I have reviewed and agree with the student/clinical fellow's documentation: N/A Speech Language Pathologist: Carmela Israel M.A., [facility]
[2023-06-27 16:03] LABS: COVID-19 Test Negative (Negative); IDNOW Serial# BCCEAD1C
--- NOTE | 2023-06-27 18:12 | PM.EVENT ---
Event Note Date of Service: 06/27/23 Event Note: CXR show PNA, likely from aspiration, starting Zosyn. I discussed with John, EBENEZER and she will discuss it further with her mother (pt's daughter) and consider DNR/DNI as overall prognosis is poor Time Spent With Patient Time: Total time managing care of this patient today ____ minutes.
[2023-06-27 18:55] LABS: Hematocrit 27.7 % (42.0-52.0); Hemoglobin 8.7 g/dl (14.0-18.0); Mean Corpuscular HGB Conc 31.4 g/dl (31.0-36.0); Mean Platelet Volume 10.9 fL (9.4-12.4); Platelet Count 247 X10*3/uL (160-400); Red Blood Count 3.22 X10*6/uL (4.60-5.80); Red Cell Distribution Width 15.9 % (11.0-16.0); White Blood Count 7.3 X10*3/uL (4.8-10.8)
[2023-06-27] MEDS: Piperacillin Sodium/Tazobactam 3.375 GM in 0.9 % Sodium Chloride 50 ML IV (19:16)
[2023-06-27] MEDS: 0.9 % Sodium Chloride Flush 3 ML SYRINGE IVFLUSH (19:17)
[2023-06-27 19:37] VITALS: BP 143/66; PULSE 88; RESP 16; TEMP 36.1; O2SAT 92
[2023-06-27] MEDS: amLODIPine Besylate 2.5 MG TABLET PO (20:20)
[2023-06-27] MEDS: QUEtiapine Fumarate 25 MG TABLET PO (20:20)
[2023-06-28] MEDS: Piperacillin Sodium/Tazobactam 3.375 GM in 0.9 % Sodium Chloride 50 ML IV ×5 (00:45→23:44)
[2023-06-28] MEDS: 0.9 % Sodium Chloride 1,000 ML 100 ML IVCONT (00:45)
[2023-06-28 03:03] VITALS: BP 144/85; PULSE 84; RESP 16; TEMP 36.7; O2SAT 92
[2023-06-28 07:34] VITALS: BP 135/62; PULSE 62; RESP 20; TEMP 36; O2SAT 90
[2023-06-28] MEDS: Memantine HCl 5 MG TABLET PO (10:43)
[2023-06-28] MEDS: cefuroxime axetiL 250 MG TABLET PO ×2 (10:43→20:23)
[2023-06-28] MEDS: lisinopriL 20 MG TABLET PO (10:43)
[2023-06-28] MEDS: 0.9 % Sodium Chloride Flush 3 ML SYRINGE IVFLUSH ×3 (10:44→23:45)
--- NOTE | 2023-06-28 12:03 | MHC.SPEECHCO ---
Pt resting on approach he awakens to voice and touch briefly, but refuses any PO items offered to him by waving his arms in agitation. Observer at bedside reports 100% completion of breakfast. Continue current recommendations of Puree Solids and [place]-Thick Liquids.
[2023-06-28] MEDS: Enoxaparin Sodium 40 MG/0.4 ML SYRINGE SUBCUT (13:56)
[2023-06-28 15:17] VITALS: BP 121/57; PULSE 98; RESP 16; TEMP 37.2; O2SAT 94
--- NOTE | 2023-06-28 16:01 | P.PNIM_ITS ---
Subjective Subjective Date of Service: 06/28/23 Interval History: metabolic encephalopathy Review of Systems mental status seems similar less agiatated today no fevers Physical Exam 2 Vital Signs: Vital Signs: Last Vital Signs Temp 98.9 F 06/28/23 15:17 Pulse 98 06/28/23 15:17 Resp 16 06/28/23 15:17 BP 121/57 L 06/28/23 15:17 Pulse Ox 94 06/28/23 15:17 O2 Del Method Room Air 06/28/23 15:17 BMI result Body Mass Index 17.2 General: alert, no distresss, not oriented at all, chechectic Resp: CTA bilateral CVS: S1,S2,RRR GI: +BS, NT, no distention Skin: No rash Neuro: motor grossly intact Psych: appropriate affect Objective Data Active Medications Acetaminophen (Acetaminophen Supp 650 Mg Supp.Rect) 650 mg [place] Q6H PRN PRN Reason: Pain, Mild, fever Acetaminophen (Acetaminophen 325 Mg Tablet) 650 mg PO Q4H PRN PRN Reason: Pain, Moderate(Pain Scale 4-6) Last Admin: 06/14/23 13:01 Dose: 650 mg Documented By: TRELL Al Hydroxide/Mg Hydroxide (Magnesium Hydrox/Alum Hydrox 30 Ml Oral.Susp) 30 ml PO Q6H PRN PRN Reason: Heartburn/Nausea Amlodipine Besylate (Amlodipine Besylate 2.5 Mg Tablet) 2.5 mg PO BEDTIME [facility]; Protocol Last Admin: 06/27/23 20:20 Dose: 2.5 mg Documented By: CARLOS ALBERTO Cefuroxime Axetil (Cefuroxime Axetil 250 Mg Tablet) 250 mg PO Q12H [facility] Last Admin: 06/28/23 10:43 Dose: 250 mg Documented By: YEIMY Docusate Sodium (Docusate Sodium 100 Mg Capsule) 100 mg PO DAILY PRN PRN Reason: Constipation Enoxaparin Sodium (Enoxaparin Sodium 40 Mg/0.4 Ml Syringe) 40 mg SUBCUT Q24H [facility] Last Admin: 06/28/23 13:56 Dose: 40 mg Documented By: NIMA Piperacillin Sod/Tazobactam (Sod 3.375 gm/ Sodium Chloride) 50 mls @ 100 mls/hr IV Q6H [facility] Last Infusion: 06/28/23 13:11 Dose: Infused Documented By: NIMA Levothyroxine Sodium (Levothyroxine Sodium 88 Mcg Tablet) 88 mcg PO DAILY@0600 [facility] Last Admin: 06/28/23 05:44 Dose: Not Given Documented By: CARLOS ALBERTO Non-Admin Reason: Patient Refused Lisinopril (Lisinopril 20 Mg Tablet) 20 mg PO DAILY [facility]; Protocol Last Admin: 06/28/23 10:43 Dose: 20 mg Documented By: YEIMY Magnesium Hydroxide (Milk Of Magnesia 30 Ml Oral.Susp) 30 ml PO DAILY PRN PRN Reason: Constipation Memantine (Memantine Hcl 5 Mg Tablet) 5 mg PO DAILY [facility] Last Admin: 06/28/23 10:43 Dose: 5 mg Documented By: YEIMY Olanzapine (Olanzapine 10 Mg Vial) 2.5 mg IM Q6H PRN PRN Reason: agitation Last Admin: 06/26/23 00:33 Dose: 2.5 mg Documented By: HAN Ondansetron HCl (Ondansetron Hcl 4 Mg/2 Ml Vial) 4 mg IVPUSH Q8H PRN PRN Reason: Nausea and Vomiting Quetiapine Fumarate (Quetiapine Fumarate 25 Mg Tablet) 25 mg PO BEDTIME [facility] Last Admin: 06/27/23 20:20 Dose: 25 mg Documented By: CARLOS ALBERTO Sodium Chloride (0.9 % Sodium Chloride Flush 3 Ml Syringe) 3 ml IVFLUSH QSHIFT [facility] Last Admin: 06/28/23 10:44 Dose: 3 ml Documented By: YEIMY Labs 06/27/23 18:30 06/22/23 06:17 Labs: Laboratory Results - last 24 hr 06/27/23 06/27/23 15:06 18:30 MCV 86.0 MCH 27.0 MCHC 31.4 RDW 15.9 Plt Count 247 D MPV 10.9 Absolute Nucleated RBC 0.000 Nucleated RBC % (auto) 0.0 COVID-19 (EZEQUIEL) Negative COVID-19 Clin Com See Note Microbiology Microbiology Results: Microbiology 06/25/23 Unknown Urine Culture - Preliminary Urine clean catch - Urine garcia top Escherichia coli Enterococcus/Streptococcus sp Assessment and Plan (1) Acute metabolic encephalopathy: Status: Acute (2) Aspiration into airway: Status: Acute Plan 87-year-old male with history of interstitial lung disease, hypothyroidism, hypertension, with major 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 metabolic encephalopath likely related to PNA and known dementia. Resolved, at baseline psychiatric medications initially held, now on seroquel and doing well with it UA 06/25 suggest possible UTI, has no fever, started Ceftin 250 mg bid x 5 days Acute aspiration pneumoniano sepsis--completed Abx. Continue Dysphagia diet with NDD3+[place] thick liquid and 1:1 supervision Sinus bradycardia, transient EKG shows sinus bradycardia, no av sadia block. Resolved ILD outpt follow up with pulmonology, assymptomatic Major neurocognitive disorder with multiple etiologies and behavioral disturbance stable on bedtime seroquel; can use prn olanzapine 2.5 -5mg po or IM q6h for agitation if necessary continue memantine for dementia, proably Alzheizmer's type Hypothyroidism TSH 16.65, free t4 1.13. likely euthyroid. TSH has been trending down continue levothyroxine 88mcg will need thyroid checked periodically, last checked 06/07 HTN -controlled. continue lisinopril and amlodipine Chronic normocytic anemia above transfusion threshold no active bleeding follow H/H intermittently, last checked 06/22, trending down slightly DVT prophylaxis- lovenox Full code Dispo- per psychiatry, he is cleared from psychiatric standpoint, [employer] louis in progress, awaiting placement to LTC. seen by PT - no carryover with skilled PT will require / care or LTC granddadorie Ramos [phone] HCP she wishes patient to be discharged to rehab Pt requires continued inpatient stay for safe disposition. family updated as per event note [id number],also consider DNR/DNI as overall prognosis is poor. Quality Stroke Does the patient have a stroke diagnosis?: No VTE Prior VTE?: No VTE Risk Level:: Medical - moderate - high VTE Device Contraindication: Treatment Not Indicated VTE Drug Contraindication: N/A - Med Ordered
[2023-06-28 19:23] VITALS: BP 139/66; PULSE 78; RESP 16; TEMP 37; O2SAT 95
[2023-06-28] MEDS: amLODIPine Besylate 2.5 MG TABLET PO (20:23)
[2023-06-28] MEDS: QUEtiapine Fumarate 25 MG TABLET PO (20:23)
[2023-06-29 04:00] VITALS: BP 139/60; PULSE 66; RESP 16; TEMP 36.4; O2SAT 97
[2023-06-29] MEDS: Piperacillin Sodium/Tazobactam 3.375 GM in 0.9 % Sodium Chloride 50 ML IV (05:49)
[2023-06-29] MEDS: Levothyroxine Sodium 88 MCG TABLET PO (05:49)
[2023-06-29 06:30] LABS: Anion Gap 9 (12-20); Blood Urea Nitrogen 27 mg/dL (9-16); Calcium 8.9 mg/dL (8.4-10.2); Carbon Dioxide 32 mmol/L (22-29); Chloride 104 mmol/L (96-108); Creatinine Clr Calc Pharmacy 42.1; Estimated Glomerular Filt Rate > 60; Glucose Random 79 mg/dL (60-115); Potassium 4.1 mmol/L (3.3-5.1); Sodium 141 mmol/L (135-145)
[2023-06-29 06:33] LABS: Hematocrit 26.5 % (42.0-52.0); Hemoglobin 8.4 g/dl (14.0-18.0); Mean Corpuscular HGB Conc 31.7 g/dl (31.0-36.0); Mean Corpuscular Hemoglobin 27.2 pg (27.0-33.0); Mean Corpuscular Volume 85.8 fL (80.0-98.0); Mean Platelet Volume 11.1 fL (9.4-12.4); Platelet Count 214 X10*3/uL (160-400); Red Blood Count 3.09 X10*6/uL (4.60-5.80); White Blood Count 7.4 X10*3/uL (4.8-10.8)
[2023-06-29 07:46] VITALS: BP 129/60; PULSE 68; RESP 20; TEMP 36.5; O2SAT 97
[2023-06-29] MEDS: cefuroxime axetiL 250 MG TABLET PO (09:08)
[2023-06-29] MEDS: 0.9 % Sodium Chloride Flush 3 ML SYRINGE IVFLUSH (09:09)
[2023-06-29] MEDS: Memantine HCl 5 MG TABLET PO (09:09)
[2023-06-29] MEDS: lisinopriL 20 MG TABLET PO (09:09)
--- NOTE | 2023-06-29 10:39 | MHC.CLN ---
F/U PO INTAKE CONTINUES VARIABLE., 25-100%. SEEN BY CANE LOADER. DIET=PUREE WITH NECTAR THICK LIQUIDS. PATIENT WITH ACUTE ASPIRATION PNEUMONIA. RECEIVING MAGIC CUP TID. PROVIDES 870 KCALS, 27 G PROTEIN. SKIN WITH REDNESS, STAGE I, TO BUTTOCKS. CONTINUE TO MONITOR PO INTAKE AND ENCOURAGE SUPPLEMENT. RD TO FOLLOW WEEKLY.
--- NOTE | 2023-06-29 12:44 | P.DS_ITS ---
DS: Providers Provider Date of Service: 06/29/23 Date of admission: 06/07/23 16:40 Primary care physician: Unknown Physician Consults: 06/07/23 15:39 Consult to Psychiatry Routine Consulting Provider: Deena Goode Reason for consultation: ams, dementia, med evaluation DS: Diagnosis Discharge Diagnosis (1) Acute metabolic encephalopathy: Status: Acute (2) Aspiration into airway: Status: Acute DS: Summary Hospital Course Hospital Course: 87-year-old male with history of interstitial lung disease, hypothyroidism, hypertension, with major neurocognitive disorder due to multiple etiologies with behavioral disturbance admitted to Geriatric Psychiatry with consult placed to hospitalist service due to altered mental status, lethargy, poor p.o. intake. The patient was recently transferred back to Geriatric Psychiatry after being treated on the medical floors from 05/28-05/30 for UTI with metabolic encephalopathy treated with IV ceftriaxone. Urine culture grew Proteus and hematuria resolved. Upon discharge, mentation had improved, patient was eating and drinking appropriately and had been out of bed. However, consult was placed to pulmonology for evaluation of dysphagia though no aspiration was noted. No fevers or chills but had been experiencing about a 9 pound weight loss in [address] chest from 05/22 revealed airspace disease in RUL and very dilated esophagus suggesting possibility of microaspirations per pulmonology. It was felt there was a partially treated pneumonia and patient was started on augmentin (on dose 10/26). He has had no leukocytosis and vital signs had been stable. However, today has developed bradycardia in the 40s. Pt is not getting out of bed and is not conversive, mumbling nonscensical sounds. He is more let hargic appearing per nursing and was noted to be gurgling this morning. For labs this morning revealed no leukocytosis, stable normocytic anemia. Renal function and electrolyte levels normal except for CO2 of 34 (baseline 25-29). He was given hydroxyzine last night which he has not received this admission and augmentin recently started as previously noted, otherwise no new medications. Pt is unable to provide history. History obtained from RN and medical billing assistant. Testing on dee psych revealed read as bronchiectasis but no pneumococal collection. However, when compared chest CT, it does appear there is an unresolved infiltrate RUL. UA not indicative of infection, no leukocytosis, renal function and electrolyte levels normal except for CO2 of 35. Potassium 3.7, magnesium 1.8. VBG with pH 7.47, pCO2 53 PO2 56, bicarb 39. Troponin below detectable limits, BNP 52. TSH 16.65, free T4 1.13. Vital signs significant for bradycardia in the mid 40s. EKG shows sinus bradycardia, rate 48, no ST/T-wave abnormality. QTC 492, QTC 439. Head CT and CTA head/neck pending. On geripsych, has received IV zosyn. Hospital course: Patient was admitted from psychiatric service to medical service because of metabolic encephalopathy and concern of aspiration pneumonia,sepsis: Patient was treated with IV antibiotics, also urine found to have bacteriuria and pyuria, urine culture-E coli, Enterococcus faecalis -sensitive to ampicillin: Patient was switched to p.o. Augmentin upon discharge. Major neurocognitive disorder with multiple etiologies and behavioral disturbance-stable on bedtime seroquel, seen by psych recommended continue seroquel for now ,stop remeron . Followed by speech and Swallow: Dysphagia diet with NDD3+[place] thick liquid and 1:1 supervision ,po intake improving Hypothyroidism TSH 16.65, free t4 1.13. likely euthyroid. TSH has been trending down continue levothyroxine 88mcg, recheck TSH and free t4 in rehab in 1 week. discussed with Gdambrosioghter, HCP and decided for DNR/DNI as overall long tern prognosis is poor, further goal of care can be decided outpatient. Above management discussed with patient family in detail length, assessment and plan coordination time spent 50 minute. Time Attestation Discharge coordination time: Greater than 30 minutes Quality: Safe Use of Opioids Does Pt have an Active Cancer Diagnosis on the Problem List?: No Quality: Stroke Does the patient have a stroke diagnosis?: No Physical Exam Vital Signs: Vital Signs: Last Vital Signs Temp 97.7 F 06/29/23 07:46 Pulse 68 06/29/23 07:46 Resp 20 06/29/23 07:46 BP 129/60 06/29/23 07:46 Pulse Ox 97 06/29/23 07:46 O2 Del Method Room Air 06/29/23 07:46 BMI result Body Mass Index 17.2 General: alert, no distresss, not oriented at all, chechectic seems at his baseline as per family. Resp: CTA bilateral CVS: S1,S2,RRR GI: +BS, NT, no distention Skin: No rash Neuro: motor grossly intact Psych: appropriate affect DS: Data Data Completed and Pending Labs on day of discharge: Laboratory Results - last 24 hr 06/29/23 05:28 WBC 7.4 RBC 3.09 L Hgb 8.4 L Hct 26.5 L MCV 85.8 MCH 27.2 MCHC 31.7 RDW 16.0 Plt Count 214 MPV 11.1 Absolute Nucleated RBC 0.000 Nucleated RBC % (auto) 0.0 Sodium 141 Potassium 4.1 Chloride 104 Carbon Dioxide 32 H Anion Gap 9 L BUN 27 H Creatinine 0.78 Estim Creat Clear Calc 42.1 Estimated GFR > 60 Random Glucose 79 Calcium 8.9 Imaging Chest x-ray: Radiologist's impression: ITS Impressions Barium Swallow X-Ray 06/08/23 11:30 IMPRESSION: Very limited esophagram with the appearance of presbyesophagus with no significant persistent stricture identified. Patient swallowed 1/2 inch diameter barium tablet without difficulty. Chest X-Ray 06/27/23 15:04 IMPRESSION: Worsening multilobar right-sided airspace disease and atelectasis or airspace at the left lung base. Discharge Plan Discharge Anticipated Discharge Date/Time: 06/29/23 11:51 Patient Disposition: er SNF Discharge Diagnosis: aspirational pneumonia ,uti,metabolic encephalopathy Referrals: Evette Ac[facility] [place] [Outside] - 1 Week Physician,Unknown J [Primary Care Provider] - 1 Week Discharge Medications: New amoxicillin-pot clavulanate 400-57 mg/5 mL Suspension For Reconstitution 10.8125 ml PO BID Qty: 100 0RF Rx Instructions: take 875 mg po bid for 5 days Continued trazodone 50 mg Tablet 50 mg PO BEDTIME PRN (Reason: Insomnia) Qty: 0 0RF lisinopril 20 mg Tablet 20 mg PO DAILY Qty: 0 0RF Protocol: Hold for SBP< HOLD for SBP < : 90 amlodipine 2.5 mg Tablet 2.5 mg PO BEDTIME Qty: 0 0RF Protocol: Hold for SBP< HOLD for SBP < : 90 levothyroxine 88 mcg Tablet 88 mcg PO DAILY@0600 Qty: 0 0RF memantine 5 mg Tablet 5 mg PO DAILY Qty: 0 0RF quetiapine 50 mg Tablet 50 mg PO BEDTIME Qty: 0 0RF Discontinued piperacillin-tazobactam 4.5 gram Recon Soln 4.5 g IV Q6H Qty: 0 0RF mirtazapine 15 mg Tablet 15 mg PO BEDTIME Qty: 0 0RF Discharge Orders: Discharge Order (Routine); Ordered 06/29/23 Ordered By: Ryan Mohan Diet: pureed/necter thick Activity on Discharge: As tolerated Stand Alone Forms: Patient Portal Discharge page Care Plan Goals: Patient was admitted from psychiatric service to medical service because of metabolic encephalopathy and concern of aspiration pneumonia,sepsis: Patient was treated with IV antibiotics, also urine found to have bacteriuria and pyuria, urine culture-E coli, Enterococcus faecalis -sensitive to ampicillin: Patient was switched to p.o. Augmentin upon discharge. Major neurocognitive disorder with multiple etiologies and behavioral disturbance-stable on bedtime seroquel, seen by psych recommended continue seroquel for now ,stop remrone . Followed by speech and Swallow: Dysphagia diet with NDD3+[place] thick liquid and 1:1 supervision Hypothyroidism TSH 16.65, free t4 1.13. likely euthyroid. TSH has been trending down continue levothyroxine 88mcg, recheck TSH and free t4 in rehab in 1 week. Above management discussed with patient family in detail length, assessment and plan coordination time spent 50 minute. Health Concerns: As above. Plan of Treatment: As above. Assessment: as above. Discharge Date/Time: 06/29/23 15:16
--- NOTE | 2023-06-29 13:54 | MHC.CM.PN ---
IMM 06/29/23 Patient has received a bed offer from [facility]. His GRdtr/HCP agrees with the discharge. MDS has been sent to [facility]. DC summary and Packet have been sent to the facility. Patient will transport via BLS @ 3pm from [facility].
== END 2023-06-29 15:16 | disposition skilled nursing facility (03) | DRG 177 ==
LOC: HO.IMC 06-20 09:08 → HO.S3 06-20 21:50
PROVIDERS: Hospitalist; Internal Medicine; Nurse Practitioner Acute Care; Admitting Provider Physician Assistant; Visit Provider Internal Medicine
DX: J69.0 Pneumonitis due to inhalation of food and vomit (principal); G93.41 Metabolic encephalopathy; E44.0 Moderate protein-calorie malnutrition; Z68.1 Body mass index [BMI] 19.9 or less, adult; F03.918 Unspecified dementia, unspecified severity, with other behavioral disturbance; Z66 Do not resuscitate; J84.9 Interstitial pulmonary disease, unspecified; D64.9 Anemia, unspecified; R00.1 Bradycardia, unspecified; E03.9 Hypothyroidism, unspecified; Z75.1 Person awaiting admission to adequate facility elsewhere; Z20.822 Contact with and (suspected) exposure to COVID-19; Z79.890 Hormone replacement therapy; Z79.899 Other long term (current) drug therapy
CPT/HCPCS: 36415; 71045; 74220; 80048; 81001; 85025; 85027; 87086; 87088; 87186; 87635; 92526; 97162; J1650; J2060; J2359; J2543

== ENCOUNTER 2023-06-07 16:40 | Outpatient (BNV) | payer MEDICARE, SELFPAY | END 2023-06-08 10:45 | PROVIDERS: Admitting Provider Physician Assistant; Visit Provider Radiology Diagnostic Radiology | DX: R13.10 Dysphagia, unspecified (principal) | CPT/HCPCS: 74221 ==

== ENCOUNTER → 2023-06-07 16:40 | Outpatient (BNV) | payer MEDICARE, SELFPAY | PROVIDERS: Admitting Provider Physician Assistant; Visit Provider Social Worker | DX: F03.918 Unspecified dementia, unspecified severity, with other behavioral disturbance (principal); G93.41 Metabolic encephalopathy | CPT/HCPCS: 99232 ==

== ENCOUNTER 2023-07-13 15:35 | Inpatient (IN) | payer MEDICARE, MEDICAID, SELFPAY ==
[2023-07-13] VITALS (14 sets, daily range): BP systolic 86–117; BP diastolic 43–57; PULSE 40–97; RESP 12–220; TEMP 29.7–36.7; O2SAT 88–100; BMI 15.1
--- NOTE | ~2023-07-13 | XR_ITS ---
EXAMINATION: XR CHEST CLINICAL INFORMATION: Unresponsive. Question aspiration. COMPARISON: Previous chest x-ray 06/27/2023 chest May 2023 TECHNIQUE: Frontal view of the chest was obtained. FINDINGS: The cardiac silhouette does not appear enlarged. There is a right-sided aortic arch. Hilar and mediastinal contours are stable. Right apical pleural thickening. There is right-sided bronchiectasis and bronchial wall thickening. There is bronchial wall thickening at the left lung base as well. This does not appear appreciably changed from chest x-ray 06/27/2023. There is no pleural effusion or pneumothorax. There are degenerative changes of the spine. XR/XR chest 1V IMPRESSION: Bilateral bronchial wall thickening, right greater than left. This does not appear appreciably changed from previous chest x-ray 06/27/2023.
--- NOTE | ~2023-07-13 | CT_ITS ---
EXAMINATION: CT ANGIOGRAM HEAD CT ANGIOGRAM NECK CLINICAL INFORMATION: Left-sided weakness. Altered mental status. Pinpoint pupils. COMPARISON: CT head from 05/04/2023. CTA head and neck from 12/02/2022. TECHNIQUE: Initial noncontrast energy control officer imaging of the head and neck was performed. Comparison is made with noncontrast head CT from earlier today. Test bolus sequences followed by intravenous administration 70 mL of Omnipaque 350. Helical imaging was performed in the axial plane from the aortic arch to the skull vertex. Delayed postcontrast imaging of the head was also performed. The data was processed at the engineering technologist's workstation for generation of MIP sequences. Angled MIPs and volume rendered reformatted images were also generated at an offline 3D workstation. Stenoses are assessed in accordance with NASCET criteria unless otherwise indicated. This CT examination was performed using dose optimization techniques as appropriate, variously including the following: *Automated exposure control. *Adjustment of mA and/or kV according to patient size (this includes techniques or standardized protocols for targeted exams where dose is matched to indication/reason for exam; i.e. extremities or head). *Use of iterative reconstruction technique. DLP: 1633 mGy-cm FINDINGS: CT Head: There is no evidence of acute intracranial hemorrhage or edematous territorial infarction. Jim-white matter differentiation is preserved. A few foci of hypoattenuation in the periventricular and deep white matter are consistent with mild microangiopathy. Proportional prominence of the ventricles and sulcal spaces without evidence of obstructive hydrocephalus. No abnormal mass effect or midline shift. No extra-axial fluid collections. No pathologic intra-axial enhancement or regional oligemia. No acute soft tissue or osseous abnormalities. Scattered cutaneous calcifications. Mild mucosal thickening of the paranasal sinuses. The mastoid air cells and middle ear cavities are clear. Bilateral lens extractions. Multifocal odontogenic enamel erosions and periapical lucencies. CT Neck: The thyroid gland and remaining cervical soft tissues are within normal limits. Mild degenerative retrolisthesis of C3 on C4. Advanced degenerative arthropathy of the atlantodental articulation. Advanced degenerative disc disease at C5-C6 and C6-C7 with disc-osteophyte complex remission. There appears to be at least moderate spinal canal stenosis from C3-C6. Moderate degenerative disc disease at C3-C4. Facet and uncovertebral joint arthropathy leads to osseous encroachment on the neural foramina from C3-C6. CT Upper Chest: Moderate opacification with chronic architectural distortion of the right lung apex. Neck CTA: Aortic Arch: Right-sided aortic arch. Variant four vessel branching pattern. The first branch arising from the ascending aorta is the left common carotid artery. The second branch is the right common carotid artery. The third branch is the right subclavian artery. The left subclavian artery arises from the distal aortic arch with a 2 cm Kommerell diverticulum. Atherosclerotic disease and a prominent bend and the proximal left subclavian artery leads to 50% stenosis. No additional significant stenosis of the branch origins. Right Common Carotid Artery: No focal stenosis or occlusion. Cervical Right Internal Carotid Artery: Calcific atherosclerotic disease of the carotid bulb and proximal internal carotid artery causing less than 50% stenosis. Left Common Carotid Artery: No focal stenosis or occlusion. Cervical Left Internal Carotid Artery: Mild calcific atherosclerotic disease of the carotid bulb and proximal internal carotid artery without flow-limiting stenosis. Cervical Right Vertebral Artery: Dominant. No focal stenosis or occlusion. 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 Brain CTA: Intracranial Internal Carotid Arteries: Calcific atherosclerotic disease of the intracranial internal carotid arteries without occlusion or flow-limiting stenosis. Right Anterior Cerebral Artery: Normal A1 segment. Normal opacification of the distal RADHA segments. Left Anterior Cerebral Artery: Normal A1 segment. Normal opacification of the distal RADHA segments. Anterior Communicating Artery: Normal. Right Middle Cerebral Artery: Normal M1 segment of the MCA without focal stenosis or occlusion. Normal arborization of the distal segments. Left Middle Cerebral Artery: Normal M1 segment of the MCA without focal stenosis or occlusion. Normal arborization of the distal segments. Right Vertebral Artery: Normal V4 segment. Normal opacification of the proximal segments of the posterior inferior cerebellar artery. Left Vertebral Artery: Chronic conclusion the V4 segment. Basilar Artery: Normal without focal stenosis or occlusion. Normal appearance of the proximal superior cerebellar arteries. Right Posterior Cerebral Artery: Normal P1 segment. Normal opacification of the distal SUPERVISOR GRAPHITE segments. Left Posterior Cerebral Artery: Normal P1 segment. Normal opacification of the distal SUPERVISOR GRAPHITE segments. Normal opacification of the superior sagittal, straight, transverse, and sigmoid sinuses. CT/CT angio head neck stroke IMPRESSION: 1. No evidence of acute intracranial hemorrhage or edematous territorial infarction. Mild underlying microangiopathy and generalized cerebral volume loss. 2. CTA of the head and neck without proximal occlusion. 3. 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 4. 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 Atherosclerotic disease and a prominent bend in the proximal left subclavian artery leads to 50% stenosis. 5. Moderate to advanced multilevel degenerative spondyloarthropathy of the cervical spine. There appears to be at least moderate spinal canal stenosis from C3-C6. This critical result was discussed with Alden Alvarez MD at 16:15 on 07/13/2023 and it was ascertained that the content and urgency of the report was understood at the time of direct communication.
--- NOTE | ~2023-07-13 | CT_ITS ---
EXAMINATION: CT HEAD WITHOUT CONTRAST CLINICAL INFORMATION: Left-sided weakness. Altered mental status. Pinpoint pupils. COMPARISON: CTA head and neck from 08/07/2023. TECHNIQUE: Contiguous axial imaging was performed from the skull base to vertex without intravenous administration of contrast. This CT examination was performed using dose optimization techniques as appropriate, variously including the following: *Automated exposure control. *Adjustment of mA and/or kV according to patient size (this includes techniques or standardized protocols for targeted exams where dose is matched to indication/reason for exam; i.e. extremities or head). *Use of iterative reconstruction technique. DLP: 645 mGy-cm FINDINGS: There is no evidence of acute intracranial hemorrhage or edematous territorial infarction. Jim-white matter differentiation is preserved. A few foci of hypoattenuation in the periventricular and deep white matter are consistent with mild microangiopathy. Proportional prominence of the ventricles and sulcal spaces without evidence of obstructive hydrocephalus. No abnormal mass effect or midline shift. No extra-axial fluid collections. No acute soft tissue or osseous abnormalities. Scattered cutaneous calcifications. Mild mucosal thickening of the paranasal sinuses. The mastoid air cells and middle ear cavities are clear. Bilateral lens extractions. CT/CT head for stroke IMPRESSION: 1. No evidence of acute intracranial hemorrhage or edematous territorial infarction. 2. Mild underlying microangiopathy and generalized cerebral volume loss. This critical result was discussed with Alden Alvarez MD at 16:15 on 07/13/2023 and it was ascertained that the content and urgency of the report was understood at the time of direct communication.
--- NOTE | ~2023-07-13 | XR_ITS ---
EXAMINATION: XR CHEST CLINICAL INFORMATION: Worsening hypoxia COMPARISON: Previous chest x-ray most recent from earlier the same day TECHNIQUE: Frontal view of the chest was obtained. FINDINGS: Cardiac and mediastinal contours are stable. Right-sided aortic arch. Increasing volume loss to the right hemithorax. There is an increasing right pleural effusion. There is increasing airspace disease at the right lung base. There may be bronchial wall thickening or airspace disease at the left lung base. No left pleural effusion. No pneumothorax. XR/XR chest 1V IMPRESSION: Increasing right volume loss, right pleural effusion and airspace disease at the right lung base compared to x-ray from earlier the same day.
--- NOTE | 2023-07-13 15:54 | ECG_ITS ---
Test Reason : AMS Blood Pressure : / mmHG Vent. Rate : 058 BPM Atrial Rate : 058 BPM P-R Int : 202 ms QRS Dur : 102 ms QT Int : 462 ms P-R-T Axes : 057 071 086 degrees QTc Int : 453 ms Sinus bradycardia RSR' or QR pattern in V1 suggests right ventricular conduction delay Nonspecific T wave abnormality Abnormal ECG When compared with ECG of 07-JUN-2023 12:25, No significant change was found Referred By: Alden Alvarez Electronically Signed By:GRISELDA SOLOMON MD
[2023-07-13] MEDS: iohexoL 350 MG/ML 100 ML INFUS..BTL 70 ML IV (16:29)
--- NOTE | 2023-07-13 16:30 | ED_ITS ---
HPI - General Adult General Chief complaint: Altered Mental Status Stated complaint: Unresponsive Time Seen by Provider: 07/13/23 15:46 History of Present Illness HPI narrative: The patient is an 87-year-old male who lives at a local long-term. He has a history of major neurocognitive disorder. The history is very uncertain. According to paramedics the patient was found to be unresponsive this afternoon and therefore an ambulance was called. The time at which the patient can be reliably described as last known well is unclear. Paramedics were apparently told that he had last been seen at his baseline mental status at noon however when I called the facility I was unable to speak with anyone who was able to confirm this. The patient is unresponsive and nonverbal. On arrival here in the emergency room the patient was unresponsive and seemed to have pinpoint pupils. The patient's family showed up many hours later. The patient's family said that the patient has been not himself for several days and they have been concerned about him for few days. Related Data Home Medications Medication Instructions Recorded Confirmed nystatin 100,000 unit/mL oral 5 ml buccal QID 07/13/23 07/13/23 suspension trazodone 50 mg tablet 50 mg PO BEDTIME PRN Insomnia 07/13/23 07/13/23 Previous Rx's Medication Instructions Recorded amlodipine 2.5 mg tablet 2.5 mg PO BEDTIME #0 tabs 06/07/23 levothyroxine 88 mcg tablet 88 mcg PO DAILY@0600 #0 tabs 06/07/23 lisinopril 20 mg tablet 20 mg PO DAILY #0 tabs 06/07/23 memantine 5 mg tablet 5 mg PO DAILY #0 tabs 06/07/23 quetiapine 50 mg tablet 50 mg PO BEDTIME #0 tabs 06/07/23 Allergies Allergy/AdvReac Type Severity Reaction Status Date / Time No Known Allergies Allergy Verified 07/13/23 16:03 Review of Systems 2 Review of Systems: Yes Unobtainable due to mental status PMFSH Past Medical History Medical History ILD (interstitial lung disease) Major neurocognitive disorder due to multiple etiologies with behavioral disturbance Hypothyroidism Hypertension Social History Social History Household Members: Family Housing: House Do you presently have visiting nurse or other home services: Yes Unable to assess alcohol history related to: Unable to respond Comment: 1:1 sitter Patient Tobacco Use Status: Former Tobacco user Smoked in Last 30 Days: No Second Hand Smoke Exposure: No Use of substances other than those prescribed or required for medical reasons: Unknown Advance Directives: Yes Advance Directives on File: Yes Advance Directives Date on File: 06/30/23 service: No Sexual orientation: Straight/Heterosexual Physical Exam ED Vital Signs: Vital Signs - 24 hr 07/13/23 15:46 07/13/23 16:09 07/13/23 16:13 Temperature 98.1 F Pulse Rate 51 51 Pulse Rate [Monitor] 47 L Respiratory Rate 12 12 Blood Pressure 104/53 L 104/53 L Pulse Oximetry 90 L 90 L Oxygen Delivery Method Room Air Room Air Oxygen Flow Rate 07/13/23 16:52 07/13/23 17:02 07/13/23 17:29 Temperature 85.5 F L 87.1 F L 88.0 F L Pulse Rate 52 51 52 Pulse Rate [Monitor] Respiratory Rate 13 14 16 Blood Pressure 108/56 L 117/57 L Pulse Oximetry 88 L 90 L 100 Oxygen Delivery Method Nasal Cannula Nasal Cannula Nasal Cannula Oxygen Flow Rate 3 3 2 07/13/23 17:55 07/13/23 18:29 07/13/23 19:38 Temperature 89.1 F L 89.2 F L 91.2 F L Pulse Rate 54 60 67 Pulse Rate [Monitor] Respiratory Rate 16 17 21 H Blood Pressure 97/49 L 93/48 L 94/48 L Pulse Oximetry 95 95 94 Oxygen Delivery Method Nasal Cannula Nasal Cannula Nasal Cannula Oxygen Flow Rate 2 3 3 07/13/23 21:00 Temperature 94.6 F L Pulse Rate 80 Pulse Rate [Monitor] Respiratory Rate 220 H Blood Pressure 101/53 L Pulse Oximetry 96 Oxygen Delivery Method Oxymask Oxygen Flow Rate BMI result Body Mass Index 15.1 Const Other: The patient is a cachectic 87-year-old who was largely unresponsive. He did not respond to verbal stimuli or to gentle tactile stimuli. He had pinpoint pupils. However with painful stimulation he aroused somewhat. His pupils also slightly dilated. HENMT Other: Facial asymmetry was difficult to assess. I thought there might be some slight left-sided facial weakness but this was an equivocal finding. Airway was clear. Mucous membranes not obviously dry. Eyes Other: Pupils were extremely small, severely pinpoint. A dilated somewhat with painful stimuli however. No obvious gaze palsy. Neck Other: No JVD. No nuchal rigidity. Resp Other: Rhonchorous breath sounds bilaterally. No increased work of breathing. Cardio Other: Regular rate and rhythm. No definite murmur. GI Other: Abdomen was soft and not obviously tender. Skin Other: Skin was pale and dry Neuro Other: Patient was unresponsive to verbal stimuli and unresponsive to gentle tactile stimuli. He had pinpoint pupils. With painful stimuli he withdrew his extremities. He seemed to have more strength in his right arm and right leg than on the left side. There was a question of whether he might have some left- sided facial weakness as well. Extrem Other: No calf swelling or tenderness. Medications Administered Generic Name Dose Route Start Last Admin Trade Name Freq PRN Reason Stop Dose Admin Heparin Sodium (Porcine) 5,000 unit 07/13/23 21:15 07/13/23 22:13 Heparin Sodium,Porcine 5,000 Unit/Ml Vial SUBCUT 5,000 unit Q8H TYRONE Administration Piperacillin Sod/Tazobactam 50 mls @ 100 mls/hr 07/13/23 21:15 07/13/23 22:13 Sod 3.375 gm/ Sodium Chloride IV 100 mls/hr Q6H TYRONE Administration Discontinued Medications Generic Name Dose Route Start Last Admin Trade Name Freq PRN Reason Stop Dose Admin Albuterol/Ipratropium 3 ml 07/13/23 21:10 07/13/23 21:16 Albuterol/Iprat 2.5/0.5mg 3 Ml Ampul.Neb INHALE 07/13/23 21:11 3 ml ONCE ONE Administration Piperacillin Sod/Tazobactam 100 mls @ 200 mls/hr 07/13/23 17:02 07/13/23 18:32 Sod 4.5 gm/ Sodium Chloride IV 07/13/23 17:31 Infused ONCE ONE Infusion Sodium Chloride 1,000 mls @ 999 mls/hr 07/13/23 17:30 07/13/23 18:32 Ns IV 07/13/23 18:30 Infused .Q1H1M TYRONE Infusion Vancomycin HCl 1,000 mg/ 270 mls @ 270 mls/hr 07/13/23 17:24 07/13/23 19:09 Sodium Chloride IV 07/13/23 18:23 Infused ONCE ONE Infusion Sodium Chloride 1,000 mls @ 999 mls/hr 07/13/23 18:30 07/13/23 19:42 Ns IV 07/13/23 19:30 Infused .Q1H1M TYRONE Infusion Sodium Chloride 1,000 mls @ 999 mls/hr 07/13/23 19:15 07/13/23 21:00 Ns IV 07/13/23 20:15 Infused .Q1H1M TYRONE Infusion Lactated Ringer's 1,000 mls @ 999 mls/hr 07/13/23 20:15 07/13/23 22:13 Lr IV 07/13/23 21:15 Infused .Q1H1M TYRONE Infusion Iohexol 70 ml 07/13/23 16:29 07/13/23 16:29 Iohexol 350 Mg/Ml 100 Ml Infus..Btl IV 07/13/23 16:30 70 ml ONCE ONE Administration Naloxone HCl 2 mg 07/13/23 16:29 07/13/23 16:45 Naloxone Hcl 2 Mg/2 Ml Syringe IVPUSH 07/13/23 16:30 2 mg ONCE ONE Administration Medical Decision Making Medical Decision Making [facility] Narrative: When the patient 1st arrived paramedics reported that the patient had been seen to be at his baseline mental status and level of function at around noon. Unfortunately I could not confirm this by talking with anyone at his facility. When I called the facility I was told that anyone who had been there earlier in the day was gone. Initially therefore this seem to be in acute mental status change of approximately 4 hours duration. With pinpoint pupils and unresponsiveness I was concerned about the possibility of a pontine hemorrhage although the patient was not hypertensive. He was sent immediately for a noncontrast head CT. This showed no hemorrhage. I then examined him in some greater detail and felt there might be some left-sided weakness. He was then sent for CT angiogram of the head and neck that showed no large vessel occlusion. After the CT scans it was appreciated that he was hypothermic. Labs including cultures were sent. His lactate was normal. His hypothermia was addressed with a Ambrose Hugger. His initial rectal temperature was 85. On the assumption that the patient's hypothermia might indicate an infectious process he was cultured and started on empiric antibiotics with piperacillin tazobactam and vancomycin. He was also given IV fluids. Initially he was bradycardic and his initial blood pressures were not low but he became transiently hypotensive as he was being warmed with a Ambrose Hugger. I suspect his hypotension was likely secondary to vasodilation is result of warming. His lactates are normal. The patient was ultimately admitted to the hospitalist service. Lab Data 07/13/23 16:38 07/13/23 16:38 Labs: Lab Results 07/13/23 07/13/23 07/13/23 Range/Units 16:38 16:44 16:47 WBC 4.2 L (4.8-10.8) X10*3/uL RBC 3.26 L (4.60-5.80) X10*6/uL Hgb 8.9 L (14.0-18.0) g/dl Hct 27.8 L (42.0-52.0) % MCV 85.3 (80.0-98.0) fL MCH 27.3 (27.0-33.0) pg MCHC 32.0 (31.0-36.0) g/dl RDW 16.7 H (11.0-16.0) % Plt Count 98 L D (160-400) X10*3/uL MPV 11.0 (9.4-12.4) fL Immature Gran % (Auto) Cancelled Neut % (Auto) Cancelled Lymph % (Auto) Cancelled Ocean % (Auto) Cancelled Eos % (Auto) Cancelled Baso % (Auto) Cancelled Lymph # (Auto) Cancelled Ocean # (Auto) Cancelled Eos # (Auto) Cancelled Baso # (Auto) Cancelled Abs Immat Gran (auto) Cancelled Absolute Neuts (auto) Cancelled Absolute Nucleated RBC 0.000 (0.0-0.012) X10*3/uL Nucleated RBC % (auto) 0.0 (0.0-0.2) /100WBC Neutrophils % (Manual) 85 H (45-73) % Band Neutrophils % 9 H (3-5) % Lymphocytes % (Manual) 2 L (20-40) % Monocytes % (Manual) 4 (2-11) % Abs Neuts (Manual) 3.9 (2.0-8.3) X10*3/uL Lymphocytes # (Manual) 0.1 L (1.2-4.9) X10*3/uL Monocytes # (Manual) 0.2 (0.1-1.2) X10*3/uL Platelet Estimate DECREASED (NORMAL) Plt Morphology Comment NORMAL RBC Morphology NORMAL VBG pH 7.34 (7.32-7.43) VBG pCO2 69 mmHg VBG pO2 63 mmHg VBG HCO3 38 H (22-26) mmol/L VBG O2 Saturation 89.0 % VBG Base Excess 10.8 mmol/L Sodium 142 (135-145) mmol/L Potassium 3.8 (3.3-5.1) mmol/L Chloride 104 (96-108) mmol/L Carbon Dioxide 32 H (22-29) mmol/L Anion Gap 10 L (12-20) BUN 43 H (9-16) mg/dL Creatinine 0.66 (0.5-1.4) mg/dL Estim Creat Clear Calc 46.3 Estimated GFR > 60 Random Glucose 113 (60-115) mg/dL Lactic Acid 1.1 (0.5-2.0) mmol/L Calcium 9.5 D (8.4-10.2) mg/dL Magnesium 2.1 (1.6-2.6) mg/dL Total Bilirubin 0.4 (0.0-1.0) mg/dL Direct Bilirubin 0.1 (0.0-0.5) mg/dL AST 30 (5-37) U/L ALT 36 (0-40) U/L Alkaline Phosphatase 88 (39-117) U/L Troponin I High Sens 3.4 (<3.5-35.0) ng/L C-Reactive Protein 14.53 H (< or = 0.50) mg/dL B-Natriuretic Peptide 142 H (<100) pg/mL Total Protein 5.4 L (6.5-8.0) g/dL Albumin 2.5 L (3.5-5.0) g/dL Ethyl Alcohol < 10 mg/dL Influenza Type A (PCR) NEGATIVE (Negative) Influenza Type B (PCR) NEGATIVE (Negative) RSV RNA Qual (PCR) NEGATIVE (Negative) SARS-CoV-2 RNA (RT-PCR) NEGATIVE (Negative) 07/13/23 Range/Units 18:39 WBC (4.8-10.8) X10*3/uL RBC (4.60-5.80) X10*6/uL Hgb (14.0-18.0) g/dl Hct (42.0-52.0) % MCV (80.0-98.0) fL MCH (27.0-33.0) pg MCHC (31.0-36.0) g/dl RDW (11.0-16.0) % Plt Count (160-400) X10*3/uL MPV (9.4-12.4) fL Immature Gran % (Auto) Neut % (Auto) Lymph % (Auto) Ocean % (Auto) Eos % (Auto) Baso % (Auto) Lymph # (Auto) Ocean # (Auto) Eos # (Auto) Baso # (Auto) Abs Immat Gran (auto) Absolute Neuts (auto) Absolute Nucleated RBC (0.0-0.012) X10*3/uL Nucleated RBC % (auto) (0.0-0.2) /100WBC Neutrophils % (Manual) (45-73) % Band Neutrophils % (3-5) % Lymphocytes % (Manual) (20-40) % Monocytes % (Manual) (2-11) % Abs Neuts (Manual) (2.0-8.3) X10*3/uL Lymphocytes # (Manual) (1.2-4.9) X10*3/uL Monocytes # (Manual) (0.1-1.2) X10*3/uL Platelet Estimate (NORMAL) Plt Morphology Comment RBC Morphology VBG pH (7.32-7.43) VBG pCO2 mmHg VBG pO2 mmHg VBG HCO3 (22-26) mmol/L VBG O2 Saturation % VBG Base Excess mmol/L Sodium (135-145) mmol/L Potassium (3.3-5.1) mmol/L Chloride (96-108) mmol/L Carbon Dioxide (22-29) mmol/L Anion Gap (12-20) BUN (9-16) mg/dL Creatinine (0.5-1.4) mg/dL Estim Creat Clear Calc Estimated GFR Random Glucose (60-115) mg/dL Lactic Acid 0.6 (0.5-2.0) mmol/L Calcium (8.4-10.2) mg/dL Magnesium (1.6-2.6) mg/dL Total Bilirubin (0.0-1.0) mg/dL Direct Bilirubin (0.0-0.5) mg/dL AST (5-37) U/L ALT (0-40) U/L Alkaline Phosphatase (39-117) U/L Troponin I High Sens (<3.5-35.0) ng/L C-Reactive Protein (< or = 0.50) mg/dL B-Natriuretic Peptide (<100) pg/mL Total Protein (6.5-8.0) g/dL Albumin (3.5-5.0) g/dL Ethyl Alcohol mg/dL Influenza Type A (PCR) (Negative) Influenza Type B (PCR) (Negative) RSV RNA Qual (PCR) (Negative) SARS-CoV-2 RNA (RT-PCR) (Negative) Independent Interpretation I performed an independent interpretation of an: EKG Interpretation: EKG at 1827 shows sinus bradycardia 58 beats per minute. No significant change from previous. Critical Care Time Critical Care Time Total Critical Care Time: 45 Attestation: The patient was critically ill with a high probability of imminent or life- threatening deterioration. I spent greater than 30 minutes of discontinuous time evaluating the patient, delivering critical care at the bedside, discussing evaluating data with consultants. Critical care time does not include time spent performing separately billable procedures or teaching. Time spent performing critical care with 45 minutes. Discharge Plan Discharge Clinical Impression: Urinary tract infection, Altered mental status, Hypothermia Patient Disposition: Admitted As Inpatient
[2023-07-13] MEDS: Naloxone HCl 2 MG/2 ML SYRINGE IVPUSH (16:45)
[2023-07-13 16:52] LABS: Hematocrit 27.8 % (42.0-52.0); Hemoglobin 8.9 g/dl (14.0-18.0); Mean Corpuscular Hemoglobin 27.3 pg (27.0-33.0); Mean Corpuscular Volume 85.3 fL (80.0-98.0); Red Blood Count 3.26 X10*6/uL (4.60-5.80); Red Cell Distribution Width 16.7 % (11.0-16.0); White Blood Count 4.2 X10*3/uL (4.8-10.8)
[2023-07-13 16:53] LABS: Platelet Count 98 X10*3/uL (160-400)
[2023-07-13 16:53] LABS: VBG Base Excess 10.8 mmol/L; VBG HCO3 38 mmol/L (22-26); VBG pCO2 69 mmHg; VBG pH 7.34 (7.32-7.43); VBG pO2 63 mmHg
--- NOTE | 2023-07-13 16:54 | PC.NURSE ---
Pt to ED in obtund/lethargic states. Pt reportedly more responsive at around noon today, however, after eating lunch staff members at facility noticed pt to be less responsive. Pt eyes pinpoint on assessment; CT wo is negative for bleed. CTA pending at this time. Pt hypothermic at 86.7 f via Silva temp sensing. Bear hugger applied to pt and blood cultures obtained and sent to lab. Pt also hypoxic satting 87% on RA. 3L Via NC applied; Pt now satting 92%. Naloxone ordered and administered to pt secondary to presentation. Immediately after administration, pt became agitated (kicking into air and attempting to pull at silva catheter). A few minutes after this episode, pt returned to obtund. Pt resting in bed; responsive to painful stimuli. Stretcher locked in lowest position; will continue to monitor. Orders to follow.
[2023-07-13 16:55] LABS: Venous Blood Gas Refer to POC result
[2023-07-13 17:05] LABS: Alanine Aminotransferase 36 U/L (0-40); Albumin Level 2.5 g/dL (3.5-5.0); Alkaline Phosphatase 88 U/L (39-117); Anion Gap 10 (12-20); Aspartate Amino Transferase 30 U/L (5-37); Bilirubin Direct 0.1 mg/dL (0.0-0.5); Bilirubin Total 0.4 mg/dL (0.0-1.0); Blood Urea Nitrogen 43 mg/dL (9-16); C Reactive Protein 14.53 mg/dL (< or = 0.50); Calcium 9.5 mg/dL (8.4-10.2); Carbon Dioxide 32 mmol/L (22-29); Chloride 104 mmol/L (96-108); Creatinine Clr Calc Pharmacy 46.3; Estimated Glomerular Filt Rate > 60; Glucose Random 113 mg/dL (60-115); Magnesium 2.1 mg/dL (1.6-2.6); Potassium 3.8 mmol/L (3.3-5.1); Sodium 142 mmol/L (135-145); Total Protein 5.4 g/dL (6.5-8.0)
[2023-07-13 17:07] LABS: Lactic Acid 1.1 mmol/L (0.5-2.0)
--- NOTE | 2023-07-13 17:08 | PC.NURSE ---
PER RN AT [facility], PT IS TYPICALLY A&OX3, CONVERSATIONAL, ABLE TO FOLLOW COMMANDS. PRONE TO ASPIRATION PNE.
[2023-07-13 17:12] LABS: B Type Natriuretic Peptide 142 pg/mL (<100); Troponin-I High Sensitivity 3.4 ng/L (<3.5-35.0)
[2023-07-13 17:22] LABS: Band Neutrophils Percent 9 % (3-5); Lymphocytes Absolute Manual 0.1 X10*3/uL (1.2-4.9); Lymphocytes Percent Manual 2 % (20-40); Monocytes Absolute Manual 0.2 X10*3/uL (0.1-1.2); Monocytes Percent Manual 4 % (2-11); Neutrophils Absolute Manual 3.9 X10*3/uL (2.0-8.3); Neutrophils Percent Manual 85 % (45-73)
[2023-07-13] MEDS: Piperacillin Sodium/Tazobactam 4.5 GM in 0.9 % Sodium Chloride 100 ML IV (17:23)
[2023-07-13 17:25] LABS: Platelet Estimate DECREASED (NORMAL); Platelet Morphology Comment NORMAL; RBC Morphology NORMAL
[2023-07-13 17:29] LABS: Influenza A PCR NEGATIVE (Negative); Influenza B PCR NEGATIVE (Negative); Resp Syncy Virus RNA Qual PCR NEGATIVE (Negative); SARS COV2 PCR INHOUSE NEGATIVE (Negative)
[2023-07-13 17:35] LABS: Ethanol < 10 mg/dL
[2023-07-13] MEDS: vancomycin HCL 1,000 MG in 0.9 % Sodium Chloride 250 ML 270 MG IV (17:50)
[2023-07-13] MEDS: 0.9 % Sodium Chloride 1,000 ML 999 ML IV ×3 (17:51→19:41)
[2023-07-13 18:58] LABS: Lactic Acid 0.6 mmol/L (0.5-2.0)
--- NOTE | 2023-07-13 19:39 | PC.NURSE ---
PT REMAINS ALTERED, FAMILY STATES HE HAS BEEN ALTERED FOR AT LEAST THE PAST 4 DAYS. IVF INFUSING THROUGH FLUID WARMER, MIRELLA VALENZUELA REMAINS IN PLACE. MAP CURRENTLY 63. HAS HAD NO URINE OUTPUT SINCE ARRIVAL TO FACILITY. [place] IN PLACE FOR COLLECTION.
[2023-07-13] MEDS: Lactated Ringers 1,000 ML 999 ML IV (20:56)
--- NOTE | 2023-07-13 21:02 | PC.NURSE ---
pt stating 88 percent, notified [facility]
--- NOTE | 2023-07-13 21:13 | P.HPHOSP_ITS ---
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 gemma was recently discharged from [facility] 06/29/23 after admission for aspiratoin pneumonia and UTI, discharged to intermediate. now presenting with increasing lethargy over past 4 days, increased cough. brought to ED. in ED found to be hypothermic, hyoptensive, positive UA, hypoxic. bp improved with hydration, given vanc, zosyn, 30cc/kg, bp improved, became more alert. [facility] Medical History ILD (interstitial lung disease) Major neurocognitive disorder due to multiple etiologies with behavioral disturbance Hypothyroidism Hypertension Social History Household Members: Family Housing: House Do you presently have visiting nurse or other home services: Yes Unable to assess alcohol history related to: Unable to respond Comment: 1:1 sitter Patient Tobacco Use Status: Former Tobacco user Smoked in Last 30 Days: No Second Hand Smoke Exposure: No Use of substances other than those prescribed or required for medical reasons: Unknown Advance Directives: Yes Advance Directives on File: Yes Advance Directives Date on File: 06/30/23 service: No Sexual orientation: Straight/Heterosexual Meds Allergies Allergy/AdvReac Type Severity Reaction Status Date / Time No Known Allergies Allergy Verified 07/13/23 16:03 Active Medications: Current Medications Heparin Sodium (Porcine) (Heparin Sodium,Porcine 5,000 Unit/Ml Vial) 5,000 unit SUBCUT Q8H [facility] Lactated Ringer's (Lr) 1,000 mls @ 999 mls/hr IV .Q1H1M [facility] Stop: 07/13/23 21:15 Last Admin: 07/13/23 20:56 Dose: 999 mls/hr Vancomycin HCl 1,000 mg/ (Sodium Chloride) 270 mls @ 270 mls/hr IV Q12H [facility] Piperacillin Sod/Tazobactam (Sod 3.375 gm/ Sodium Chloride) 50 mls @ 100 mls/hr IV Q6H [facility] Pharmacy Consult (Consult Rx Vancomycin Dosing) 1 each MISCELLANE DAILY PRN PRN Reason: Consult order Sodium Chloride (0.9 % Sodium Chloride Flush 3 Ml Syringe) 3 ml IVFLUSH QSHIFT [facility] Physical Exam 2 Vital Signs and Narrative: Vital Signs: Last Vital Signs Temp 94.6 F L 07/13/23 21:00 Pulse 80 07/13/23 21:00 Resp 220 H 07/13/23 21:00 BP 101/53 L 07/13/23 21:00 Pulse Ox 96 07/13/23 21:00 O2 Del Method Oxymask 07/13/23 21:00 O2 Flow Rate 3 07/13/23 19:38 BMI result Body Mass Index 15.1 ill appearing lethargic, not talking, eyes are open with some tracking lungs with crackles, abd soft, non tender no edema Results Labs 07/13/23 16:38 07/13/23 16:38 Labs: Laboratory Results - last 24 hr 07/13/23 07/13/23 07/13/23 16:38 16:44 16:47 MCV 85.3 MCH 27.3 MCHC 32.0 RDW 16.7 H Plt Count 98 L D MPV 11.0 Immature Gran % (Auto) Cancelled Neut % (Auto) Cancelled Lymph % (Auto) Cancelled [place]well % (Auto) Cancelled Eos % (Auto) Cancelled Baso % (Auto) Cancelled Lymph # (Auto) Cancelled [place] # (Auto) Cancelled Eos # (Auto) Cancelled Baso # (Auto) Cancelled Abs Immat Gran (auto) Cancelled Absolute Neuts (auto) Cancelled Absolute Nucleated RBC 0.000 Nucleated RBC % (auto) 0.0 Neutrophils % (Manual) 85 H Band Neutrophils % 9 H Lymphocytes % (Manual) 2 L Monocytes % (Manual) 4 Abs Neuts (Manual) 3.9 Lymphocytes # (Manual) 0.1 L Monocytes # (Manual) 0.2 Platelet Estimate DECREASED Plt Morphology Comment NORMAL RBC Morphology NORMAL VBG pH 7.34 VBG pCO2 69 VBG pO2 63 VBG HCO3 38 H VBG O2 Saturation 89.0 VBG Base Excess 10.8 Anion Gap 10 L Estim Creat Clear Calc 46.3 Estimated GFR > 60 Random Glucose 113 Lactic Acid 1.1 Calcium 9.5 D Magnesium 2.1 Total Bilirubin 0.4 Direct Bilirubin 0.1 AST 30 ALT 36 Alkaline Phosphatase 88 C-Reactive Protein 14.53 H B-Natriuretic Peptide 142 H Total Protein 5.4 L Albumin 2.5 L Ethyl Alcohol < 10 Influenza Type A (PCR) NEGATIVE Influenza Type B (PCR) NEGATIVE RSV RNA Qual (PCR) NEGATIVE SARS-CoV-2 RNA (RT-PCR) NEGATIVE 07/13/23 18:39 MCV MCH MCHC RDW Plt Count MPV Immature Gran % (Auto) Neut % (Auto) Lymph % (Auto) Caswell % (Auto) Eos % (Auto) Baso % (Auto) Lymph # (Auto) [place] # (Auto) Eos # (Auto) Baso # (Auto) Abs Immat Gran (auto) Absolute Neuts (auto) Absolute Nucleated RBC Nucleated RBC % (auto) Neutrophils % (Manual) Band Neutrophils % Lymphocytes % (Manual) Monocytes % (Manual) Abs Neuts (Manual) Lymphocytes # (Manual) Monocytes # (Manual) Platelet Estimate Plt Morphology Comment RBC Morphology VBG pH VBG pCO2 VBG pO2 VBG HCO3 VBG O2 Saturation VBG Base Excess Anion Gap Estim Creat Clear Calc Estimated GFR Random Glucose Lactic Acid 0.6 Calcium Magnesium Total Bilirubin Direct Bilirubin AST ALT Alkaline Phosphatase C-Reactive Protein B-Natriuretic Peptide Total Protein Albumin Ethyl Alcohol Influenza Type A (PCR) Influenza Type B (PCR) RSV RNA Qual (PCR) SARS-CoV-2 RNA (RT-PCR) Imaging Radiologist's Impressions: Impressions Head CT 07/13/23 15:54 IMPRESSION: 1. No evidence of acute intracranial hemorrhage or edematous territorial infarction. 2. Mild underlying microangiopathy and generalized cerebral volume loss. This critical result was discussed with Alden Alvarez MD at 16:15 on 07/13/2023 and it was ascertained that the content and urgency of the report was understood at the time of direct communication. Head/Neck CTA 07/13/23 16:31 IMPRESSION: 1. No evidence of acute intracranial hemorrhage or edematous territorial infarction. Mild underlying microangiopathy and generalized cerebral volume loss. 2. CTA of the head and neck without proximal occlusion. 3. 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 4. 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 Atherosclerotic disease and a prominent bend in the proximal left subclavian artery leads to 50% stenosis. 5. Moderate to advanced multilevel degenerative spondyloarthropathy of the cervical spine. There appears to be at least moderate spinal canal stenosis from C3-C6. This critical result was discussed with Alden Alvarez MD at 16:15 on 07/13/2023 and it was ascertained that the content and urgency of the report was understood at the time of direct communication. Chest X-Ray 07/13/23 18:11 IMPRESSION: Bilateral bronchial wall thickening, right greater than left. This does not appear appreciably changed from previous chest x-ray 06/27/2023. Assessment and Plan (1) Hypothermia: Status: Acute Plan 87-year-old male with history of interstitial lung disease, hypothyroidism, hypertension, major neurocognitive disorder due to multiple etiologies with behavioral disturbance, dysphagia, recurrent UTIs presented with ams. 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 Quality Stroke Does the patient have a stroke diagnosis?: No VTE Prior VTE?: No VTE Risk Level:: Medical - moderate - high VTE Device Contraindication: Treatment Not Indicated VTE Drug Contraindication: N/A - Med Ordered
[2023-07-13] MEDS: Albuterol/Iprat 2.5/0.5MG 3 ML AMPUL.NEB INHALE (21:16)
--- NOTE | 2023-07-13 21:42 | PHA.MEDREC ---
Pharmacy Consult ? Medication Reconciliation Pharmacy has completed the medication reconciliation. MED REC COMPLETE USING LIST PROVIDED BY [facility]
[2023-07-13] MEDS: Piperacillin Sodium/Tazobactam 3.375 GM in 0.9 % Sodium Chloride 50 ML IV (22:13)
[2023-07-13] MEDS: Heparin Sodium,Porcine 5,000 UNIT/ML VIAL 5000 UNIT SUBCUT (22:13)
[2023-07-13] MEDS: 0.9 % Sodium Chloride Flush 3 ML SYRINGE IVFLUSH (23:50)
[2023-07-14] VITALS (7 sets, daily range): BP systolic 109–148; BP diastolic 54–79; PULSE 61–97; RESP 15–18; TEMP 36.1–36.7; O2SAT 93–99; BMI 15.1
[2023-07-14] MEDS: Piperacillin Sodium/Tazobactam 3.375 GM in 0.9 % Sodium Chloride 50 ML IV ×4 (02:40→20:50)
[2023-07-14] MEDS: Heparin Sodium,Porcine 5,000 UNIT/ML VIAL 5000 UNIT SUBCUT ×3 (05:21→20:53)
[2023-07-14] MEDS: vancomycin HCL 500 MG in 0.9 % Sodium Chloride 100 ML 110 MG IV ×2 (06:28→19:12)
[2023-07-14 06:44] LABS: Hematocrit 24.9 % (42.0-52.0); Hemoglobin 8.1 g/dl (14.0-18.0); INTERNATIONAL NORM RATIO 1.1 (0.9-1.1); Mean Corpuscular HGB Conc 32.5 g/dl (31.0-36.0); Mean Corpuscular Hemoglobin 27.2 pg (27.0-33.0); Mean Corpuscular Volume 83.6 fL (80.0-98.0); Mean Platelet Volume 11.4 fL (9.4-12.4); Platelet Count 108 X10*3/uL (160-400); Prothrombin Time 13.5 SEC (11.1-13.3); Red Blood Count 2.98 X10*6/uL (4.60-5.80); Red Cell Distribution Width 16.8 % (11.0-16.0); White Blood Count 6.5 X10*3/uL (4.8-10.8)
[2023-07-14 06:47] LABS: Fibrinogen > 700 MG/DL (259-690); Partial Thromboplastin Time 40.5 SEC (26.0-36.4)
[2023-07-14 06:49] LABS: Anion Gap 11 (12-20); Blood Urea Nitrogen 36 mg/dL (9-16); Calcium 8.7 mg/dL (8.4-10.2); Carbon Dioxide 27 mmol/L (22-29); Chloride 111 mmol/L (96-108); Creatinine Clr Calc Pharmacy 42.5; Estimated Glomerular Filt Rate > 60; Glucose Fasting 71 mg/dL (60-99); Potassium 3.7 mmol/L (3.3-5.1); Sodium 145 mmol/L (135-145)
[2023-07-14] MEDS: 0.9 % Sodium Chloride Flush 3 ML SYRINGE IVFLUSH ×3 (08:58→20:53)
--- NOTE | 2023-07-14 09:11 | PC.NURSE ---
paged to place O2 ordres.
--- NOTE | 2023-07-14 11:06 | HO.PM.IMPN ---
Subjective Subjective Date of Service: 07/14/23 Interval History: Seen and evaluated Altered and poorly responding On O2 supplement Review of Systems Review of Systems: Yes Unobtainable due to mental status Physical Exam Vital Signs: Vital Signs: Last Vital Signs Temp 97.2 F 07/14/23 07:40 Pulse 89 07/14/23 07:40 Resp 17 07/14/23 07:40 BP 130/63 07/14/23 07:40 Pulse Ox 99 07/14/23 07:40 O2 Del Method Oxymask 07/14/23 07:40 O2 Flow Rate 6.0 07/14/23 07:40 BMI result Body Mass Index 15.1 Const: Other: Constitutional : altered, not in distress Neck : Normal inspection, Supple Cardiovascular : RRR, no JVP, no lower extremity edema Respiratory : decreased bilateral air entry, basal fine crackles, on O2 supplement Gastrointestinal: soft, lax, Normal bowel sounds, Non tender Skin : Warm, Dry Neurological : altered mentation, poorly responding, Moving extremities , GCS 9 Objective Data Active Medications Heparin Sodium (Porcine) (Heparin Sodium,Porcine 5,000 Unit/Ml Vial) 5,000 unit SUBCUT Q8H [facility] Last Admin: 07/14/23 05:21 Dose: 5,000 unit Documented By: MOLLY Piperacillin Sod/Tazobactam (Sod 3.375 gm/ Sodium Chloride) 50 mls @ 100 mls/hr IV Q6H [facility] Last Admin: 07/14/23 08:58 Dose: 100 mls/hr Documented By: JOE Vancomycin HCl 500 mg/ Sodium (Chloride) 110 mls @ 110 mls/hr IV Q12H [facility] Last Infusion: 07/14/23 07:30 Dose: Infused Documented By: JOE Levothyroxine Sodium (Levothyroxine Sodium 88 Mcg Tablet) 88 mcg PO DAILY@0600 [facility] Last Admin: 07/14/23 05:50 Dose: Not Given Documented By: MOLLY Non-Admin Reason: pt lethargic Pharmacy Consult (Consult Rx Vancomycin Dosing) 1 each MISCELLANE DAILY PRN PRN Reason: Consult order Sodium Chloride (0.9 % Sodium Chloride Flush 3 Ml Syringe) 3 ml IVFLUSH QSHIFT [facility] Last Admin: 07/14/23 08:58 Dose: 3 ml Documented By: JOE Labs 07/14/23 06:17 07/14/23 06:17 Labs: Laboratory Results - last 24 hr 07/13/23 07/13/23 07/13/23 16:38 16:44 16:47 MCV 85.3 MCH 27.3 MCHC 32.0 RDW 16.7 H Plt Count 98 L D MPV 11.0 Immature Gran % (Auto) Cancelled Neut % (Auto) Cancelled Lymph % (Auto) Cancelled Barry % (Auto) Cancelled Eos % (Auto) Cancelled Baso % (Auto) Cancelled Lymph # (Auto) Cancelled Barry # (Auto) Cancelled Eos # (Auto) Cancelled Baso # (Auto) Cancelled Abs Immat Gran (auto) Cancelled Absolute Neuts (auto) Cancelled Absolute Nucleated RBC 0.000 Nucleated RBC % (auto) 0.0 Neutrophils % (Manual) 85 H Band Neutrophils % 9 H Lymphocytes % (Manual) 2 L Monocytes % (Manual) 4 Abs Neuts (Manual) 3.9 Lymphocytes # (Manual) 0.1 L Monocytes # (Manual) 0.2 Platelet Estimate DECREASED Plt Morphology Comment NORMAL RBC Morphology NORMAL PT INR APTT Fibrinogen VBG pH 7.34 VBG pCO2 69 VBG pO2 63 VBG HCO3 38 H VBG O2 Saturation 89.0 VBG Base Excess 10.8 Anion Gap 10 L Estim Creat Clear Calc 46.3 Estimated GFR > 60 Random Glucose 113 Fasting Glucose Lactic Acid 1.1 Calcium 9.5 D Magnesium 2.1 Total Bilirubin 0.4 Direct Bilirubin 0.1 AST 30 ALT 36 Alkaline Phosphatase 88 C-Reactive Protein 14.53 H B-Natriuretic Peptide 142 H Total Protein 5.4 L Albumin 2.5 L Ethyl Alcohol < 10 Influenza Type A (PCR) NEGATIVE Influenza Type B (PCR) NEGATIVE RSV RNA Qual (PCR) NEGATIVE SARS-CoV-2 RNA (RT-PCR) NEGATIVE 07/13/23 07/14/23 18:39 06:17 MCV 83.6 MCH 27.2 MCHC 32.5 RDW 16.8 H Plt Count 108 L MPV 11.4 Immature Gran % (Auto) Neut % (Auto) Lymph % (Auto) Barry % (Auto) Eos % (Auto) Baso % (Auto) Lymph # (Auto) Barry # (Auto) Eos # (Auto) Baso # (Auto) Abs Immat Gran (auto) Absolute Neuts (auto) Absolute Nucleated RBC 0.000 Nucleated RBC % (auto) 0.0 Neutrophils % (Manual) Band Neutrophils % Lymphocytes % (Manual) Monocytes % (Manual) Abs Neuts (Manual) Lymphocytes # (Manual) Monocytes # (Manual) Platelet Estimate Plt Morphology Comment RBC Morphology PT 13.5 H INR 1.1 APTT 40.5 H Fibrinogen > 700 H VBG pH VBG pCO2 VBG pO2 VBG HCO3 VBG O2 Saturation VBG Base Excess Anion Gap 11 L Estim Creat Clear Calc 42.5 Estimated GFR > 60 Random Glucose Fasting Glucose 71 Lactic Acid 0.6 Calcium 8.7 D Magnesium Total Bilirubin Direct Bilirubin AST ALT Alkaline Phosphatase C-Reactive Protein B-Natriuretic Peptide Total Protein Albumin Ethyl Alcohol Influenza Type A (PCR) Influenza Type B (PCR) RSV RNA Qual (PCR) SARS-CoV-2 RNA (RT-PCR) Microbiology Microbiology Results: Microbiology 07/13/23 17:15 Blood Culture - Preliminary Blood - Venous Prelim: GNR Gram Stain only Assessment and Plan (1) Hypothermia: Status: Acute (2) Altered mental status: Status: Acute (3) Urinary tract infection: Status: Acute (4) Acute metabolic encephalopathy: Status: Acute Plan 87-year-old male with history of interstitial lung disease, hypothyroidism, hypertension, major neurocognitive disorder due to multiple etiologies with behavioral disturbance, dysphagia, recurrent UTIs presented with ams. sepsis and acute hypoxic respiratory failure and acute metabolic encephalopathy due to UTI and aspiration pneumonia Still altered mentation Pending cultures Continue vanc, zosyn daniel corona for hypothermia dysphagia pureed, nectar thick follow up PEWTER FABRICATOR multifactorial dementia with behaviour disturbance hold mood stabilizers for encephalopathy hypothyroid synthroid htn bp meds on hold for hypotension moderate protein calorie malnutrition Fire Extinguisher Installer to assess dvt prophylaxis - hep sq dnr/dni Patient will need overnight hospital stay for hypoxia, sepsis with expected poor prognosis for treatment with IV abx and O2 supplement Quality Stroke Does the patient have a stroke diagnosis?: No VTE Prior VTE?: No VTE Risk Level:: Medical - moderate - high VTE Device Contraindication: Treatment Not Indicated VTE Drug Contraindication: N/A - Med Ordered
--- NOTE | 2023-07-14 11:54 | MHC.CM.PN ---
MET WITH GRANDDAUGHTER/HCP AT BEDSIDE. IMM DELIVERED. PATIENT LTC WITH [facility], + BEDHOLD. GRANDDAUGHTER VOICED CONCERNS RE: CARE RECEIVED AT LTC. DOES NOT WISH FOR PATIENT TO RETURN. CM VERBALIZED UNDERSTANDING, AGREED TO START BED SEARCH FOR NEW LTC BED. EXPLAINED TO GRANDDAUGHTER THAT IF NO BED OFFERS ARE RECEIVED, MAY NEED TO RETURN TO [facility]. LIASON FOR [facility] WILL ALSO F/U WITH GRANDDAUGHTER REGARDING HER CONCERNS. DP: CM WILL INITIATE LTC BED SEARCH, RETURN TO [facility] VIA BLS IF NO BED OFFERS. CM WILL CONTINUE TO FOLLOW.
--- NOTE | 2023-07-14 13:46 | MHC.SLORD ---
Speech Language Pathology Order Status: Attempted to assess patient this morning, Patient not adequately alert, waxing/waning lethargy, not appropriate for assessment. Patient on Puree/NT diet which was baseline when last [place] [facility] HEALTH CARE FACILITIES INSPECTOR will re-attempt in PM as time allows, and patient appropriate.
[2023-07-14 14:31] LABS: Appearance Urine Turbid; Color Urine Yellow; Glucose Urine UA Negative (Negative); Leukocyte Esterase Urine Moderate (2+) (Negative); Nitrite Urine Positive (Negative); Specific Gravity - Urine >= 1.030 (1.005-1.025); UMIC TRIGGER UACC YES; Urine Blood Large (3+) (Negative); Urine Ketones Negative (Negative); Urine Protein 30 (1+) mg/dL (Neg-Trace)
[2023-07-14 14:37] LABS: Bacteria Urine 4+ (None Seen); Hyaline Casts Urine 0-2 /LPF (0-2); RBC Urine >20 /HPF (0-2); Squamous Epithelial Cell Urine 0-2 /HPF (0-2); UACC Culture Trigger YES; WBC Urine >50 /HPF (0-5)
--- NOTE | 2023-07-14 15:02 | MHC.SLORD ---
Speech Language Pathology Order Status: Re attempted clinical swallow this pm, patient more awake but unresponsive to any interaction, still not appropriate for swallow eval on this date. RN has been holding parag, HOCKEY SCOUT noted on white board to not attempt if patient lethargic. Will re-attempt tomorrow MD ashkan notified.
[2023-07-15] MEDS: Piperacillin Sodium/Tazobactam 3.375 GM in 0.9 % Sodium Chloride 50 ML IV ×3 (03:01→15:15)
[2023-07-15 04:00] VITALS: BP 164/85; PULSE 94; RESP 16; TEMP 36; O2SAT 96
[2023-07-15 04:58] LABS: PLT CLUMP 1
[2023-07-15 05:00] LABS: Hematocrit 28.2 % (42.0-52.0); Hemoglobin 8.9 g/dl (14.0-18.0); Mean Corpuscular HGB Conc 31.6 g/dl (31.0-36.0); Mean Corpuscular Hemoglobin 27.1 pg (27.0-33.0); Mean Corpuscular Volume 85.7 fL (80.0-98.0); Mean Platelet Volume 11.1 fL (9.4-12.4); Red Blood Count 3.29 X10*6/uL (4.60-5.80); Red Cell Distribution Width 17.2 % (11.0-16.0)
[2023-07-15 05:01] LABS: Platelet Count 111 X10*3/uL (160-400); White Blood Count 8.3 X10*3/uL (4.8-10.8)
[2023-07-15] MEDS: Heparin Sodium,Porcine 5,000 UNIT/ML VIAL 5000 UNIT SUBCUT ×2 (05:13→12:32)
[2023-07-15 05:16] LABS: Vancomycin Trough 11.4 mcg/mL (10.0-20.0)
[2023-07-15 05:17] LABS: Anion Gap 13 (12-20); Blood Urea Nitrogen 44 mg/dL (9-16); Calcium 9.1 mg/dL (8.4-10.2); Carbon Dioxide 26 mmol/L (22-29); Chloride 114 mmol/L (96-108); Creatinine Clr Calc Pharmacy 40.2; Estimated Glomerular Filt Rate > 60; Glucose Random 70 mg/dL (60-115); Potassium 3.6 mmol/L (3.3-5.1); Sodium 149 mmol/L (135-145)
[2023-07-15] MEDS: vancomycin HCL 500 MG in 0.9 % Sodium Chloride 100 ML 110 MG IV ×2 (06:22→18:30)
--- NOTE | 2023-07-15 06:24 | HE.PHANOTE ---
re vanco trough was 11.4 after 2 doses. will keep current dosing regimen and get true trough after 2 more doses. Next level due 07/16 @0500 Fabio
[2023-07-15 08:00] VITALS: BP 145/75; PULSE 84; RESP 18; TEMP 36.5; O2SAT 98
[2023-07-15] MEDS: 0.9 % Sodium Chloride Flush 3 ML SYRINGE IVFLUSH (09:00)
[2023-07-15] MEDS: Dextrose 5 % 1,000 ML 125 ML IVCONT ×2 (09:00→16:44)
--- NOTE | 2023-07-15 11:19 | MHC.SLORD ---
Addendum entered and electronically signed by Carmela Israel MA, CCC-LPN CARE MANAGER 07/15/23 15:39: LPN CARE MANAGER attempted again this afternoon for bedside dysphagia evaluation. Pt sleeping and LPN CARE MANAGER was unable to wake pt. Per RN, pt has been minimally responsive past two days. Pt unable to participate in PO trials. Original Note: Speech Language Pathology Order Status: LPN CARE MANAGER visited pt this morning. Pt somnolent, lethargic, not appropriate for PO trials. Per MD, pt is still altered. LPN CARE MANAGER will try again later.
--- NOTE | 2023-07-15 11:46 | MHC.CM.PN ---
EMR REVIEWED AND PER MD ROUNDS PATIENT NOT MEDICALLY CLEARED FOR DC. NO ADDITIONAL LTC BED OFFERS AT THIS TIME. CM WILL CONTINUE TO FOLLOW.
[2023-07-15 15:12] LABS: Anion Gap 7 (12-20); Blood Urea Nitrogen 44 mg/dL (9-16); Calcium 8.7 mg/dL (8.4-10.2); Carbon Dioxide 30 mmol/L (22-29); Chloride 112 mmol/L (96-108); Creatinine Clr Calc Pharmacy 35.1; Estimated Glomerular Filt Rate > 60; Glucose Random 142 mg/dL (60-115); Potassium 3.4 mmol/L (3.3-5.1); Sodium 146 mmol/L (135-145)
--- NOTE | 2023-07-15 15:18 | P.PNIM_ITS ---
Subjective Subjective Date of Service: 07/15/23 Interval History: Seen and evaluated remains altered and poorly responding Not eating or drinking, Na of 149 On O2 supplement Review of Systems Review of Systems: Yes all other systems are reviewed and are negative Physical Exam 2 Vital Signs: Vital Signs: Last Vital Signs Temp 97.7 F 07/15/23 08:00 Pulse 84 07/15/23 08:00 Resp 18 07/15/23 08:00 BP 145/75 H 07/15/23 08:00 Pulse Ox 98 07/15/23 08:00 O2 Del Method Oxymask 07/15/23 08:00 O2 Flow Rate 4 07/15/23 08:00 BMI result Body Mass Index 15.1 Const: Other: Constitutional : altered, not in distress Neck : Normal inspection, Supple Cardiovascular : RRR, no JVP, no lower extremity edema Respiratory : decreased bilateral air entry, basal fine crackles, on O2 supplement Gastrointestinal: soft, lax, Normal bowel sounds, Non tender Skin : Warm, Dry Neurological : altered mentation, poorly responding, Moving extremities , GCS 9 Objective Data Active Medications Heparin Sodium (Porcine) (Heparin Sodium,Porcine 5,000 Unit/Ml Vial) 5,000 unit SUBCUT Q8H [facility] Last Admin: 07/15/23 12:32 Dose: 5,000 unit Documented By: ANDREW Piperacillin Sod/Tazobactam (Sod 3.375 gm/ Sodium Chloride) 50 mls @ 100 mls/hr IV Q6H [facility] Last Admin: 07/15/23 15:15 Dose: 100 mls/hr Documented By: ANDREW Vancomycin HCl 500 mg/ Sodium (Chloride) 110 mls @ 110 mls/hr IV Q12H [facility] Last Infusion: 07/15/23 07:33 Dose: Infused Documented By: ANDREW Dextrose (D5w) 1,000 mls @ 125 mls/hr IVCONT .Q8H [facility] Last Admin: 07/15/23 09:00 Dose: 125 mls/hr Documented By: ANDREW Levothyroxine Sodium (Levothyroxine Sodium 88 Mcg Tablet) 88 mcg PO DAILY@0600 [facility] Last Admin: 07/15/23 05:14 Dose: Not Given Documented By: MOLLY Non-Admin Reason: NPO Pharmacy Consult (Consult Rx Vancomycin Dosing) 1 each MISCELLANE DAILY PRN PRN Reason: Consult order Sodium Chloride (0.9 % Sodium Chloride Flush 3 Ml Syringe) 3 ml IVFLUSH QSHIFT TYRONE Last Admin: 07/15/23 15:15 Dose: Not Given Documented By: ANDREW Non-Admin Reason: IV Running Labs 07/15/23 04:45 07/15/23 14:36 Labs: Laboratory Results - last 24 hr 07/15/23 07/15/23 04:45 14:36 MCV 85.7 MCH 27.1 MCHC 31.6 RDW 17.2 H Plt Count 111 L MPV 11.1 Absolute Nucleated RBC 0.000 Nucleated RBC % (auto) 0.0 Anion Gap 13 7 L Estim Creat Clear Calc 40.2 35.1 Estimated GFR > 60 > 60 Random Glucose 70 142 H Calcium 9.1 8.7 Vancomycin Trough 11.4 Microbiology Microbiology Results: Microbiology 07/14/23 Unknown Urine Culture - Preliminary Urine Catheterized - Woodard Catheter Culture in progress. 07/13/23 17:15 Blood Culture - Preliminary Blood - Venous Gram negative russ 07/13/23 16:44 Blood Culture - Preliminary Blood - Venous No growth after 24 hours. Assessment and Plan (1) Hypothermia: Status: Acute (2) Altered mental status: Status: Acute (3) Urinary tract infection: Status: Acute (4) Acute metabolic encephalopathy: Status: Acute (5) Aspiration into airway: Status: Acute (6) Pneumonia: Status: Acute (7) Acute hypernatremia: Status: Acute Plan 87-year-old male with history of interstitial lung disease, hypothyroidism, hypertension, major neurocognitive disorder due to multiple etiologies with behavioral disturbance, dysphagia, recurrent UTIs presented with ams. sepsis and acute hypoxic respiratory failure and acute metabolic encephalopathy due to UTI and aspiration pneumonia Still altered mentation Pending cultures Continue vanc, zosyn Titrate O2 as tolerated acute hypernatremia Na of 149 from dehydration D5 125 ml\hr follow BMP dysphagia pureed, nectar thick when more alert, NPO now follow up BUSSER multifactorial dementia with behaviour disturbance hold mood stabilizers for encephalopathy hypothyroid synthroid htn bp meds on hold for hypotension moderate protein calorie malnutrition Client Support Manager to assess dvt prophylaxis - hep sq dnr/dni Patient will need overnight hospital stay for hypoxia, sepsis with expected poor prognosis for treatment with IV abx and O2 supplement Quality Stroke Does the patient have a stroke diagnosis?: No VTE Prior VTE?: No VTE Risk Level:: Medical - moderate - high VTE Device Contraindication: Treatment Not Indicated VTE Drug Contraindication: N/A - Med Ordered
[2023-07-15 15:49] VITALS: BP 130/58; PULSE 77; RESP 18; TEMP 36.4; O2SAT 94
[2023-07-15 15:52] VITALS: BMI 15.1
--- NOTE | 2023-07-15 16:03 | MHC.CLN ---
NUTRITION CURRENTLY NPO DUE TO HX ASPIRATION PNEUMONIA AND LETHARGY. CONSIDER SUPPLEMENT OF MAGIC CUP IF ABLE TO TAKE PO. QUALIFIES MODERATE MALNUTRITION IN THE CONTEXT OF CHRONIC ILLNESS. MODERATE DEPLETION OF BODY FAT AND MUSCLE MASS NOTED. SKIN WITH REDNESS TO BILATERAL BUTTOCKS. FOLLOW FOR DIET ADVANCEMENT AND MONITOR SKIN INTEGRITY. SEE CLINICAL NUTRITION ASSESSMENT 07/15/23.
--- NOTE | 2023-07-15 19:48 | PM.EVENT ---
Event Note Date of Service: 07/15/23 Event Note: Called to pronounce patient who has . Patient found in bed Unresponsive to both verbal and painful stimuli No breath sounds auscultated No heart sounds auscultated Pupils dilated and unreactive to direct light Patient pronounced at 2145 PM Patients INDIGOSaurav Rachel Spann called at 2150 and informed of his demise No autospy requested Time Spent With Patient Time: Total time managing care of this patient today __30__ minutes.
--- NOTE | 2023-07-16 07:41 | PM.DS ---
DS: Providers Provider Date of Service: 07/15/23 Date of admission: 07/13/23 21:08 Primary care physician: Srinivasan Smith MD DS: Diagnosis Discharge Diagnosis (1) Hypothermia: Status: Acute (2) Altered mental status: Status: Acute (3) Urinary tract infection: Status: Acute (4) Acute metabolic encephalopathy: Status: Acute (5) Aspiration into airway: Status: Acute (6) Pneumonia: Status: Acute (7) Acute hypernatremia: Status: Acute DS: Summary Hospital Course Hospital Course: Admission note HPI 87-year-old male with history of interstitial lung disease, hypothyroidism, hypertension, major neurocognitive disorder due to multiple etiologies with behavioral disturbance, dysphagia, recurrent UTIs presented with ams. gemma was recently discharged from [facility] [place] 06/29/23 after admission for aspiratoin pneumonia and UTI, discharged to senior care. now presenting with increasing lethargy over past 4 days, increased cough. brought to ED. in ED found to be hypothermic, hyoptensive, positive UA, hypoxic. bp improved with hydration, given vanc, zosyn, 30cc/kg, bp improved, became more alert. Hospital course The patient was admitted for treatment of sepsis and acute hypoxic respiratory failure and acute metabolic encephalopathy due to UTI and aspiration pneumonia as blood cultures was growing GNR. treated with broad spectrum antibiotics of Zosyn and Vancomycin pending final cultures as O2 supplement was titrated. Noted to be in altered mentation which was contributed to the bacteremia along with acute hypernatremia from decreased oral intake that was treated with IVF and started to trend down upon repeat. The patient at 1945 07/15/2023. Time Attestation Discharge coordination time: Greater than 30 minutes Quality: Safe Use of Opioids Does Pt have an Active Cancer Diagnosis on the Problem List?: No Quality: Stroke Does the patient have a stroke diagnosis?: No Physical Exam Vital Signs: Vital Signs: Last Vital Signs Temp 97.5 F 07/15/23 15:49 Pulse 77 07/15/23 15:49 Resp 18 07/15/23 15:49 BP 130/58 L 07/15/23 15:49 Pulse Ox 94 07/15/23 15:49 O2 Del Method Oxymask 07/15/23 15:49 O2 Flow Rate 4.0 07/15/23 15:49 BMI result Body Mass Index 15.1 Const: Other: DS: Data Data Completed and Pending Labs on day of discharge: Laboratory Results - last 24 hr 07/15/23 14:36 Sodium 146 H Potassium 3.4 Chloride 112 H Carbon Dioxide 30 H Anion Gap 7 L BUN 44 H Creatinine 0.87 Estim Creat Clear Calc 35.1 Estimated GFR > 60 Random Glucose 142 H Calcium 8.7 Preliminary micro results at discharge 07/13/23 16:44 Blood Culture - Preliminary Blood - Venous No growth after 48 hours. 07/14/23 Unknown Urine Culture - Preliminary Urine Catheterized - Woodard Catheter Culture in progress. 07/13/23 17:15 Blood Culture - Preliminary Blood - Venous Gram negative russ Imaging Chest x-ray: Radiologist's impression: ITS Impressions Head CT 07/13/23 15:54 IMPRESSION: 1. No evidence of acute intracranial hemorrhage or edematous territorial infarction. 2. Mild underlying microangiopathy and generalized cerebral volume loss. This critical result was discussed with Alden Alvarez MD at 16:15 on 07/13/2023 and it was ascertained that the content and urgency of the report was understood at the time of direct communication. Head/Neck CTA 07/13/23 16:31 IMPRESSION: 1. No evidence of acute intracranial hemorrhage or edematous territorial infarction. Mild underlying microangiopathy and generalized cerebral volume loss. 2. CTA of the head and neck without proximal occlusion. 3. 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 4. 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 Atherosclerotic disease and a prominent bend in the proximal left subclavian artery leads to 50% stenosis. 5. Moderate to advanced multilevel degenerative spondyloarthropathy of the cervical spine. There appears to be at least moderate spinal canal stenosis from C3-C6. This critical result was discussed with Alden Alvarez MD at 16:15 on 07/13/2023 and it was ascertained that the content and urgency of the report was understood at the time of direct communication. Chest X-Ray 07/13/23 18:11 IMPRESSION: Bilateral bronchial wall thickening, right greater than left. This does not appear appreciably changed from previous chest x-ray 06/27/2023. Chest X-Ray 07/13/23 21:28 IMPRESSION: Increasing right volume loss, right pleural effusion and airspace disease at the right lung base compared to x-ray from earlier the same day. Discharge Plan Discharge Date/Time: 07/15/23 19:45 Patient Disposition: Discharge Diagnosis: GNR Bacteremia Referrals: Srinivasan Smith MD [Primary Care Provider] - 1 Week Discharge Medications: No Action lisinopril 20 mg Tablet 20 mg PO DAILY Qty: 0 0RF Protocol: Hold for SBP< HOLD for SBP < : 90 amlodipine 2.5 mg Tablet 2.5 mg PO BEDTIME Qty: 0 0RF Protocol: Hold for SBP< HOLD for SBP < : 90 levothyroxine 88 mcg Tablet 88 mcg PO DAILY@0600 Qty: 0 0RF memantine 5 mg Tablet 5 mg PO DAILY Qty: 0 0RF quetiapine 50 mg Tablet 50 mg PO BEDTIME Qty: 0 0RF nystatin 100,000 unit/mL Suspension 5 ml BUCCAL QID trazodone 50 mg tablet 50 mg PO BEDTIME PRN (Reason: Insomnia) Rx Instructions: [id number] Discharge Date/Time: 07/15/23 19:45
== END 2023-07-15 19:45 | disposition expired | DRG 871 ==
LOC: HO.ED 21:12 → HO.EDOVER 21:19 → HO.S3 23:29
PROVIDERS: Admitting Provider Internal Medicine; Emergency Provider Emergency Medicine; PCP Family Medicine; Visit Provider Student in an Organized Health Care Education/Training Program
DX: A41.9 Sepsis, unspecified organism (principal); G93.41 Metabolic encephalopathy; J69.0 Pneumonitis due to inhalation of food and vomit; J96.01 Acute respiratory failure with hypoxia; N39.0 Urinary tract infection, site not specified; E44.0 Moderate protein-calorie malnutrition; Z68.1 Body mass index [BMI] 19.9 or less, adult; F03.918 Unspecified dementia, unspecified severity, with other behavioral disturbance; E87.0 Hyperosmolality and hypernatremia; R13.10 Dysphagia, unspecified; E86.0 Dehydration; Z66 Do not resuscitate; E03.9 Hypothyroidism, unspecified; Z20.822 Contact with and (suspected) exposure to COVID-19; Z87.891 Personal history of nicotine dependence; Z79.899 Other long term (current) drug therapy
CPT/HCPCS: 0241U; 36415; 70450; 70496; 70498; 71045; 80048; 80076; 80202; 80307; 81001; 82803; 83605; 83735; 83880; 84484; 85007; 85027; 85384; 85610; 85730; 86140; 87040; 87077; 87086; 87088; 87186; 87205; 93005; 94640; 99285; C1758; J1644; J2310; J2543; J3370; J7120; Q9967

== ENCOUNTER → 2023-07-13 21:08 | Outpatient (BNV) | payer MEDICARE, MEDICAID, SELFPAY | PROVIDERS: Admitting Provider Internal Medicine; Emergency Provider Emergency Medicine; PCP Family Medicine; Visit Provider Internal Medicine | DX: T68.XXXA Hypothermia, initial encounter (principal); J69.0 Pneumonitis due to inhalation of food and vomit; G93.41 Metabolic encephalopathy; N39.0 Urinary tract infection, site not specified; R41.82 Altered mental status, unspecified; T17.908A Unspecified foreign body in respiratory tract, part unspecified causing other injury, initial encounter; E87.0 Hyperosmolality and hypernatremia | CPT/HCPCS: 99223; 99233; 99238; 99239; 99499 ==